=== PATIENT | female | born 1930 | race Caucasian/White ===

== ENCOUNTER 2016-05-20 16:29 | Emergency (ER) | payer OTHER ==
[~2016-05-20] VITALS: Wt 74.6 kg
[~2016-05-20 16:29] MED LIST: APIX5TAB PO; BENA5TAB2 PO; CHOL400T10 PO; DICY10CA60 PO; DIGO125T PO; FEBU40TA PO; FURO20TA3 PO; ISOS20TA19 PO; METO100T13 PO; MTF1000T PO; NIT4 SL; OLOP2.5D BOTH EYES; OMEG1CAP2 PO; OMEP40CA6 PO
[2016-05-20] MEDS ORDERED: ONDANSETRON 4 MG INJ IV STA (23:13)
[2016-05-20] MEDS ORDERED: morphine 2 MG INJ IV STA (23:13)
[2016-05-20] MEDS ORDERED: SOD CHLORIDE 0.9% 500 ML IV STA (23:13)
[2016-05-20 23:49] LABS: URINE BILIRUBIN (Dip) NEGATIVE (NEGATIVE); URINE BLOOD (Dip) NEGATIVE (NEGATIVE); URINE COLOR LT. YELLOW (YELLOW); URINE GLUCOSE (Dip) NEGATIVE (NEGATIVE); URINE KETONES (Dip) NEGATIVE (NEGATIVE); URINE LEUKOCYTE ESTERASE (Dip) NEGATIVE (NEGATIVE); URINE NITRITE (Dip) NEGATIVE (NEGATIVE); URINE UROBILINOGEN (Dip) 0.2 E.U./dL (0.1-1.0)
[2016-05-20 23:49] LABS: BASOPHILS % 0.5 % (0.0-2.0); EOSINOPHILS # 0.2 10^3/ul (0.0-0.5); EOSINOPHILS % 2.5 % (0.0-7.0); HEMOGLOBIN 14.2 g/dl (12.0-16.0); LYMPHOCYTES # 2.6 10^3/ul (0.8-2.9); LYMPHOCYTES % 36.8 % (15.0-51.0); MEAN CORPUSCULAR HEMOGLOBIN 34.1 pg (29.0-33.0); MEAN CORPUSCULAR HGB CONC 33.9 g/dl (32.0-37.0); MEAN CORPUSCULAR VOLUME 100.8 fl (82.0-101.0); MEAN PLATELET VOLUME 9.6 fl (7.4-10.4); MONOCYTE # 0.7 10^3/ul (0.3-0.9); MONOCYTES % 10.3 % (0.0-11.0); NEUTROPHIL # 3.5 10^3/ul (1.6-7.5); NEUTROPHILS % 49.9 % (39.0-77.0); PLATELET COUNT 183 10^3/UL (140-440); RED BLOOD COUNT 4.17 10^6/ul (4.20-5.40); RED CELL DISTRIBUTION WIDTH 15.4 % (11.5-14.5); UNCORRECTED WBC 7.1 10^3/ul (4.8-10.8); WHITE BLOOD COUNT 7.1 10^3/ul (4.8-10.8)
[2016-05-20 23:52] LABS: ADD UMIC NO; URINE TOTAL PROTEIN (Dip) NEGATIVE (NEGATIVE)
[2016-05-20 23:54] LABS: ALBUMIN 4.3 g/dl (3.3-4.9); POTASSIUM 5.4 mmol/L (3.5-5.1)
[2016-05-20 23:56] LABS: BILIRUBIN,INDIRECT 0.2 mg/dl (0-1.1); BILIRUBIN,TOTAL 0.2 mg/dl (0.2-1.3); CREATININE 1.17 mg/dl (0.44-1.00)
[2016-05-20 23:57] LABS: ALBUMIN/GLOBULIN RATIO 1.16; CALCIUM 9.1 mg/dl (8.4-10.2)
[2016-05-20 23:58] LABS: CONDITION 1; LH ANALYZER COMMENTS 1
--- NOTE | 2016-05-21 00:07 | RADRPT ---
PROCEDURE: Portable chest x-ray. CLINICAL INDICATION: Abdominal pain. TECHNIQUE: Portable AP view of the chest. COMPARISON: 01/17/2016. FINDINGS: No pulmonary edema or conolidation is identified. The cardiac silhouette is large. No pleural effu minnie is seen. There is no pneumothorax. There is no pneumoperitoneum. IMPRESSION: 1. No evidence of acute cardiopulmonary disease. 2. Enlarged cardiac silhouette. 3. No pneumoperitoneum. RPTAT: HTAR .Eriberto Weiss MD, MD Date Time Electronically viewed and signed by .Eriberto Weiss MD, on 05/21/2016 00:07 .R/
[2016-05-21 00:09] LABS: TROPONIN-I 0.014 ng/ml (0.00-0.12)
--- NOTE | 2016-05-21 00:42 | RADRPT ---
PROCEDURE: CT Abdomen and Pelvis without contrast. CLINICAL INDICATION: Abdominal pain TECHNIQUE: CT scan of the abdomen and pelvis without contrast was performed on a multidetector hig h-resolution CT scanner. The patient was scanned without intravenous contrast. No oral contrast was administered. Coronal and sagittal reformatted images were obtained from the axial source images. Im ages were reviewed on a high-resolution PACS workstation. The total exam CTDI equals 19.12 mGy and the total exam DLP equals 1094.58 mGy-cm. One or more of the following dose reduction techniques were used: - Automated exposure control. - Adjustment of the mA and/or kV according to patient size. - Use of iterative reconstruction technique. COMPARISON: None. FINDINGS: Lungs: Mild dependent atelectasis is seen in the posterior lower lungs. Linear atelectasis/fibrosis is seen at the lung bases. Coronary artery calcification. Trace pleural effusions. Hypoventilator y/small airways changes again seen at lung bases. Liver: Cirrhosis again seen. Rounded fluid density structures likely cysts are again seen the liver the largest 1.3 cm in the right lobe anterior segment. No imaging follow-up of these is recommended . Gallbladder: Cholecystectomy. Spleen: No abnormality seen. Stomach: The stomach is not distended. Pancreas: Atrophic changes are again seen in the pancreas. Adrenals: No abnormality seen. Kidneys: Bilateral nonspecific perinephric stranding and small amount of right perinephric fluid is again seen. Abdominal aorta: No aneurysm seen. Atherosclerotic calcification is seen. Calcification in proxima l left renal artery. Lymph nodes: No enlarged lymph nodes are seen. Small bowel: No dilated small bowel loops are seen. Colon: Diverticula in sigmoid, transverse and ascending colon. Appendix: There is appearance of an unremarkable appendix. Bladder: No abnormality seen Pelvic organs: Vascular calcifications in the uterus. Ascites: Small amount of ascites increased compared to previous study. Osseous structures: Lumbar spondylosis. Degenerative changes at sacroiliac joints and hips. Small scattered likely bone islands again seen. Calcified likely injection granulomas in the gluteal kj ons again seen. Subcutaneous edema again seen. IMPRESSION: Trace pleural effusions appearing since previous study. Hepatic cirrhosis again seen. Small amount o f ascites increased compared to previous study. Colonic diverticulosis. Atherosclerosis. Small dorina unt of nonspecific right perinephric fluid again seen. Please see above. RPTAT: HJES .Bryson Rangel MD, MD Date Time Electronically viewed and signed by .Bryson Rangel MD, on 05/21/2016 00:42 .S/
[2016-05-21 01:10] VITALS: TEMP 98.2
--- NOTE | 2016-05-21 01:33 | ERD ---
ER Documentation Chief Complaint Date/Time DATE: 05/21/16 TIME: 01:32 Chief Complaint ABDOMINAL PAIN FOR THE PAST 3 DAYS CAUSING SOB. NO COUGH OR CONGESTION HPI This is an 85-year-old female has abdominal pain for the past 3 days. Pain is mild to moderate intensity. Diffusely located in her abdomen. No fevers or chills. No cough. No diarrhea. Normal bowel habits. No other current issues. ROS All systems reviewed and are negative except as per history of present illness. Medications Home Meds Active Scripts Apixaban* (Eliquis*) 5 Mg Tablet, 5 MG PO BID for 30 Days, #60 TAB Prov:ELMIRAGARRETT S. 01/23/16 Nitroglycerin* (Nitrostat*) 0.4 Mg Tab.subl, 1 TAB SL Q5M Y for CHEST PAIN for 30 Days, #15 Prov:ELMIRAGARRETT S. 01/23/16 Isosorbide Dinitrate* (Isosorbide Dinitrate*) 20 Mg Tablet, 20 MG PO TID for 30 Days, #30 TAB 3 Refills Prov:ARIADNAGARRETT S. 01/23/16 Digoxin* (Digitek*) 125 Mcg Tablet, 0.125 MG PO DAILY@13 for 30 Days, #30 TAB 3 Refills Prov:ELMIRAGARRETT S. 01/23/16 Benazepril Hcl* (Benazepril Hcl*) 5 Mg Tablet, 5 MG PO DAILY for 30 Days, #30 TAB 3 Refills Prov:GENEVA KUEEP S. 01/23/16 Reported Medications Olopatadine* (Pataday*) 0.2% - 2.5 Ml Drops, 1 DROP BOTH EYES DAILY, EA 01/17/16 Febuxostat* (Uloric*) 40 Mg Tablet, 40 MG PO DAILY, TAB 01/17/16 Omeprazole* (Omeprazole*) 40 Mg Capsule.dr, 40 MG PO DAILY, #30 CAP 01/17/16 Dicyclomine Hcl* (Bentyl*) 10 Mg Capsule, 10 MG PO TID, CAP 01/17/16 Cholecalciferol* (Vitamin D*) 400 Unit Tablet, 400 UNIT PO DAILY, TAB 10/17/15 Metformin* (Glucophage*) 1,000 Mg Tablet, 1000 MG PO BID, #60 TAB 10/17/15 Metoprolol Succinate* (Toprol XL*) 100 Mg Tab.sr.24h, 100 MG PO DAILY, #30 TAB 10/17/15 [place]-3 Acid Ethyl Esters (Lovaza) 1 Gm Capsule, 1 GM PO DAILY, CAP 10/17/15 Furosemide* (Furosemide*) 20 Mg Tablet, 20 MG PO DAILY, #30 TAB 10/17/15 Allergies Allergies: Coded Allergies: No Known Allergies (Verified Allergy, Unknown, 01/17/16) PMhx/Soc History of Surgery: Yes (cholecystectomy) Anesthesia Reaction: No Hx Neurological Disorder: No Hx Respiratory Disorders: No Hx Cardiac Disorders: Yes (htn, high cholesterol) Hx Psychiatric Problems: No Hx Miscellaneous Medical Probl: Yes (see notes) Hx Alcohol Use: No Hx Substance Use: No Hx Tobacco Use: No Smoking Status: Never smoker Physical Exam Vitals Vital Signs Date Time Temp Pulse Resp B/P Pulse Ox O2 Delivery O2 Flow Rate FiO2 05/21/16 01:10 98.2 95 16 111/83 98 Room Air 05/20/16 23:23 108 16 121/94 98 Nasal Cannula 2.0 05/20/16 17:00 98.8 102 24 112/69 98 Physical Exam Const: [] Head: Atraumatic Eyes: Normal Conjunctiva ENT: Normal External Ears, Nose and Mouth. Neck: Full range of motion..~ No meningismus. Resp: Clear to auscultation bilaterally Cardio: Regular rate and rhythm, no murmurs Abd: Soft, non tender, non distended. Normal bowel sounds Skin: No petechiae or rashes Back: No midline or flank tenderness Ext: No cyanosis, or edema Neur: Awake and alert Psych: Normal Mood and Affect Result Diagram: 05/20/16231405/20/162314 Results 24 hrs Laboratory Tests Test 05/20/16 23:15 05/20/16 23:30 Alanine Aminotransferase (ALT/SGPT) 47IU/L Albumin 4.3g/dl Albumin/Globulin Ratio 1.16 Alkaline Phosphatase 142IU/L Anion Gap 21 Aspartate Amino Transf (AST/SGOT) 72IU/L Basophils # 0.010^3/ul Basophils % 0.5% Blood Morphology Comment Blood Urea Nitrogen 19mg/dl Calcium Level 9.1mg/dl Carbon Dioxide Level 27mmol/L Chloride Level 102mmol/L Creatinine 1.17mg/dl Direct Bilirubin 0.00mg/dl Eosinophils # 0.210^3/ul Eosinophils % 2.5% Globulin 3.70g/dl Glucose Level 87mg/dl Hematocrit 42.0% Hemoglobin 14.2g/dl Indirect Bilirubin 0.2mg/dl Lipase 187U/L Lymphocytes # 2.610^3/ul Lymphocytes % 36.8% Mean Corpuscular Hemoglobin 34.1pg Mean Corpuscular Hemoglobin Concent 33.9g/dl Mean Corpuscular Volume 100.8fl Mean Platelet Volume 9.6fl Monocytes # 0.710^3/ul Monocytes % 10.3% Neutrophils # 3.510^3/ul Neutrophils % 49.9% Nucleated Red Blood Cells # 0.010^3/ul Nucleated Red Blood Cells % 0.0/100WBC Platelet Count 14280^3/UL Potassium Level 5.4mmol/L Red Blood Count 4.1710^6/ul Red Cell Distribution Width 15.4% Sodium Level 145mmol/L Total Bilirubin 0.2mg/dl Total Protein 8.0g/dl Troponin I 0.014ng/ml White Blood Count 7.110^3/ul Urine Bilirubin NEGATIVE Urine Clarity CLEAR Urine Color LT. YELLOW Urine Glucose NEGATIVE% Urine Hemoglobin NEGATIVE Urine Ketones NEGATIVE Urine Leukocyte Esterase NEGATIVE Urine Nitrite NEGATIVE Urine Specific [place] 1.015 Urine Total Protein NEGATIVE Urine Urobilinogen 0.2 E.U./dL Urine pH 6.0 Current Medications Medications (Trade) Dose Ordered Sig/Claudia Route PRN Reason Start Time Stop Time Status Last Admin Dose Admin Sodium Chloride (NS) 500 ml @ 500 mls/hr Q1H STAT IV 05/20/16 23:13 05/21/16 00:12 DC 05/20/16 23:33 Morphine Sulfate (morphine) 2 mg ONCE STAT IV 05/20/16 23:13 05/20/16 23:15 DC 05/20/16 23:34 Ondansetron HCl (Zofran Inj) 4 mg ONCE STAT IV 05/20/16 23:13 05/20/16 23:15 DC 05/20/16 23:34 Procedures/MDM EKG: Rate/Rhythm: Normal Sinus Rhythm QRS, ST, T-waves: No changes consistent w/ acute ischemia Impression: No evidence of ischemia or arrhythmia Chest X-ray 1V Interpreted by me: Soft Tissue: No acute abnormalities Bones: No acute abnormalities Mediastinum/Cardiac Silhouette/Lungs: No acute abnormalities Medical decision makin-year-old female with abdominal pain of nonspecific and uncertain etiology. Workup is negative here in the emergency department. At this point pain is resolved eventually discharged home with close 8 hour follow-up. Discharge home pain meds and Zofran. CT of abdomen pelvis showed no acute intra-abdominal pathology. Pain is likely related to patient's history of cirrhosis as there is mild ascites noted on exam Departure Diagnosis: Primary Impression: Abdominal pain Abdominal location: generalized Qualified Code: R10.84 - Generalized abdominal pain Condition: Stable SAMANTHA VILA May 21, 2016 01:33
[2016-05-21] MEDS ORDERED: TRAM50TA2 PO (01:44)
[2016-05-21 03:10] VITALS: BP 135/83; PULSE 93; RESP 18
== END 2016-05-21 03:10 | disposition home or self-care (01) ==
LOC: E/R 16:29
DX: R10.84 Generalized abdominal pain (principal); I10 Essential (primary) hypertension; E11.9 Type 2 diabetes mellitus without complications; Z79.84 Long term (current) use of oral hypoglycemic drugs; Z79.01 Long term (current) use of anticoagulants
CPT/HCPCS: 36415; 71010; 74176; 80053; 81003; 83690; 84484; 85025; 93005; 96374; 96375; 99285; J2270; J2405; J7040

== ENCOUNTER 2016-06-07 18:46 | Inpatient (IN) | payer OTHER ==
[~2016-06-07] VITALS: Ht 152.4 cm; Wt 81.4 kg
[~2016-06-07 18:46] MED LIST changes: +TRAM50TA2 PO
[2016-06-07] MEDS ORDERED: SOD CHLORIDE 0.9% 1,000 ML IV STA (20:40)
[2016-06-07 20:56] LABS: ADD SCAN DIFF NO
[2016-06-07 20:57] LABS: BASOPHIL # 0.1 10^3/ul (0.0-0.1); BASOPHILS % 1.1 % (0.0-2.0); EOSINOPHILS # 0.1 10^3/ul (0.0-0.5); EOSINOPHILS % 0.8 % (0.0-7.0); HEMATOCRIT 40.6 % (37.0-47.0); HEMOGLOBIN 13.6 g/dl (12.0-16.0); LYMPHOCYTES # 1.7 10^3/ul (0.8-2.9); LYMPHOCYTES % 26.4 % (15.0-51.0); MEAN CORPUSCULAR HEMOGLOBIN 33.4 pg (29.0-33.0); MEAN CORPUSCULAR HGB CONC 33.5 g/dl (32.0-37.0); MEAN CORPUSCULAR VOLUME 99.8 fl (82.0-101.0); MEAN PLATELET VOLUME 11.7 fl (7.4-10.4); MONOCYTE # 0.6 10^3/ul (0.3-0.9); MONOCYTES % 9.1 % (0.0-11.0); NEUTROPHILS % 62.3 % (39.0-77.0); PLATELET COUNT 187 10^3/UL (140-415); RED BLOOD COUNT 4.07 10^6/ul (4.20-5.40); RED CELL DISTRIBUTION WIDTH 14.4 % (11.5-14.5); WHITE BLOOD COUNT 6.4 10^3/ul (4.8-10.8)
[2016-06-07] MEDS ORDERED: DILTIAZEM-D5W 125MG/125ML DRIP 125 ML IV SCH (21:00)
[2016-06-07] MEDS ORDERED: DILTIAZEM 25 MG INJ IV ONE (21:00)
[2016-06-07 21:08] LABS: INR 1.62; PROTIME 19.4 Sec (12.2-14.2); PT RATIO 1.5
[2016-06-07 21:09] LABS: ALBUMIN 4.1 g/dl (3.3-4.9); PARTIAL THROMBOPLASTIN TIME 33.4 Sec (25.0-35.0)
[2016-06-07 21:11] LABS: CREATININE 1.08 mg/dl (0.44-1.00)
[2016-06-07 21:12] LABS: BILIRUBIN,INDIRECT 0.7 mg/dl (0-1.1); BILIRUBIN,TOTAL 0.7 mg/dl (0.2-1.3); CALCIUM 9.2 mg/dl (8.4-10.2); TOTAL PROTEIN 7.3 g/dl (6.1-8.1)
--- NOTE | 2016-06-07 21:12 | RADRPT ---
PROCEDURE: XR Chest. CLINICAL INDICATION: Chest Pain. TECHNIQUE: Single frontal view of the chest was obtained. COMPARISON: 05/20/2016 FINDINGS: The cardiomediastinal silhouette is moderately enlarged. Pulmonary vasculature is prominent and mil dly indistinct. There is atelectatic change in the right upper and lower mid lung. There are small bilateral pleural effusions and bibasilar atelectasis. There is no pneumothorax. There is mild ao rtic calcification. There is absence of the distal right clavicle, likely postoperative. IMPRESSION: 1. Moderate cardiomegaly. Mild pulmonary edema. 2. Small bilateral pleural effusions. Atelectatic changes. 3. Mild aortic calcification. RPTAT: HBST .Ariel Johnson MD, Date Time Electronically viewed and signed by .Ariel Johnson MD, on 06/07/2016 21:12 .T/
[2016-06-07 21:13] LABS: ALBUMIN/GLOBULIN RATIO 1.28; POTASSIUM 5.3 mmol/L (3.5-5.1)
[2016-06-07] MEDS ORDERED: ALLO100T PO (21:22)
[2016-06-07] MEDS ORDERED: ASPI-664 PO (21:23)
[2016-06-07] MEDS ORDERED: TAMS0.4C2 PO (21:23)
[2016-06-07] MEDS ORDERED: IBUP800T25 PO (21:23)
--- NOTE | 2016-06-07 21:23 | ERA ---
ER Documentation Chief Complaint Date/Time DATE: 06/07/16 TIME: 21:21 Chief Complaint abd pain x 3 weeks HPI Patient is an 85-year-old female who reports chest pain off and on for the last 3 weeks. She states the last 3 days her heart rate has been rapid. She says with the palpitations that she is short of breath and feels lightheaded however she has not passed out. She denies any fever, coughing, chest congestion, rhinorrhea, sore throat, otalgia, nausea, or vomiting. She says she had a similar episode 2 years ago for which she was hospitalized in [place] however she cannot tell me what was done for her or what her diagnosis was. She says she does have diabetes and hypertension and she only takes an aspirin for her heart. She says exertion makes her symptoms worse and rest helps a little bit. The remainder of the systems are negative. ROS All systems reviewed and are negative except as per history of present illness. Medications Home Meds Reported Medications Glipizide* (Glipizide*) 5 Mg Tablet, 5 MG PO AC BREAKFAST DINNER, TAB 06/07/16 Folic Acid* (Folic Acid*) 1 Mg Tablet, 1 MG PO DAILY, TAB 06/07/16 Tamsulosin Hcl* (Tamsulosin Hcl*) 0.4 Mg Cap.er.24h, 0.4 MG PO DAILY, CAP 06/07/16 Aspirin* (Aspirin* EC) 81 Mg Tablet.dr, 81 MG PO DAILY, TAB 06/07/16 Ibuprofen* (Ibuprofen*) 800 Mg Tablet, 800 MG PO DAILY Y for PRN, TAB 06/07/16 Allopurinol* (Allopurinol*) 100 Mg Tablet, 100 MG PO DAILY, TAB 06/07/16 Febuxostat* (Uloric*) 40 Mg Tablet, 40 MG PO DAILY, TAB 01/17/16 Omeprazole* (Omeprazole*) 40 Mg Capsule.dr, 40 MG PO DAILY, #30 CAP 01/17/16 Cholecalciferol* (Vitamin D*) 400 Unit Tablet, 400 UNIT PO DAILY, TAB 10/17/15 Metformin* (Glucophage*) 1,000 Mg Tablet, 1000 MG PO BID, #60 TAB 10/17/15 [employer] Acid Ethyl Esters (Lovaza) 1 Gm Capsule, 1 GM PO DAILY, CAP 10/17/15 Furosemide* (Furosemide*) 20 Mg Tablet, 20 MG PO DAILY, #30 TAB 10/17/15 Discontinued Reported Medications Olopatadine* (Pataday*) 0.2% - 2.5 Ml Drops, 1 DROP BOTH EYES DAILY, EA 01/17/16 Dicyclomine Hcl* (Bentyl*) 10 Mg Capsule, 10 MG PO TID, CAP 01/17/16 Metoprolol Succinate* (Toprol XL*) 100 Mg Tab.sr.24h, 100 MG PO DAILY, #30 TAB 10/17/15 Discontinued Scripts Tramadol HCl (Tramadol HCl) 50 Mg Tablet, 50 MG PO Q4 Y for PAIN, #20 TAB Prov:SEBASTIANKENNYSAMANTHA S. 05/21/16 Apixaban* (Eliquis*) 5 Mg Tablet, 5 MG PO BID for 30 Days, #60 TAB Prov:ELMIRAGARRETT S. 01/23/16 Nitroglycerin* (Nitrostat*) 0.4 Mg Tab.subl, 1 TAB SL Q5M Y for CHEST PAIN for 30 Days, #15 Prov:GARRETT KU S. 01/23/16 Isosorbide Dinitrate* (Isosorbide Dinitrate*) 20 Mg Tablet, 20 MG PO TID for 30 Days, #30 TAB 3 Refills Prov:ELMIRAGARRETT S. 01/23/16 Digoxin* (Digitek*) 125 Mcg Tablet, 0.125 MG PO DAILY@13 for 30 Days, #30 TAB 3 Refills Prov:ELMIRAGARRETT S. 01/23/16 Benazepril Hcl* (Benazepril Hcl*) 5 Mg Tablet, 5 MG PO DAILY for 30 Days, #30 TAB 3 Refills Prov:ELMIRAGARRETT S. 01/23/16 Allergies Allergies: Coded Allergies: No Known Allergies (Verified Allergy, Unknown, 06/07/16) PMhx/Soc History of Surgery: Yes (cholecystectomy) Anesthesia Reaction: No Hx Neurological Disorder: No Hx Respiratory Disorders: No Hx Cardiac Disorders: Yes (htn, high cholesterol) Hx Psychiatric Problems: No Hx Miscellaneous Medical Probl: Yes (DM) Hx Alcohol Use: Yes Hx Substance Use: No Hx Tobacco Use: No Smoking Status: Former smoker FmHx Family History: coronary disease, diabetes Physical Exam Vitals Vital Signs Date Time Temp Pulse Resp B/P Pulse Ox O2 Delivery O2 Flow Rate FiO2 06/07/16 20:58 Nasal Cannula 2 06/07/16 19:18 98.6 138 20 132/93 97 Physical Exam Const: [] Well-developed well-nourished female sitting on the bed in obvious discomfort Head: Atraumatic normocephalic Eyes: Normal Conjunctiva ENT: Normal External Ears, Nose and Mouth. Neck: Full range of motion..~ No meningismus. Resp: Clear to auscultation bilaterally Cardio: Tachycardic and irregular Abd: Soft, non tender, non distended. Normal bowel sounds Skin: No petechiae or rashes Back: No midline or flank tenderness Ext: No cyanosis, or edema Neur: Awake and alert oriented 3 with a GCS 15 Psych: Normal Mood and Affect Result Diagram: 06/07/16202206/07/162022 Results 24 hrs Laboratory Tests Test 06/07/16 20:23 Activated Partial Thromboplast Time 33.4Sec Alanine Aminotransferase (ALT/SGPT) 59IU/L Albumin 4.1g/dl Albumin/Globulin Ratio 1.28 Alkaline Phosphatase 139IU/L Anion Gap 22 Aspartate Amino Transf (AST/SGOT) 100IU/L Basophils # 0.110^3/ul Basophils % 1.1% Blood Urea Nitrogen 25mg/dl Calcium Level 9.2mg/dl Carbon Dioxide Level 25mmol/L Chloride Level 97mmol/L Creatinine 1.08mg/dl Direct Bilirubin 0.00mg/dl Eosinophils # 0.110^3/ul Eosinophils % 0.8% Globulin 3.20g/dl Glucose Level 144mg/dl Hematocrit 40.6% Hemoglobin 13.6g/dl INR International Normalized Ratio 1.62 Indirect Bilirubin 0.7mg/dl Lymphocytes # 1.710^3/ul Lymphocytes % 26.4% Mean Corpuscular Hemoglobin 33.4pg Mean Corpuscular Hemoglobin Concent 33.5g/dl Mean Corpuscular Volume 99.8fl Mean Platelet Volume 11.7fl Monocytes # 0.610^3/ul Monocytes % 9.1% Neutrophils # 4.010^3/ul Neutrophils % 62.3% Nucleated Red Blood Cells # 0.010^3/ul Nucleated Red Blood Cells % 0.0/100WBC Platelet Count 21335^3/UL Potassium Level 5.3mmol/L Prothrombin Time 19.4Sec Prothrombin Time Ratio 1.5 Red Blood Count 4.0710^6/ul Red Cell Distribution Width 14.4% Sodium Level 139mmol/L Total Bilirubin 0.7mg/dl Total Protein 7.3g/dl Troponin I 0.025ng/ml White Blood Count 6.410^3/ul Current Medications Medications (Trade) Dose Ordered Sig/Claudia Route PRN Reason Start Time Stop Time Status Last Admin Dose Admin Sodium Chloride 1,000 ml @ 1,000 mls/hr Q1H STAT IV 06/07/16 20:40 06/07/16 21:39 DC 06/07/16 20:52 Diltiazem HCl (Cardizem-D5W 125 Mg/125 ml Drip) 125 ml @ 5 mls/hr TITRATE IV 06/07/16 21:00 06/07/16 21:09 Diltiazem HCl (Cardizem Iv) 20 mg ONCE ONCE IV 06/07/16 21:00 06/07/16 21:01 DC 06/07/16 20:57 Procedures/MDM Differential includes but is not limited to atrial fibrillation with RVR, SVT, cardiac arrhythmia, pulmonary embolus, myocardial ischemia EKG: Rate/Rhythm: Atrial fibrillation with rapid ventricular response of approximately 150 bpm QRS, ST, T-waves: No changes consistent w/ acute ischemia Impression: No evidence of ischemia Chest x-ray shows mild pulmonary edema with no acute cardiopulmonary process noted At this time patient's heart rate is around 100 bpm on the diltiazem drip. She does continue to show variation consistent with atrial fibrillation. I have spoken with Dr. Chao to admit her to the hospital. Critical care time of 40 minutes not to include any procedures. 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
[2016-06-07 21:24] LABS: TROPONIN-I 0.025 ng/ml (0.00-0.12)
[2016-06-07] MEDS ORDERED: FOLI-49 PO (21:24)
[2016-06-07] MEDS ORDERED: GLIP5TAB13 PO (21:24)
[2016-06-07] MEDS ORDERED: ACETAMINOPHEN 325 MG TAB PO PRN (22:30)
[2016-06-07] MEDS ORDERED: ONDANSETRON 4 MG INJ IV PRN (22:30)
[2016-06-08 06:16] LABS: TROPONIN-I 0.02 ng/ml (0.00-0.12)
[2016-06-08 08:56] LABS: CK-MB 1.99 ng/ml (0.0-2.4)
[2016-06-08 08:59] LABS: TROPONIN-I 0.035 ng/ml (0.00-0.12)
[2016-06-08] MEDS ORDERED: IBUPROFEN 800 MG TAB PO PRN (10:00)
[2016-06-08] MEDS ORDERED: ONDANSETRON 4 MG TAB PO PRN (10:00)
--- NOTE | 2016-06-08 10:34 | HP ---
Date/Time of Note Date/Time of Note DATE: 06/08/16 TIME: 09:26 Assessment/Plan VTE Prophylaxis VTE Prophylaxis Intervention: other Lines/Catheters IV Catheter Type (from Nrsg): Peripheral IV Assessment/Plan Assessment/Plan -Atrial fibrillation with rapid ventricular response - CARDIOLOGY CONSULT APPRECIATED- Dr Rico notified - dc cardizem drip- start on Crdizem 60 mg po q6h - continues tele monitoring- HR 92 - Zofran for nause - Tylenol for pain - Abdominal pain - GI consult appreciated- Dr Urias notified. - CT abdomen with oral contrast - us abdomen - Morphine 2 mg iv q3hr prn pain -Type 2 diabetes mellitus - Glycemic control - 1800 jamie ADA, CARDIAC diet- liquid diet -Essential hypertension - stable - Hyperkalemia-monitor labs - Dyslipidemia - sp cholecystectomy - Former smoker PLAN; -Admit to hospital - resume home meds - admssion orders done -protonix for GI prophylaxis - kelly Chao/staff/patient HPI/ROS Admit Date/Time Admit Date/Time Hx of Present Illness abd pain x 3 weeks HPI Patient is an 85-year-old female patient - a former smoker with history of hypertension, high cholesterol, Diabetes, cholecystectomy, and with family H/O coronary disease, diabetes. Patient had c/o chest pain off and on for the last 3 weeks. Per patient, from last 3 days her heart rate has been rapid accompanied with palpitations, short of breath, lightheaded without passing out.She denies any fever, coughing, chest congestion, rhinorrhea, sore throat, otalgia, nausea, or vomiting. She stated she had a similar episode 2 years ago for which she was hospitalized in [place] but she was unable to tell her diagnosis at that time.Per patient she have diabetes and hypertension and she only takes an aspirin for her heart. She says exertion makes her symptoms worse and rest helps a little bit. The remainder of the systems are negative. Patient denied any chest pain, shortness of breath at present. Patient is able to talk in full sentences. She deneis any SOB while eating. Denies any dizziness, headache, nausea/vomitting. Denies any fall/trauma/ recent travel, contact wit sick. Patiet remains on o2 by MT. Patient got admitted under Dr Araujo for possible atrial fibrillation with RVR, SVT, cardiac arrhythmia, pulmonary embolus, myocardial ischemia ROS All systems reviewed and are negative except as per history of present illness. Medications Home Meds Reported Medications Glipizide* (Glipizide*) 5 Mg Tablet, 5 MG PO AC BREAKFAST DINNER, TAB 06/07/16 Folic Acid* (Folic Acid*) 1 Mg Tablet, 1 MG PO DAILY, TAB 06/07/16 Tamsulosin Hcl* (Tamsulosin Hcl*) 0.4 Mg Cap.er.24h, 0.4 MG PO DAILY, CAP 06/07/16 Aspirin* (Aspirin* EC) 81 Mg Tablet.dr, 81 MG PO DAILY, TAB 06/07/16 Ibuprofen* (Ibuprofen*) 800 Mg Tablet, 800 MG PO DAILY Y for PRN, TAB 06/07/16 Allopurinol* (Allopurinol*) 100 Mg Tablet, 100 MG PO DAILY, TAB 06/07/16 Febuxostat* (Uloric*) 40 Mg Tablet, 40 MG PO DAILY, TAB 01/17/16 Omeprazole* (Omeprazole*) 40 Mg Capsule.dr, 40 MG PO DAILY, #30 CAP 01/17/16 Cholecalciferol* (Vitamin D*) 400 Unit Tablet, 400 UNIT PO DAILY, TAB 10/17/15 Metformin* (Glucophage*) 1,000 Mg Tablet, 1000 MG PO BID, #60 TAB 10/17/15 [place]-3 Acid Ethyl Esters (Lovaza) 1 Gm Capsule, 1 GM PO DAILY, CAP 10/17/15 Furosemide* (Furosemide*) 20 Mg Tablet, 20 MG PO DAILY, #30 TAB 10/17/15 Discontinued Reported Medications Olopatadine* (Pataday*) 0.2% - 2.5 Ml Drops, 1 DROP BOTH EYES DAILY, EA 01/17/16 Dicyclomine Hcl* (Bentyl*) 10 Mg Capsule, 10 MG PO TID, CAP 01/17/16 Metoprolol Succinate* (Toprol XL*) 100 Mg Tab.sr.24h, 100 MG PO DAILY, #30 TAB 10/17/15 Discontinued Scripts Tramadol HCl (Tramadol HCl) 50 Mg Tablet, 50 MG PO Q4 Y for PAIN, #20 TAB Prov:SAMANTHA VILA 05/21/16 Apixaban* (Eliquis*) 5 Mg Tablet, 5 MG PO BID for 30 Days, #60 TAB Prov:GARRETT KU S. 01/23/16 Nitroglycerin* (Nitrostat*) 0.4 Mg Tab.subl, 1 TAB SL Q5M Y for CHEST PAIN for 30 Days, #15 Prov:HAYLEE KUP S. 01/23/16 Isosorbide Dinitrate* (Isosorbide Dinitrate*) 20 Mg Tablet, 20 MG PO TID for 30 Days, #30 TAB 3 Refills Prov:GARRETT KU S. 01/23/16 Digoxin* (Digitek*) 125 Mcg Tablet, 0.125 MG PO DAILY@13 for 30 Days, #30 TAB 3 Refills Prov:GARRETT KU S. 01/23/16 Benazepril Hcl* (Benazepril Hcl*) 5 Mg Tablet, 5 MG PO DAILY for 30 Days, #30 TAB 3 Refills Prov:GARRETT KU S. 01/23/16 Allergies Allergies: Coded Allergies: No Known Allergies (Verified Allergy, Unknown, 06/07/16) ROS Constitutional: improved Eyes: no complaints ENT: no complaints Respiratory: no complaints Cardiovascular: other (staes her chest pain has improved. feel better. no chest pain at present.) Gastrointestinal: no complaints Genitourinary: no complaints Musculoskeletal: no complaints Skin: no complaints Neurologic: no complaints Endocrine: no complaints Lymphatic: no complaints Psychological: no complaints PMH/Family/Social Past Medical History PMhx/Soc History of Surgery: Yes (cholecystectomy) Anesthesia Reaction: No Hx Neurological Disorder: No Hx Respiratory Disorders: No Hx Cardiac Disorders: Yes (htn, high cholesterol) Hx Psychiatric Problems: No Hx Miscellaneous Medical Probl: Yes (DM) Hx Alcohol Use: Yes Hx Substance Use: No Hx Tobacco Use: No Smoking Status: Former smoker FmHx Family History: coronary disease, diabetes Past Surgical History Past Surgical Hx: cholecystectomy Social History Alcohol Use: occasionally Smoking Status: Former smoker Drug Use: none Exam/Review of Systems Vital Signs Vitals Vital Signs Date Time Temp Pulse Resp B/P Pulse Ox O2 Delivery O2 Flow Rate FiO2 06/08/16 09:00 92 18 112/75 97 Nasal Cannula 2.0 06/07/16 19:18 98.6 Exam Constitutional: alert, oriented Psych: nl mood/affect, no complaints Head: atraumatic Eyes: EOMI, nl sclera ENMT: nl external ears & nose Neck: non-tender Respiratory: clear to auscultation Cardiovascular: nl pulses, other (AFIB- On cardizem drip-stable now. denies chest pain) Gastrointestinal: non-tender, soft Musculoskeletal: nl extremities to inspection Extremities: edema (mild BLE), normal pulses Neurological: nl mental status, nl speech Skin: nl turgor Lymph: nontender Labs Result Diagram: 06/07/16202206/07/162022 Medications Medications Current Medications Diltiazem HCl (Cardizem-D5W 125 Mg/125 ml Drip) 125 ml @ 5 mls/hr TITRATE IV Last administered on 06/07/16t 21:09; Admin Dose 5 MLS/HR; Start 06/07/16 at 21: 00 Procedures Procedures 1. EKG: Rate/Rhythm: Atrial fibrillation with rapid ventricular response of approximately 150 bpm QRS, ST, T-waves: No changes consistent w/ acute ischemia Impression: No evidence of ischemia 2. Chest x-ray shows mild pulmonary edema with no acute cardiopulmonary process noted MINDY BARNES Jun 08, 2016 09:36
--- NOTE | 2016-06-08 11:10 | RADRPT ---
PROCEDURE: US Abdomen. CLINICAL INDICATION: Abdominal pain. History of cholecystectomy TECHNIQUE: Multiple real-time images were acquired of the patient's abdomen and retroperitoneum ut ilizing a high resolution transducer. COMPARISON: None FINDINGS: Exam is seen limited in technique. The liver demonstrates normal echogenicity and size and no focal lesions are seen. Cirrhotic liver morphology is seen. The liver measures 14.8 cm in size. The gall bladder is not identified. The common bile duct measures 5.4 mm. There is no pericholecystic fluid. No intrahepatic biliary dilatation is seen. The visualized portions of the pancreas are unremarkab le. There is no splenomegaly. The spleen measures 10.5 cm in size. A mild amount of free fluid is identified. A right pleural effusion is seen. The kidneys are normal size, and demonstrate normal echogenicity and morphology. The right kidney m easures 10.2 cm. The left kidney measures 9.8 cm. There is no dilatation of the pelvicaliceal syst ems bilaterally. There are no perinephric fluid collections. There are no areas of increased echog enicity to suggest nephrolithiasis. IMPRESSION: 1. Hepatic cirrhosis. 2. Mild amount of free fluid with a right pleural effusion identified. 3. Gallbladder not visualized consistent with the clinical history of a prior cholecystectomy. RPTAT: HPNM Physician Janel Date Time Electronically viewed and signed by Physician Janel on 06/08/2016 11:10 /
[2016-06-08 11:30] VITALS: Ht 152.4 cm; Wt 81.4 kg
[2016-06-08] MEDS ORDERED: GLUCOSE GEL 15 GRAM TUBE PO PRN ×4 (11:30→12:30)
[2016-06-08] MEDS ORDERED: GLUCAGON 1 MG INJ IM PRN ×2 (11:30→12:30)
[2016-06-08] MEDS ORDERED: GLUCOSE GEL 15 GRAM TUBE BUCCAL PRN ×2 (11:30→12:30)
[2016-06-08] MEDS ORDERED: DEXTROSE 50% 50 ML SYRINGE IV PRN ×4 (11:30→12:30)
[2016-06-08 12:02] VITALS: PULSE 96
[2016-06-08] MEDS: morphine 2 MG INJ IV PRN (12:25)
[2016-06-08] MEDS: INSULIN ASPART [NOVOLOG] 3 ML PEN SC SCH ×3 (13:00→21:00)
--- NOTE | 2016-06-08 13:01 | RADRPT ---
PROCEDURE: CT Abdomen without contrast. CLINICAL INDICATION: Periumbilical Abdominal pain. Hepatic cirrhosis. TECHNIQUE: CT scan of the abdomen without contrast was performed on the [employer] CT scanner. Oral contr ast was not administered. 3-D coronal and sagittal reformatted images were obtained from the axial source images. CT D V O L 654 mgy/cm. CT D V O L 14 mgy. This exam is limited due to lack of IV contrast. Automated exposure control Adjustment of the mA and/or kV according to patient size. Use of iterative reconstruction technique. COMPARISON: Abdominal ultrasound from the same day, May 21, 2016 FINDINGS: There are new, small, bilateral pleural effusions. Mild cardiomegaly appears stable. Cirrhosis of the liver again redemonstrated, and overall unchanged. The spleen is normal in size and homogeneous in density. The stomach is partially collapsed, but is grossly unremarkable. The panc reas as visualized is normal. The gallbladder has been resected. The adrenal glands are symmetric and normal. The kidneys are symmetrically unremarkable as well. N o renal calculus or obstructive uropathy or mass lesion is seen. The aorta is of normal caliber. Aortic vascular calcifications are present. There is no retroperit lucero lymphadenopathy. The maria elena hepatis region is clear. The bowel and mesentery, as visualized, are equally unremarkable. There is stable, minimal abdominal ascites. Anasarca is again noted. There are no findings of free air or perforation. The bowel loops are normal in caliber. There are no findings of large or small bowel obstruction. No acute inflammatory process identified. No bow el wall thickening or acute inflammation. The surrounding osseous structures are remarkable for mild degenerative spondylosis of the spine. N o osteolytic or osteoblastic lesion is detected. IMPRESSION: 1. Small bilateral pleural effusions, mild cardiomegaly, cirrhosis of the liver, status post cholec ystectomy, mild ascites and mild anasarca. Overall, no significant interval change. 2. No mass, lymphadenopathy, or focal acute inflammatory process is identified. RPTAT: EE .Joan Okeefe MD, Date Time Electronically viewed and signed by .oJan Okeefe MD, on 06/08/2016 13:00 .F/
[2016-06-08] MEDS: PANTOPRAZOLE 40 MG INJ IV SCH (14:15)
[2016-06-08] MEDS: APIXABAN 5 MG TABLET PO SCH ×2 (14:16→21:02)
[2016-06-08 14:47] LABS: POTASSIUM 4.4 mmol/L (3.5-5.1)
[2016-06-08 14:49] LABS: CREATININE 0.97 mg/dl (0.44-1.00)
[2016-06-08 15:40] VITALS: BP 113/90; RESP 20
--- NOTE | 2016-06-08 16:03 | CONS ---
DATE OF ADMISSION: 06/07/2016 DATE OF CONSULTATION: 06/08/2016 REFERRING PHYSICIAN: Rocky Chao MD REASON FOR EVALUATION: Atrial fibrillation with rapid ventricular response, shortness of breath. HISTORY OF PRESENT ILLNESS: Ms. Red is an 85-year-old woman with history of atrial fibrillation o n Eliquis, hypertension, history of diabetes, dyslipidemia, history of cataracts, history of prior a dmissions for atrial fibrillation with RVR as well as syncope, who comes to the hospital now for jennifer luation of initial abdominal discomfort. The patient was noted to be in atrial fibrillation with ra pid ventricular response. I have been asked to see the patient in consultation for further re-evalu ation. It appears that the patient was in atrial fibrillation at the rate of 148 when she presented to the hospital. Currently, heart rate is in the 90s. She is still with some degree of fluid over load for which she is being treated. For now, conservative therapy is expected. We will continue t o optimize the patient's fluid status. Will diurese her gently and try to control her rate as much as possible. PAST MEDICAL HISTORY: 1. Hypertension. 2. Dyslipidemia. 3. Prior history of syncope. 4. History of atrial fibrillation with RVR. 5. Diabetes. 6. Hypertension. 7. Dyslipidemia. 8. History of blindness. ALLERGIES: NO KNOWN DRUG ALLERGIES. SOCIAL HISTORY: The patient does not smoke, does not drink, does not use any drugs. FAMILY HISTORY: Negative for sudden cardiac or premature coronary artery disease. MEDICATIONS: 1. ____ 100 mg p.o. once a day. 2. Aspirin 81 mg p.o. once a day. 3. Uloric 40 mg p.o. once a day. 4. Folic acid. 5. Lasix 20 mg p.o. once a day. 6. Fish oil. 7. Docusate. 5. Eliquis 5 mg p.o. b.i.d. 6. Glucose ____ 7. Insulin sliding scale. REVIEW OF SYSTEMS: CONSTITUTIONAL: No fevers, no chills, no shortness of breath, no recent weight changes. HEENT: No changes in vision. CARDIAC: Atrial fibrillation, RVR is better now. RESPIRATORY: Shortness of breath, acute on chronic. GASTROINTESTINAL: Some abdominal discomfort mid-abdominal. GENITOURINARY: No dysuria, hematuria. NEUROLOGIC: No focal neurologic deficits. HEMATOLOGIC: ____ PSYCHIATRIC: No known history of psychiatric illness. PHYSICAL EXAMINATION: VITAL SIGNS: Temperature is 98.7, heart rate is 97, blood pressure is 104/74. GENERAL: She is an obese woman in no acute distress, alert and oriented x3, speaking Gambian, aware of her condition. HEAD: Normocephalic, atraumatic. Eyes anicteric. NECK: Supple. JVD 6-7 cm. There is no lymphadenopathy or thyromegaly. HEART: Irregularly irregular with soft holosystolic murmur mid chest. ____ PMI is nondisplaced. Th ere is no cyanosis. LUNGS: Coarse at bases. ABDOMEN: Distended, bowel sounds present. There is no hepatosplenomegaly. GENITOURINARY: Grossly intact. EXTREMITIES: No cyanosis, trace edema. LABORATORY DATA: White blood cell count is 6.4, hemoglobin 12.6, platelets 187. INR is 1.62, creat inine 0.9. Troponin is negative at 0.02. ASSESSMENT AND PLAN: 1. Atrial fibrillation. Patient has chronic atrial fibrillation, ____. Will continue to optimize her heart rate with p.o. medications. Follow expectantly. 2. ____ patient is on Eliquis. Continue anticoagulation. 4. Chest pain. The patient did not rule in for acute HI. Troponins are negative. 4. Heart failure. The patient has heart failure. Will follow up with a 2D echo, continue gentle d iuresis if tolerated. 5. Acute renal failure. Creatinine is ____0.97. Good urine output now. Continue to follow. 6. Diabetes. Continue diabetic optimization and care. 7. Hypertension. Blood pressure fairly well controlled. Continue medical therapy. I would like to thank Dr. Chao for referring this patient for my evaluation. Dictated By: VAN AZEVEDO MD ML/MAXIME Conf#: [id number] DID#: [id number]
[2016-06-08 16:14] VITALS: PULSE 107
--- NOTE | 2016-06-08 18:04 | RADRPT ---
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 Physician: MINDY BARNES Quality: Technically Difficult Study Procedures: Transthoracic echocardiogram with complete 2D, M-Mode, and doppler examination. Indications: Cardiomyopathy. 2D/M Mode Doppler Measurement Value Normal Ranges Measurement Value Normal Ranges LVIDd 2D 6.1 3.5 - 5.6 cm AV Peak Ayaz 1.1 m/sec LVIDs 2D 5.7 2.1 - 4.1 cm AV Peak PG 4.8 mmHg LVPWd 2D 1.2 0.6 - 1.1 cm AI Peak PG 28.3 mmHg IVSd 2D 0.9 0.6 - 1.1 cm AI Peak Ayaz 2.7 m/sec AoR Diam 2D 2.7 2.0 - 3.7 cm AI PHT 290.8 msec EDV 2D 185.0 cm3 LVOT Peak Ayaz 0.7 m/sec ESV 2D 187.3 cm3 LVOT Peak PG 2.2 mmHg TR Peak Ayaz 2.2 m/sec TR Peak PG 19.0 mmHg Findings Left Ventricle: Left ventricular wall thickness upper limits of normal. Mild enlargement of left ventricle cavity. Severe global left ventricular systolic dysfunction. Ejection fraction is visually estimated at 15 %. Abnormal Diastolic Function. Right Ventricle: Mild enlargement of right ventricle. Mild right ventricular hypokinesis. Left Atrium: There is mild enlargement of left atrium. Right Atrium: There is moderate enlargement of right atrium. Mitral Valve: Mild mitral leaflet calcification. Mild mitral annular calcification. Moderate mitral valve regurgitation. Aortic Valve: Trileaflet aortic valve. Mild aortic valve regurgitation. Tricuspid Valve: Estimated peak PA systolic pressure 30 mmHg. There is mild tricuspid regurgitation. Pulmonic Valve: There is mild pulmonic regurgitation. Pericardium: There is an anterior echo free space consistent with epicardial fat pad. Aorta: Normal aortic root. IVC: Dilated inferior vena cava with poor inspiratory collapse consistent with elevated right atrial pressures. Conclusions 1.Left ventricular wall thickness upper limits of normal. Mild enlargement of left ventricle cavity. Severe global left ventricular systolic dysfunction. Ejection fraction is visually estimated at 15 %. Abnormal Diastolic Function. 2.Mild mitral leaflet calcification. Mild mitral annular calcification. Moderate mitral valve regurgitation. 3.Trileaflet aortic valve. Mild aortic valve regurgitation. 4.Estimated peak PA systolic pressure 30 mmHg. There is mild tricuspid regurgitation. Electronically Signed By: Cordell Rico 08-Jun-2016 18:03:32 -0800 Patient Name: FERNANDEZ AGUILAR Study Date: 08-Jun-2016 [id number]
[2016-06-08] MEDS: DILTIAZEM 60 MG TAB PO SCH (18:31)
[2016-06-08 20:00] VITALS: BP 137/94; RESP 16
[2016-06-08 20:23] VITALS: PULSE 138
[2016-06-08] MEDS: DOCUSATE SODIUM 100 MG CAP PO SCH (21:02)
[2016-06-08] MEDS: METOPROLOL 25 MG TAB PO SCH (21:03)
[2016-06-08 23:06] VITALS: BP 106/80; RESP 17
[2016-06-09] VITALS (14 sets, daily range): BP systolic 93–125; BP diastolic 54–77; PULSE 67–112; RESP 16–21
[2016-06-09] MEDS ORDERED: ONDANSETRON 4 MG INJ IV PRN (02:30)
[2016-06-09] MEDS: DILTIAZEM 60 MG TAB PO SCH ×4 (06:00→18:15)
[2016-06-09] MEDS: PANTOPRAZOLE 40 MG INJ IV SCH (06:54)
[2016-06-09] MEDS: INSULIN ASPART [NOVOLOG] 3 ML PEN SC SCH ×4 (07:55→21:00)
[2016-06-09] MEDS ORDERED: INFLUENZA VIRUS VACCINE 0.5 ML (DISPENSING) IM* ONE (09:00)
[2016-06-09] MEDS ORDERED: FUROSEMIDE 20 MG TAB PO SCH (09:00)
[2016-06-09] MEDS ORDERED: CHOLECALCIFEROL 400 UNITS TAB PO SCH (09:00)
[2016-06-09] MEDS: METOPROLOL 25 MG TAB PO SCH ×2 (09:00→22:16)
[2016-06-09] MEDS: FISH OIL 1,000 MG CAP PO SCH (09:25)
[2016-06-09] MEDS: ASPIRIN (EC) 81 MG TAB PO SCH (09:26)
[2016-06-09] MEDS: DOCUSATE SODIUM 100 MG CAP PO SCH ×2 (09:27→22:15)
[2016-06-09] MEDS: APIXABAN 5 MG TABLET PO SCH ×2 (09:27→22:15)
[2016-06-09] MEDS: ALLOPURINOL 100 MG TAB PO SCH (09:27)
[2016-06-09] MEDS: TAMSULOSIN (SR) 0.4 MG CAP PO SCH (09:27)
[2016-06-09] MEDS: FOLIC ACID 1 MG TAB PO SCH (09:27)
[2016-06-09] MEDS: CHOLECALCIFEROL 400 UNITS TAB PO SCH (09:28)
[2016-06-09] MEDS: FEBUXOSTAT 40 MG TABLET PO SCH (09:28)
[2016-06-09 09:55] LABS: ADD SCAN DIFF NO
[2016-06-09 09:58] LABS: BASOPHILS % 0.6 % (0.0-2.0); EOSINOPHILS % 0.2 % (0.0-7.0); HEMOGLOBIN 12.4 g/dl (12.0-16.0); LYMPHOCYTES # 1.4 10^3/ul (0.8-2.9); LYMPHOCYTES % 21.2 % (15.0-51.0); MEAN CORPUSCULAR HGB CONC 33.5 g/dl (32.0-37.0); MEAN CORPUSCULAR VOLUME 101.4 fl (82.0-101.0); MEAN PLATELET VOLUME 11.7 fl (7.4-10.4); MONOCYTE # 0.5 10^3/ul (0.3-0.9); MONOCYTES % 7.6 % (0.0-11.0); NEUTROPHIL # 4.6 10^3/ul (1.6-7.5); NEUTROPHILS % 69.8 % (39.0-77.0); PLATELET COUNT 200 10^3/UL (140-415); RED BLOOD COUNT 3.65 10^6/ul (4.20-5.40); RED CELL DISTRIBUTION WIDTH 14.6 % (11.5-14.5); WHITE BLOOD COUNT 6.6 10^3/ul (4.8-10.8)
[2016-06-09 10:09] LABS: ALBUMIN 3.7 g/dl (3.3-4.9)
[2016-06-09 10:10] LABS: POTASSIUM 4.9 mmol/L (3.5-5.1)
[2016-06-09 10:12] LABS: ALBUMIN/GLOBULIN RATIO 1.02; BILIRUBIN,INDIRECT 0.8 mg/dl (0-1.1); BILIRUBIN,TOTAL 0.8 mg/dl (0.2-1.3); CREATININE 1.32 mg/dl (0.44-1.00); TOTAL PROTEIN 7.3 g/dl (6.1-8.1)
[2016-06-09 10:13] LABS: CALCIUM 8.6 mg/dl (8.4-10.2); CHOL/HDL RATIO 2.3 RATIO; MAGNESIUM 2.1 mg/dl (1.7-2.5); PHOSPHORUS 4.6 mg/dl (2.5-4.9)
--- NOTE | 2016-06-09 14:53 | CONS ---
Date/Time of Note Date/Time of Note DATE: 06/09/16 TIME: 14:50 Assessment/Plan Assessment/Plan Additional Assessment/Plan 1. Atrial fibrillation - Patient has chronic atrial fibrillation, Rate Controlled. 2. Secondary hypercoagulable sate: patient is on Eliquis. Continue anticoagulation. 4. Chest pain. The patient did not rule in for acute UT. Troponins are negative. 4. Heart failure. The patient has heart failure. Will follow up with a 2D echo, continue gentle diuresis if tolerated. EF low - will discuss ICD. 5. Acute renal failure. Creatinine is normal. Good urine output now. Continue to follow. 6. Diabetes. Continue diabetic optimization and care. 7. Hypertension. Blood pressure fairly well controlled. Continue medical therapy. Consultation Date/Type/Reason Admit Date/Time Jun 07, 2016 at 22:30 Initial Consult Date 24 HR Interval Summary Free Text/Dictation NO acute change - BP stable - rosario rfluid satus - con't rate control for a. fib ROS: No fever, no chills, no nausea, no vomiting, no diarrhea/constipation No recent weight changes No chest pain, no PND, no orthopnea No dizziness, blurred vision No thirst, no heat or cold intolerance Exam/Review of Systems Vital Signs Vitals Vital Signs Date Time Temp Pulse Resp B/P Pulse Ox O2 Delivery O2 Flow Rate FiO2 06/09/16 12:16 100 06/09/16 11:39 97.4 21 125/71 99 06/09/16 09:00 Nasal Cannula 2.0 Intake and Output 06/08/16 06/08/16 06/09/16 15:00 23:00 07:00 Intake Total 300 ml Output Total 20 ml Balance 300 ml -20 ml Exam General: WN/WD/NAD, AOx 2-3 HEENT: Unicetric/atraumatic/EOMI (follow commands) NECK: JVD elevated, no thyromegaly Lymph: no lymphadenopathy HEART: IRregular with no S3, II/ systolic murmur at apex LUNGS: Coarse sounds ABD: soft, NT, ND, +BS : Intact Neuro: non focal SKIN: chronic changes EXT: decreased edema Results Result Diagram: 06/09/16 0940 06/09/16 0940 Results 24 hrs Laboratory Tests Test 06/08/16 17:36 06/08/16 20:59 06/09/16 08:33 06/09/16 09:40 Bedside Glucose 150 151 127 Alanine Aminotransferase (ALT/SGPT) 71 H Albumin 3.7 Albumin/Globulin Ratio 1.02 Alkaline Phosphatase 141 H Anion Gap 19 H Aspartate Amino Transf (AST/SGOT) 121 H Basophils # 0.0 Basophils % 0.6 Blood Urea Nitrogen 28 H Calcium Level 8.6 Carbon Dioxide Level 22 Chloride Level 97 Cholesterol Level 111 Cholesterol/HDL Ratio 2.3 Creatinine 1.32 H Direct Bilirubin 0.00 Eosinophils # 0.0 Eosinophils % 0.2 Globulin 3.60 H Glucose Level 183 HDL Cholesterol 47 Hematocrit 37.0 Hemoglobin 12.4 Hemoglobin A1c 6.0 H Indirect Bilirubin 0.8 LDL Cholesterol, Calculated 48 Lymphocytes # 1.4 Lymphocytes % 21.2 Magnesium Level 2.1 Mean Corpuscular Hemoglobin 34.0 H Mean Corpuscular Hemoglobin Concent 33.5 Mean Corpuscular Volume 101.4 H Mean Platelet Volume 11.7 H Monocytes # 0.5 Monocytes % 7.6 Neutrophils # 4.6 Neutrophils % 69.8 Nucleated Red Blood Cells # 0.0 Nucleated Red Blood Cells % 0.0 Phosphorus Level 4.6 Platelet Count 200 Potassium Level 4.9 Red Blood Count 3.65 L Red Cell Distribution Width 14.6 H Sodium Level 133 L Total Bilirubin 0.8 Total Protein 7.3 Triglycerides Level 78 White Blood Count 6.6 Test 06/09/16 12:07 Bedside Glucose 114 Medications Medications Current Medications Allopurinol (Zyloprim) 100 mg DAILY PO Last administered on 06/09/16 09:27; Admin Dose 100 MG; Start 06/09/16 at 09:00 Aspirin (Halfprin) 81 mg DAILY PO Last administered on 06/09/16 09:26; Admin Dose 81 MG; Start 06/09/16 at 09:00 Febuxostat (Uloric) 40 mg DAILY PO Last administered on 06/09/16 09:28; Admin Dose 40 MG; Start 06/09/16 at 09:00 Folic Acid (Folic Acid) 1 mg DAILY PO Last administered on 06/09/16 09:27; Admin Dose 1 MG; Start 06/09/16 at 09:00 Furosemide (Lasix) 20 mg DAILY PO Last administered on 06/09/16 09:28; Admin Dose 20 MG; Start 06/09/16 at 09:00 Ibuprofen (Motrin) 800 mg DAILY PRN PO PRN; Start 06/08/16 at 10:00 Tamsulosin HCl (Flomax) 0.4 mg DAILY PO Last administered on 06/09/16 09:27; Admin Dose 0.4 MG; Start 06/09/16 at 09:00 Cholecalciferol (Vitamin D) 400 units DAILY PO Last administered on 06/09/16 09:28; Admin Dose 400 UNITS; Start 06/09/16 at 09:00 Fish Oil (Fish Oil) 1,000 mg DAILY PO Last administered on 06/09/16 09:25; Admin Dose 1,000 MG; Start 06/09/16 at 09:00 Acetaminophen (Tylenol Tab) 650 mg Q6H PRN PO PAIN AND OR ELEVATED TEMP; Start 06/08/16 at 10:00 Ondansetron HCl (Zofran Tab) 4 mg Q6 PRN PO NAUSEA AND/OR VOMITING; Start 06/08 at 10:00 Docusate Sodium (Colace) 100 mg BID PO Last administered on 06/09/16 09:27; Admin Dose 100 MG; Start 06/08/16 at 21:00 Apixaban (Eliquis) 5 mg BID PO Last administered on 06/09/16 09:27; Admin Dose 5 MG; Start 06/08/16 at 12:30 Morphine Sulfate (morphine) 2 mg Q3 PRN IV PAIN LEVEL 7-10 Last administered on 06/08/16 12:25; Admin Dose 2 MG; Start 06/08/16 at 11:00 Pantoprazole (Protonix Iv) 40 mg DAILY@06 IV Last administered on 06/09/16 06: 54; Admin Dose 40 MG; Start 06/08/16 at 12:00 Miscellaneous Information 1 ea NOTE XX ; Start 06/08/16 at 11:30 Glucose (Glutose) 15 gm Q15M PRN PO DECREASED GLUCOSE; Start 06/08/16 at 11:30 Glucose (Glutose) 22.5 gm Q15M PRN PO DECREASED GLUCOSE; Start 06/08/16 at 11: 30 Dextrose (D50w Syringe) 25 ml Q15M PRN IV DECREASED GLUCOSE; Start 06/08/16 at 11:30 Dextrose (D50w Syringe) 50 ml Q15M PRN IV DECREASED GLUCOSE; Start 06/08/16 at 11:30 Glucagon (Glucagen) 1 mg Q15M PRN IM DECREASED GLUCOSE; Start 06/08/16 at 11:30 Glucose (Glutose) 15 gm Q15M PRN BUCCAL DECREASED GLUCOSE; Start 06/08/16 at 11 :30 Miscellaneous Information 1 ea NOTE XX ; Start 06/08/16 at 12:30 Glucose (Glutose) 15 gm Q15M PRN PO DECREASED GLUCOSE; Start 06/08/16 at 12:30 Glucose (Glutose) 22.5 gm Q15M PRN PO DECREASED GLUCOSE; Start 06/08/16 at 12: 30 Dextrose (D50w Syringe) 25 ml Q15M PRN IV DECREASED GLUCOSE; Start 06/08/16 at 12:30 Dextrose (D50w Syringe) 50 ml Q15M PRN IV DECREASED GLUCOSE; Start 06/08/16 at 12:30 Glucagon (Glucagen) 1 mg Q15M PRN IM DECREASED GLUCOSE; Start 06/08/16 at 12:30 Glucose (Glutose) 15 gm Q15M PRN BUCCAL DECREASED GLUCOSE; Start 06/08/16 at 12 :30 Diltiazem HCl (Cardizem) 60 mg Q6 PO Last administered on 06/09/16 00:00; Admin Dose 60 MG; Start 06/08/16 at 18:00 Metoprolol Tartrate (Lopressor) 25 mg BID PO Last administered on 06/08/16 21: 03; Admin Dose 25 MG; Start 06/08/16 at 21:00 Ondansetron HCl (Zofran Inj) 4 mg Q6H PRN IV NAUSEA AND/OR VOMITING Last administered on 06/09/16 02:19; Admin Dose 4 MG; Start 06/09/16 at 02:30 VAN AZEVEDO MD Jun 09, 2016 14:53
--- NOTE | 2016-06-09 16:22 | RADRPT ---
PROCEDURE: MRCP. CLINICAL INDICATION: Abdominal pain, evaluate for common duct stone. TECHNIQUE: MRCP was performed. Patient was examined without contrast. 3-D coronal rotating MIP i mages of the biliary tree are available for review. COMPARISON: CT, 06/08/2016 FINDINGS: There are moderate right and mild left pleural effusions. The heart is moderately enlarged, without pericardial effusion. The liver appears cirrhotic. Scattered benign hepatic cysts are noted. No gross evidence of solid hepatic mass is identified. Gallbladder is surgically absent. Common bile duct is prominent, measuring 8 mm in diameter, within normal limits for patient's age. There is no intrahepatic biliary dilatation. No common duct stone, stricture or filling defect is identified. Pancreas, spleen, adrenal glands and kidneys are unremarkable. No obstructive uropathy is identifie d. The stomach is grossly unremarkable. There is mild ascites. No bowel obstruction or evidence of abscess is identified. There is no abdo clover aortic aneurysm. No retroperitoneal or maria elena hepatis lymphadenopathy is identified. The surr ounding osseous structures are remarkable for degenerative spondylosis of the spine. No focal osseo us lesion is identified. IMPRESSION: 1. Gallbladder is surgically absent. 2. There is nonspecific mild prominence of the common bile duct, within normal limits given patient 's age. No intrahepatic biliary dilatation or evidence of choledocholithiasis is seen. 3. The liver appears cirrhotic. Mild ascites is noted. 4. There are moderate right and mild left pleural effusions. 5. Moderate cardiomegaly is noted. RPTAT: HDWR .Louis Boggs MD, Date Time Electronically viewed and signed by .Louis Boggs MD, on 06/09/2016 16:21 .R/
--- NOTE | 2016-06-09 17:29 | PN ---
Date/Time of Note Date/Time of Note DATE: 06/09/16 TIME: 17:21 Assessment/Plan VTE Prophylaxis VTE Prophylaxis Intervention: other Lines/Catheters IV Catheter Type (from Nrsg): Saline Lock Assessment/Plan Assessment/Plan -Atrial fibrillation with rapid ventricular response - per cardiology - Elialfonso - continues tele monitoring - Zofran for nause - Tylenol for pain - Abdominal pain - Per Dr Urias in GI consult - sp MRCP - CT abdomen with oral contrast showed - Small bilateral pleural effusions - us abdomen -Hepatic cirrhosis. Mild amount of free fluid with a right pleural effusion identified. kelly Chao - Morphine 2 mg iv q3hr prn pain -Type 2 diabetes mellitus - Glycemic control - 1800 jamie ADA, CARDIAC diet- liquid diet -Essential hypertension - stable - Dyslipidemia - sp cholecystectomy - Former smoker - EDITH- BUN/Cr today 11/05,32 - ns at 60 cc/hr - monitor labs - if no impartment- will get nephrology consult - Pepcid for GI prophylaxis Further recommendations based on clinical course. Plan of care discussed with Dr. Chao Subjective 24 Hr Interval Summary Eyes: no complaints Respiratory: no complaints Cardiovascular: no complaints Gastrointestinal: no complaints, other (no abdominal pain at present) Genitourinary: no complaints Musculoskeletal: no complaints Skin: no complaints Exam/Review of Systems Vital Signs Vitals Vital Signs Date Time Temp Pulse Resp B/P Pulse Ox O2 Delivery O2 Flow Rate FiO2 06/09/16 16:18 85 06/09/16 15:55 96.7 21 112/77 99 06/09/16 09:00 Nasal Cannula 2.0 Intake and Output 06/08/16 06/08/16 06/09/16 15:00 23:00 07:00 Intake Total 300 ml Output Total 20 ml Balance 300 ml -20 ml Exam Constitutional: alert, oriented, well developed Psych: nl mood/affect Head: atraumatic Eyes: EOMI ENMT: nl external ears & nose Neck: non-tender Respiratory: clear to auscultation Cardiovascular: nl pulses Gastrointestinal: non-tender, soft Skin: nl turgor Lymph: nontender Results Result Diagram: 06/09/16 0940 06/09/16 0940 Results 24 hrs Laboratory Tests Test 06/08/16 17:36 06/08/16 20:59 06/09/16 08:33 06/09/16 09:40 Bedside Glucose 150 151 127 Alanine Aminotransferase (ALT/SGPT) 71 H Albumin 3.7 Albumin/Globulin Ratio 1.02 Alkaline Phosphatase 141 H Anion Gap 19 H Aspartate Amino Transf (AST/SGOT) 121 H Basophils # 0.0 Basophils % 0.6 Blood Urea Nitrogen 28 H Calcium Level 8.6 Carbon Dioxide Level 22 Chloride Level 97 Cholesterol Level 111 Cholesterol/HDL Ratio 2.3 Creatinine 1.32 H Direct Bilirubin 0.00 Eosinophils # 0.0 Eosinophils % 0.2 Globulin 3.60 H Glucose Level 183 HDL Cholesterol 47 Hematocrit 37.0 Hemoglobin 12.4 Hemoglobin A1c 6.0 H Indirect Bilirubin 0.8 LDL Cholesterol, Calculated 48 Lymphocytes # 1.4 Lymphocytes % 21.2 Magnesium Level 2.1 Mean Corpuscular Hemoglobin 34.0 H Mean Corpuscular Hemoglobin Concent 33.5 Mean Corpuscular Volume 101.4 H Mean Platelet Volume 11.7 H Monocytes # 0.5 Monocytes % 7.6 Neutrophils # 4.6 Neutrophils % 69.8 Nucleated Red Blood Cells # 0.0 Nucleated Red Blood Cells % 0.0 Phosphorus Level 4.6 Platelet Count 200 Potassium Level 4.9 Red Blood Count 3.65 L Red Cell Distribution Width 14.6 H Sodium Level 133 L Total Bilirubin 0.8 Total Protein 7.3 Triglycerides Level 78 White Blood Count 6.6 Test 06/09/16 12:07 Bedside Glucose 114 Medications Medications Current Medications Allopurinol (Zyloprim) 100 mg DAILY PO Last administered on 06/09/16 09:27; Admin Dose 100 MG; Start 06/09/16 at 09:00 Aspirin (Halfprin) 81 mg DAILY PO Last administered on 06/09/16 09:26; Admin Dose 81 MG; Start 06/09/16 at 09:00 Febuxostat (Uloric) 40 mg DAILY PO Last administered on 06/09/16 09:28; Admin Dose 40 MG; Start 06/09/16 at 09:00 Folic Acid (Folic Acid) 1 mg DAILY PO Last administered on 06/09/16 09:27; Admin Dose 1 MG; Start 06/09/16 at 09:00 Ibuprofen (Motrin) 800 mg DAILY PRN PO PRN; Start 06/08/16 at 10:00 Tamsulosin HCl (Flomax) 0.4 mg DAILY PO Last administered on 06/09/16 09:27; Admin Dose 0.4 MG; Start 06/09/16 at 09:00 Cholecalciferol (Vitamin D) 400 units DAILY PO Last administered on 06/09/16 09:28; Admin Dose 400 UNITS; Start 06/09/16 at 09:00 Fish Oil (Fish Oil) 1,000 mg DAILY PO Last administered on 06/09/16 09:25; Admin Dose 1,000 MG; Start 06/09/16 at 09:00 Acetaminophen (Tylenol Tab) 650 mg Q6H PRN PO PAIN AND OR ELEVATED TEMP; Start 06/08/16 at 10:00 Ondansetron HCl (Zofran Tab) 4 mg Q6 PRN PO NAUSEA AND/OR VOMITING; Start 06/08 at 10:00 Docusate Sodium (Colace) 100 mg BID PO Last administered on 06/09/16 09:27; Admin Dose 100 MG; Start 06/08/16 at 21:00 Apixaban (Eliquis) 5 mg BID PO Last administered on 06/09/16 09:27; Admin Dose 5 MG; Start 06/08/16 at 12:30 Morphine Sulfate (morphine) 2 mg Q3 PRN IV PAIN LEVEL 7-10 Last administered on 06/08/16 12:25; Admin Dose 2 MG; Start 06/08/16 at 11:00 Pantoprazole (Protonix Iv) 40 mg DAILY@06 IV Last administered on 06/09/16 06: 54; Admin Dose 40 MG; Start 06/08/16 at 12:00 Miscellaneous Information 1 ea NOTE XX ; Start 06/08/16 at 11:30 Glucose (Glutose) 15 gm Q15M PRN PO DECREASED GLUCOSE; Start 06/08/16 at 11:30 Glucose (Glutose) 22.5 gm Q15M PRN PO DECREASED GLUCOSE; Start 06/08/16 at 11: 30 Dextrose (D50w Syringe) 25 ml Q15M PRN IV DECREASED GLUCOSE; Start 06/08/16 at 11:30 Dextrose (D50w Syringe) 50 ml Q15M PRN IV DECREASED GLUCOSE; Start 06/08/16 at 11:30 Glucagon (Glucagen) 1 mg Q15M PRN IM DECREASED GLUCOSE; Start 06/08/16 at 11:30 Glucose (Glutose) 15 gm Q15M PRN BUCCAL DECREASED GLUCOSE; Start 06/08/16 at 11 :30 Miscellaneous Information 1 ea NOTE XX ; Start 06/08/16 at 12:30 Glucose (Glutose) 15 gm Q15M PRN PO DECREASED GLUCOSE; Start 06/08/16 at 12:30 Glucose (Glutose) 22.5 gm Q15M PRN PO DECREASED GLUCOSE; Start 06/08/16 at 12: 30 Dextrose (D50w Syringe) 25 ml Q15M PRN IV DECREASED GLUCOSE; Start 06/08/16 at 12:30 Dextrose (D50w Syringe) 50 ml Q15M PRN IV DECREASED GLUCOSE; Start 06/08/16 at 12:30 Glucagon (Glucagen) 1 mg Q15M PRN IM DECREASED GLUCOSE; Start 06/08/16 at 12:30 Glucose (Glutose) 15 gm Q15M PRN BUCCAL DECREASED GLUCOSE; Start 06/08/16 at 12 :30 Diltiazem HCl (Cardizem) 60 mg Q6 PO Last administered on 06/09/16 15:50; Admin Dose 60 MG; Start 06/08/16 at 18:00 Metoprolol Tartrate (Lopressor) 25 mg BID PO Last administered on 06/08/16 21: 03; Admin Dose 25 MG; Start 06/08/16 at 21:00 Ondansetron HCl (Zofran Inj) 4 mg Q6H PRN IV NAUSEA AND/OR VOMITING Last administered on 06/09/16 02:19; Admin Dose 4 MG; Start 06/09/16 at 02:30 Procedures Procedures PROCEDURE: US Abdomen. CLINICAL INDICATION: Abdominal pain. History of cholecystectomy TECHNIQUE: Multiple real-time images were acquired of the patient's abdomen and retroperitoneum utilizing a high resolution transducer. COMPARISON: None FINDINGS: Exam is seen limited in technique. The liver demonstrates normal echogenicity and size and no focal lesions are seen. Cirrhotic liver morphology is seen. The liver measures 14.8 cm in size. The gallbladder is not identified. The common bile duct measures 5.4 mm. There is no pericholecystic fluid. No intrahepatic biliary dilatation is seen. The visualized portions of the pancreas are unremarkable. There is no splenomegaly. The spleen measures 10.5 cm in size. A mild amount of free fluid is identified. A right pleural effusion is seen. The kidneys are normal size, and demonstrate normal echogenicity and morphology. The right kidney measures 10.2 cm. The left kidney measures 9.8 cm. There is no dilatation of the pelvicaliceal systems bilaterally. There are no perinephric fluid collections. There are no areas of increased echogenicity to suggest nephrolithiasis. IMPRESSION: 1. Hepatic cirrhosis. 2. Mild amount of free fluid with a right pleural effusion identified. 3. Gallbladder not visualized consistent with the clinical history of a prior cholecystectomy. PROCEDURE: CT Abdomen without contrast. CLINICAL INDICATION: Periumbilical Abdominal pain. Hepatic cirrhosis. TECHNIQUE: CT scan of the abdomen without contrast was performed on the [email or web address] CT scanner. Oral contrast was not administered. 3-D coronal and sagittal reformatted images were obtained from the axial source images. CT D V O L 654 mgy/cm. CT D V O L 14 mgy. This exam is limited due to lack of IV contrast. Automated exposure control Adjustment of the mA and/or kV according to patient size. Use of iterative reconstruction technique. COMPARISON: Abdominal ultrasound from the same day, May 21, 2016 FINDINGS: There are new, small, bilateral pleural effusions. Mild cardiomegaly appears stable. Cirrhosis of the liver again redemonstrated, and overall unchanged. The spleen is normal in size and homogeneous in density. The stomach is partially collapsed, but is grossly unremarkable. The pancreas as visualized is normal. The gallbladder has been resected. The adrenal glands are symmetric and normal. The kidneys are symmetrically unremarkable as well. No renal calculus or obstructive uropathy or mass lesion is seen. The aorta is of normal caliber. Aortic vascular calcifications are present. There is no retroperitoneal lymphadenopathy. The maria elena hepatis region is clear. The bowel and mesentery, as visualized, are equally unremarkable. There is stable, minimal abdominal ascites. Anasarca is again noted. There are no findings of free air or perforation. The bowel loops are normal in caliber. There are no findings of large or small bowel obstruction. No acute inflammatory process identified. No bowel wall thickening or acute inflammation. The surrounding osseous structures are remarkable for mild degenerative spondylosis of the spine. No osteolytic or osteoblastic lesion is detected. IMPRESSION: 1. Small bilateral pleural effusions, mild cardiomegaly, cirrhosis of the liver , status post cholecystectomy, mild ascites and mild anasarca. Overall, no significant interval change. 2. No mass, lymphadenopathy, or focal acute inflammatory process is identified. MINDY BARNES Jun 09, 2016 17:29
[2016-06-09] MEDS: FUROSEMIDE 20 MG INJ IV SCH (18:15)
[2016-06-09] MEDS: SOD CHLORIDE 0.9% 1,000 ML IV SCH (18:16)
[2016-06-10] VITALS (12 sets, daily range): BP systolic 101–128; BP diastolic 60–72; PULSE 45–101; RESP 16–19
[2016-06-10] MEDS: PANTOPRAZOLE 40 MG INJ IV SCH (06:03)
[2016-06-10] MEDS: DILTIAZEM 60 MG TAB PO SCH ×4 (06:03→17:16)
[2016-06-10] MEDS: FUROSEMIDE 20 MG INJ IV SCH ×2 (06:04→17:16)
[2016-06-10 06:52] LABS: ADD SCAN DIFF NO
[2016-06-10 07:08] LABS: BASOPHIL # 0.1 10^3/ul (0.0-0.1); BASOPHILS % 1.2 % (0.0-2.0); EOSINOPHILS # 0.1 10^3/ul (0.0-0.5); EOSINOPHILS % 3.3 % (0.0-7.0); HEMATOCRIT 33.5 % (37.0-47.0); HEMOGLOBIN 11.1 g/dl (12.0-16.0); LYMPHOCYTES # 1.4 10^3/ul (0.8-2.9); LYMPHOCYTES % 32.3 % (15.0-51.0); MEAN CORPUSCULAR HEMOGLOBIN 33.3 pg (29.0-33.0); MEAN CORPUSCULAR HGB CONC 33.1 g/dl (32.0-37.0); MEAN CORPUSCULAR VOLUME 100.6 fl (82.0-101.0); MEAN PLATELET VOLUME 11.7 fl (7.4-10.4); MONOCYTE # 0.5 10^3/ul (0.3-0.9); MONOCYTES % 12.2 % (0.0-11.0); NEUTROPHIL # 2.1 10^3/ul (1.6-7.5); NEUTROPHILS % 50.5 % (39.0-77.0); PLATELET COUNT 167 10^3/UL (140-415); RED BLOOD COUNT 3.33 10^6/ul (4.20-5.40); RED CELL DISTRIBUTION WIDTH 14.6 % (11.5-14.5); WHITE BLOOD COUNT 4.2 10^3/ul (4.8-10.8)
[2016-06-10 07:20] LABS: POTASSIUM 4.2 mmol/L (3.5-5.1)
[2016-06-10 07:22] LABS: CREATININE 1.25 mg/dl (0.44-1.00)
[2016-06-10 07:23] LABS: CALCIUM 8.2 mg/dl (8.4-10.2)
[2016-06-10] MEDS: INSULIN ASPART [NOVOLOG] 3 ML PEN SC SCH ×4 (07:55→20:50)
[2016-06-10 08:56] LABS: ALBUMIN 3.3 g/dl (3.3-4.9)
[2016-06-10 08:58] LABS: BILIRUBIN,INDIRECT 0.7 mg/dl (0-1.1); BILIRUBIN,TOTAL 0.7 mg/dl (0.2-1.3); TOTAL PROTEIN 6.2 g/dl (6.1-8.1)
[2016-06-10] MEDS: DOCUSATE SODIUM 100 MG CAP PO SCH ×2 (09:00→20:51)
[2016-06-10] MEDS: ALLOPURINOL 100 MG TAB PO SCH (09:00)
[2016-06-10] MEDS: TAMSULOSIN (SR) 0.4 MG CAP PO SCH (09:00)
[2016-06-10] MEDS: FOLIC ACID 1 MG TAB PO SCH (09:00)
[2016-06-10] MEDS: FISH OIL 1,000 MG CAP PO SCH (09:00)
[2016-06-10] MEDS: METOPROLOL 25 MG TAB PO SCH ×2 (09:00→20:54)
[2016-06-10] MEDS: CHOLECALCIFEROL 400 UNITS TAB PO SCH (09:00)
[2016-06-10] MEDS: ASPIRIN (EC) 81 MG TAB PO SCH (09:00)
[2016-06-10] MEDS: APIXABAN 5 MG TABLET PO SCH ×2 (09:00→20:54)
[2016-06-10] MEDS: FEBUXOSTAT 40 MG TABLET PO SCH (09:00)
--- NOTE | 2016-06-10 09:51 | CONS ---
Date/Time of Note Date/Time of Note DATE: 06/10/16 TIME: 09:49 Assessment/Plan Assessment/Plan Additional Assessment/Plan 1. Atrial fibrillation - Patient has chronic atrial fibrillation, Rate Controlled. No indication for pacer. 2. Secondary hypercoagulable sate: patient is on Eliquis. Continue anticoagulation. 4. Chest pain. The patient did not rule in for acute NH. Troponins are negative.BETTER now. 4. Heart failure. The patient has heart failure. h/o EF 35% buy nuc 2015, no rev dz, EF low now < 25% - will discuss ICD as outpt. 5. Acute renal failure. Creatinine is normal. Good urine output now. Continue to follow. BETTER. 6. Diabetes. Continue diabetic optimization and care. 7. Hypertension. Blood pressure fairly well controlled. Continue medical therapy. Consultation Date/Type/Reason Admit Date/Time Jun 07, 2016 at 22:30 24 HR Interval Summary Free Text/Dictation Better fluid satus - ratet controlled. Con't Med rx for now. Stress test 2015 no rev ischemia. ROS: No fever, no chills, no nausea, no vomiting, no diarrhea/constipation No recent weight changes No chest pain, no PND, no orthopnea No dizziness, blurred vision No thirst, no heat or cold intolerance Exam/Review of Systems Vital Signs Vitals Vital Signs Date Time Temp Pulse Resp B/P Pulse Ox O2 Delivery O2 Flow Rate FiO2 06/10/16 08:09 97.9 76 17 128/68 98 06/09/16 23:58 Nasal Cannula 2.0 Intake and Output 06/09/16 06/09/16 06/10/16 15:00 23:00 07:00 Intake Total 1640 ml 970 ml Balance 1640 ml 970 ml Exam General: WN/WD/NAD, AOx 2-3 HEENT: Unicetric/atraumatic/EOMI (follow commands) NECK: JVD elevated, no thyromegaly Lymph: no lymphadenopathy HEART: IRregular with no S3, II/ systolic murmur at apex LUNGS: Coarse sounds ABD: soft, NT, ND, +BS : Intact Neuro: non focal SKIN: chronic changes EXT: decreased edema Results Result Diagram: 06/10/16 0515 06/10/16 0515 Results 24 hrs Laboratory Tests Test 06/09/16 12:07 06/09/16 18:13 06/09/16 22:14 06/10/16 05:15 Bedside Glucose 114 100 124 Alanine Aminotransferase (ALT/SGPT) 71 H Albumin 3.3 Alkaline Phosphatase 110 Amylase Level 58 Anion Gap 18 H Aspartate Amino Transf (AST/SGOT) 105 H Basophils # 0.1 Basophils % 1.2 Blood Urea Nitrogen 28 H Calcium Level 8.2 L Carbon Dioxide Level 25 Chloride Level 100 Creatinine 1.25 H Direct Bilirubin 0.00 Eosinophils # 0.1 Eosinophils % 3.3 Glucose Level 99 # Hematocrit 33.5 L Hemoglobin 11.1 L Indirect Bilirubin 0.7 Lipase 100 Lymphocytes # 1.4 Lymphocytes % 32.3 Mean Corpuscular Hemoglobin 33.3 H Mean Corpuscular Hemoglobin Concent 33.1 Mean Corpuscular Volume 100.6 Mean Platelet Volume 11.7 H Monocytes # 0.5 Monocytes % 12.2 H Neutrophils # 2.1 Neutrophils % 50.5 Nucleated Red Blood Cells # 0.0 Nucleated Red Blood Cells % 0.0 Platelet Count 167 Potassium Level 4.2 Red Blood Count 3.33 L Red Cell Distribution Width 14.6 H Sodium Level 139 Total Bilirubin 0.7 Total Protein 6.2 # White Blood Count 4.2 #L Test 06/10/16 08:05 Bedside Glucose 98 Medications Medications Current Medications Allopurinol (Zyloprim) 100 mg DAILY PO Last administered on 06/09/16 09:27; Admin Dose 100 MG; Start 06/09/16 at 09:00 Aspirin (Halfprin) 81 mg DAILY PO Last administered on 06/09/16 09:26; Admin Dose 81 MG; Start 06/09/16 at 09:00 Febuxostat (Uloric) 40 mg DAILY PO Last administered on 06/09/16 09:28; Admin Dose 40 MG; Start 06/09/16 at 09:00 Folic Acid (Folic Acid) 1 mg DAILY PO Last administered on 06/09/16 09:27; Admin Dose 1 MG; Start 06/09/16 at 09:00 Ibuprofen (Motrin) 800 mg DAILY PRN PO PRN; Start 06/08/16 at 10:00 Tamsulosin HCl (Flomax) 0.4 mg DAILY PO Last administered on 06/09/16 09:27; Admin Dose 0.4 MG; Start 06/09/16 at 09:00 Cholecalciferol (Vitamin D) 400 units DAILY PO Last administered on 06/09/16 09:28; Admin Dose 400 UNITS; Start 06/09/16 at 09:00 Fish Oil (Fish Oil) 1,000 mg DAILY PO Last administered on 06/09/16 09:25; Admin Dose 1,000 MG; Start 06/09/16 at 09:00 Acetaminophen (Tylenol Tab) 650 mg Q6H PRN PO PAIN AND OR ELEVATED TEMP; Start 06/08/16 at 10:00 Ondansetron HCl (Zofran Tab) 4 mg Q6 PRN PO NAUSEA AND/OR VOMITING; Start 06/08 at 10:00 Docusate Sodium (Colace) 100 mg BID PO Last administered on 06/09/16 22:15; Admin Dose 100 MG; Start 06/08/16 at 21:00 Apixaban (Eliquis) 5 mg BID PO Last administered on 06/09/16 22:15; Admin Dose 5 MG; Start 06/08/16 at 12:30 Morphine Sulfate (morphine) 2 mg Q3 PRN IV PAIN LEVEL 7-10 Last administered on 06/08/16 12:25; Admin Dose 2 MG; Start 06/08/16 at 11:00 Pantoprazole (Protonix Iv) 40 mg DAILY@06 IV Last administered on 06/10/16 06: 03; Admin Dose 40 MG; Start 06/08/16 at 12:00 Miscellaneous Information 1 ea NOTE XX ; Start 06/08/16 at 11:30 Glucose (Glutose) 15 gm Q15M PRN PO DECREASED GLUCOSE; Start 06/08/16 at 11:30 Glucose (Glutose) 22.5 gm Q15M PRN PO DECREASED GLUCOSE; Start 06/08/16 at 11: 30 Dextrose (D50w Syringe) 25 ml Q15M PRN IV DECREASED GLUCOSE; Start 06/08/16 at 11:30 Dextrose (D50w Syringe) 50 ml Q15M PRN IV DECREASED GLUCOSE; Start 06/08/16 at 11:30 Glucagon (Glucagen) 1 mg Q15M PRN IM DECREASED GLUCOSE; Start 06/08/16 at 11:30 Glucose (Glutose) 15 gm Q15M PRN BUCCAL DECREASED GLUCOSE; Start 06/08/16 at 11 :30 Miscellaneous Information 1 ea NOTE XX ; Start 06/08/16 at 12:30 Glucose (Glutose) 15 gm Q15M PRN PO DECREASED GLUCOSE; Start 06/08/16 at 12:30 Glucose (Glutose) 22.5 gm Q15M PRN PO DECREASED GLUCOSE; Start 06/08/16 at 12: 30 Dextrose (D50w Syringe) 25 ml Q15M PRN IV DECREASED GLUCOSE; Start 06/08/16 at 12:30 Dextrose (D50w Syringe) 50 ml Q15M PRN IV DECREASED GLUCOSE; Start 06/08/16 at 12:30 Glucagon (Glucagen) 1 mg Q15M PRN IM DECREASED GLUCOSE; Start 06/08/16 at 12:30 Glucose (Glutose) 15 gm Q15M PRN BUCCAL DECREASED GLUCOSE; Start 06/08/16 at 12 :30 Diltiazem HCl (Cardizem) 60 mg Q6 PO Last administered on 06/10/16 06:03; Admin Dose 60 MG; Start 06/08/16 at 18:00 Metoprolol Tartrate (Lopressor) 25 mg BID PO Last administered on 06/09/16 22: 16; Admin Dose 25 MG; Start 06/08/16 at 21:00 Ondansetron HCl 4 mg 4 mg Q6H PRN IV NAUSEA AND/OR VOMITING Last administered on 06/09/16 02:19; Admin Dose 4 MG; Start 06/09/16 at 02:30 Sodium Chloride (NS) 1,000 ml @ 60 mls/hr [id number] IV Last administered on 06/09 18:16; Admin Dose 60 MLS/HR; Start 06/09/16 at 17:30 VAN AZEVEDO MD Jun 10, 2016 09:51
[2016-06-10] MEDS: SOD CHLORIDE 0.9% 1,000 ML IV SCH (10:47)
--- NOTE | 2016-06-10 12:26 | PQ ---
Date/Time of Note Date/Time of Note DATE: 06/10/16 TIME: 12:22 Physician Query Documentation Clarification Dear , A review of the medical record reflects a documentation of : "The patient has heart failure. h/o EF 35% buy nuc 2016, no rev dz, EF low now " ---progress note Echo - --Left ventricular wall thickness upper limits of normal. Mild enlargement of left ventricle cavity. Severe global left ventricular systolic dysfunction. Ejection fraction is visually estimated at 15 %. Abnormal Diastolic Function. Tx: Lasix 20 mg IV BID Please clarify( if known ) the acuity of CHF. To facilitate accurate and complete coding, please van ( x ) the suspected diagnosis that apply: ( X ) Acute Systolic (Reduced EF) Heart Failure ( ICD10 I50.21 ) ( ) Acute Diastolic (Preserved EF) Heart Failure ( ICD10 I50.31 ) ( )Acute Combined Systolic & Diastolic Heart Failure ( ICD10 I50.41 ) ( ) Chronic Systolic (Reduced EF) Heart Failure ( ICD10 I50.22 ) ( ) Chronic Diastolic (Preserved EF) Heart Failure ( ICD10 I50.32 ) ( ) Chronic Combined Systolic & Diastolic Heart Failure ( ICD10 I50.42 ) ( ) Acute on Chronic Systolic (Reduced EF) Heart Failure ( ICD10 I50.23 ) ( )Acute on Chronic Diastolic (Preserved EF) Heart Failure ( ICD10 I50.33 ) ( ) Acute on Chronic Combined Systolic & Diastolic Heart Failure ( ICD10 I50.43 ) Please provide your response by clicking edit document, making your choice ( x ), click ok/save and finally click sign. You may also document your response on your progress notes. Thank you for your time. Antoine Palacio, RN, BSN, CCS, CCDS [employer] [employer] [phone] ANTOINE PALACIO Jun 10, 2016 12:26 VAN AZEVEDO MD Jun 11, 2016 12:37
[2016-06-10] MEDS ORDERED: PEG/ELECTROLYTES 4L BTL PO ONE (15:00)
[2016-06-10 15:38] LABS: INR 2.34; PROTIME 25.9 Sec (12.2-14.2)
[2016-06-10 15:39] LABS: PARTIAL THROMBOPLASTIN TIME 37.7 Sec (25.0-35.0)
--- NOTE | 2016-06-10 17:54 | PN ---
Date/Time of Note Date/Time of Note DATE: 06/10/16 TIME: 17:46 Assessment/Plan VTE Prophylaxis VTE Prophylaxis Intervention: SCD's Lines/Catheters IV [facility]from [facility]): Saline Lock Assessment/Plan Chief Complaint/Hosp Course Assessment and plan - Atrial fibrillation with rapid ventricular response. Patient is currently in atrial fibrillation at controlled rate. Dr. Rico is following and cardiology consultation. Continue metoprolol and Eliquis. Continue Cardizem. - Abdominal pain. Patient is pending EGD tomorrow. Dr. Urias is following in cart in gastroenterology consultation - Diabetes mellitus type 2. Continue NovoLog per sliding scale. 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 Continue Lasix. -Obesity. - sp cholecystectomy Further recommendations based on clinical course. Plan of care discussed with Dr. Chao. Problems: Subjective 24 Hr Interval Summary Free Text/Dictation Patient scope complains of abdominal pain, was able to tolerate diet well denies any nausea vomiting, patient denies chest pain denies palpitations. Exam/Review of Systems Vital Signs Vitals Vital Signs Date Time Temp Pulse Resp B/P Pulse Ox O2 Delivery O2 Flow Rate FiO2 06/10/16 16:14 71 06/10/16 15:19 98.4 17 120/70 98 06/10/16 09:30 Nasal Cannula 2.0 Intake and Output 06/09/16 06/09/16 06/10/16 15:00 23:00 07:00 Intake Total 1640 ml 970 ml Balance 1640 ml 970 ml Exam Constitutional: alert, obese, oriented, well developed Psych: no complaints Head: atraumatic, normocephalic Eyes: nl conjunctiva ENMT: nl external ears & nose Neck: non-tender, supple Respiratory: clear to auscultation Cardiovascular: other (Atrial fibrillation) Gastrointestinal: other (Epigastric tenderness), soft Genitourinary - Female: nl adnexae Musculoskeletal: nl extremities to inspection Extremities: normal pulses Neurological: PHYSICAL SECURITY SPECIALIST II-XII intact Results Result Diagram: 06/10/1615 06/10/16 0515 Results 24 hrs Laboratory Tests Test 06/09/16 18:13 06/09/16 22:14 06/10/16 05:15 06/10/16 08:05 Bedside Glucose 100 124 98 Alanine Aminotransferase (ALT/SGPT) 71 H Albumin 3.3 Alkaline Phosphatase 110 Amylase Level 58 Anion Gap 18 H Aspartate Amino Transf (AST/SGOT) 105 H Basophils # 0.1 Basophils % 1.2 Blood Urea Nitrogen 28 H Calcium Level 8.2 L Carbon Dioxide Level 25 Chloride Level 100 Creatinine 1.25 H Direct Bilirubin 0.00 Eosinophils # 0.1 Eosinophils % 3.3 Glucose Level 99 # Hematocrit 33.5 L Hemoglobin 11.1 L Indirect Bilirubin 0.7 Lipase 100 Lymphocytes # 1.4 Lymphocytes % 32.3 Mean Corpuscular Hemoglobin 33.3 H Mean Corpuscular Hemoglobin Concent 33.1 Mean Corpuscular Volume 100.6 Mean Platelet Volume 11.7 H Monocytes # 0.5 Monocytes % 12.2 H Neutrophils # 2.1 Neutrophils % 50.5 Nucleated Red Blood Cells # 0.0 Nucleated Red Blood Cells % 0.0 Platelet Count 167 Potassium Level 4.2 Red Blood Count 3.33 L Red Cell Distribution Width 14.6 H Sodium Level 139 Total Bilirubin 0.7 Total Protein 6.2 # White Blood Count 4.2 #L Test 06/10/16 12:42 06/10/16 15:10 06/10/16 17:14 Bedside Glucose 121 124 Activated Partial Thromboplast Time 37.7 H INR International Normalized Ratio 2.34 Prothrombin Time 25.9 #H Prothrombin Time Ratio 2.0 Medications Medications Current Medications Allopurinol (Zyloprim) 100 mg DAILY PO Last administered on 06/09/16 09:27; Admin Dose 100 MG; Start 06/09/16 at 09:00 Aspirin (Halfprin) 81 mg DAILY PO Last administered on 06/09/16 09:26; Admin Dose 81 MG; Start 06/09/16 at 09:00 Febuxostat (Uloric) 40 mg DAILY PO Last administered on 06/09/16 09:28; Admin Dose 40 MG; Start 06/09/16 at 09:00 Folic Acid (Folic Acid) 1 mg DAILY PO Last administered on 06/09/16 09:27; Admin Dose 1 MG; Start 06/09/16 at 09:00 Ibuprofen (Motrin) 800 mg DAILY PRN PO PRN; Start 06/08/16 at 10:00 Tamsulosin HCl (Flomax) 0.4 mg DAILY PO Last administered on 06/09/16 09:27; Admin Dose 0.4 MG; Start 06/09/16 at 09:00 Cholecalciferol (Vitamin D) 400 units DAILY PO Last administered on 06/09/16 09:28; Admin Dose 400 UNITS; Start 06/09/16 at 09:00 Fish Oil (Fish Oil) 1,000 mg DAILY PO Last administered on 06/09/16 09:25; Admin Dose 1,000 MG; Start 06/09/16 at 09:00 Acetaminophen (Tylenol Tab) 650 mg Q6H PRN PO PAIN AND OR ELEVATED TEMP; Start 06/08/16 at 10:00 Ondansetron HCl (Zofran Tab) 4 mg Q6 PRN PO NAUSEA AND/OR VOMITING; Start 06/08 at 10:00 Docusate Sodium (Colace) 100 mg BID PO Last administered on 06/09/16 22:15; Admin Dose 100 MG; Start 06/08/16 at 21:00 Apixaban (Eliquis) 5 mg BID PO Last administered on 06/09/16 22:15; Admin Dose 5 MG; Start 06/08/16 at 12:30 Morphine Sulfate (morphine) 2 mg Q3 PRN IV PAIN LEVEL 7-10 Last administered on 06/08/16 12:25; Admin Dose 2 MG; Start 06/08/16 at 11:00 Pantoprazole (Protonix Iv) 40 mg DAILY@06 IV Last administered on 06/10/16 06: 03; Admin Dose 40 MG; Start 06/08/16 at 12:00 Miscellaneous Information 1 ea NOTE XX ; Start 06/08/16 at 11:30 Glucose (Glutose) 15 gm Q15M PRN PO DECREASED GLUCOSE; Start 06/08/16 at 11:30 Glucose (Glutose) 22.5 gm Q15M PRN PO DECREASED GLUCOSE; Start 06/08/16 at 11: 30 Dextrose (D50w Syringe) 25 ml Q15M PRN IV DECREASED GLUCOSE; Start 06/08/16 at 11:30 Dextrose (D50w Syringe) 50 ml Q15M PRN IV DECREASED GLUCOSE; Start 06/08/16 at 11:30 Glucagon (Glucagen) 1 mg Q15M PRN IM DECREASED GLUCOSE; Start 06/08/16 at 11:30 Glucose (Glutose) 15 gm Q15M PRN BUCCAL DECREASED GLUCOSE; Start 06/08/16 at 11 :30 Miscellaneous Information 1 ea NOTE XX ; Start 06/08/16 at 12:30 Glucose (Glutose) 15 gm Q15M PRN PO DECREASED GLUCOSE; Start 06/08/16 at 12:30 Glucose (Glutose) 22.5 gm Q15M PRN PO DECREASED GLUCOSE; Start 06/08/16 at 12: 30 Dextrose (D50w Syringe) 25 ml Q15M PRN IV DECREASED GLUCOSE; Start 06/08/16 at 12:30 Dextrose (D50w Syringe) 50 ml Q15M PRN IV DECREASED GLUCOSE; Start 06/08/16 at 12:30 Glucagon (Glucagen) 1 mg Q15M PRN IM DECREASED GLUCOSE; Start 06/08/16 at 12:30 Glucose (Glutose) 15 gm Q15M PRN BUCCAL DECREASED GLUCOSE; Start 06/08/16 at 12 :30 Diltiazem HCl (Cardizem) 60 mg Q6 PO Last administered on 06/10/16 17:16; Admin Dose 60 MG; Start 06/08/16 at 18:00 Metoprolol Tartrate (Lopressor) 25 mg BID PO Last administered on 06/09/16 22: 16; Admin Dose 25 MG; Start 06/08/16 at 21:00 Ondansetron HCl 4 mg 4 mg Q6H PRN IV NAUSEA AND/OR VOMITING Last administered on 06/09/16 02:19; Admin Dose 4 MG; Start 06/09/16 at 02:30 Sodium Chloride (NS) 1,000 ml @ 60 mls/hr [id number] IV Last administered on 06/10 10:47; Admin Dose 60 MLS/HR; Start 06/09/16 at 17:30 RISHI LINDSAY Jun 10, 2016 17:54
--- NOTE | 2016-06-10 18:10 | PN ---
Date/Time of Note Date/Time of Note DATE: 06/10/16 TIME: 18:06 Assessment/Plan VTE Prophylaxis VTE Prophylaxis Intervention: SCD's Lines/Catheters IV Catheter Type (from Nrsg): Saline Lock ([facility] pmd) Assessment/Plan Chief Complaint/Hosp Course a]r/o pud plan egd Problems: Subjective 24 Hr Interval Summary Free Text/Dictation persistant abd pain no emesis or gi bleeding Exam/Review of Systems Vital Signs Vitals Vital Signs Date Time Temp Pulse Resp B/P Pulse Ox O2 Delivery O2 Flow Rate FiO2 06/10/16 16:14 71 06/10/16 15:19 98.4 17 120/70 98 06/10/16 09:30 Nasal Cannula 2.0 Intake and Output 06/09/16 06/09/16 06/10/16 15:00 23:00 07:00 Intake Total 1640 ml 970 ml Balance 1640 ml 970 ml Exam o/e pt not in distress abd neg mrcp no cbd stones no evid vfor acute cholecystityis a] r/o pud plan egd Results Result Diagram: 06/10/16 0515 06/10/16 0515 Results 24 hrs Laboratory Tests Test 06/09/16 18:13 06/09/16 22:14 06/10/16 05:15 06/10/16 08:05 Bedside Glucose 100 124 98 Alanine Aminotransferase (ALT/SGPT) 71 H Albumin 3.3 Alkaline Phosphatase 110 Amylase Level 58 Anion Gap 18 H Aspartate Amino Transf (AST/SGOT) 105 H Basophils # 0.1 Basophils % 1.2 Blood Urea Nitrogen 28 H Calcium Level 8.2 L Carbon Dioxide Level 25 Chloride Level 100 Creatinine 1.25 H Direct Bilirubin 0.00 Eosinophils # 0.1 Eosinophils % 3.3 Glucose Level 99 # Hematocrit 33.5 L Hemoglobin 11.1 L Indirect Bilirubin 0.7 Lipase 100 Lymphocytes # 1.4 Lymphocytes % 32.3 Mean Corpuscular Hemoglobin 33.3 H Mean Corpuscular Hemoglobin Concent 33.1 Mean Corpuscular Volume 100.6 Mean Platelet Volume 11.7 H Monocytes # 0.5 Monocytes % 12.2 H Neutrophils # 2.1 Neutrophils % 50.5 Nucleated Red Blood Cells # 0.0 Nucleated Red Blood Cells % 0.0 Platelet Count 167 Potassium Level 4.2 Red Blood Count 3.33 L Red Cell Distribution Width 14.6 H Sodium Level 139 Total Bilirubin 0.7 Total Protein 6.2 # White Blood Count 4.2 #L Test 06/10/16 12:42 06/10/16 15:10 06/10/16 17:14 Bedside Glucose 121 124 Activated Partial Thromboplast Time 37.7 H INR International Normalized Ratio 2.34 Prothrombin Time 25.9 #H Prothrombin Time Ratio 2.0 Medications Medications Current Medications Allopurinol (Zyloprim) 100 mg DAILY PO Last administered on 06/09/16 09:27; Admin Dose 100 MG; Start 06/09/16 at 09:00 Aspirin (Halfprin) 81 mg DAILY PO Last administered on 06/09/16 09:26; Admin Dose 81 MG; Start 06/09/16 at 09:00 Febuxostat (Uloric) 40 mg DAILY PO Last administered on 06/09/16 09:28; Admin Dose 40 MG; Start 06/09/16 at 09:00 Folic Acid (Folic Acid) 1 mg DAILY PO Last administered on 06/09/16 09:27; Admin Dose 1 MG; Start 06/09/16 at 09:00 Ibuprofen (Motrin) 800 mg DAILY PRN PO PRN; Start 06/08/16 at 10:00 Tamsulosin HCl (Flomax) 0.4 mg DAILY PO Last administered on 06/09/16 09:27; Admin Dose 0.4 MG; Start 06/09/16 at 09:00 Cholecalciferol (Vitamin D) 400 units DAILY PO Last administered on 06/09/16 09:28; Admin Dose 400 UNITS; Start 06/09/16 at 09:00 Fish Oil (Fish Oil) 1,000 mg DAILY PO Last administered on 06/09/16 09:25; Admin Dose 1,000 MG; Start 06/09/16 at 09:00 Acetaminophen (Tylenol Tab) 650 mg Q6H PRN PO PAIN AND OR ELEVATED TEMP; Start 06/08/16 at 10:00 Ondansetron HCl (Zofran Tab) 4 mg Q6 PRN PO NAUSEA AND/OR VOMITING; Start 06/08 at 10:00 Docusate Sodium (Colace) 100 mg BID PO Last administered on 06/09/16 22:15; Admin Dose 100 MG; Start 06/08/16 at 21:00 Apixaban (Eliquis) 5 mg BID PO Last administered on 06/09/16 22:15; Admin Dose 5 MG; Start 06/08/16 at 12:30 Morphine Sulfate (morphine) 2 mg Q3 PRN IV PAIN LEVEL 7-10 Last administered on 06/08/16 12:25; Admin Dose 2 MG; Start 06/08/16 at 11:00 Pantoprazole (Protonix Iv) 40 mg DAILY@06 IV Last administered on 06/10/16 06: 03; Admin Dose 40 MG; Start 06/08/16 at 12:00 Miscellaneous Information 1 ea NOTE XX ; Start 06/08/16 at 11:30 Glucose (Glutose) 15 gm Q15M PRN PO DECREASED GLUCOSE; Start 06/08/16 at 11:30 Glucose (Glutose) 22.5 gm Q15M PRN PO DECREASED GLUCOSE; Start 06/08/16 at 11: 30 Dextrose (D50w Syringe) 25 ml Q15M PRN IV DECREASED GLUCOSE; Start 06/08/16 at 11:30 Dextrose (D50w Syringe) 50 ml Q15M PRN IV DECREASED GLUCOSE; Start 06/08/16 at 11:30 Glucagon (Glucagen) 1 mg Q15M PRN IM DECREASED GLUCOSE; Start 06/08/16 at 11:30 Glucose (Glutose) 15 gm Q15M PRN BUCCAL DECREASED GLUCOSE; Start 06/08/16 at 11 :30 Miscellaneous Information 1 ea NOTE XX ; Start 06/08/16 at 12:30 Glucose (Glutose) 15 gm Q15M PRN PO DECREASED GLUCOSE; Start 06/08/16 at 12:30 Glucose (Glutose) 22.5 gm Q15M PRN PO DECREASED GLUCOSE; Start 06/08/16 at 12: 30 Dextrose (D50w Syringe) 25 ml Q15M PRN IV DECREASED GLUCOSE; Start 06/08/16 at 12:30 Dextrose (D50w Syringe) 50 ml Q15M PRN IV DECREASED GLUCOSE; Start 06/08/16 at 12:30 Glucagon (Glucagen) 1 mg Q15M PRN IM DECREASED GLUCOSE; Start 06/08/16 at 12:30 Glucose (Glutose) 15 gm Q15M PRN BUCCAL DECREASED GLUCOSE; Start 06/08/16 at 12 :30 Diltiazem HCl (Cardizem) 60 mg Q6 PO Last administered on 06/10/16 17:16; Admin Dose 60 MG; Start 06/08/16 at 18:00 Metoprolol Tartrate (Lopressor) 25 mg BID PO Last administered on 06/09/16 22: 16; Admin Dose 25 MG; Start 06/08/16 at 21:00 Ondansetron HCl 4 mg 4 mg Q6H PRN IV NAUSEA AND/OR VOMITING Last administered on 06/09/16 02:19; Admin Dose 4 MG; Start 06/09/16 at 02:30 Sodium Chloride (NS) 1,000 ml @ 60 mls/hr [id number] IV Last administered on 06/10 10:47; Admin Dose 60 MLS/HR; Start 06/09/16 at 17:30 MERA AMARO MD Jun 10, 2016 18:10
--- NOTE | 2016-06-10 18:57 | CONS ---
DATE OF ADMISSION: 06/07/2016 DATE OF CONSULTATION: 06/10/2016 TYPE OF CONSULTATION: Nephrology. REASON FOR CONSULTATION: Acute kidney injury. Creatinine bumped up from a normal creatinine to higher. REFERRING PHYSICIAN: Dr. Rocky Chao. HISTORY OF PRESENT ILLNESS: This is an 85-year-old female who has a past medical history of atrial fibrillation, hypertension, history of diabetes mellitus, hyperlipidemia, hypertension, history of chronic kidney disease, possibly secondary to diabetic nephropathy and cardiorenal syndrome. She presented with atrial fibrillation with rapid ventricular rate. The patient also had hypercoagulable state for which she has been on Eliquis. She was noted to have a normal creatinine on admission. Her creatinine bumped up to 1.35 and the patient's urine output dropped down significantly so renal has been consulted for that. REVIEW OF SYSTEMS: As per HPI. PAST MEDICAL HISTORY: Notable for hypertension, hyperlipidemia, history of congestive heart failure with ejection fraction less than 25%, history of diabetes mellitus, hypertension and hyperlipidemia. PAST SURGICAL HISTORY: Cholecystectomy and tubal ligation. SOCIAL HISTORY: Every day smoker, 2-3 cigarettes per day. She quit smoking approximately 1 year ago. No alcohol or recreational drug use. Occasionally uses alcohol, but she quit approximately a year before, nor recreational drug use. PHYSICAL EXAMINATION: VITAL SIGNS: Temperature 97.9, heart rate 64, respirations 17, blood pressure 120/70, saturation 98% on room air. GENERAL: Awake, alert, in no distress. HEENT: Normal. Oropharynx clear. NECK: Supple, no JVD, no lymphadenopathy. LUNGS: Clear to auscultation. No crackles, no wheezes. HEART: S1, S2, with regular rhythm, no murmur. ABDOMEN: Soft, nontender, nondistended. Bowel sounds are present. EXTREMITIES: No clubbing, cyanosis, or edema. NEUROLOGICAL: Nonfocal, intact. PSYCHIATRIC: Appropriate affect and mood. LABORATORY DATA/DIAGNOSTIC IMAGING: Sodium 133, potassium 4.9, chloride 97, bicarbonate 22, BUN 28, creatinine 1.32, glucose 183. LFTs are slightly elevated. WBC 4.3, hemoglobin 11.1, platelet count is 167. PT 25.9, PTT 37, INR 2.3. IMPRESSION: This is an 85-year-old who has been admitted for atrial fibrillation with rapid ventricular rate. She also had acute congestive heart failure exacerbation with ejection fraction less than 25%. Patient gets diuresed and the creatinine bumped up to 1.35. Renal has been consulted for: 1. Acute kidney injury, likely secondary to cardiorenal syndrome. The patient is on Lasix 20 mg IV b.i.d. for diuresis. 2. Acute congestive heart failure exacerbation, acute on chronic, systolic. 3. Atrial fibrillation with rapid ventricular rate. 4. Hypertension. 5. Hyperlipidemia. 6. Diabetes mellitus. 7. Possible chronic kidney disease secondary to diabetic nephropathy. PLAN: 1. Thank you, Dr. Chao, for this consultation. I will order the patient's urine studies including a urine sodium, urine protein, urine creatinine, urine eosinophils. 2. Renal ultrasound will be ordered to assess the kidney size and to rule out any hydronephrosis. The patient had abdominal ultrasound done which shows kidneys are normal in size, normal echogenicity. The right kidney is 10.2 cm, left is 9.8 cm. No need for any repeat renal ultrasound. 3. Continue the Lasix 20 mg IV b.i.d. for diuresis. The patient is also getting NS at 50 to 60 mL per hour. Will reevaluate her in the morning if she wants to continue the IV fluids or not. She is currently seen on the telemetry floor. She will be followed up the receptionist telephone operator along with the primary care service. Total time spent on this patient's evaluation, making our assessment and plan, updating the patient and family members and communicating with the nursing staff took more than 90 minutes. Dictated By: CIELO FONG MD, KP/MAXIME Conf#: [id number] DID#: [id number] TIM
[2016-06-11] VITALS (20 sets, daily range): BP systolic 110–150; BP diastolic 54–79; PULSE 54–90; RESP 14–24
[2016-06-11] MEDS: DILTIAZEM 60 MG TAB PO SCH ×4 (00:06→18:00)
[2016-06-11] MEDS: SOD CHLORIDE 0.9% 1,000 ML IV SCH ×2 (02:50→04:54)
[2016-06-11] MEDS: FUROSEMIDE 20 MG INJ IV SCH ×2 (05:47→18:00)
[2016-06-11] MEDS: PANTOPRAZOLE 40 MG INJ IV SCH (05:47)
[2016-06-11 06:21] LABS: ADD SCAN DIFF NO
[2016-06-11 06:28] LABS: BASOPHIL # 0.1 10^3/ul (0.0-0.1); BASOPHILS % 1.2 % (0.0-2.0); EOSINOPHILS # 0.1 10^3/ul (0.0-0.5); HEMATOCRIT 35.2 % (37.0-47.0); HEMOGLOBIN 11.7 g/dl (12.0-16.0); LYMPHOCYTES # 1.2 10^3/ul (0.8-2.9); LYMPHOCYTES % 23.1 % (15.0-51.0); MEAN CORPUSCULAR HEMOGLOBIN 33.5 pg (29.0-33.0); MEAN CORPUSCULAR HGB CONC 33.2 g/dl (32.0-37.0); MEAN CORPUSCULAR VOLUME 100.9 fl (82.0-101.0); MEAN PLATELET VOLUME 11.1 fl (7.4-10.4); MONOCYTE # 0.6 10^3/ul (0.3-0.9); MONOCYTES % 12.2 % (0.0-11.0); NEUTROPHIL # 3.1 10^3/ul (1.6-7.5); NEUTROPHILS % 61.3 % (39.0-77.0); PLATELET COUNT 194 10^3/UL (140-415); RED BLOOD COUNT 3.49 10^6/ul (4.20-5.40); RED CELL DISTRIBUTION WIDTH 14.5 % (11.5-14.5)
[2016-06-11 07:05] LABS: POTASSIUM 3.7 mmol/L (3.5-5.1); URIC ACID 5.8 mg/dl (3.1-7.9)
[2016-06-11 07:08] LABS: CALCIUM 7.4 mg/dl (8.4-10.2)
[2016-06-11] MEDS: INSULIN ASPART [NOVOLOG] 3 ML PEN SC SCH ×4 (07:55→20:49)
--- NOTE | 2016-06-11 08:49 | CONS ---
Date/Time of Note Date/Time of Note DATE: 06/11/16 TIME: 08:47 Assessment/Plan Assessment/Plan Additional Assessment/Plan 1. Acute kidney injury, likely secondary to cardiorenal syndrome. The patient is on Lasix 20 mg IV b.i.d. for diuresis. 2. Acute congestive heart failure exacerbation, acute on chronic, systolic. 3. Atrial fibrillation with rapid ventricular rate. 4. Hypertension. 5. Hyperlipidemia. 6. Diabetes mellitus. 7. Possible chronic kidney disease secondary to diabetic nephropathy. PLAN: renal Us reviewed, Cr improved to normal D/c IVF will follow up Consultation Date/Type/Reason Admit Date/Time Jun 07, 2016 at 22:30 Initial Consult Date May Type of Consultation: NEPHROLOGY Reason for Consultation Acute kidney injury Referring Provider: MARTÍN WALDROP MD 24 HR Interval Summary Free Text/Dictation Creatinine improving, good urine output Exam/Review of Systems Vital Signs Vitals Vital Signs Date Time Temp Pulse Resp B/P Pulse Ox O2 Delivery O2 Flow Rate FiO2 06/11/16 08:12 76 06/11/16 07:40 97.8 18 128/70 99 06/10/16 23:00 Nasal Cannula 2.0 Intake and Output 06/10/16 06/10/16 06/11/16 15:00 23:00 07:00 Intake Total 750 ml 4250 ml Balance 750 ml 4250 ml Exam GENERAL: Awake, alert, in no distress. HEENT: Normal. Oropharynx clear. NECK: Supple, no JVD, no lymphadenopathy. LUNGS: Clear to auscultation. No crackles, no wheezes. HEART: S1, S2, with regular rhythm, no murmur. ABDOMEN: Soft, nontender, nondistended. Bowel sounds are present. EXTREMITIES: No clubbing, cyanosis, or edema. NEUROLOGICAL: Nonfocal, intact. PSYCHIATRIC: Appropriate affect and mood. Results Result Diagram: 06/11/16 0535 06/11/16 0535 Results 24 hrs Laboratory Tests Test 06/10/16 12:42 06/10/16 15:10 06/10/16 17:14 06/11/16 05:35 Bedside Glucose 121 124 Activated Partial Thromboplast Time 37.7 H INR International Normalized Ratio 2.34 Prothrombin Time 25.9 #H Prothrombin Time Ratio 2.0 Anion Gap 19 H Basophils # 0.1 Basophils % 1.2 Blood Urea Nitrogen 24 H Calcium Level 7.4 L Carbon Dioxide Level 24 Chloride Level 103 Creatine Kinase 71 Creatinine 1.00 Eosinophils # 0.1 Eosinophils % 2.0 Glucose Level 94 Hematocrit 35.2 L Hemoglobin 11.7 L Lymphocytes # 1.2 Lymphocytes % 23.1 Mean Corpuscular Hemoglobin 33.5 H Mean Corpuscular Hemoglobin Concent 33.2 Mean Corpuscular Volume 100.9 Mean Platelet Volume 11.1 H Monocytes # 0.6 Monocytes % 12.2 H Neutrophils # 3.1 Neutrophils % 61.3 Nucleated Red Blood Cells # 0.0 Nucleated Red Blood Cells % 0.0 Platelet Count 194 Potassium Level 3.7 Red Blood Count 3.49 L Red Cell Distribution Width 14.5 Sodium Level 142 Uric Acid 5.8 White Blood Count 5.0 Test 06/11/16 07:52 Bedside Glucose 100 Medications Medications Current Medications Allopurinol (Zyloprim) 100 mg DAILY PO Last administered on 06/09/16 09:27; Admin Dose 100 MG; Start 06/09/16 at 09:00 Aspirin (Halfprin) 81 mg DAILY PO Last administered on 06/09/16 09:26; Admin Dose 81 MG; Start 06/09/16 at 09:00 Febuxostat (Uloric) 40 mg DAILY PO Last administered on 06/09/16 09:28; Admin Dose 40 MG; Start 06/09/16 at 09:00 Folic Acid (Folic Acid) 1 mg DAILY PO Last administered on 06/09/16 09:27; Admin Dose 1 MG; Start 06/09/16 at 09:00 Ibuprofen (Motrin) 800 mg DAILY PRN PO PRN; Start 06/08/16 at 10:00 Tamsulosin HCl (Flomax) 0.4 mg DAILY PO Last administered on 06/09/16 09:27; Admin Dose 0.4 MG; Start 06/09/16 at 09:00 Cholecalciferol (Vitamin D) 400 units DAILY PO Last administered on 06/09/16 09:28; Admin Dose 400 UNITS; Start 06/09/16 at 09:00 Fish Oil (Fish Oil) 1,000 mg DAILY PO Last administered on 06/09/16 09:25; Admin Dose 1,000 MG; Start 06/09/16 at 09:00 Acetaminophen (Tylenol Tab) 650 mg Q6H PRN PO PAIN AND OR ELEVATED TEMP; Start 06/08/16 at 10:00 Ondansetron HCl (Zofran Tab) 4 mg Q6 PRN PO NAUSEA AND/OR VOMITING; Start 06/08 at 10:00 Docusate Sodium (Colace) 100 mg BID PO Last administered on 06/10/16 20:51; Admin Dose 100 MG; Start 06/08/16 at 21:00 Apixaban (Eliquis) 5 mg BID PO Last administered on 06/10/16 20:54; Admin Dose 5 MG; Start 06/08/16 at 12:30 Morphine Sulfate (morphine) 2 mg Q3 PRN IV PAIN LEVEL 7-10 Last administered on 06/08/16 12:25; Admin Dose 2 MG; Start 06/08/16 at 11:00 Pantoprazole (Protonix Iv) 40 mg DAILY@06 IV Last administered on 06/10/16 06: 03; Admin Dose 40 MG; Start 06/08/16 at 12:00 Miscellaneous Information 1 ea NOTE XX ; Start 06/08/16 at 11:30 Glucose (Glutose) 15 gm Q15M PRN PO DECREASED GLUCOSE; Start 06/08/16 at 11:30 Glucose (Glutose) 22.5 gm Q15M PRN PO DECREASED GLUCOSE; Start 06/08/16 at 11: 30 Dextrose (D50w Syringe) 25 ml Q15M PRN IV DECREASED GLUCOSE; Start 06/08/16 at 11:30 Dextrose (D50w Syringe) 50 ml Q15M PRN IV DECREASED GLUCOSE; Start 06/08/16 at 11:30 Glucagon (Glucagen) 1 mg Q15M PRN IM DECREASED GLUCOSE; Start 06/08/16 at 11:30 Glucose (Glutose) 15 gm Q15M PRN BUCCAL DECREASED GLUCOSE; Start 06/08/16 at 11 :30 Miscellaneous Information 1 ea NOTE XX ; Start 06/08/16 at 12:30 Glucose (Glutose) 15 gm Q15M PRN PO DECREASED GLUCOSE; Start 06/08/16 at 12:30 Glucose (Glutose) 22.5 gm Q15M PRN PO DECREASED GLUCOSE; Start 06/08/16 at 12: 30 Dextrose (D50w Syringe) 25 ml Q15M PRN IV DECREASED GLUCOSE; Start 06/08/16 at 12:30 Dextrose (D50w Syringe) 50 ml Q15M PRN IV DECREASED GLUCOSE; Start 06/08/16 at 12:30 Glucagon (Glucagen) 1 mg Q15M PRN IM DECREASED GLUCOSE; Start 06/08/16 at 12:30 Glucose (Glutose) 15 gm Q15M PRN BUCCAL DECREASED GLUCOSE; Start 06/08/16 at 12 :30 Diltiazem HCl (Cardizem) 60 mg Q6 PO Last administered on 06/11/16 00:06; Admin Dose 60 MG; Start 06/08/16 at 18:00 Metoprolol Tartrate (Lopressor) 25 mg BID PO Last administered on 06/10/16 20: 54; Admin Dose 25 MG; Start 06/08/16 at 21:00 Ondansetron HCl 4 mg 4 mg Q6H PRN IV NAUSEA AND/OR VOMITING Last administered on 06/09/16 02:19; Admin Dose 4 MG; Start 06/09/16 at 02:30 Sodium Chloride (NS) 1,000 ml @ 60 mls/hr [id number] IV Last administered on 06/11 04:54; Admin Dose 60 MLS/HR; Start 06/09/16 at 17:30 CIELO FONG MD Jun 11, 2016 08:49
[2016-06-11] MEDS: DEXTROSE 5%-0.45% NACL 1,000 ML IV SCH (09:41)
[2016-06-11] MEDS: ASPIRIN (EC) 81 MG TAB PO SCH (10:11)
[2016-06-11] MEDS: APIXABAN 5 MG TABLET PO SCH ×2 (10:11→20:50)
[2016-06-11] MEDS: TAMSULOSIN (SR) 0.4 MG CAP PO SCH (10:11)
[2016-06-11] MEDS: DOCUSATE SODIUM 100 MG CAP PO SCH ×2 (10:11→20:50)
[2016-06-11] MEDS: FOLIC ACID 1 MG TAB PO SCH (10:11)
[2016-06-11] MEDS: FISH OIL 1,000 MG CAP PO SCH (10:11)
[2016-06-11] MEDS: FEBUXOSTAT 40 MG TABLET PO SCH (10:12)
[2016-06-11] MEDS: ALLOPURINOL 100 MG TAB PO SCH (10:12)
[2016-06-11] MEDS: CHOLECALCIFEROL 400 UNITS TAB PO SCH (10:12)
[2016-06-11] MEDS: METOPROLOL 25 MG TAB PO SCH ×2 (10:13→20:51)
--- NOTE | 2016-06-11 14:46 | CONS ---
Date/Time of Note Date/Time of Note DATE: 06/11/16 TIME: 14:44 Assessment/Plan Assessment/Plan Additional Assessment/Plan 1. Atrial fibrillation - Patient has chronic atrial fibrillation, Rate Controlled. No indication for pacer. RATE CONTROLLED. 2. Secondary hypercoagulable sate: patient is on Eliquis. Continue anticoagulation. 4. Chest pain. The patient did not rule in for acute IN. Troponins are negative.BETTER now. 4. Heart failure. The patient has heart failure. h/o EF 35% buy nuc 2016, no rev dz, EF low now < 25% - will discuss ICD as outpt. 5. Acute renal failure. Creatinine is normal. Good urine output now. Continue to follow. BETTER. 6. Diabetes. Continue diabetic optimization and care. Con't to keep euglycemic. 7. Hypertension. Blood pressure fairly well controlled. Continue medical therapy. Consultation Date/Type/Reason Admit Date/Time Jun 07, 2016 at 22:30 Type of Consultation: NEPHROLOGY Referring Provider: MARTÍN WALDROP MD 24 HR Interval Summary Free Text/Dictation NO acute change - BP better - good fluid status, con't Med rx. ROS: No fever, no chills, no nausea, no vomiting, no diarrhea/constipation No recent weight changes No chest pain, no PND, no orthopnea No dizziness, blurred vision No thirst, no heat or cold intolerance Exam/Review of Systems Vital Signs Vitals Vital Signs Date Time Temp Pulse Resp B/P Pulse Ox O2 Delivery O2 Flow Rate FiO2 06/11/16 12:00 76 06/11/16 11:01 98.8 17 140/69 100 06/11/16 10:45 Nasal Cannula 2.0 Intake and Output 06/10/16 06/10/16 06/11/16 15:00 23:00 07:00 Intake Total 750 ml 4250 ml Balance 750 ml 4250 ml Exam General: WN/WD/NAD, AOx 2-3 HEENT: Unicetric/atraumatic/EOMI (follow commands) NECK: JVD elevated 8 cm , no thyromegaly Lymph: no lymphadenopathy HEART: IRregular with no S3, II/ systolic murmur at apex LUNGS: Coarse sounds ABD: soft, NT, ND, +BS : Intact Neuro: non focal SKIN: chronic changes EXT: trace edema Results Result Diagram: 06/11/16 0535 06/11/16 0535 Results 24 hrs Laboratory Tests Test 06/10/16 15:10 06/10/16 17:14 06/11/16 05:35 06/11/16 07:52 Activated Partial Thromboplast Time 37.7 H INR International Normalized Ratio 2.34 Prothrombin Time 25.9 #H Prothrombin Time Ratio 2.0 Bedside Glucose 124 100 Anion Gap 19 H Basophils # 0.1 Basophils % 1.2 Blood Urea Nitrogen 24 H Calcium Level 7.4 L Carbon Dioxide Level 24 Chloride Level 103 Creatine Kinase 71 Creatinine 1.00 Eosinophils # 0.1 Eosinophils % 2.0 Glucose Level 94 Hematocrit 35.2 L Hemoglobin 11.7 L Lymphocytes # 1.2 Lymphocytes % 23.1 Mean Corpuscular Hemoglobin 33.5 H Mean Corpuscular Hemoglobin Concent 33.2 Mean Corpuscular Volume 100.9 Mean Platelet Volume 11.1 H Monocytes # 0.6 Monocytes % 12.2 H Neutrophils # 3.1 Neutrophils % 61.3 Nucleated Red Blood Cells # 0.0 Nucleated Red Blood Cells % 0.0 Platelet Count 194 Potassium Level 3.7 Red Blood Count 3.49 L Red Cell Distribution Width 14.5 Sodium Level 142 Uric Acid 5.8 White Blood Count 5.0 Test 06/11/16 11:51 Bedside Glucose 100 Medications Medications Current Medications Allopurinol (Zyloprim) 100 mg DAILY PO Last administered on 06/09/16 09:27; Admin Dose 100 MG; Start 06/09/16 at 09:00 Aspirin (Halfprin) 81 mg DAILY PO Last administered on 06/09/16 09:26; Admin Dose 81 MG; Start 06/09/16 at 09:00 Febuxostat (Uloric) 40 mg DAILY PO Last administered on 06/09/16 09:28; Admin Dose 40 MG; Start 06/09/16 at 09:00 Folic Acid (Folic Acid) 1 mg DAILY PO Last administered on 06/09/16 09:27; Admin Dose 1 MG; Start 06/09/16 at 09:00 Ibuprofen (Motrin) 800 mg DAILY PRN PO PRN; Start 06/08/16 at 10:00 Tamsulosin HCl (Flomax) 0.4 mg DAILY PO Last administered on 06/09/16 09:27; Admin Dose 0.4 MG; Start 06/09/16 at 09:00 Cholecalciferol (Vitamin D) 400 units DAILY PO Last administered on 06/09/16 09:28; Admin Dose 400 UNITS; Start 06/09/16 at 09:00 Fish Oil (Fish Oil) 1,000 mg DAILY PO Last administered on 06/09/16 09:25; Admin Dose 1,000 MG; Start 06/09/16 at 09:00 Acetaminophen (Tylenol Tab) 650 mg Q6H PRN PO PAIN AND OR ELEVATED TEMP; Start 06/08/16 at 10:00 Ondansetron HCl (Zofran Tab) 4 mg Q6 PRN PO NAUSEA AND/OR VOMITING; Start 06/08 at 10:00 Docusate Sodium (Colace) 100 mg BID PO Last administered on 06/10/16 20:51; Admin Dose 100 MG; Start 06/08/16 at 21:00 Apixaban (Eliquis) 5 mg BID PO Last administered on 06/10/16 20:54; Admin Dose 5 MG; Start 06/08/16 at 12:30 Morphine Sulfate (morphine) 2 mg Q3 PRN IV PAIN LEVEL 7-10 Last administered on 06/08/16 12:25; Admin Dose 2 MG; Start 06/08/16 at 11:00 Pantoprazole (Protonix Iv) 40 mg DAILY@06 IV Last administered on 06/10/16 06: 03; Admin Dose 40 MG; Start 06/08/16 at 12:00 Miscellaneous Information 1 ea NOTE XX ; Start 06/08/16 at 11:30 Glucose (Glutose) 15 gm Q15M PRN PO DECREASED GLUCOSE; Start 06/08/16 at 11:30 Glucose (Glutose) 22.5 gm Q15M PRN PO DECREASED GLUCOSE; Start 06/08/16 at 11: 30 Dextrose (D50w Syringe) 25 ml Q15M PRN IV DECREASED GLUCOSE; Start 06/08/16 at 11:30 Dextrose (D50w Syringe) 50 ml Q15M PRN IV DECREASED GLUCOSE; Start 06/08/16 at 11:30 Glucagon (Glucagen) 1 mg Q15M PRN IM DECREASED GLUCOSE; Start 06/08/16 at 11:30 Glucose (Glutose) 15 gm Q15M PRN BUCCAL DECREASED GLUCOSE; Start 06/08/16 at 11 :30 Miscellaneous Information 1 ea NOTE XX ; Start 06/08/16 at 12:30 Glucose (Glutose) 15 gm Q15M PRN PO DECREASED GLUCOSE; Start 06/08/16 at 12:30 Glucose (Glutose) 22.5 gm Q15M PRN PO DECREASED GLUCOSE; Start 06/08/16 at 12: 30 Dextrose (D50w Syringe) 25 ml Q15M PRN IV DECREASED GLUCOSE; Start 06/08/16 at 12:30 Dextrose (D50w Syringe) 50 ml Q15M PRN IV DECREASED GLUCOSE; Start 06/08/16 at 12:30 Glucagon (Glucagen) 1 mg Q15M PRN IM DECREASED GLUCOSE; Start 06/08/16 at 12:30 Glucose (Glutose) 15 gm Q15M PRN BUCCAL DECREASED GLUCOSE; Start 06/08/16 at 12 :30 Diltiazem HCl (Cardizem) 60 mg Q6 PO Last administered on 06/11/16 12:16; Admin Dose 60 MG; Start 06/08/16 at 18:00 Metoprolol Tartrate (Lopressor) 25 mg BID PO Last administered on 06/10/16 20: 54; Admin Dose 25 MG; Start 06/08/16 at 21:00 Ondansetron HCl 4 mg 4 mg Q6H PRN IV NAUSEA AND/OR VOMITING Last administered on 06/09/16 02:19; Admin Dose 4 MG; Start 06/09/16 at 02:30 Dextrose/Sodium Chloride (D5-1/2ns) 1,000 ml @ 30 mls/hr Q24H IV Last administered on 06/11/16 09:41; Admin Dose 30 MLS/HR; Start 06/11/16 at 09:30 VAN AZEVEDO MD Jun 11, 2016 14:46
[2016-06-11 15:56] LABS: PROTEIN URINE < 5.0 mg/dl (0.0-9.9); PROTEIN/CREAT RATIO 0.16 RATIO
--- NOTE | 2016-06-11 16:33 | PN ---
Date/Time of Note Date/Time of Note DATE: 06/11/16 TIME: 16:32 Assessment/Plan VTE Prophylaxis VTE Prophylaxis Intervention: SCD's Lines/Catheters IV Catheter Type (from Nrs): Peripheral IV Assessment/Plan Chief Complaint/Hosp Course Assessment and plan - Atrial fibrillation with rapid ventricular response. Patient is currently in atrial fibrillation at controlled rate. Dr. Rico is following and cardiology consultation. Continue metoprolol and Eliquis. Continue Cardizem. - Abdominal pain. Patient is pending EGD tomorrow. Dr. Urias is following in cart in gastroenterology consultation - Diabetes mellitus type 2. Continue NovoLog per sliding scale. 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 Continue Lasix. - Obesity. Weight loss advised. - sp cholecystectomy Further recommendations based on clinical course. Plan of care discussed with Dr. Chao. Problems: Exam/Review of Systems Vital Signs Vitals Vital Signs Date Time Temp Pulse Resp B/P Pulse Ox O2 Delivery O2 Flow Rate FiO2 06/11/16 16:05 66 06/11/16 15:05 97.4 17 150/64 100 06/11/16 10:45 Nasal Cannula 2.0 Intake and Output 06/10/16 06/10/16 06/11/16 15:00 23:00 07:00 Intake Total 750 ml 4250 ml Balance 750 ml 4250 ml Exam Constitutional: alert, obese, oriented, well developed Psych: no complaints Head: atraumatic, normocephalic Eyes: nl conjunctiva ENMT: nl external ears & nose Neck: non-tender, supple Respiratory: clear to auscultation Cardiovascular: other (Atrial fibrillation) Gastrointestinal: other (Epigastric tenderness), soft Genitourinary - Female: nl adnexae Musculoskeletal: nl extremities to inspection Extremities: normal pulses Neurological: SHUTTLER II-XII intact Results Result Diagram: 06/11/16 0535 06/11/16 0535 Results 24 hrs Laboratory Tests Test 06/10/16 17:14 06/11/16 05:35 06/11/16 07:52 06/11/16 11:51 Bedside Glucose 124 100 100 Anion Gap 19 H Basophils # 0.1 Basophils % 1.2 Blood Urea Nitrogen 24 H Calcium Level 7.4 L Carbon Dioxide Level 24 Chloride Level 103 Creatine Kinase 71 Creatinine 1.00 Eosinophils # 0.1 Eosinophils % 2.0 Glucose Level 94 Hematocrit 35.2 L Hemoglobin 11.7 L Lymphocytes # 1.2 Lymphocytes % 23.1 Mean Corpuscular Hemoglobin 33.5 H Mean Corpuscular Hemoglobin Concent 33.2 Mean Corpuscular Volume 100.9 Mean Platelet Volume 11.1 H Monocytes # 0.6 Monocytes % 12.2 H Neutrophils # 3.1 Neutrophils % 61.3 Nucleated Red Blood Cells # 0.0 Nucleated Red Blood Cells % 0.0 Platelet Count 194 Potassium Level 3.7 Red Blood Count 3.49 L Red Cell Distribution Width 14.5 Sodium Level 142 Uric Acid 5.8 White Blood Count 5.0 Test 06/11/16 14:30 06/11/16 16:15 Urine Protein/Creatinine Ratio 0.16 Urine Random Creatinine 29.77 Urine Random Sodium 100 H Urine Total Protein < 5.0 Bedside Glucose 91 Medications Medications Current Medications Allopurinol (Zyloprim) 100 mg DAILY PO Last administered on 06/09/16 09:27; Admin Dose 100 MG; Start 06/09/16 at 09:00 Aspirin (Halfprin) 81 mg DAILY PO Last administered on 06/09/16 09:26; Admin Dose 81 MG; Start 06/09/16 at 09:00 Febuxostat (Uloric) 40 mg DAILY PO Last administered on 06/09/16 09:28; Admin Dose 40 MG; Start 06/09/16 at 09:00 Folic Acid (Folic Acid) 1 mg DAILY PO Last administered on 06/09/16 09:27; Admin Dose 1 MG; Start 06/09/16 at 09:00 Ibuprofen (Motrin) 800 mg DAILY PRN PO PRN; Start 06/08/16 at 10:00 Tamsulosin HCl (Flomax) 0.4 mg DAILY PO Last administered on 06/09/16 09:27; Admin Dose 0.4 MG; Start 06/09/16 at 09:00 Cholecalciferol (Vitamin D) 400 units DAILY PO Last administered on 06/09/16 09:28; Admin Dose 400 UNITS; Start 06/09/16 at 09:00 Fish Oil (Fish Oil) 1,000 mg DAILY PO Last administered on 06/09/16 09:25; Admin Dose 1,000 MG; Start 06/09/16 at 09:00 Acetaminophen (Tylenol Tab) 650 mg Q6H PRN PO PAIN AND OR ELEVATED TEMP; Start 06/08/16 at 10:00 Ondansetron HCl (Zofran Tab) 4 mg Q6 PRN PO NAUSEA AND/OR VOMITING; Start 06/08 at 10:00 Docusate Sodium (Colace) 100 mg BID PO Last administered on 06/10/16 20:51; Admin Dose 100 MG; Start 06/08/16 at 21:00 Apixaban (Eliquis) 5 mg BID PO Last administered on 06/10/16 20:54; Admin Dose 5 MG; Start 06/08/16 at 12:30 Morphine Sulfate (morphine) 2 mg Q3 PRN IV PAIN LEVEL 7-10 Last administered on 06/08/16 12:25; Admin Dose 2 MG; Start 06/08/16 at 11:00 Pantoprazole (Protonix Iv) 40 mg DAILY@06 IV Last administered on 06/10/16 06: 03; Admin Dose 40 MG; Start 06/08/16 at 12:00 Miscellaneous Information 1 ea NOTE XX ; Start 06/08/16 at 11:30 Glucose (Glutose) 15 gm Q15M PRN PO DECREASED GLUCOSE; Start 06/08/16 at 11:30 Glucose (Glutose) 22.5 gm Q15M PRN PO DECREASED GLUCOSE; Start 06/08/16 at 11: 30 Dextrose (D50w Syringe) 25 ml Q15M PRN IV DECREASED GLUCOSE; Start 06/08/16 at 11:30 Dextrose (D50w Syringe) 50 ml Q15M PRN IV DECREASED GLUCOSE; Start 06/08/16 at 11:30 Glucagon (Glucagen) 1 mg Q15M PRN IM DECREASED GLUCOSE; Start 06/08/16 at 11:30 Glucose (Glutose) 15 gm Q15M PRN BUCCAL DECREASED GLUCOSE; Start 06/08/16 at 11 :30 Miscellaneous Information 1 ea NOTE XX ; Start 06/08/16 at 12:30 Glucose (Glutose) 15 gm Q15M PRN PO DECREASED GLUCOSE; Start 06/08/16 at 12:30 Glucose (Glutose) 22.5 gm Q15M PRN PO DECREASED GLUCOSE; Start 06/08/16 at 12: 30 Dextrose (D50w Syringe) 25 ml Q15M PRN IV DECREASED GLUCOSE; Start 06/08/16 at 12:30 Dextrose (D50w Syringe) 50 ml Q15M PRN IV DECREASED GLUCOSE; Start 06/08/16 at 12:30 Glucagon (Glucagen) 1 mg Q15M PRN IM DECREASED GLUCOSE; Start 06/08/16 at 12:30 Glucose (Glutose) 15 gm Q15M PRN BUCCAL DECREASED GLUCOSE; Start 06/08/16 at 12 :30 Diltiazem HCl (Cardizem) 60 mg Q6 PO Last administered on 06/11/16 12:16; Admin Dose 60 MG; Start 06/08/16 at 18:00 Metoprolol Tartrate (Lopressor) 25 mg BID PO Last administered on 06/10/16 20: 54; Admin Dose 25 MG; Start 06/08/16 at 21:00 Ondansetron HCl 4 mg 4 mg Q6H PRN IV NAUSEA AND/OR VOMITING Last administered on 06/09/16 02:19; Admin Dose 4 MG; Start 06/09/16 at 02:30 Dextrose/Sodium Chloride (D5-1/2ns) 1,000 ml @ 30 mls/hr Q24H IV Last administered on 06/11/16 09:41; Admin Dose 30 MLS/HR; Start 06/11/16 at 09:30 RISHI LINDSAY Jun 11, 2016 16:33
[2016-06-11] MEDS ORDERED: PROPOFOL 20 ML ONE (17:15)
[2016-06-11] MEDS ORDERED: ONDANSETRON 4 MG INJ IV PRN (18:00)
[2016-06-11] MEDS ORDERED: FENTAnyl 50 MCG/ML VIAL IV PRN (18:00)
[2016-06-11] MEDS ORDERED: MIDAZOLAM 1 MG/ML 2 ML INJ IV PRN (18:00)
[2016-06-11] MEDS ORDERED: METOCLOPRAMIDE 10 MG INJ IV PRN (18:00)
[2016-06-11] MEDS ORDERED: MEPERIDINE 25 MG INJ IV PRN (18:00)
[2016-06-11] MEDS ORDERED: DIPHENHYDRAMINE 50 MG INJ IV PRN (18:00)
--- NOTE | 2016-06-11 22:20 | GILP ---
DATE OF PROCEDURE: PROCEDURE: Esophagogastroduodenoscopy. PREOPERATIVE DIAGNOSIS: Patient presenting with history of persistent abdominal pain. The MRCP neg ative. CAT scan of the abdomen negative for any other pathology. at this time performed to r fazale out peptic ulcer disease, gastritis. POSTOPERATIVE DIAGNOSES: Erosive gastritis of the antrum, fundal gastritis of minimal to moderate d egree, esophagus and duodenum appeared normal. DESCRIPTION OF PROCEDURE: After the informed written consent was obtained, the patient was asked to lie on the left lateral side. Intravenous anesthesia was given by anesthesiologist, Dr. Chinchilla. When the patient became somnolent, the Olympus video upper endoscope was introduced into the oropharynx, then into the esophagus. Esophagus showed normal mucosal pattern with no esophagitis. Scope at th is time was advanced into the stomach. Stomach showed evidence of several areas of erosions in the antrum. Mid body and fundus of the stomach showed evidence of edema and several areas of erythema. Duodenum appeared normal. Endoscope at this time was withdrawn and biopsy was not done because the INR is high and the procedure was terminated. PLAN: Recommend proton pump inhibitor therapy to be continued. Dictated By: MERA MASON/NTS Conf#: [id number] DID#: [id number] CC: MARTÍN WALDROP MD;*EndCC*
[2016-06-12] VITALS (13 sets, daily range): BP systolic 99–127; BP diastolic 60–78; PULSE 69–90; RESP 16–20
[2016-06-12] MEDS: DILTIAZEM 60 MG TAB PO SCH ×4 (00:45→17:55)
[2016-06-12 06:09] LABS: ADD SCAN DIFF NO
[2016-06-12 06:12] LABS: BASOPHILS % 0.8 % (0.0-2.0); EOSINOPHILS # 0.1 10^3/ul (0.0-0.5); EOSINOPHILS % 1.8 % (0.0-7.0); HEMATOCRIT 33.6 % (37.0-47.0); HEMOGLOBIN 11.2 g/dl (12.0-16.0); LYMPHOCYTES % 19.7 % (15.0-51.0); MEAN CORPUSCULAR HEMOGLOBIN 33.2 pg (29.0-33.0); MEAN CORPUSCULAR HGB CONC 33.3 g/dl (32.0-37.0); MEAN CORPUSCULAR VOLUME 99.7 fl (82.0-101.0); MEAN PLATELET VOLUME 10.7 fl (7.4-10.4); MONOCYTE # 0.5 10^3/ul (0.3-0.9); MONOCYTES % 10.3 % (0.0-11.0); NEUTROPHIL # 3.4 10^3/ul (1.6-7.5); PLATELET COUNT 183 10^3/UL (140-415); RED BLOOD COUNT 3.37 10^6/ul (4.20-5.40); RED CELL DISTRIBUTION WIDTH 14.6 % (11.5-14.5)
[2016-06-12] MEDS: PANTOPRAZOLE 40 MG INJ IV SCH (06:16)
[2016-06-12] MEDS: FUROSEMIDE 20 MG INJ IV SCH ×2 (06:16→17:55)
[2016-06-12 06:27] LABS: INR 2.07; PROTIME 23.5 Sec (12.2-14.2); PT RATIO 1.8
[2016-06-12 06:28] LABS: PARTIAL THROMBOPLASTIN TIME 35.4 Sec (25.0-35.0)
[2016-06-12 06:45] LABS: POTASSIUM 3.3 mmol/L (3.5-5.1)
[2016-06-12 06:48] LABS: CALCIUM 8.2 mg/dl (8.4-10.2); CREATININE 0.71 mg/dl (0.44-1.00)
[2016-06-12] MEDS: INSULIN ASPART [NOVOLOG] 3 ML PEN SC SCH ×4 (07:55→21:00)
[2016-06-12] MEDS: METOPROLOL 25 MG TAB PO SCH ×2 (08:23→21:00)
[2016-06-12] MEDS: FISH OIL 1,000 MG CAP PO SCH (08:23)
[2016-06-12] MEDS: APIXABAN 5 MG TABLET PO SCH ×2 (08:23→21:01)
[2016-06-12] MEDS: DOCUSATE SODIUM 100 MG CAP PO SCH ×2 (08:23→21:02)
[2016-06-12] MEDS: ALLOPURINOL 100 MG TAB PO SCH (08:23)
[2016-06-12] MEDS: TAMSULOSIN (SR) 0.4 MG CAP PO SCH (08:23)
[2016-06-12] MEDS: ASPIRIN (EC) 81 MG TAB PO SCH (08:23)
[2016-06-12] MEDS: CHOLECALCIFEROL 400 UNITS TAB PO SCH (08:23)
[2016-06-12] MEDS: FOLIC ACID 1 MG TAB PO SCH (08:23)
[2016-06-12] MEDS: DEXTROSE 5%-0.45% NACL 1,000 ML IV SCH (09:30)
[2016-06-12] MEDS: FEBUXOSTAT 40 MG TABLET PO SCH (09:48)
--- NOTE | 2016-06-12 10:23 | CONS ---
Date/Time of Note Date/Time of Note DATE: 06/12/16 TIME: 10:21 Assessment/Plan Assessment/Plan Additional Assessment/Plan 1. Acute kidney injury, likely secondary to cardiorenal syndrome. The patient is on Lasix 20 mg IV b.i.d. for diuresis. 2. Acute congestive heart failure exacerbation, acute on chronic, systolic. 3. Atrial fibrillation with rapid ventricular rate. 4. Hypertension. 5. Hyperlipidemia. 6. Diabetes mellitus. 7. Possible chronic kidney disease secondary to diabetic nephropathy. PLAN: renal Us reviewed, Cr improved to normal S/p EGD done, came from PACU on full liquids, IVF D5 12NS at 30 cc/hr will follow up Consultation Date/Type/Reason Admit Date/Time Jun 07, 2016 at 22:30 Initial Consult Date May Type of Consultation: NEPHROLOGY Reason for Consultation acute kidney injury, hyperkalemia Referring Provider: MARTÍN WALDROP MD Exam/Review of Systems Vital Signs Vitals Vital Signs Date Time Temp Pulse Resp B/P Pulse Ox O2 Delivery O2 Flow Rate FiO2 06/12/16 09:56 Nasal Cannula 2.0 06/12/16 08:00 72 06/12/16 06:52 98.1 18 118/63 99 Intake and Output 06/11/16 06/11/16 06/12/16 15:00 23:00 07:00 Intake Total 150 ml 210 ml 400 ml Balance 150 ml 210 ml 400 ml Exam no acute distress NECK: Supple, no JVD, no lymphadenopathy. LUNGS: Clear to auscultation. No crackles, no wheezes. HEART: S1, S2, with regular rhythm, no murmur. ABDOMEN: Soft, nontender, nondistended. Bowel sounds are present. EXTREMITIES: No clubbing, cyanosis, or edema. Results Result Diagram: 06/12/16 0535 06/12/16 0535 Results 24 hrs Laboratory Tests Test 06/11/16 11:51 06/11/16 14:30 06/11/16 16:15 06/11/16 18:13 Bedside Glucose 100 91 90 Urine Eosinophils % 0.0 Urine Protein/Creatinine Ratio 0.16 Urine Random Creatinine 29.77 Urine Random Sodium 100 H Urine Total Protein < 5.0 Test 06/11/16 20:48 06/12/16 05:35 06/12/16 07:29 Bedside Glucose 157 93 Activated Partial Thromboplast Time 35.4 H Anion Gap 15 Basophils # 0.0 Basophils % 0.8 Blood Urea Nitrogen 15 # Calcium Level 8.2 L Carbon Dioxide Level 28 Chloride Level 104 Creatinine 0.71 Eosinophils # 0.1 Eosinophils % 1.8 Glucose Level 107 Hematocrit 33.6 L Hemoglobin 11.2 L INR International Normalized Ratio 2.07 Lymphocytes # 1.0 Lymphocytes % 19.7 Mean Corpuscular Hemoglobin 33.2 H Mean Corpuscular Hemoglobin Concent 33.3 Mean Corpuscular Volume 99.7 Mean Platelet Volume 10.7 H Monocytes # 0.5 Monocytes % 10.3 Neutrophils # 3.4 Neutrophils % 67.0 Nucleated Red Blood Cells # 0.0 Nucleated Red Blood Cells % 0.0 Platelet Count 183 Potassium Level 3.3 L Prothrombin Time 23.5 H Prothrombin Time Ratio 1.8 Red Blood Count 3.37 L Red Cell Distribution Width 14.6 H Sodium Level 144 White Blood Count 5.0 Medications Medications Current Medications Allopurinol (Zyloprim) 100 mg DAILY PO Last administered on 06/12/16 08:23; Admin Dose 100 MG; Start 06/09/16 at 09:00 Aspirin (Halfprin) 81 mg DAILY PO Last administered on 06/12/16 08:23; Admin Dose 81 MG; Start 06/09/16 at 09:00 Febuxostat (Uloric) 40 mg DAILY PO Last administered on 06/12/16 09:48; Admin Dose 40 MG; Start 06/09/16 at 09:00 Folic Acid (Folic Acid) 1 mg DAILY PO Last administered on 06/12/16 08:23; Admin Dose 1 MG; Start 06/09/16 at 09:00 Ibuprofen (Motrin) 800 mg DAILY PRN PO PRN; Start 06/08/16 at 10:00 Tamsulosin HCl (Flomax) 0.4 mg DAILY PO Last administered on 06/12/16 08:23; Admin Dose 0.4 MG; Start 06/09/16 at 09:00 Cholecalciferol (Vitamin D) 400 units DAILY PO Last administered on 06/12/16 08 :23; Admin Dose 400 UNITS; Start 06/09/16 at 09:00 Fish Oil (Fish Oil) 1,000 mg DAILY PO Last administered on 06/12/16 08:23; Admin Dose 1,000 MG; Start 06/09/16 at 09:00 Acetaminophen (Tylenol Tab) 650 mg Q6H PRN PO PAIN AND OR ELEVATED TEMP; Start 06/08/16 at 10:00 Ondansetron HCl (Zofran Tab) 4 mg Q6 PRN PO NAUSEA AND/OR VOMITING; Start 06/08 at 10:00 Docusate Sodium (Colace) 100 mg BID PO Last administered on 06/12/16 08:23; Admin Dose 100 MG; Start 06/08/16 at 21:00 Apixaban (Eliquis) 5 mg BID PO Last administered on 06/12/16 08:23; Admin Dose 5 MG; Start 06/08/16 at 12:30 Morphine Sulfate (morphine) 2 mg Q3 PRN IV PAIN LEVEL 7-10 Last administered on 06/08/16 12:25; Admin Dose 2 MG; Start 06/08/16 at 11:00 Pantoprazole (Protonix Iv) 40 mg DAILY@06 IV Last administered on 06/12/16 06: 16; Admin Dose 40 MG; Start 06/08/16 at 12:00 Miscellaneous Information 1 ea NOTE XX ; Start 06/08/16 at 11:30 Glucose (Glutose) 15 gm Q15M PRN PO DECREASED GLUCOSE; Start 06/08/16 at 11:30 Glucose (Glutose) 22.5 gm Q15M PRN PO DECREASED GLUCOSE; Start 06/08/16 at 11: 30 Dextrose (D50w Syringe) 25 ml Q15M PRN IV DECREASED GLUCOSE; Start 06/08/16 at 11:30 Dextrose (D50w Syringe) 50 ml Q15M PRN IV DECREASED GLUCOSE; Start 06/08/16 at 11:30 Glucagon (Glucagen) 1 mg Q15M PRN IM DECREASED GLUCOSE; Start 06/08/16 at 11:30 Glucose (Glutose) 15 gm Q15M PRN BUCCAL DECREASED GLUCOSE; Start 06/08/16 at 11 :30 Miscellaneous Information 1 ea NOTE XX ; Start 06/08/16 at 12:30 Glucose (Glutose) 15 gm Q15M PRN PO DECREASED GLUCOSE; Start 06/08/16 at 12:30 Glucose (Glutose) 22.5 gm Q15M PRN PO DECREASED GLUCOSE; Start 06/08/16 at 12: 30 Dextrose (D50w Syringe) 25 ml Q15M PRN IV DECREASED GLUCOSE; Start 06/08/16 at 12:30 Dextrose (D50w Syringe) 50 ml Q15M PRN IV DECREASED GLUCOSE; Start 06/08/16 at 12:30 Glucagon (Glucagen) 1 mg Q15M PRN IM DECREASED GLUCOSE; Start 06/08/16 at 12:30 Glucose (Glutose) 15 gm Q15M PRN BUCCAL DECREASED GLUCOSE; Start 06/08/16 at 12 :30 Diltiazem HCl (Cardizem) 60 mg Q6 PO Last administered on 06/12/16 06:16; Admin Dose 60 MG; Start 06/08/16 at 18:00 Metoprolol Tartrate (Lopressor) 25 mg BID PO Last administered on 06/12/16 08: 23; Admin Dose 25 MG; Start 06/08/16 at 21:00 Ondansetron HCl 4 mg 4 mg Q6H PRN IV NAUSEA AND/OR VOMITING Last administered on 06/09/16 02:19; Admin Dose 4 MG; Start 06/09/16 at 02:30 Dextrose/Sodium Chloride 1,000 ml @ 30 mls/hr Q24H IV Last administered on 09:41; Admin Dose 30 MLS/HR; Start 06/11/16 at 09:30 Potassium Chloride/Sodium Chloride (KCl/NS) 110 ml @ 55 mls/hr ONCE IVPB Last administered on 06/12/16 09:49; Admin Dose 55 MLS/HR; Start 06/12/16 at 10:30; Stop 06/12/16 at 12:29 CIELO FONG MD Jun 12, 2016 10:23
[2016-06-12] MEDS ORDERED: POTASSIUM CHLORIDE 20 MEQ in SOD CHLORIDE 0.9% 100 ML IVPB SCH (10:30)
--- NOTE | 2016-06-12 15:13 | CONS ---
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 -Hold asa Problems: Consultation Date/Type/Reason Admit Date/Time Jun 07, 2016 at 22:30 Initial Consult Date 06/08/16 Type of Consultation: Cardiology Reason for Consultation AF Referring Provider: MARTÍN WALDROP MD Exam/Review of Systems Vital Signs Vitals Vital Signs Date Time Temp Pulse Resp B/P Pulse Ox O2 Delivery O2 Flow Rate FiO2 06/12/16 12:01 69 06/12/16 11:05 98.8 18 103/60 98 06/12/16 09:56 Nasal Cannula 2.0 Intake and Output 06/11/16 06/11/16 06/12/16 15:00 23:00 07:00 Intake Total 150 ml 210 ml 400 ml Balance 150 ml 210 ml 400 ml Exam Review of Systems: CONSTITUTIONAL: No fevers, chills. PULMONARY: No sob CARDIOVASCULAR: No chest pain/palpitations GASTROINTESTINAL: No nausea/vomiting. GENITOURINARY: No hematuria/dysuria. MUSCULOSKELETAL: No myagias/arthalgias. PSYCHIATRIC: The patient denies depression. NEUROLOGIC: No weakness Constitutional: alert Head: normocephalic ENMT: mucosa pink and moist Neck: jvd (9 cm water), supple Respiratory: diminished breath sounds (at bases/B) Cardiovascular: irregular rhythm Gastrointestinal: non-tender, soft Musculoskeletal: muscle tone (normal) Extremities: edema (none) Neurological: other (No focal deficits) Results Result Diagram: 06/12/16 0535 06/12/16 0535 Results 24 hrs Laboratory Tests Test 06/11/16 16:15 06/11/16 18:13 06/11/16 20:48 06/12/16 05:35 Bedside Glucose 91 90 157 Activated Partial Thromboplast Time 35.4 H Anion Gap 15 Basophils # 0.0 Basophils % 0.8 Blood Urea Nitrogen 15 # Calcium Level 8.2 L Carbon Dioxide Level 28 Chloride Level 104 Creatinine 0.71 Eosinophils # 0.1 Eosinophils % 1.8 Glucose Level 107 Hematocrit 33.6 L Hemoglobin 11.2 L INR International Normalized Ratio 2.07 Lymphocytes # 1.0 Lymphocytes % 19.7 Mean Corpuscular Hemoglobin 33.2 H Mean Corpuscular Hemoglobin Concent 33.3 Mean Corpuscular Volume 99.7 Mean Platelet Volume 10.7 H Monocytes # 0.5 Monocytes % 10.3 Neutrophils # 3.4 Neutrophils % 67.0 Nucleated Red Blood Cells # 0.0 Nucleated Red Blood Cells % 0.0 Platelet Count 183 Potassium Level 3.3 L Prothrombin Time 23.5 H Prothrombin Time Ratio 1.8 Red Blood Count 3.37 L Red Cell Distribution Width 14.6 H Sodium Level 144 White Blood Count 5.0 Test 06/12/16 07:29 06/12/16 11:26 Bedside Glucose 93 178 Medications Medications Current Medications Allopurinol (Zyloprim) 100 mg DAILY PO Last administered on 06/12/16 08:23; Admin Dose 100 MG; Start 06/09/16 at 09:00 Aspirin (Halfprin) 81 mg DAILY PO Last administered on 06/12/16 08:23; Admin Dose 81 MG; Start 06/09/16 at 09:00 Febuxostat (Uloric) 40 mg DAILY PO Last administered on 06/12/16 09:48; Admin Dose 40 MG; Start 06/09/16 at 09:00 Folic Acid (Folic Acid) 1 mg DAILY PO Last administered on 06/12/16 08:23; Admin Dose 1 MG; Start 06/09/16 at 09:00 Ibuprofen (Motrin) 800 mg DAILY PRN PO PRN Last administered on 06/12/16 10:27 ; Admin Dose 800 MG; Start 06/08/16 at 10:00 Tamsulosin HCl (Flomax) 0.4 mg DAILY PO Last administered on 06/12/16 08:23; Admin Dose 0.4 MG; Start 06/09/16 at 09:00 Cholecalciferol (Vitamin D) 400 units DAILY PO Last administered on 06/12/16 08 :23; Admin Dose 400 UNITS; Start 06/09/16 at 09:00 Fish Oil (Fish Oil) 1,000 mg DAILY PO Last administered on 06/12/16 08:23; Admin Dose 1,000 MG; Start 06/09/16 at 09:00 Acetaminophen (Tylenol Tab) 650 mg Q6H PRN PO PAIN AND OR ELEVATED TEMP; Start 06/08/16 at 10:00 Ondansetron HCl (Zofran Tab) 4 mg Q6 PRN PO NAUSEA AND/OR VOMITING; Start 06/08 at 10:00 Docusate Sodium (Colace) 100 mg BID PO Last administered on 06/12/16 08:23; Admin Dose 100 MG; Start 06/08/16 at 21:00 Apixaban (Eliquis) 5 mg BID PO Last administered on 06/12/16 08:23; Admin Dose 5 MG; Start 06/08/16 at 12:30 Morphine Sulfate (morphine) 2 mg Q3 PRN IV PAIN LEVEL 7-10 Last administered on 06/08/16 12:25; Admin Dose 2 MG; Start 06/08/16 at 11:00 Pantoprazole (Protonix Iv) 40 mg DAILY@06 IV Last administered on 06/12/16 06: 16; Admin Dose 40 MG; Start 06/08/16 at 12:00 Miscellaneous Information 1 ea NOTE XX ; Start 06/08/16 at 11:30 Glucose (Glutose) 15 gm Q15M PRN PO DECREASED GLUCOSE; Start 06/08/16 at 11:30 Glucose (Glutose) 22.5 gm Q15M PRN PO DECREASED GLUCOSE; Start 06/08/16 at 11: 30 Dextrose (D50w Syringe) 25 ml Q15M PRN IV DECREASED GLUCOSE; Start 06/08/16 at 11:30 Dextrose (D50w Syringe) 50 ml Q15M PRN IV DECREASED GLUCOSE; Start 06/08/16 at 11:30 Glucagon (Glucagen) 1 mg Q15M PRN IM DECREASED GLUCOSE; Start 06/08/16 at 11:30 Glucose (Glutose) 15 gm Q15M PRN BUCCAL DECREASED GLUCOSE; Start 06/08/16 at 11 :30 Miscellaneous Information 1 ea NOTE XX ; Start 06/08/16 at 12:30 Glucose (Glutose) 15 gm Q15M PRN PO DECREASED GLUCOSE; Start 06/08/16 at 12:30 Glucose (Glutose) 22.5 gm Q15M PRN PO DECREASED GLUCOSE; Start 06/08/16 at 12: 30 Dextrose (D50w Syringe) 25 ml Q15M PRN IV DECREASED GLUCOSE; Start 06/08/16 at 12:30 Dextrose (D50w Syringe) 50 ml Q15M PRN IV DECREASED GLUCOSE; Start 06/08/16 at 12:30 Glucagon (Glucagen) 1 mg Q15M PRN IM DECREASED GLUCOSE; Start 06/08/16 at 12:30 Glucose (Glutose) 15 gm Q15M PRN BUCCAL DECREASED GLUCOSE; Start 06/08/16 at 12 :30 Diltiazem HCl (Cardizem) 60 mg Q6 PO Last administered on 06/12/16 11:27; Admin Dose 60 MG; Start 06/08/16 at 18:00 Metoprolol Tartrate (Lopressor) 25 mg BID PO Last administered on 06/12/16 08: 23; Admin Dose 25 MG; Start 06/08/16 at 21:00 Ondansetron HCl 4 mg 4 mg Q6H PRN IV NAUSEA AND/OR VOMITING Last administered on 06/09/16 02:19; Admin Dose 4 MG; Start 06/09/16 at 02:30 Dextrose/Sodium Chloride (D5-1/2ns) 1,000 ml @ 30 mls/hr Q24H IV Last administered on 06/11/16 09:41; Admin Dose 30 MLS/HR; Start 06/11/16 at 09:30 ORQUIDEA GUILLAUME Jun 12, 2016 15:13
--- NOTE | 2016-06-12 17:47 | PN ---
Date/Time of Note Date/Time of Note DATE: 06/12/16 TIME: 17:44 Assessment/Plan VTE Prophylaxis VTE Prophylaxis Intervention: SCD's Lines/Catheters [facility]ter Type (from [facility]): Peripheral IV Urinary Cath still in place: No Assessment/Plan Chief Complaint/Hosp Course Assessment and plan - Atrial fibrillation with rapid ventricular response. Patient is currently in atrial fibrillation at controlled rate. Dr. Rico is following and cardiology consultation. Continue metoprolol and Eliquis. Continue Cardizem. - Erosive gastritis per EGD. Continue Protonix. Dr. Urias is following in cart in gastroenterology consultation - Diabetes mellitus type 2. Continue NovoLog per sliding scale. 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 Continue Lasix. - Obesity. Weight loss advised. - sp cholecystectomy Further recommendations based on clinical course. Plan of care discussed with Dr. Chao. Problems: Exam/Review of Systems Vital Signs Vitals Vital Signs Date Time Temp Pulse Resp B/P Pulse Ox O2 Delivery O2 Flow Rate FiO2 06/12/16 16:34 69 06/12/16 15:22 97.7 18 99/78 95 06/12/16 09:56 Nasal Cannula 2.0 Intake and Output 06/11/16 06/11/16 06/12/16 15:00 23:00 07:00 Intake Total 150 ml 210 ml 400 ml Balance 150 ml 210 ml 400 ml Exam Constitutional: alert, obese, oriented, well developed Psych: no complaints Head: atraumatic, normocephalic Eyes: nl conjunctiva ENMT: nl external ears & nose Neck: non-tender, supple Respiratory: clear to auscultation Cardiovascular: other (Atrial fibrillation) Gastrointestinal: other (Epigastric tenderness), soft Genitourinary - Female: nl adnexae Musculoskeletal: nl extremities to inspection Extremities: normal pulses Neurological: CELLAR HAND II-XII intact Results Result Diagram: 06/12/16 0535 06/12/16 0535 Results 24 hrs Laboratory Tests Test 06/11/16 18:13 06/11/16 20:48 06/12/16 05:35 06/12/16 07:29 Bedside Glucose 90 157 93 Activated Partial Thromboplast Time 35.4 H Anion Gap 15 Basophils # 0.0 Basophils % 0.8 Blood Urea Nitrogen 15 # Calcium Level 8.2 L Carbon Dioxide Level 28 Chloride Level 104 Creatinine 0.71 Eosinophils # 0.1 Eosinophils % 1.8 Glucose Level 107 Hematocrit 33.6 L Hemoglobin 11.2 L INR International Normalized Ratio 2.07 Lymphocytes # 1.0 Lymphocytes % 19.7 Mean Corpuscular Hemoglobin 33.2 H Mean Corpuscular Hemoglobin Concent 33.3 Mean Corpuscular Volume 99.7 Mean Platelet Volume 10.7 H Monocytes # 0.5 Monocytes % 10.3 Neutrophils # 3.4 Neutrophils % 67.0 Nucleated Red Blood Cells # 0.0 Nucleated Red Blood Cells % 0.0 Platelet Count 183 Potassium Level 3.3 L Prothrombin Time 23.5 H Prothrombin Time Ratio 1.8 Red Blood Count 3.37 L Red Cell Distribution Width 14.6 H Sodium Level 144 White Blood Count 5.0 Test 06/12/16 11:26 Bedside Glucose 178 Medications Medications Current Medications Allopurinol (Zyloprim) 100 mg DAILY PO Last administered on 06/12/16 08:23; Admin Dose 100 MG; Start 06/09/16 at 09:00 Aspirin (Halfprin) 81 mg DAILY PO Last administered on 06/12/16 08:23; Admin Dose 81 MG; Start 06/09/16 at 09:00; Status Future Hold Febuxostat (Uloric) 40 mg DAILY PO Last administered on 06/12/16 09:48; Admin Dose 40 MG; Start 06/09/16 at 09:00 Folic Acid (Folic Acid) 1 mg DAILY PO Last administered on 06/12/16 08:23; Admin Dose 1 MG; Start 06/09/16 at 09:00 Ibuprofen (Motrin) 800 mg DAILY PRN PO PRN Last administered on 06/12/16 10:27 ; Admin Dose 800 MG; Start 06/08/16 at 10:00 Tamsulosin HCl (Flomax) 0.4 mg DAILY PO Last administered on 06/12/16 08:23; Admin Dose 0.4 MG; Start 06/09/16 at 09:00 Cholecalciferol (Vitamin D) 400 units DAILY PO Last administered on 06/12/16 08 :23; Admin Dose 400 UNITS; Start 06/09/16 at 09:00 Fish Oil (Fish Oil) 1,000 mg DAILY PO Last administered on 06/12/16 08:23; Admin Dose 1,000 MG; Start 06/09/16 at 09:00 Acetaminophen (Tylenol Tab) 650 mg Q6H PRN PO PAIN AND OR ELEVATED TEMP; Start 06/08/16 at 10:00 Ondansetron HCl (Zofran Tab) 4 mg Q6 PRN PO NAUSEA AND/OR VOMITING; Start 06/08 at 10:00 Docusate Sodium (Colace) 100 mg BID PO Last administered on 06/12/16 08:23; Admin Dose 100 MG; Start 06/08/16 at 21:00 Apixaban (Eliquis) 5 mg BID PO Last administered on 06/12/16 08:23; Admin Dose 5 MG; Start 06/08/16 at 12:30 Morphine Sulfate (morphine) 2 mg Q3 PRN IV PAIN LEVEL 7-10 Last administered on 06/08/16 12:25; Admin Dose 2 MG; Start 06/08/16 at 11:00 Pantoprazole (Protonix Iv) 40 mg DAILY@06 IV Last administered on 06/12/16 06: 16; Admin Dose 40 MG; Start 06/08/16 at 12:00 Miscellaneous Information 1 ea NOTE XX ; Start 06/08/16 at 11:30 Glucose (Glutose) 15 gm Q15M PRN PO DECREASED GLUCOSE; Start 06/08/16 at 11:30 Glucose (Glutose) 22.5 gm Q15M PRN PO DECREASED GLUCOSE; Start 06/08/16 at 11: 30 Dextrose (D50w Syringe) 25 ml Q15M PRN IV DECREASED GLUCOSE; Start 06/08/16 at 11:30 Dextrose (D50w Syringe) 50 ml Q15M PRN IV DECREASED GLUCOSE; Start 06/08/16 at 11:30 Glucagon (Glucagen) 1 mg Q15M PRN IM DECREASED GLUCOSE; Start 06/08/16 at 11:30 Glucose (Glutose) 15 gm Q15M PRN BUCCAL DECREASED GLUCOSE; Start 06/08/16 at 11 :30 Miscellaneous Information 1 ea NOTE XX ; Start 06/08/16 at 12:30 Glucose (Glutose) 15 gm Q15M PRN PO DECREASED GLUCOSE; Start 06/08/16 at 12:30 Glucose (Glutose) 22.5 gm Q15M PRN PO DECREASED GLUCOSE; Start 06/08/16 at 12: 30 Dextrose (D50w Syringe) 25 ml Q15M PRN IV DECREASED GLUCOSE; Start 06/08/16 at 12:30 Dextrose (D50w Syringe) 50 ml Q15M PRN IV DECREASED GLUCOSE; Start 06/08/16 at 12:30 Glucagon (Glucagen) 1 mg Q15M PRN IM DECREASED GLUCOSE; Start 06/08/16 at 12:30 Glucose (Glutose) 15 gm Q15M PRN BUCCAL DECREASED GLUCOSE; Start 06/08/16 at 12 :30 Diltiazem HCl (Cardizem) 60 mg Q6 PO Last administered on 06/12/16 11:27; Admin Dose 60 MG; Start 06/08/16 at 18:00 Metoprolol Tartrate (Lopressor) 25 mg BID PO Last administered on 06/12/16 08: 23; Admin Dose 25 MG; Start 06/08/16 at 21:00 Ondansetron HCl 4 mg 4 mg Q6H PRN IV NAUSEA AND/OR VOMITING Last administered on 06/09/16 02:19; Admin Dose 4 MG; Start 06/09/16 at 02:30 Dextrose/Sodium Chloride (D5-1/2ns) 1,000 ml @ 30 mls/hr Q24H IV Last administered on 06/11/16 09:41; Admin Dose 30 MLS/HR; Start 06/11/16 at 09:30 RISHI LINDSAY Jun 12, 2016 17:47
[2016-06-12] MEDS ORDERED: D5W-0.45 NACL + KCL 20 MEQ 1,000 ML IV SCH (19:00)
--- NOTE | 2016-06-12 19:10 | CONS ---
DATE OF ADMISSION: 06/07/2016 DATE OF CONSULTATION: CHIEF COMPLAINT: At this time, she has no significant abdominal pain. She has improved a great lyndon l from the abdominal pain standpoint. PHYSICAL EXAMINATION: The patient is a 55-year-old female, alert. At this time, she is ab le to eat well without any abdominal pain. CLINICAL IMPRESSION: She has gastritis with erosive gastritis. Helicobacter pylori was done and th e results are pending. PLAN: At this time, continue proton pump inhibitor therapy. Dictated By: MERA AMARO MD NC/NTS Conf#: [id number] DID#: [id number] CC: MERA AMARO MD; MARTÍN WALDROP MD;*[facility]*
[2016-06-13] VITALS (12 sets, daily range): BP systolic 113–140; BP diastolic 63–86; PULSE 72–89; RESP 16–20
[2016-06-13] MEDS: DILTIAZEM 60 MG TAB PO SCH ×4 (00:58→17:05)
[2016-06-13] MEDS: FUROSEMIDE 20 MG INJ IV SCH ×2 (06:28→17:05)
[2016-06-13] MEDS: PANTOPRAZOLE 40 MG INJ IV SCH (06:28)
[2016-06-13 07:07] LABS: POTASSIUM 4.1 mmol/L (3.5-5.1)
[2016-06-13 07:10] LABS: CREATININE 0.92 mg/dl (0.44-1.00)
[2016-06-13 07:11] LABS: CALCIUM 8.1 mg/dl (8.4-10.2)
[2016-06-13] MEDS: INSULIN ASPART [NOVOLOG] 3 ML PEN SC SCH ×4 (07:55→21:00)
[2016-06-13] MEDS: CHOLECALCIFEROL 400 UNITS TAB PO SCH (08:29)
[2016-06-13] MEDS: METOPROLOL 25 MG TAB PO SCH ×2 (08:29→22:06)
[2016-06-13] MEDS: DOCUSATE SODIUM 100 MG CAP PO SCH ×2 (08:29→21:00)
[2016-06-13] MEDS: FEBUXOSTAT 40 MG TABLET PO SCH (08:29)
[2016-06-13] MEDS: TAMSULOSIN (SR) 0.4 MG CAP PO SCH (08:29)
[2016-06-13] MEDS: APIXABAN 5 MG TABLET PO SCH ×2 (08:29→22:06)
[2016-06-13] MEDS: ALLOPURINOL 100 MG TAB PO SCH (08:29)
[2016-06-13] MEDS: FISH OIL 1,000 MG CAP PO SCH (08:29)
[2016-06-13] MEDS: FOLIC ACID 1 MG TAB PO SCH (08:30)
--- NOTE | 2016-06-13 08:38 | CONS ---
Date/Time of Note Date/Time of Note DATE: 06/13/16 TIME: 08:35 Assessment/Plan Assessment/Plan Additional Assessment/Plan 1. Acute kidney injury, likely secondary to cardiorenal syndrome. The patient is on Lasix 20 mg IV b.i.d. for diuresis. 2. Acute congestive heart failure exacerbation, acute on chronic, systolic. 3. Atrial fibrillation with rapid ventricular rate. 4. Hypertension. 5. Hyperlipidemia. 6. Diabetes mellitus. 7. Possible chronic kidney disease secondary to diabetic nephropathy. PLAN: renal Us reviewed, Cr improved to normal s/p EGD which showed gastritis with erosive gastritis. Helicobacter pylori was done and the results are pending on regula diet, d/c IV fluids will follow up Consultation Date/Type/Reason Admit Date/Time Jun 07, 2016 at 22:30 Initial Consult Date May Type of Consultation: NEPHROLOGY Reason for Consultation Acute kidney injury, hyperkalemia Referring Provider: MARTÍN WALDROP MD 24 HR Interval Summary Free Text/Dictation no acute events overnight, K stable, Afebrile, BP stable, s/p EGD which showed gastritis with erosive gastritis. Helicobacter pylori was done and the results are pending. Exam/Review of Systems Vital Signs Vitals Vital Signs Date Time Temp Pulse Resp B/P Pulse Ox O2 Delivery O2 Flow Rate FiO2 06/13/16 08:23 75 06/13/16 07:11 97.8 20 119/81 98 06/12/16 19:43 Nasal Cannula 2.0 Intake and Output 06/12/16 06/12/16 06/13/16 15:00 23:00 07:00 Intake Total 720 ml 520 ml Balance 720 ml 520 ml Exam no acute distress NECK: Supple, no JVD, no lymphadenopathy. LUNGS: Clear to auscultation. No crackles, no wheezes. HEART: S1, S2, with regular rhythm, no murmur. ABDOMEN: Soft, nontender, nondistended. Bowel sounds are present. EXTREMITIES: No clubbing, cyanosis, or edema. Results Result Diagram: 06/12/16 0535 06/13/16 0545 Results 24 hrs Laboratory Tests Test 06/12/16 11:26 06/12/16 17:53 06/12/16 21:03 06/13/16 05:45 Bedside Glucose 178 96 103 Anion Gap 19 H Blood Urea Nitrogen 17 Calcium Level 8.1 L Carbon Dioxide Level 29 Chloride Level 99 Creatinine 0.92 Glucose Level 115 Potassium Level 4.1 Sodium Level 143 Test 06/13/16 07:26 Bedside Glucose 120 Medications Medications Current Medications Allopurinol (Zyloprim) 100 mg DAILY PO Last administered on 06/13/16 08:29; Admin Dose 100 MG; Start 06/09/16 at 09:00 Aspirin (Halfprin) 81 mg DAILY PO Last administered on 06/12/16 08:23; Admin Dose 81 MG; Start 06/09/16 at 09:00; Status Future Hold Febuxostat (Uloric) 40 mg DAILY PO Last administered on 06/13/16 08:29; Admin Dose 40 MG; Start 06/09/16 at 09:00 Folic Acid (Folic Acid) 1 mg DAILY PO Last administered on 06/13/16 08:30; Admin Dose 1 MG; Start 06/09/16 at 09:00 Ibuprofen (Motrin) 800 mg DAILY PRN PO PRN Last administered on 06/12/16 10:27 ; Admin Dose 800 MG; Start 06/08/16 at 10:00 Tamsulosin HCl (Flomax) 0.4 mg DAILY PO Last administered on 06/13/16 08:29; Admin Dose 0.4 MG; Start 06/09/16 at 09:00 Cholecalciferol (Vitamin D) 400 units DAILY PO Last administered on 06/13/16 08 :29; Admin Dose 400 UNITS; Start 06/09/16 at 09:00 Fish Oil (Fish Oil) 1,000 mg DAILY PO Last administered on 06/13/16 08:29; Admin Dose 1,000 MG; Start 06/09/16 at 09:00 Acetaminophen (Tylenol Tab) 650 mg Q6H PRN PO PAIN AND OR ELEVATED TEMP; Start 06/08/16 at 10:00 Ondansetron HCl (Zofran Tab) 4 mg Q6 PRN PO NAUSEA AND/OR VOMITING; Start 06/08 at 10:00 Docusate Sodium (Colace) 100 mg BID PO Last administered on 06/13/16 08:29; Admin Dose 100 MG; Start 06/08/16 at 21:00 Apixaban (Eliquis) 5 mg BID PO Last administered on 06/13/16 08:29; Admin Dose 5 MG; Start 06/08/16 at 12:30 Morphine Sulfate (morphine) 2 mg Q3 PRN IV PAIN LEVEL 7-10 Last administered on 06/08/16 12:25; Admin Dose 2 MG; Start 06/08/16 at 11:00 Pantoprazole (Protonix Iv) 40 mg DAILY@06 IV Last administered on 06/13/16 06: 28; Admin Dose 40 MG; Start 06/08/16 at 12:00 Miscellaneous Information 1 ea NOTE XX ; Start 06/08/16 at 11:30 Glucose (Glutose) 15 gm Q15M PRN PO DECREASED GLUCOSE; Start 06/08/16 at 11:30 Glucose (Glutose) 22.5 gm Q15M PRN PO DECREASED GLUCOSE; Start 06/08/16 at 11: 30 Dextrose (D50w Syringe) 25 ml Q15M PRN IV DECREASED GLUCOSE; Start 06/08/16 at 11:30 Dextrose (D50w Syringe) 50 ml Q15M PRN IV DECREASED GLUCOSE; Start 06/08/16 at 11:30 Glucagon (Glucagen) 1 mg Q15M PRN IM DECREASED GLUCOSE; Start 06/08/16 at 11:30 Glucose (Glutose) 15 gm Q15M PRN BUCCAL DECREASED GLUCOSE; Start 06/08/16 at 11 :30 Miscellaneous Information 1 ea NOTE XX ; Start 06/08/16 at 12:30 Glucose (Glutose) 15 gm Q15M PRN PO DECREASED GLUCOSE; Start 06/08/16 at 12:30 Glucose (Glutose) 22.5 gm Q15M PRN PO DECREASED GLUCOSE; Start 06/08/16 at 12: 30 Dextrose (D50w Syringe) 25 ml Q15M PRN IV DECREASED GLUCOSE; Start 06/08/16 at 12:30 Dextrose (D50w Syringe) 50 ml Q15M PRN IV DECREASED GLUCOSE; Start 06/08/16 at 12:30 Glucagon (Glucagen) 1 mg Q15M PRN IM DECREASED GLUCOSE; Start 06/08/16 at 12:30 Glucose (Glutose) 15 gm Q15M PRN BUCCAL DECREASED GLUCOSE; Start 06/08/16 at 12 :30 Diltiazem HCl (Cardizem) 60 mg Q6 PO Last administered on 06/13/16 06:28; Admin Dose 60 MG; Start 06/08/16 at 18:00 Metoprolol Tartrate (Lopressor) 25 mg BID PO Last administered on 06/13/16 08: 29; Admin Dose 25 MG; Start 06/08/16 at 21:00 Ondansetron HCl 4 mg 4 mg Q6H PRN IV NAUSEA AND/OR VOMITING Last administered on 06/09/16 02:19; Admin Dose 4 MG; Start 06/09/16 at 02:30 Potassium Chloride/Dextrose/ Sod Cl (D5-1/2ns + KCl 20 Meq) 1,000 ml @ 30 mls/ hr Q24H IV Last administered on 06/12/16 21:00; Admin Dose 30 MLS/HR; Start 06/12/16 at 19:00 CIELO FONG MD Jun 13, 2016 08:37
--- NOTE | 2016-06-13 15:36 | PN ---
Date/Time of Note Date/Time of Note DATE: 06/13/16 TIME: 15:36 Assessment/Plan VTE Prophylaxis VTE Prophylaxis Intervention: other Lines/Catheters IV [facility]ter Type (from [facility] Peripheral IV Urinary Cath still in place: No Assessment/Plan Assessment/Plan - Atrial fibrillation with rapid ventricular response. Patient is currently in atrial fibrillation at controlled rate. - per Dr. Rico in cardiology consultation. Continue metoprolol and Eliquis. Continue Cardizem. - Erosive gastritis per EGD. Continue Protonix. - per Dr. Urias in gastroenterology consultation - Diabetes mellitus type 2. Continue NovoLog per sliding scale. 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 Continue Lasix. - Obesity. Weight loss advised. - sp cholecystectomy Further recommendations based on clinical course. Plan of care discussed with Dr. Chao. Subjective 24 Hr Interval Summary Constitutional: improved Eyes: no complaints ENT: no complaints Respiratory: no complaints Cardiovascular: no complaints Gastrointestinal: pain Exam/Review of Systems Vital Signs Vitals Vital Signs Date Time Temp Pulse Resp B/P Pulse Ox O2 Delivery O2 Flow Rate FiO2 06/13/16 15:23 97.3 75 20 130/86 97 06/12/16 19:43 Nasal Cannula 2.0 Intake and Output 06/12/16 06/12/16 06/13/16 15:00 23:00 07:00 Intake Total 720 ml 520 ml Balance 720 ml 520 ml Exam Constitutional: alert, oriented Head: atraumatic Eyes: EOMI ENMT: nl external ears & nose Neck: non-tender Respiratory: clear to auscultation Cardiovascular: nl pulses, other Gastrointestinal: non-tender, soft Results Result Diagram: 06/12/16 0535 06/13/16 0545 Results 24 hrs Laboratory Tests Test 06/12/16 17:53 06/12/16 21:03 06/13/16 05:45 06/13/16 07:26 Bedside Glucose 96 103 120 Anion Gap 19 H Blood Urea Nitrogen 17 Calcium Level 8.1 L Carbon Dioxide Level 29 Chloride Level 99 Creatinine 0.92 Glucose Level 115 Potassium Level 4.1 Sodium Level 143 Test 06/13/16 11:50 Bedside Glucose 136 Medications Medications Current Medications Allopurinol (Zyloprim) 100 mg DAILY PO Last administered on 06/13/16t 08:29; Admin Dose 100 MG; Start 06/09/16 at 09:00 Aspirin (Halfprin) 81 mg DAILY PO Last administered on 06/12/16 08:23; Admin Dose 81 MG; Start 06/09/16 at 09:00; Status Future Hold Febuxostat (Uloric) 40 mg DAILY PO Last administered on 06/13/16 08:29; Admin Dose 40 MG; Start 06/09/16 at 09:00 Folic Acid (Folic Acid) 1 mg DAILY PO Last administered on 06/13/16 08:30; Admin Dose 1 MG; Start 06/09/16 at 09:00 Ibuprofen (Motrin) 800 mg DAILY PRN PO PRN Last administered on 06/12/16 10:27 ; Admin Dose 800 MG; Start 06/08/16 at 10:00 Tamsulosin HCl (Flomax) 0.4 mg DAILY PO Last administered on 06/13/16 08:29; Admin Dose 0.4 MG; Start 06/09/16 at 09:00 Cholecalciferol (Vitamin D) 400 units DAILY PO Last administered on 06/13/16 08 :29; Admin Dose 400 UNITS; Start 06/09/16 at 09:00 Fish Oil (Fish Oil) 1,000 mg DAILY PO Last administered on 06/13/16 08:29; Admin Dose 1,000 MG; Start 06/09/16 at 09:00 Acetaminophen (Tylenol Tab) 650 mg Q6H PRN PO PAIN AND OR ELEVATED TEMP; Start 06/08/16 at 10:00 Ondansetron HCl (Zofran Tab) 4 mg Q6 PRN PO NAUSEA AND/OR VOMITING; Start 06/08 at 10:00 Docusate Sodium (Colace) 100 mg BID PO Last administered on 06/13/16 08:29; Admin Dose 100 MG; Start 06/08/16 at 21:00 Apixaban (Eliquis) 5 mg BID PO Last administered on 06/13/16 08:29; Admin Dose 5 MG; Start 06/08/16 at 12:30 Morphine Sulfate (morphine) 2 mg Q3 PRN IV PAIN LEVEL 7-10 Last administered on 06/08/16 12:25; Admin Dose 2 MG; Start 06/08/16 at 11:00 Pantoprazole (Protonix Iv) 40 mg DAILY@06 IV Last administered on 06/13/16 06: 28; Admin Dose 40 MG; Start 06/08/16 at 12:00 Miscellaneous Information 1 ea NOTE XX ; Start 06/08/16 at 11:30 Glucose (Glutose) 15 gm Q15M PRN PO DECREASED GLUCOSE; Start 06/08/16 at 11:30 Glucose (Glutose) 22.5 gm Q15M PRN PO DECREASED GLUCOSE; Start 06/08/16 at 11: 30 Dextrose (D50w Syringe) 25 ml Q15M PRN IV DECREASED GLUCOSE; Start 06/08/16 at 11:30 Dextrose (D50w Syringe) 50 ml Q15M PRN IV DECREASED GLUCOSE; Start 06/08/16 at 11:30 Glucagon (Glucagen) 1 mg Q15M PRN IM DECREASED GLUCOSE; Start 06/08/16 at 11:30 Glucose (Glutose) 15 gm Q15M PRN BUCCAL DECREASED GLUCOSE; Start 06/08/16 at 11 :30 Miscellaneous Information 1 ea NOTE XX ; Start 06/08/16 at 12:30 Glucose (Glutose) 15 gm Q15M PRN PO DECREASED GLUCOSE; Start 06/08/16 at 12:30 Glucose (Glutose) 22.5 gm Q15M PRN PO DECREASED GLUCOSE; Start 06/08/16 at 12: 30 Dextrose (D50w Syringe) 25 ml Q15M PRN IV DECREASED GLUCOSE; Start 06/08/16 at 12:30 Dextrose (D50w Syringe) 50 ml Q15M PRN IV DECREASED GLUCOSE; Start 06/08/16 at 12:30 Glucagon (Glucagen) 1 mg Q15M PRN IM DECREASED GLUCOSE; Start 06/08/16 at 12:30 Glucose (Glutose) 15 gm Q15M PRN BUCCAL DECREASED GLUCOSE; Start 06/08/16 at 12 :30 Diltiazem HCl (Cardizem) 60 mg Q6 PO Last administered on 06/13/16 12:13; Admin Dose 60 MG; Start 06/08/16 at 18:00 Metoprolol Tartrate (Lopressor) 25 mg BID PO Last administered on 06/13/16 08: 29; Admin Dose 25 MG; Start 06/08/16 at 21:00 Ondansetron HCl (Zofran Inj) 4 mg Q6H PRN IV NAUSEA AND/OR VOMITING Last administered on 2/26/17at 02:19; Admin Dose 4 MG; Start 06/09/16 at 02:30 MINDY BARNES Jun 13, 2016 15:36
--- NOTE | 2016-06-13 16:05 | PN ---
Date/Time of Note Date/Time of Note DATE: 06/13/16 TIME: 16:03 Assessment/Plan VTE Prophylaxis VTE Prophylaxis Intervention: other (per pmd) Lines/Catheters IV Catheter Type (from Nrsg): Peripheral IV Urinary Cath still in place: No Assessment/Plan Chief Complaint/Hosp Course a]r/o pud plan egd Problems: Assessment/Plan a] abd pain r/o pancreatitis plan ct abd labs Subjective 24 Hr Interval Summary Free Text/Dictation poor historian c/o abd pain non sp has abn lfts Exam/Review of Systems Vital Signs Vitals Vital Signs Date Time Temp Pulse Resp B/P Pulse Ox O2 Delivery O2 Flow Rate FiO2 06/13/16 15:23 97.3 75 20 130/86 97 06/12/16 19:43 Nasal Cannula 2.0 Intake and Output 06/12/16 06/12/16 06/13/16 15:00 23:00 07:00 Intake Total 720 ml 520 ml Balance 720 ml 520 ml Results Result Diagram: 06/12/16 0535 06/13/16 0545 Results 24 hrs Laboratory Tests Test 06/12/16 17:53 06/12/16 21:03 06/13/16 05:45 06/13/16 07:26 Bedside Glucose 96 103 120 Anion Gap 19 H Blood Urea Nitrogen 17 Calcium Level 8.1 L Carbon Dioxide Level 29 Chloride Level 99 Creatinine 0.92 Glucose Level 115 Potassium Level 4.1 Sodium Level 143 Test 06/13/16 11:50 Bedside Glucose 136 Medications Medications Current Medications Allopurinol (Zyloprim) 100 mg DAILY PO Last administered on 06/13/16 08:29; Admin Dose 100 MG; Start 06/09/16 at 09:00 Aspirin (Halfprin) 81 mg DAILY PO Last administered on 06/12/16 08:23; Admin Dose 81 MG; Start 06/09/16 at 09:00; Status Future Hold Febuxostat (Uloric) 40 mg DAILY PO Last administered on 06/13/16 08:29; Admin Dose 40 MG; Start 06/09/16 at 09:00 Folic Acid (Folic Acid) 1 mg DAILY PO Last administered on 06/13/16 08:30; Admin Dose 1 MG; Start 06/09/16 at 09:00 Ibuprofen (Motrin) 800 mg DAILY PRN PO PRN Last administered on 06/12/16 10:27 ; Admin Dose 800 MG; Start 06/08/16 at 10:00 Tamsulosin HCl (Flomax) 0.4 mg DAILY PO Last administered on 06/13/16 08:29; Admin Dose 0.4 MG; Start 06/09/16 at 09:00 Cholecalciferol (Vitamin D) 400 units DAILY PO Last administered on 06/13/16 08 :29; Admin Dose 400 UNITS; Start 06/09/16 at 09:00 Fish Oil (Fish Oil) 1,000 mg DAILY PO Last administered on 06/13/16 08:29; Admin Dose 1,000 MG; Start 06/09/16 at 09:00 Acetaminophen (Tylenol Tab) 650 mg Q6H PRN PO PAIN AND OR ELEVATED TEMP; Start 06/08/16 at 10:00 Ondansetron HCl (Zofran Tab) 4 mg Q6 PRN PO NAUSEA AND/OR VOMITING; Start 06/08 at 10:00 Docusate Sodium (Colace) 100 mg BID PO Last administered on 06/13/16 08:29; Admin Dose 100 MG; Start 06/08/16 at 21:00 Apixaban (Eliquis) 5 mg BID PO Last administered on 06/13/16 08:29; Admin Dose 5 MG; Start 06/08/16 at 12:30 Morphine Sulfate (morphine) 2 mg Q3 PRN IV PAIN LEVEL 7-10 Last administered on 06/08/16 12:25; Admin Dose 2 MG; Start 06/08/16 at 11:00 Pantoprazole (Protonix Iv) 40 mg DAILY@06 IV Last administered on 06/13/16 06: 28; Admin Dose 40 MG; Start 06/08/16 at 12:00 Miscellaneous Information 1 ea NOTE XX ; Start 06/08/16 at 11:30 Glucose (Glutose) 15 gm Q15M PRN PO DECREASED GLUCOSE; Start 06/08/16 at 11:30 Glucose (Glutose) 22.5 gm Q15M PRN PO DECREASED GLUCOSE; Start 06/08/16 at 11: 30 Dextrose (D50w Syringe) 25 ml Q15M PRN IV DECREASED GLUCOSE; Start 06/08/16 at 11:30 Dextrose (D50w Syringe) 50 ml Q15M PRN IV DECREASED GLUCOSE; Start 06/08/16 at 11:30 Glucagon (Glucagen) 1 mg Q15M PRN IM DECREASED GLUCOSE; Start 06/08/16 at 11:30 Glucose (Glutose) 15 gm Q15M PRN BUCCAL DECREASED GLUCOSE; Start 06/08/16 at 11 :30 Miscellaneous Information 1 ea NOTE XX ; Start 06/08/16 at 12:30 Glucose (Glutose) 15 gm Q15M PRN PO DECREASED GLUCOSE; Start 06/08/16 at 12:30 Glucose (Glutose) 22.5 gm Q15M PRN PO DECREASED GLUCOSE; Start 06/08/16 at 12: 30 Dextrose (D50w Syringe) 25 ml Q15M PRN IV DECREASED GLUCOSE; Start 06/08/16 at 12:30 Dextrose (D50w Syringe) 50 ml Q15M PRN IV DECREASED GLUCOSE; Start 06/08/16 at 12:30 Glucagon (Glucagen) 1 mg Q15M PRN IM DECREASED GLUCOSE; Start 06/08/16 at 12:30 Glucose (Glutose) 15 gm Q15M PRN BUCCAL DECREASED GLUCOSE; Start 06/08/16 at 12 :30 Diltiazem HCl (Cardizem) 60 mg Q6 PO Last administered on 06/13/16 12:13; Admin Dose 60 MG; Start 06/08/16 at 18:00 Metoprolol Tartrate (Lopressor) 25 mg BID PO Last administered on 06/13/16 08: 29; Admin Dose 25 MG; Start 06/08/16 at 21:00 Ondansetron HCl (Zofran Inj) 4 mg Q6H PRN IV NAUSEA AND/OR VOMITING Last administered on 06/09/16 02:19; Admin Dose 4 MG; Start 06/09/16 at 02:30 MERA AMARO MD Jun 13, 2016 16:05
[2016-06-13 17:11] LABS: ALBUMIN 3.4 g/dl (3.3-4.9)
[2016-06-13 17:12] LABS: POTASSIUM 4.5 mmol/L (3.5-5.1)
[2016-06-13 17:14] LABS: ALBUMIN/GLOBULIN RATIO 1.03; BILIRUBIN,INDIRECT 0.2 mg/dl (0-1.1); BILIRUBIN,TOTAL 0.2 mg/dl (0.2-1.3); CREATININE 0.9 mg/dl (0.44-1.00); TOTAL PROTEIN 6.7 g/dl (6.1-8.1)
[2016-06-13 17:15] LABS: CALCIUM 8.4 mg/dl (8.4-10.2)
--- NOTE | 2016-06-13 20:06 | CONS ---
Date/Time of Note Date/Time of Note DATE: 06/13/16 TIME: 20:01 Assessment/Plan Assessment/Plan Chief Complaint/Hosp Course IMp: 1.AF-rate controlled on eliquis 2.Cardiomyopathy-EF 15% by echo this admit 3.CHF-systolic acute on chronic 4.abd pain/gastritis by EGD 5.REnal failure-improved 6.HTN 7.HL 8.DM Recc -Tele -Continue BB/Dilt -Continue lasix diuresis and follow volume status closely -start low dose ACEI afterload reduction and follow automatic buffing wheel former closely -Continue apixaban Problems: Consultation Date/Type/Reason Admit Date/Time Jun 07, 2016 at 22:30 Initial Consult Date 06/08/16 Type of Consultation: Cardiology Reason for Consultation CHF/cardiomyopathy Referring Provider: MARTÍN WALDROP MD Exam/Review of Systems Vital Signs Vitals Vital Signs Date Time Temp Pulse Resp B/P Pulse Ox O2 Delivery O2 Flow Rate FiO2 06/13/16 19:27 97.3 86 20 140/79 98 06/12/16 19:43 Nasal Cannula 2.0 Intake and Output 06/12/16 06/12/16 06/13/16 15:00 23:00 07:00 Intake Total 720 ml 520 ml Balance 720 ml 520 ml Exam Review of Systems: CONSTITUTIONAL: No fevers, chills. PULMONARY: ongoing sob CARDIOVASCULAR: No chest pain/palpitations GASTROINTESTINAL: No nausea/vomiting. GENITOURINARY: No hematuria/dysuria. MUSCULOSKELETAL: No myagias/arthalgias. PSYCHIATRIC: The patient denies depression. NEUROLOGIC: No weakness Constitutional: alert, oriented Psych: no complaints Head: normocephalic ENMT: mucosa pink and moist Neck: jvd (9 cm water), supple Respiratory: diminished breath sounds (at bases/B) Cardiovascular: regular rate and rhythm Gastrointestinal: non-tender, soft Musculoskeletal: muscle tone (normal) Extremities: edema (bilateral) Neurological: other (No focal deficits) Results Result Diagram: 06/12/16 0535 06/13/16 1643 Results 24 hrs Laboratory Tests Test 06/12/16 21:03 06/13/16 05:45 06/13/16 07:26 06/13/16 11:50 Bedside Glucose 103 120 136 Anion Gap 19 H Blood Urea Nitrogen 17 Calcium Level 8.1 L Carbon Dioxide Level 29 Chloride Level 99 Creatinine 0.92 Glucose Level 115 Potassium Level 4.1 Sodium Level 143 Test 06/13/16 16:26 06/13/16 16:43 Bedside Glucose 132 Alanine Aminotransferase (ALT/SGPT) 47 Albumin 3.4 Albumin/Globulin Ratio 1.03 Alkaline Phosphatase 99 Amylase Level 90 Anion Gap 18 H Aspartate Amino Transf (AST/SGOT) 50 H Blood Urea Nitrogen 18 Calcium Level 8.4 Carbon Dioxide Level 31 Chloride Level 99 Creatinine 0.90 Direct Bilirubin 0.00 Globulin 3.30 H Glucose Level 126 Indirect Bilirubin 0.2 Lipase 268 Potassium Level 4.5 Sodium Level 143 Total Bilirubin 0.2 Total Protein 6.7 Medications Medications Current Medications Allopurinol (Zyloprim) 100 mg DAILY PO Last administered on 06/13/16 08:29; Admin Dose 100 MG; Start 06/09/16 at 09:00 Aspirin (Halfprin) 81 mg DAILY PO Last administered on 06/12/16 08:23; Admin Dose 81 MG; Start 06/09/16 at 09:00; Status Future Hold Febuxostat (Uloric) 40 mg DAILY PO Last administered on 06/13/16 08:29; Admin Dose 40 MG; Start 06/09/16 at 09:00 Folic Acid (Folic Acid) 1 mg DAILY PO Last administered on 06/13/16 08:30; Admin Dose 1 MG; Start 06/09/16 at 09:00 Ibuprofen (Motrin) 800 mg DAILY PRN PO PRN Last administered on 06/12/16 10:27 ; Admin Dose 800 MG; Start 06/08/16 at 10:00 Tamsulosin HCl (Flomax) 0.4 mg DAILY PO Last administered on 06/13/16 08:29; Admin Dose 0.4 MG; Start 06/09/16 at 09:00 Cholecalciferol (Vitamin D) 400 units DAILY PO Last administered on 06/13/16 08 :29; Admin Dose 400 UNITS; Start 06/09/16 at 09:00 Fish Oil (Fish Oil) 1,000 mg DAILY PO Last administered on 06/13/16 08:29; Admin Dose 1,000 MG; Start 06/09/16 at 09:00 Acetaminophen (Tylenol Tab) 650 mg Q6H PRN PO PAIN AND OR ELEVATED TEMP; Start 06/08/16 at 10:00 Ondansetron HCl (Zofran Tab) 4 mg Q6 PRN PO NAUSEA AND/OR VOMITING; Start 06/08 at 10:00 Docusate Sodium (Colace) 100 mg BID PO Last administered on 06/13/16 08:29; Admin Dose 100 MG; Start 06/08/16 at 21:00 Apixaban (Eliquis) 5 mg BID PO Last administered on 06/13/16 08:29; Admin Dose 5 MG; Start 06/08/16 at 12:30 Morphine Sulfate (morphine) 2 mg Q3 PRN IV PAIN LEVEL 7-10 Last administered on 06/08/16 12:25; Admin Dose 2 MG; Start 06/08/16 at 11:00 Pantoprazole (Protonix Iv) 40 mg DAILY@06 IV Last administered on 06/13/16 06: 28; Admin Dose 40 MG; Start 06/08/16 at 12:00 Miscellaneous Information 1 ea NOTE XX ; Start 06/08/16 at 11:30 Glucose (Glutose) 15 gm Q15M PRN PO DECREASED GLUCOSE; Start 06/08/16 at 11:30 Glucose (Glutose) 22.5 gm Q15M PRN PO DECREASED GLUCOSE; Start 06/08/16 at 11: 30 Dextrose (D50w Syringe) 25 ml Q15M PRN IV DECREASED GLUCOSE; Start 06/08/16 at 11:30 Dextrose (D50w Syringe) 50 ml Q15M PRN IV DECREASED GLUCOSE; Start 06/08/16 at 11:30 Glucagon (Glucagen) 1 mg Q15M PRN IM DECREASED GLUCOSE; Start 06/08/16 at 11:30 Glucose (Glutose) 15 gm Q15M PRN BUCCAL DECREASED GLUCOSE; Start 06/08/16 at 11 :30 Miscellaneous Information 1 ea NOTE XX ; Start 06/08/16 at 12:30 Glucose (Glutose) 15 gm Q15M PRN PO DECREASED GLUCOSE; Start 06/08/16 at 12:30 Glucose (Glutose) 22.5 gm Q15M PRN PO DECREASED GLUCOSE; Start 06/08/16 at 12: 30 Dextrose (D50w Syringe) 25 ml Q15M PRN IV DECREASED GLUCOSE; Start 06/08/16 at 12:30 Dextrose (D50w Syringe) 50 ml Q15M PRN IV DECREASED GLUCOSE; Start 06/08/16 at 12:30 Glucagon (Glucagen) 1 mg Q15M PRN IM DECREASED GLUCOSE; Start 06/08/16 at 12:30 Glucose (Glutose) 15 gm Q15M PRN BUCCAL DECREASED GLUCOSE; Start 06/08/16 at 12 :30 Diltiazem HCl (Cardizem) 60 mg Q6 PO Last administered on 06/13/16 17:05; Admin Dose 60 MG; Start 06/08/16 at 18:00 Metoprolol Tartrate (Lopressor) 25 mg BID PO Last administered on 06/13/16 08: 29; Admin Dose 25 MG; Start 06/08/16 at 21:00 Ondansetron HCl (Zofran Inj) 4 mg Q6H PRN IV NAUSEA AND/OR VOMITING Last administered on 06/09/16 02:19; Admin Dose 4 MG; Start 06/09/16 at 02:30 ORQUIDEA GUILLAUME 2, 2017 20:06
[2016-06-14] VITALS (13 sets, daily range): BP systolic 104–130; BP diastolic 62–73; PULSE 65–82; RESP 16–20
[2016-06-14] MEDS: DILTIAZEM 60 MG TAB PO SCH ×4 (01:41→17:16)
[2016-06-14] MEDS: PANTOPRAZOLE 40 MG INJ IV SCH (06:09)
[2016-06-14] MEDS: FUROSEMIDE 20 MG INJ IV SCH ×2 (06:10→17:16)
[2016-06-14] MEDS: INSULIN ASPART [NOVOLOG] 3 ML PEN SC SCH ×4 (07:55→20:36)
[2016-06-14] MEDS: APIXABAN 5 MG TABLET PO SCH ×2 (09:18→20:28)
[2016-06-14] MEDS: FEBUXOSTAT 40 MG TABLET PO SCH (09:18)
[2016-06-14] MEDS: CHOLECALCIFEROL 400 UNITS TAB PO SCH (09:18)
[2016-06-14] MEDS: ALLOPURINOL 100 MG TAB PO SCH (09:18)
[2016-06-14] MEDS: DOCUSATE SODIUM 100 MG CAP PO SCH ×2 (09:18→20:27)
[2016-06-14] MEDS: FOLIC ACID 1 MG TAB PO SCH (09:18)
[2016-06-14] MEDS: TAMSULOSIN (SR) 0.4 MG CAP PO SCH (09:18)
[2016-06-14] MEDS: FISH OIL 1,000 MG CAP PO SCH (09:18)
[2016-06-14] MEDS: METOPROLOL 25 MG TAB PO SCH ×2 (09:19→20:28)
--- NOTE | 2016-06-14 11:51 | PN ---
Date/Time of Note Date/Time of Note DATE: 06/14/16 TIME: 11:49 Assessment/Plan VTE Prophylaxis VTE Prophylaxis Intervention: other (per pmd) Lines/Catheters IV Catheter Type (from Nrsg): Saline Lock Urinary Cath still in place: No Assessment/Plan Chief Complaint/Hosp Course a]r/o pud plan egd Problems: Assessment/Plan stable cont present rx Subjective 24 Hr Interval Summary Free Text/Dictation less abd pain no emesis Exam/Review of Systems Vital Signs Vitals Vital Signs Date Time Temp Pulse Resp B/P Pulse Ox O2 Delivery O2 Flow Rate FiO2 06/14/16 11:13 98.1 92 20 128/69 99 06/14/16 07:30 Nasal Cannula 2.0 Intake and Output 06/13/16 06/13/16 06/14/16 15:00 23:00 07:00 Intake Total 800 ml 250 ml Balance 800 ml 250 ml Exam alert not in distress abd soft lfts much improved amylase Results Result Diagram: 06/12/16 0535 06/13/16 1643 Results 24 hrs Laboratory Tests Test 06/13/16 11:50 06/13/16 16:26 06/13/16 16:43 06/13/16 22:03 Bedside Glucose 136 132 122 Alanine Aminotransferase (ALT/SGPT) 47 Albumin 3.4 Albumin/Globulin Ratio 1.03 Alkaline Phosphatase 99 Amylase Level 90 Anion Gap 18 H Aspartate Amino Transf (AST/SGOT) 50 H Blood Urea Nitrogen 18 Calcium Level 8.4 Carbon Dioxide Level 31 Chloride Level 99 Creatinine 0.90 Direct Bilirubin 0.00 Globulin 3.30 H Glucose Level 126 Indirect Bilirubin 0.2 Lipase 268 Potassium Level 4.5 Sodium Level 143 Total Bilirubin 0.2 Total Protein 6.7 Test 06/14/16 08:04 Bedside Glucose 115 Medications Medications Current Medications Allopurinol (Zyloprim) 100 mg DAILY PO Last administered on 06/14/16 09:18; Admin Dose 100 MG; Start 06/09/16 at 09:00 Aspirin (Halfprin) 81 mg DAILY PO Last administered on 06/12/16 08:23; Admin Dose 81 MG; Start 06/09/16 at 09:00; Status Future Hold Febuxostat (Uloric) 40 mg DAILY PO Last administered on 06/14/16 09:18; Admin Dose 40 MG; Start 06/09/16 at 09:00 Folic Acid (Folic Acid) 1 mg DAILY PO Last administered on 06/14/16 09:18; Admin Dose 1 MG; Start 06/09/16 at 09:00 Ibuprofen (Motrin) 800 mg DAILY PRN PO PRN Last administered on 06/12/16 10:27 ; Admin Dose 800 MG; Start 06/08/16 at 10:00 Tamsulosin HCl (Flomax) 0.4 mg DAILY PO Last administered on 06/14/16 09:18; Admin Dose 0.4 MG; Start 06/09/16 at 09:00 Cholecalciferol (Vitamin D) 400 units DAILY PO Last administered on 06/14/16 09 :18; Admin Dose 400 UNITS; Start 06/09/16 at 09:00 Fish Oil (Fish Oil) 1,000 mg DAILY PO Last administered on 06/14/16 09:18; Admin Dose 1,000 MG; Start 06/09/16 at 09:00 Acetaminophen (Tylenol Tab) 650 mg Q6H PRN PO PAIN AND OR ELEVATED TEMP; Start 06/08/16 at 10:00 Ondansetron HCl (Zofran Tab) 4 mg Q6 PRN PO NAUSEA AND/OR VOMITING; Start 06/08 at 10:00 Docusate Sodium (Colace) 100 mg BID PO Last administered on 06/14/16 09:18; Admin Dose 100 MG; Start 06/08/16 at 21:00 Apixaban (Eliquis) 5 mg BID PO Last administered on 06/14/16 09:18; Admin Dose 5 MG; Start 06/08/16 at 12:30 Morphine Sulfate (morphine) 2 mg Q3 PRN IV PAIN LEVEL 7-10 Last administered on 06/08/16 12:25; Admin Dose 2 MG; Start 06/08/16 at 11:00 Pantoprazole (Protonix Iv) 40 mg DAILY@06 IV Last administered on 06/14/16 06: 09; Admin Dose 40 MG; Start 06/08/16 at 12:00 Miscellaneous Information 1 ea NOTE XX ; Start 06/08/16 at 11:30 Glucose (Glutose) 15 gm Q15M PRN PO DECREASED GLUCOSE; Start 06/08/16 at 11:30 Glucose (Glutose) 22.5 gm Q15M PRN PO DECREASED GLUCOSE; Start 06/08/16 at 11: 30 Dextrose (D50w Syringe) 25 ml Q15M PRN IV DECREASED GLUCOSE; Start 06/08/16 at 11:30 Dextrose (D50w Syringe) 50 ml Q15M PRN IV DECREASED GLUCOSE; Start 06/08/16 at 11:30 Glucagon (Glucagen) 1 mg Q15M PRN IM DECREASED GLUCOSE; Start 06/08/16 at 11:30 Glucose (Glutose) 15 gm Q15M PRN BUCCAL DECREASED GLUCOSE; Start 06/08/16 at 11 :30 Miscellaneous Information 1 ea NOTE XX ; Start 06/08/16 at 12:30 Glucose (Glutose) 15 gm Q15M PRN PO DECREASED GLUCOSE; Start 06/08/16 at 12:30 Glucose (Glutose) 22.5 gm Q15M PRN PO DECREASED GLUCOSE; Start 06/08/16 at 12: 30 Dextrose (D50w Syringe) 25 ml Q15M PRN IV DECREASED GLUCOSE; Start 06/08/16 at 12:30 Dextrose (D50w Syringe) 50 ml Q15M PRN IV DECREASED GLUCOSE; Start 06/08/16 at 12:30 Glucagon (Glucagen) 1 mg Q15M PRN IM DECREASED GLUCOSE; Start 06/08/16 at 12:30 Glucose (Glutose) 15 gm Q15M PRN BUCCAL DECREASED GLUCOSE; Start 06/08/16 at 12 :30 Diltiazem HCl (Cardizem) 60 mg Q6 PO Last administered on 06/14/16 06:10; Admin Dose 60 MG; Start 06/08/16 at 18:00 Metoprolol Tartrate (Lopressor) 25 mg BID PO Last administered on 06/14/16 09: 19; Admin Dose 25 MG; Start 06/08/16 at 21:00 Ondansetron HCl (Zofran Inj) 4 mg Q6H PRN IV NAUSEA AND/OR VOMITING Last administered on 06/09/16 02:19; Admin Dose 4 MG; Start 06/09/16 at 02:30 MERA AMARO MD Jun 14, 2016 11:51
--- NOTE | 2016-06-14 15:46 | CONS ---
Date/Time of Note Date/Time of Note DATE: 06/14/16 TIME: 15:45 Assessment/Plan Assessment/Plan Additional Assessment/Plan 1. Acute kidney injury, likely secondary to cardiorenal syndrome. The patient is on Lasix 20 mg IV b.i.d. for diuresis. 2. Acute congestive heart failure exacerbation, acute on chronic, systolic. 3. Atrial fibrillation with rapid ventricular rate. 4. Hypertension. 5. Hyperlipidemia. 6. Diabetes mellitus. 7. Possible chronic kidney disease secondary to diabetic nephropathy. PLAN: renal Us reviewed, Cr improved to normal s/p EGD which showed gastritis with erosive gastritis. Helicobacter pylori was done and the results are pending on regular diet, d/c IV fluids will follow up Consultation Date/Type/Reason Admit Date/Time Jun 07, 2016 at 22:30 Initial Consult Date May Type of Consultation: NEPHROLOGY Reason for Consultation Acute Kidney injury, atrial fibrillation with RVR Referring Provider: MARTÍN WALDROP MD 24 HR Interval Summary Free Text/Dictation renal function stable today,afebrile, c/o leg cramps Exam/Review of Systems Vital Signs Vitals Vital Signs Date Time Temp Pulse Resp B/P Pulse Ox O2 Delivery O2 Flow Rate FiO2 06/14/16 12:02 80 06/14/16 11:13 98.1 20 128/69 99 06/14/16 07:30 Nasal Cannula 2.0 Intake and Output 06/13/16 06/13/16 06/14/16 15:00 23:00 07:00 Intake Total 800 ml 250 ml Balance 800 ml 250 ml Exam no acute distress NECK: Supple, no JVD, no lymphadenopathy. LUNGS: Clear to auscultation. No crackles, no wheezes. HEART: S1, S2, with regular rhythm, no murmur. ABDOMEN: Soft, nontender, nondistended. Bowel sounds are present. EXTREMITIES: No clubbing, cyanosis, or edema. Results Result Diagram: 06/12/16 0535 06/13/16 1643 Results 24 hrs Laboratory Tests Test 06/13/16 16:26 06/13/16 16:43 06/13/16 22:03 06/14/16 08:04 Bedside Glucose 132 122 115 Alanine Aminotransferase (ALT/SGPT) 47 Albumin 3.4 Albumin/Globulin Ratio 1.03 Alkaline Phosphatase 99 Amylase Level 90 Anion Gap 18 H Aspartate Amino Transf (AST/SGOT) 50 H Blood Urea Nitrogen 18 Calcium Level 8.4 Carbon Dioxide Level 31 Chloride Level 99 Creatinine 0.90 Direct Bilirubin 0.00 Globulin 3.30 H Glucose Level 126 Indirect Bilirubin 0.2 Lipase 268 Potassium Level 4.5 Sodium Level 143 Total Bilirubin 0.2 Total Protein 6.7 Test 06/14/16 12:21 Bedside Glucose 122 Medications Medications Current Medications Allopurinol (Zyloprim) 100 mg DAILY PO Last administered on 06/14/16 09:18; Admin Dose 100 MG; Start 06/09/16 at 09:00 Aspirin (Halfprin) 81 mg DAILY PO Last administered on 06/12/16 08:23; Admin Dose 81 MG; Start 06/09/16 at 09:00; Status Future Hold Febuxostat (Uloric) 40 mg DAILY PO Last administered on 06/14/16 09:18; Admin Dose 40 MG; Start 06/09/16 at 09:00 Folic Acid (Folic Acid) 1 mg DAILY PO Last administered on 06/14/16 09:18; Admin Dose 1 MG; Start 06/09/16 at 09:00 Ibuprofen (Motrin) 800 mg DAILY PRN PO PRN Last administered on 06/12/16 10:27 ; Admin Dose 800 MG; Start 06/08/16 at 10:00 Tamsulosin HCl (Flomax) 0.4 mg DAILY PO Last administered on 06/14/16 09:18; Admin Dose 0.4 MG; Start 06/09/16 at 09:00 Cholecalciferol (Vitamin D) 400 units DAILY PO Last administered on 06/14/16 09 :18; Admin Dose 400 UNITS; Start 06/09/16 at 09:00 Fish Oil (Fish Oil) 1,000 mg DAILY PO Last administered on 06/14/16 09:18; Admin Dose 1,000 MG; Start 06/09/16 at 09:00 Acetaminophen (Tylenol Tab) 650 mg Q6H PRN PO PAIN AND OR ELEVATED TEMP; Start 06/08/16 at 10:00 Ondansetron HCl (Zofran Tab) 4 mg Q6 PRN PO NAUSEA AND/OR VOMITING; Start 06/08 at 10:00 Docusate Sodium (Colace) 100 mg BID PO Last administered on 06/14/16 09:18; Admin Dose 100 MG; Start 06/08/16 at 21:00 Apixaban (Eliquis) 5 mg BID PO Last administered on 06/14/16 09:18; Admin Dose 5 MG; Start 06/08/16 at 12:30 Morphine Sulfate (morphine) 2 mg Q3 PRN IV PAIN LEVEL 7-10 Last administered on 06/08/16 12:25; Admin Dose 2 MG; Start 06/08/16 at 11:00 Pantoprazole (Protonix Iv) 40 mg DAILY@06 IV Last administered on 06/14/16 06: 09; Admin Dose 40 MG; Start 06/08/16 at 12:00 Miscellaneous Information 1 ea NOTE XX ; Start 06/08/16 at 11:30 Glucose (Glutose) 15 gm Q15M PRN PO DECREASED GLUCOSE; Start 06/08/16 at 11:30 Glucose (Glutose) 22.5 gm Q15M PRN PO DECREASED GLUCOSE; Start 06/08/16 at 11: 30 Dextrose (D50w Syringe) 25 ml Q15M PRN IV DECREASED GLUCOSE; Start 06/08/16 at 11:30 Dextrose (D50w Syringe) 50 ml Q15M PRN IV DECREASED GLUCOSE; Start 06/08/16 at 11:30 Glucagon (Glucagen) 1 mg Q15M PRN IM DECREASED GLUCOSE; Start 06/08/16 at 11:30 Glucose (Glutose) 15 gm Q15M PRN BUCCAL DECREASED GLUCOSE; Start 06/08/16 at 11 :30 Miscellaneous Information 1 ea NOTE XX ; Start 06/08/16 at 12:30 Glucose (Glutose) 15 gm Q15M PRN PO DECREASED GLUCOSE; Start 06/08/16 at 12:30 Glucose (Glutose) 22.5 gm Q15M PRN PO DECREASED GLUCOSE; Start 06/08/16 at 12: 30 Dextrose (D50w Syringe) 25 ml Q15M PRN IV DECREASED GLUCOSE; Start 06/08/16 at 12:30 Dextrose (D50w Syringe) 50 ml Q15M PRN IV DECREASED GLUCOSE; Start 06/08/16 at 12:30 Glucagon (Glucagen) 1 mg Q15M PRN IM DECREASED GLUCOSE; Start 06/08/16 at 12:30 Glucose (Glutose) 15 gm Q15M PRN BUCCAL DECREASED GLUCOSE; Start 06/08/16 at 12 :30 Diltiazem HCl (Cardizem) 60 mg Q6 PO Last administered on 06/14/16 12:24; Admin Dose 60 MG; Start 06/08/16 at 18:00 Metoprolol Tartrate (Lopressor) 25 mg BID PO Last administered on 06/14/16 09: 19; Admin Dose 25 MG; Start 06/08/16 at 21:00 Ondansetron HCl (Zofran Inj) 4 mg Q6H PRN IV NAUSEA AND/OR VOMITING Last administered on 06/09/16 02:19; Admin Dose 4 MG; Start 06/09/16 at 02:30 CIELO FONG MD Jun 14, 2016 15:46
--- NOTE | 2016-06-14 15:52 | CONS ---
Date/Time of Note Date/Time of Note DATE: 06/14/16 TIME: 15:49 Assessment/Plan Assessment/Plan Chief Complaint/Hosp Course IMp: 1.AF-rate controlled on eliquis 2.Cardiomyopathy-EF 15% by echo this admit 3.CHF-systolic acute on chronic 4.abd pain/gastritis by EGD 5.REnal failure-improved 6.HTN 7.HL 8.DM Recc -Tele -Continue BB/Dilt -Continue lasix diuresis and follow volume status closely -start low dose ACEI afterload reduction and follow beef killer closely -Continue apixaban Problems: Consultation Date/Type/Reason Admit Date/Time Jun 07, 2016 at 22:30 Initial Consult Date 06/08/16 Type of Consultation: Cardiology Reason for Consultation CHF Referring Provider: MARTÍN WALDROP MD Exam/Review of Systems Vital Signs Vitals Vital Signs Date Time Temp Pulse Resp B/P Pulse Ox O2 Delivery O2 Flow Rate FiO2 06/14/16 12:02 80 06/14/16 11:13 98.1 20 128/69 99 06/14/16 07:30 Nasal Cannula 2.0 Intake and Output 06/13/16 06/13/16 06/14/16 15:00 23:00 07:00 Intake Total 800 ml 250 ml Balance 800 ml 250 ml Exam Review of Systems: CONSTITUTIONAL: No fevers, chills. PULMONARY: mild sob CARDIOVASCULAR: No chest pain/palpitations GASTROINTESTINAL: No nausea/vomiting. GENITOURINARY: No hematuria/dysuria. MUSCULOSKELETAL: No myagias/arthalgias. PSYCHIATRIC: The patient denies depression. NEUROLOGIC: No weakness Constitutional: alert Psych: no complaints Head: normocephalic ENMT: mucosa pink and moist Neck: jvd (9 cm water), supple Respiratory: diminished breath sounds (at bases/B) Cardiovascular: regular rate and rhythm Gastrointestinal: non-tender, soft Musculoskeletal: muscle tone (normal) Extremities: edema (none) Neurological: other (No focal deficits) Results Result Diagram: 06/12/16 0535 06/13/16 1643 Results 24 hrs Laboratory Tests Test 06/13/16 16:26 06/13/16 16:43 06/13/16 22:03 06/14/16 08:04 Bedside Glucose 132 122 115 Alanine Aminotransferase (ALT/SGPT) 47 Albumin 3.4 Albumin/Globulin Ratio 1.03 Alkaline Phosphatase 99 Amylase Level 90 Anion Gap 18 H Aspartate Amino Transf (AST/SGOT) 50 H Blood Urea Nitrogen 18 Calcium Level 8.4 Carbon Dioxide Level 31 Chloride Level 99 Creatinine 0.90 Direct Bilirubin 0.00 Globulin 3.30 H Glucose Level 126 Indirect Bilirubin 0.2 Lipase 268 Potassium Level 4.5 Sodium Level 143 Total Bilirubin 0.2 Total Protein 6.7 Test 06/14/16 12:21 Bedside Glucose 122 Medications Medications Current Medications Allopurinol (Zyloprim) 100 mg DAILY PO Last administered on 06/14/16 09:18; Admin Dose 100 MG; Start 06/09/16 at 09:00 Aspirin (Halfprin) 81 mg DAILY PO Last administered on 06/12/16 08:23; Admin Dose 81 MG; Start 06/09/16 at 09:00; Status Future Hold Febuxostat (Uloric) 40 mg DAILY PO Last administered on 06/14/16 09:18; Admin Dose 40 MG; Start 06/09/16 at 09:00 Folic Acid (Folic Acid) 1 mg DAILY PO Last administered on 06/14/16 09:18; Admin Dose 1 MG; Start 06/09/16 at 09:00 Ibuprofen (Motrin) 800 mg DAILY PRN PO PRN Last administered on 06/12/16 10:27 ; Admin Dose 800 MG; Start 06/08/16 at 10:00 Tamsulosin HCl (Flomax) 0.4 mg DAILY PO Last administered on 06/14/16 09:18; Admin Dose 0.4 MG; Start 06/09/16 at 09:00 Cholecalciferol (Vitamin D) 400 units DAILY PO Last administered on 06/14/16 09 :18; Admin Dose 400 UNITS; Start 06/09/16 at 09:00 Fish Oil (Fish Oil) 1,000 mg DAILY PO Last administered on 06/14/16 09:18; Admin Dose 1,000 MG; Start 06/09/16 at 09:00 Acetaminophen (Tylenol Tab) 650 mg Q6H PRN PO PAIN AND OR ELEVATED TEMP; Start 06/08/16 at 10:00 Ondansetron HCl (Zofran Tab) 4 mg Q6 PRN PO NAUSEA AND/OR VOMITING; Start 06/08 at 10:00 Docusate Sodium (Colace) 100 mg BID PO Last administered on 06/14/16 09:18; Admin Dose 100 MG; Start 06/08/16 at 21:00 Apixaban (Eliquis) 5 mg BID PO Last administered on 06/14/16 09:18; Admin Dose 5 MG; Start 06/08/16 at 12:30 Morphine Sulfate (morphine) 2 mg Q3 PRN IV PAIN LEVEL 7-10 Last administered on 06/08/16 12:25; Admin Dose 2 MG; Start 06/08/16 at 11:00 Pantoprazole (Protonix Iv) 40 mg DAILY@06 IV Last administered on 06/14/16 06: 09; Admin Dose 40 MG; Start 06/08/16 at 12:00 Miscellaneous Information 1 ea NOTE XX ; Start 06/08/16 at 11:30 Glucose (Glutose) 15 gm Q15M PRN PO DECREASED GLUCOSE; Start 06/08/16 at 11:30 Glucose (Glutose) 22.5 gm Q15M PRN PO DECREASED GLUCOSE; Start 06/08/16 at 11: 30 Dextrose (D50w Syringe) 25 ml Q15M PRN IV DECREASED GLUCOSE; Start 06/08/16 at 11:30 Dextrose (D50w Syringe) 50 ml Q15M PRN IV DECREASED GLUCOSE; Start 06/08/16 at 11:30 Glucagon (Glucagen) 1 mg Q15M PRN IM DECREASED GLUCOSE; Start 06/08/16 at 11:30 Glucose (Glutose) 15 gm Q15M PRN BUCCAL DECREASED GLUCOSE; Start 06/08/16 at 11 :30 Miscellaneous Information 1 ea NOTE XX ; Start 06/08/16 at 12:30 Glucose (Glutose) 15 gm Q15M PRN PO DECREASED GLUCOSE; Start 06/08/16 at 12:30 Glucose (Glutose) 22.5 gm Q15M PRN PO DECREASED GLUCOSE; Start 06/08/16 at 12: 30 Dextrose (D50w Syringe) 25 ml Q15M PRN IV DECREASED GLUCOSE; Start 06/08/16 at 12:30 Dextrose (D50w Syringe) 50 ml Q15M PRN IV DECREASED GLUCOSE; Start 06/08/16 at 12:30 Glucagon (Glucagen) 1 mg Q15M PRN IM DECREASED GLUCOSE; Start 06/08/16 at 12:30 Glucose (Glutose) 15 gm Q15M PRN BUCCAL DECREASED GLUCOSE; Start 06/08/16 at 12 :30 Diltiazem HCl (Cardizem) 60 mg Q6 PO Last administered on 06/14/16 12:24; Admin Dose 60 MG; Start 06/08/16 at 18:00 Metoprolol Tartrate (Lopressor) 25 mg BID PO Last administered on 06/14/16 09: 19; Admin Dose 25 MG; Start 06/08/16 at 21:00 Ondansetron HCl (Zofran Inj) 4 mg Q6H PRN IV NAUSEA AND/OR VOMITING Last administered on 06/09/16 02:19; Admin Dose 4 MG; Start 06/09/16 at 02:30 ORQUIDEA GUILLAUME Jun 14, 2016 15:52
--- NOTE | 2016-06-14 15:57 | PN ---
Date/Time of Note Date/Time of Note DATE: 06/14/16 TIME: 15:56 Assessment/Plan VTE Prophylaxis VTE Prophylaxis Intervention: SCD's Lines/Catheters [facility] Urinary Cath still in place: No Assessment/Plan Chief Complaint/Hosp Course Assessment and plan - Atrial fibrillation with rapid ventricular response. Patient is currently in atrial fibrillation at controlled rate. Dr. Rico is following and cardiology consultation. Continue metoprolol and Eliquis. Continue Cardizem. - Erosive gastritis per EGD. Continue Protonix. Dr. Urias is following in cart in gastroenterology consultation - Diabetes mellitus type 2. Continue NovoLog per sliding scale. 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 Continue IV Lasix. - Obesity. Weight loss advised. - sp cholecystectomy Further recommendations based on clinical course. Plan of care discussed with Dr. Chao. Problems: Subjective 24 Hr Interval Summary Free Text/Dictation Patient tolerates current diet well, complains of shortness of breath on exertion, continue IV Lasix and telemetry monitoring. Exam/Review of Systems Vital Signs Vitals Vital Signs Date Time Temp Pulse Resp B/P Pulse Ox O2 Delivery O2 Flow Rate FiO2 06/14/16 15:49 98.1 75 18 120/63 96 06/14/16 07:30 Nasal Cannula 2.0 Intake and Output 06/13/16 06/13/16 06/14/16 15:00 23:00 07:00 Intake Total 800 ml 250 ml Balance 800 ml 250 ml Exam Constitutional: alert, obese, oriented, well developed Psych: no complaints Head: atraumatic, normocephalic Eyes: nl conjunctiva ENMT: nl external ears & nose Neck: non-tender, supple Respiratory: clear to auscultation Cardiovascular: other (Atrial fibrillation) Gastrointestinal: other (Epigastric tenderness), soft Genitourinary - Female: nl adnexae Musculoskeletal: nl extremities to inspection Extremities: normal pulses Neurological: CMM INSPECTOR II-XII intact Results Result Diagram: 06/12/16 0535 06/13/16 1643 Results 24 hrs Laboratory Tests Test 06/13/16 16:26 06/13/16 16:43 06/13/16 22:03 06/14/16 08:04 Bedside Glucose 132 122 115 Alanine Aminotransferase (ALT/SGPT) 47 Albumin 3.4 Albumin/Globulin Ratio 1.03 Alkaline Phosphatase 99 Amylase Level 90 Anion Gap 18 H Aspartate Amino Transf (AST/SGOT) 50 H Blood Urea Nitrogen 18 Calcium Level 8.4 Carbon Dioxide Level 31 Chloride Level 99 Creatinine 0.90 Direct Bilirubin 0.00 Globulin 3.30 H Glucose Level 126 Indirect Bilirubin 0.2 Lipase 268 Potassium Level 4.5 Sodium Level 143 Total Bilirubin 0.2 Total Protein 6.7 Test 06/14/16 12:21 Bedside Glucose 122 Medications Medications Current Medications Allopurinol (Zyloprim) 100 mg DAILY PO Last administered on 06/14/16 09:18; Admin Dose 100 MG; Start 06/09/16 at 09:00 Aspirin (Halfprin) 81 mg DAILY PO Last administered on 06/12/16 08:23; Admin Dose 81 MG; Start 06/09/16 at 09:00; Status Future Hold Febuxostat (Uloric) 40 mg DAILY PO Last administered on 06/14/16 09:18; Admin Dose 40 MG; Start 06/09/16 at 09:00 Folic Acid (Folic Acid) 1 mg DAILY PO Last administered on 06/14/16 09:18; Admin Dose 1 MG; Start 06/09/16 at 09:00 Ibuprofen (Motrin) 800 mg DAILY PRN PO PRN Last administered on 06/12/16 10:27 ; Admin Dose 800 MG; Start 06/08/16 at 10:00 Tamsulosin HCl (Flomax) 0.4 mg DAILY PO Last administered on 06/14/16 09:18; Admin Dose 0.4 MG; Start 06/09/16 at 09:00 Cholecalciferol (Vitamin D) 400 units DAILY PO Last administered on 06/14/16 09 :18; Admin Dose 400 UNITS; Start 06/09/16 at 09:00 Fish Oil (Fish Oil) 1,000 mg DAILY PO Last administered on 06/14/16 09:18; Admin Dose 1,000 MG; Start 06/09/16 at 09:00 Acetaminophen (Tylenol Tab) 650 mg Q6H PRN PO PAIN AND OR ELEVATED TEMP; Start 06/08/16 at 10:00 Ondansetron HCl (Zofran Tab) 4 mg Q6 PRN PO NAUSEA AND/OR VOMITING; Start 06/08 at 10:00 Docusate Sodium (Colace) 100 mg BID PO Last administered on 06/14/16 09:18; Admin Dose 100 MG; Start 06/08/16 at 21:00 Apixaban (Eliquis) 5 mg BID PO Last administered on 06/14/16 09:18; Admin Dose 5 MG; Start 06/08/16 at 12:30 Morphine Sulfate (morphine) 2 mg Q3 PRN IV PAIN LEVEL 7-10 Last administered on 06/08/16 12:25; Admin Dose 2 MG; Start 06/08/16 at 11:00 Pantoprazole (Protonix Iv) 40 mg DAILY@06 IV Last administered on 06/14/16 06: 09; Admin Dose 40 MG; Start 06/08/16 at 12:00 Miscellaneous Information 1 ea NOTE XX ; Start 06/08/16 at 11:30 Glucose (Glutose) 15 gm Q15M PRN PO DECREASED GLUCOSE; Start 06/08/16 at 11:30 Glucose (Glutose) 22.5 gm Q15M PRN PO DECREASED GLUCOSE; Start 06/08/16 at 11: 30 Dextrose (D50w Syringe) 25 ml Q15M PRN IV DECREASED GLUCOSE; Start 06/08/16 at 11:30 Dextrose (D50w Syringe) 50 ml Q15M PRN IV DECREASED GLUCOSE; Start 06/08/16 at 11:30 Glucagon (Glucagen) 1 mg Q15M PRN IM DECREASED GLUCOSE; Start 06/08/16 at 11:30 Glucose (Glutose) 15 gm Q15M PRN BUCCAL DECREASED GLUCOSE; Start 06/08/16 at 11 :30 Miscellaneous Information 1 ea NOTE XX ; Start 06/08/16 at 12:30 Glucose (Glutose) 15 gm Q15M PRN PO DECREASED GLUCOSE; Start 06/08/16 at 12:30 Glucose (Glutose) 22.5 gm Q15M PRN PO DECREASED GLUCOSE; Start 06/08/16 at 12: 30 Dextrose (D50w Syringe) 25 ml Q15M PRN IV DECREASED GLUCOSE; Start 06/08/16 at 12:30 Dextrose (D50w Syringe) 50 ml Q15M PRN IV DECREASED GLUCOSE; Start 06/08/16 at 12:30 Glucagon (Glucagen) 1 mg Q15M PRN IM DECREASED GLUCOSE; Start 06/08/16 at 12:30 Glucose (Glutose) 15 gm Q15M PRN BUCCAL DECREASED GLUCOSE; Start 06/08/16 at 12 :30 Diltiazem HCl (Cardizem) 60 mg Q6 PO Last administered on 06/14/16 12:24; Admin Dose 60 MG; Start 06/08/16 at 18:00 Metoprolol Tartrate (Lopressor) 25 mg BID PO Last administered on 06/14/16 09: 19; Admin Dose 25 MG; Start 06/08/16 at 21:00 Ondansetron HCl (Zofran Inj) 4 mg Q6H PRN IV NAUSEA AND/OR VOMITING Last administered on 06/09/16 02:19; Admin Dose 4 MG; Start 06/09/16 at 02:30 Lisinopril (Zestril) 5 mg DAILY PO ; Start 06/15/16 at 09:00; Status RISHI PEPE Jun 14, 2016 15:57
[2016-06-15] VITALS (16 sets, daily range): BP systolic 120–209; BP diastolic 56–118; PULSE 56–195; RESP 18–24
[2016-06-15] MEDS: DILTIAZEM 60 MG TAB PO SCH ×4 (00:53→17:38)
[2016-06-15] MEDS: PANTOPRAZOLE 40 MG INJ IV SCH (05:53)
[2016-06-15] MEDS: FUROSEMIDE 20 MG INJ IV SCH ×2 (05:53→17:38)
[2016-06-15 06:09] LABS: ADD SCAN DIFF NO
[2016-06-15 06:24] LABS: EOSINOPHILS # 0.1 10^3/ul (0.0-0.5); EOSINOPHILS % 3.3 % (0.0-7.0); HEMATOCRIT 32.5 % (37.0-47.0); LYMPHOCYTES # 1.3 10^3/ul (0.8-2.9); LYMPHOCYTES % 31.7 % (15.0-51.0); MEAN CORPUSCULAR HEMOGLOBIN 33.6 pg (29.0-33.0); MEAN CORPUSCULAR HGB CONC 33.8 g/dl (32.0-37.0); MEAN CORPUSCULAR VOLUME 99.4 fl (82.0-101.0); MEAN PLATELET VOLUME 10.7 fl (7.4-10.4); MONOCYTE # 0.4 10^3/ul (0.3-0.9); MONOCYTES % 8.8 % (0.0-11.0); NEUTROPHIL # 2.2 10^3/ul (1.6-7.5); NEUTROPHILS % 54.7 % (39.0-77.0); PLATELET COUNT 165 10^3/UL (140-415); RED BLOOD COUNT 3.27 10^6/ul (4.20-5.40); RED CELL DISTRIBUTION WIDTH 14.1 % (11.5-14.5)
[2016-06-15 06:36] LABS: POTASSIUM 3.3 mmol/L (3.5-5.1)
[2016-06-15 06:39] LABS: CREATININE 0.74 mg/dl (0.44-1.00)
[2016-06-15] MEDS: INSULIN ASPART [NOVOLOG] 3 ML PEN SC SCH ×4 (07:55→21:00)
[2016-06-15] MEDS: FEBUXOSTAT 40 MG TABLET PO SCH (08:46)
[2016-06-15] MEDS: DOCUSATE SODIUM 100 MG CAP PO SCH ×2 (08:46→20:23)
[2016-06-15] MEDS: APIXABAN 5 MG TABLET PO SCH ×2 (08:46→20:23)
[2016-06-15] MEDS: CHOLECALCIFEROL 400 UNITS TAB PO SCH (08:46)
[2016-06-15] MEDS: FOLIC ACID 1 MG TAB PO SCH (08:46)
[2016-06-15] MEDS: TAMSULOSIN (SR) 0.4 MG CAP PO SCH (08:47)
[2016-06-15] MEDS: ALLOPURINOL 100 MG TAB PO SCH (08:47)
[2016-06-15] MEDS: METOPROLOL 25 MG TAB PO SCH ×2 (08:47→20:29)
[2016-06-15] MEDS: FISH OIL 1,000 MG CAP PO SCH (08:47)
[2016-06-15] MEDS: LISINOPRIL 5 MG TAB PO SCH (08:48)
--- NOTE | 2016-06-15 10:34 | PN ---
Date/Time of Note Date/Time of Note DATE: 06/15/16 TIME: 10:34 Assessment/Plan VTE Prophylaxis VTE Prophylaxis Intervention: other Lines/Catheters [facility] Urinary Cath still in place: No Assessment/Plan Chief Complaint/Hosp Course Atrial fibrillation with rapid ventricular response. Patient is currently in atrial fibrillation at controlled rate. Dr. Rico is following and cardiology consultation. Continue metoprolol and Eliquis. Continue Cardizem. - Erosive gastritis per EGD. Continue Protonix. Dr. Urias is following in cart in gastroenterology consultation - Diabetes mellitus type 2. Continue NovoLog per sliding scale. 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 Continue IV Lasix. Problems: Subjective 24 Hr Interval Summary Free Text/Dictation Patient has no complaints Exam/Review of Systems Vital Signs Vitals Vital Signs Date Time Temp Pulse Resp B/P Pulse Ox O2 Delivery O2 Flow Rate FiO2 06/15/16 08:00 83 06/15/16 07:30 Nasal Cannula 2.0 06/15/16 07:28 98.1 18 125/62 100 Intake and Output 06/14/16 06/14/16 06/15/16 15:00 23:00 07:00 Intake Total 1200 ml Output Total 1600 ml Balance -400 ml Exam Constitutional: well developed Head: atraumatic, normocephalic Neck: supple Respiratory: clear to auscultation Cardiovascular: regular rate and rhythm Gastrointestinal: non-tender, soft Results Result Diagram: 06/15/16 0520 06/15/16 0520 Results 24 hrs Laboratory Tests Test 06/14/16 12:21 06/14/16 17:11 06/14/16 20:06 06/15/16 05:20 Bedside Glucose 122 83 181 Anion Gap 11 # Basophils # 0.0 Basophils % 1.0 Blood Urea Nitrogen 17 Calcium Level 8.0 L Carbon Dioxide Level 33 H Chloride Level 101 Creatinine 0.74 Eosinophils # 0.1 Eosinophils % 3.3 Glucose Level 92 Hematocrit 32.5 L Hemoglobin 11.0 L Lymphocytes # 1.3 Lymphocytes % 31.7 Mean Corpuscular Hemoglobin 33.6 H Mean Corpuscular Hemoglobin Concent 33.8 Mean Corpuscular Volume 99.4 Mean Platelet Volume 10.7 H Monocytes # 0.4 Monocytes % 8.8 Neutrophils # 2.2 Neutrophils % 54.7 Nucleated Red Blood Cells # 0.0 Nucleated Red Blood Cells % 0.0 Platelet Count 165 Potassium Level 3.3 L Red Blood Count 3.27 L Red Cell Distribution Width 14.1 Sodium Level 142 White Blood Count 4.0 L Test 06/15/16 07:41 Bedside Glucose 103 Medications Medications Current Medications Allopurinol (Zyloprim) 100 mg DAILY PO Last administered on 06/15/16 08:47; Admin Dose 100 MG; Start 06/09/16 at 09:00 Aspirin (Halfprin) 81 mg DAILY PO Last administered on 06/12/16 08:23; Admin Dose 81 MG; Start 06/09/16 at 09:00; Status Future Hold Febuxostat (Uloric) 40 mg DAILY PO Last administered on 06/15/16 08:46; Admin Dose 40 MG; Start 06/09/16 at 09:00 Folic Acid (Folic Acid) 1 mg DAILY PO Last administered on 06/15/16 08:46; Admin Dose 1 MG; Start 06/09/16 at 09:00 Ibuprofen (Motrin) 800 mg DAILY PRN PO PRN Last administered on 06/12/16 10:27 ; Admin Dose 800 MG; Start 06/08/16 at 10:00 Tamsulosin HCl (Flomax) 0.4 mg DAILY PO Last administered on 06/15/16 08:47; Admin Dose 0.4 MG; Start 06/09/16 at 09:00 Cholecalciferol (Vitamin D) 400 units DAILY PO Last administered on 06/15/16 08 :46; Admin Dose 400 UNITS; Start 06/09/16 at 09:00 Fish Oil (Fish Oil) 1,000 mg DAILY PO Last administered on 06/15/16 08:47; Admin Dose 1,000 MG; Start 06/09/16 at 09:00 Acetaminophen (Tylenol Tab) 650 mg Q6H PRN PO PAIN AND OR ELEVATED TEMP; Start 06/08/16 at 10:00 Ondansetron HCl (Zofran Tab) 4 mg Q6 PRN PO NAUSEA AND/OR VOMITING; Start 06/08 at 10:00 Docusate Sodium (Colace) 100 mg BID PO Last administered on 06/15/16 08:46; Admin Dose 100 MG; Start 06/08/16 at 21:00 Apixaban (Eliquis) 5 mg BID PO Last administered on 06/15/16 08:46; Admin Dose 5 MG; Start 06/08/16 at 12:30 Morphine Sulfate (morphine) 2 mg Q3 PRN IV PAIN LEVEL 7-10 Last administered on 06/08/16 12:25; Admin Dose 2 MG; Start 06/08/16 at 11:00 Pantoprazole (Protonix Iv) 40 mg DAILY@06 IV Last administered on 06/15/16 05: 53; Admin Dose 40 MG; Start 06/08/16 at 12:00 Miscellaneous Information 1 ea NOTE XX ; Start 06/08/16 at 11:30 Glucose (Glutose) 15 gm Q15M PRN PO DECREASED GLUCOSE; Start 06/08/16 at 11:30 Glucose (Glutose) 22.5 gm Q15M PRN PO DECREASED GLUCOSE; Start 06/08/16 at 11: 30 Dextrose (D50w Syringe) 25 ml Q15M PRN IV DECREASED GLUCOSE; Start 06/08/16 at 11:30 Dextrose (D50w Syringe) 50 ml Q15M PRN IV DECREASED GLUCOSE; Start 06/08/16 at 11:30 Glucagon (Glucagen) 1 mg Q15M PRN IM DECREASED GLUCOSE; Start 06/08/16 at 11:30 Glucose (Glutose) 15 gm Q15M PRN BUCCAL DECREASED GLUCOSE; Start 06/08/16 at 11 :30 Miscellaneous Information 1 ea NOTE XX ; Start 06/08/16 at 12:30 Glucose (Glutose) 15 gm Q15M PRN PO DECREASED GLUCOSE; Start 06/08/16 at 12:30 Glucose (Glutose) 22.5 gm Q15M PRN PO DECREASED GLUCOSE; Start 06/08/16 at 12: 30 Dextrose (D50w Syringe) 25 ml Q15M PRN IV DECREASED GLUCOSE; Start 06/08/16 at 12:30 Dextrose (D50w Syringe) 50 ml Q15M PRN IV DECREASED GLUCOSE; Start 06/08/16 at 12:30 Glucagon (Glucagen) 1 mg Q15M PRN IM DECREASED GLUCOSE; Start 06/08/16 at 12:30 Glucose (Glutose) 15 gm Q15M PRN BUCCAL DECREASED GLUCOSE; Start 06/08/16 at 12 :30 Diltiazem HCl (Cardizem) 60 mg Q6 PO Last administered on 06/15/16 05:54; Admin Dose 60 MG; Start 06/08/16 at 18:00 Metoprolol Tartrate (Lopressor) 25 mg BID PO Last administered on 06/15/16 08: 47; Admin Dose 25 MG; Start 06/08/16 at 21:00 Ondansetron HCl (Zofran Inj) 4 mg Q6H PRN IV NAUSEA AND/OR VOMITING Last administered on 06/09/16 02:19; Admin Dose 4 MG; Start 06/09/16 at 02:30 Lisinopril (Zestril) 5 mg DAILY PO Last administered on 06/15/16 08:48; Admin Dose 5 MG; Start 06/15/16 at 09:00 YARITZA PALMER Jun 15, 2016 10:34
--- NOTE | 2016-06-15 12:28 | CONS ---
Date/Time of Note Date/Time of Note DATE: 06/15/16 TIME: 12:26 Assessment/Plan Assessment/Plan Additional Assessment/Plan 1. Acute kidney injury, likely secondary to cardiorenal syndrome. The patient is on Lasix 20 mg IV b.i.d. for diuresis. 2. Acute congestive heart failure exacerbation, acute on chronic, systolic. 3. Atrial fibrillation with rapid ventricular rate. 4. Hypertension. 5. Hyperlipidemia. 6. Diabetes mellitus. 7. Possible chronic kidney disease secondary to diabetic nephropathy. PLAN: renal Us reviewed, Cr improved to normal s/p EGD which showed gastritis with erosive gastritis. Helicobacter pylori was done and the results are pending BMP ordered for AM labs will follow up Consultation Date/Type/Reason Admit Date/Time Jun 07, 2016 at 22:30 Initial Consult Date May Type of Consultation: NEPHROLOGY Reason for Consultation Acute Kidney injury, atrial fibrillation with RVR Referring Provider: MARTÍN WALDROP MD 24 HR Interval Summary Free Text/Dictation no acute events, Rate controlled renal function stable yesterday, no labs today to review Exam/Review of Systems Vital Signs Vitals Vital Signs Date Time Temp Pulse Resp B/P Pulse Ox O2 Delivery O2 Flow Rate FiO2 06/15/16 12:04 67 06/15/16 11:25 98.1 20 120/58 96 06/15/16 07:30 Nasal Cannula 2.0 Intake and Output 06/14/16 06/14/16 06/15/16 15:00 23:00 07:00 Intake Total 1200 ml Output Total 1600 ml Balance -400 ml Exam no acute distress NECK: Supple, no JVD, no lymphadenopathy. LUNGS: Clear to auscultation. No crackles, no wheezes. HEART: S1, S2, with regular rhythm, no murmur. ABDOMEN: Soft, nontender, nondistended. Bowel sounds are present. EXTREMITIES: No clubbing, cyanosis, or edema Results Result Diagram: 06/15/16 0520 06/15/16 0520 Results 24 hrs Laboratory Tests Test 06/14/16 17:11 06/14/16 20:06 06/15/16 05:20 06/15/16 07:41 Bedside Glucose 83 181 103 Anion Gap 11 # Basophils # 0.0 Basophils % 1.0 Blood Urea Nitrogen 17 Calcium Level 8.0 L Carbon Dioxide Level 33 H Chloride Level 101 Creatinine 0.74 Eosinophils # 0.1 Eosinophils % 3.3 Glucose Level 92 Hematocrit 32.5 L Hemoglobin 11.0 L Lymphocytes # 1.3 Lymphocytes % 31.7 Mean Corpuscular Hemoglobin 33.6 H Mean Corpuscular Hemoglobin Concent 33.8 Mean Corpuscular Volume 99.4 Mean Platelet Volume 10.7 H Monocytes # 0.4 Monocytes % 8.8 Neutrophils # 2.2 Neutrophils % 54.7 Nucleated Red Blood Cells # 0.0 Nucleated Red Blood Cells % 0.0 Platelet Count 165 Potassium Level 3.3 L Red Blood Count 3.27 L Red Cell Distribution Width 14.1 Sodium Level 142 White Blood Count 4.0 L Test 06/15/16 12:02 06/15/16 12:04 Bedside Glucose 202 195 Medications Medications Current Medications Allopurinol (Zyloprim) 100 mg DAILY PO Last administered on 06/15/16 08:47; Admin Dose 100 MG; Start 06/09/16 at 09:00 Aspirin (Halfprin) 81 mg DAILY PO Last administered on 06/12/16 08:23; Admin Dose 81 MG; Start 06/09/16 at 09:00; Status Future Hold Febuxostat (Uloric) 40 mg DAILY PO Last administered on 06/15/16 08:46; Admin Dose 40 MG; Start 06/09/16 at 09:00 Folic Acid (Folic Acid) 1 mg DAILY PO Last administered on 06/15/16 08:46; Admin Dose 1 MG; Start 06/09/16 at 09:00 Ibuprofen (Motrin) 800 mg DAILY PRN PO PRN Last administered on 06/12/16 10:27 ; Admin Dose 800 MG; Start 06/08/16 at 10:00 Tamsulosin HCl (Flomax) 0.4 mg DAILY PO Last administered on 06/15/16 08:47; Admin Dose 0.4 MG; Start 06/09/16 at 09:00 Cholecalciferol (Vitamin D) 400 units DAILY PO Last administered on 06/15/16 08 :46; Admin Dose 400 UNITS; Start 06/09/16 at 09:00 Fish Oil (Fish Oil) 1,000 mg DAILY PO Last administered on 06/15/16 08:47; Admin Dose 1,000 MG; Start 06/09/16 at 09:00 Acetaminophen (Tylenol Tab) 650 mg Q6H PRN PO PAIN AND OR ELEVATED TEMP; Start 06/08/16 at 10:00 Ondansetron HCl (Zofran Tab) 4 mg Q6 PRN PO NAUSEA AND/OR VOMITING; Start 06/08 at 10:00 Docusate Sodium (Colace) 100 mg BID PO Last administered on 06/15/16 08:46; Admin Dose 100 MG; Start 06/08/16 at 21:00 Apixaban (Eliquis) 5 mg BID PO Last administered on 06/15/16 08:46; Admin Dose 5 MG; Start 06/08/16 at 12:30 Morphine Sulfate (morphine) 2 mg Q3 PRN IV PAIN LEVEL 7-10 Last administered on 06/08/16 12:25; Admin Dose 2 MG; Start 06/08/16 at 11:00 Pantoprazole (Protonix Iv) 40 mg DAILY@06 IV Last administered on 06/15/16 05: 53; Admin Dose 40 MG; Start 06/08/16 at 12:00 Miscellaneous Information 1 ea NOTE XX ; Start 06/08/16 at 11:30 Glucose (Glutose) 15 gm Q15M PRN PO DECREASED GLUCOSE; Start 06/08/16 at 11:30 Glucose (Glutose) 22.5 gm Q15M PRN PO DECREASED GLUCOSE; Start 06/08/16 at 11: 30 Dextrose (D50w Syringe) 25 ml Q15M PRN IV DECREASED GLUCOSE; Start 06/08/16 at 11:30 Dextrose (D50w Syringe) 50 ml Q15M PRN IV DECREASED GLUCOSE; Start 06/08/16 at 11:30 Glucagon (Glucagen) 1 mg Q15M PRN IM DECREASED GLUCOSE; Start 06/08/16 at 11:30 Glucose (Glutose) 15 gm Q15M PRN BUCCAL DECREASED GLUCOSE; Start 06/08/16 at 11 :30 Miscellaneous Information 1 ea NOTE XX ; Start 06/08/16 at 12:30 Glucose (Glutose) 15 gm Q15M PRN PO DECREASED GLUCOSE; Start 06/08/16 at 12:30 Glucose (Glutose) 22.5 gm Q15M PRN PO DECREASED GLUCOSE; Start 06/08/16 at 12: 30 Dextrose (D50w Syringe) 25 ml Q15M PRN IV DECREASED GLUCOSE; Start 06/08/16 at 12:30 Dextrose (D50w Syringe) 50 ml Q15M PRN IV DECREASED GLUCOSE; Start 06/08/16 at 12:30 Glucagon (Glucagen) 1 mg Q15M PRN IM DECREASED GLUCOSE; Start 06/08/16 at 12:30 Glucose (Glutose) 15 gm Q15M PRN BUCCAL DECREASED GLUCOSE; Start 06/08/16 at 12 :30 Diltiazem HCl (Cardizem) 60 mg Q6 PO Last administered on 06/15/16 12:11; Admin Dose 60 MG; Start 06/08/16 at 18:00 Metoprolol Tartrate (Lopressor) 25 mg BID PO Last administered on 06/15/16 08: 47; Admin Dose 25 MG; Start 06/08/16 at 21:00 Ondansetron HCl (Zofran Inj) 4 mg Q6H PRN IV NAUSEA AND/OR VOMITING Last administered on 06/09/16 02:19; Admin Dose 4 MG; Start 06/09/16 at 02:30 Lisinopril (Zestril) 5 mg DAILY PO Last administered on 06/15/16 08:48; Admin Dose 5 MG; Start 06/15/16 at 09:00 CIELO FONG MD Jun 15, 2016 12:28
--- NOTE | 2016-06-15 15:54 | CONS ---
Date/Time of Note Date/Time of Note DATE: 06/15/16 TIME: 15:50 Assessment/Plan Assessment/Plan Additional Assessment/Plan 1.Atrial fibrillation rate controlled 2.Severe Cardiomyopathy-EF 15% 3.CHF-systolic acute on chronic 4.Gastritis 5.Renal failure 6.HTN 7.DM Atrial fibrillation rate controlled Heart failure Clinically Compensated Continue Metoprolol and diltiazem Continue Eliquis Continue Lisinopril Continue Insulin Consultation Date/Type/Reason Admit Date/Time Jun 07, 2016 at 22:30 Constitutional: improved Eyes: no complaints ENT: no complaints Respiratory: no complaints Cardiovascular: no complaints Gastrointestinal: pain Genitourinary: no complaints Musculoskeletal: no complaints Skin: no complaints Neurologic: no complaints Lymphatic: no complaints Psychological: no complaints Past Surgical History Past Surgical Hx: cholecystectomy Social History Alcohol Use: occasionally Smoking Status: Former smoker Drug Use: none Exam/Review of Systems Vital Signs Vitals Vital Signs Date Time Temp Pulse Resp B/P Pulse Ox O2 Delivery O2 Flow Rate FiO2 06/15/16 15:27 98.1 80 18 127/58 94 06/15/16 07:30 Nasal Cannula 2.0 Intake and Output 06/14/16 06/14/16 06/15/16 15:00 23:00 07:00 Intake Total 1200 ml Output Total 1600 ml Balance -400 ml Exam Constitutional: alert, oriented Head: atraumatic, normocephalic Neck: non-tender, supple Respiratory: clear to auscultation Cardiovascular: irregular rhythm Gastrointestinal: nl liver, spleen, non-tender, soft Extremities: normal pulses Results Result Diagram: 06/15/16 0520 06/15/16 0520 Results 24 hrs Laboratory Tests Test 06/14/16 17:11 06/14/16 20:06 06/15/16 05:20 06/15/16 07:41 Bedside Glucose 83 181 103 Anion Gap 11 # Basophils # 0.0 Basophils % 1.0 Blood Urea Nitrogen 17 Calcium Level 8.0 L Carbon Dioxide Level 33 H Chloride Level 101 Creatinine 0.74 Eosinophils # 0.1 Eosinophils % 3.3 Glucose Level 92 Hematocrit 32.5 L Hemoglobin 11.0 L Lymphocytes # 1.3 Lymphocytes % 31.7 Mean Corpuscular Hemoglobin 33.6 H Mean Corpuscular Hemoglobin Concent 33.8 Mean Corpuscular Volume 99.4 Mean Platelet Volume 10.7 H Monocytes # 0.4 Monocytes % 8.8 Neutrophils # 2.2 Neutrophils % 54.7 Nucleated Red Blood Cells # 0.0 Nucleated Red Blood Cells % 0.0 Platelet Count 165 Potassium Level 3.3 L Red Blood Count 3.27 L Red Cell Distribution Width 14.1 Sodium Level 142 White Blood Count 4.0 L Test 06/15/16 12:02 06/15/16 12:04 Bedside Glucose 202 195 Medications Medications Current Medications Allopurinol (Zyloprim) 100 mg DAILY PO Last administered on 06/15/16 08:47; Admin Dose 100 MG; Start 06/09/16 at 09:00 Aspirin (Halfprin) 81 mg DAILY PO Last administered on 06/12/16 08:23; Admin Dose 81 MG; Start 06/09/16 at 09:00; Status Future Hold Febuxostat (Uloric) 40 mg DAILY PO Last administered on 06/15/16 08:46; Admin Dose 40 MG; Start 06/09/16 at 09:00 Folic Acid (Folic Acid) 1 mg DAILY PO Last administered on 06/15/16 08:46; Admin Dose 1 MG; Start 06/09/16 at 09:00 Ibuprofen (Motrin) 800 mg DAILY PRN PO PRN Last administered on 06/12/16 10:27 ; Admin Dose 800 MG; Start 06/08/16 at 10:00 Tamsulosin HCl (Flomax) 0.4 mg DAILY PO Last administered on 06/15/16 08:47; Admin Dose 0.4 MG; Start 06/09/16 at 09:00 Cholecalciferol (Vitamin D) 400 units DAILY PO Last administered on 06/15/16 08 :46; Admin Dose 400 UNITS; Start 06/09/16 at 09:00 Fish Oil (Fish Oil) 1,000 mg DAILY PO Last administered on 06/15/16 08:47; Admin Dose 1,000 MG; Start 06/09/16 at 09:00 Acetaminophen (Tylenol Tab) 650 mg Q6H PRN PO PAIN AND OR ELEVATED TEMP; Start 06/08/16 at 10:00 Ondansetron HCl (Zofran Tab) 4 mg Q6 PRN PO NAUSEA AND/OR VOMITING; Start 06/08 at 10:00 Docusate Sodium (Colace) 100 mg BID PO Last administered on 06/15/16 08:46; Admin Dose 100 MG; Start 06/08/16 at 21:00 Apixaban (Eliquis) 5 mg BID PO Last administered on 06/15/16 08:46; Admin Dose 5 MG; Start 06/08/16 at 12:30 Morphine Sulfate (morphine) 2 mg Q3 PRN IV PAIN LEVEL 7-10 Last administered on 06/08/16 12:25; Admin Dose 2 MG; Start 06/08/16 at 11:00 Miscellaneous Information 1 ea NOTE XX ; Start 06/08/16 at 11:30 Glucose (Glutose) 15 gm Q15M PRN PO DECREASED GLUCOSE; Start 06/08/16 at 11:30 Glucose (Glutose) 22.5 gm Q15M PRN PO DECREASED GLUCOSE; Start 06/08/16 at 11: 30 Dextrose (D50w Syringe) 25 ml Q15M PRN IV DECREASED GLUCOSE; Start 06/08/16 at 11:30 Dextrose (D50w Syringe) 50 ml Q15M PRN IV DECREASED GLUCOSE; Start 06/08/16 at 11:30 Glucagon (Glucagen) 1 mg Q15M PRN IM DECREASED GLUCOSE; Start 06/08/16 at 11:30 Glucose (Glutose) 15 gm Q15M PRN BUCCAL DECREASED GLUCOSE; Start 06/08/16 at 11 :30 Diltiazem HCl (Cardizem) 60 mg Q6 PO Last administered on 06/15/16 12:11; Admin Dose 60 MG; Start 06/08/16 at 18:00 Metoprolol Tartrate (Lopressor) 25 mg BID PO Last administered on 06/15/16 08: 47; Admin Dose 25 MG; Start 06/08/16 at 21:00 Ondansetron HCl (Zofran Inj) 4 mg Q6H PRN IV NAUSEA AND/OR VOMITING Last administered on 06/09/16 02:19; Admin Dose 4 MG; Start 06/09/16 at 02:30 Lisinopril (Zestril) 5 mg DAILY PO Last administered on 06/15/16 08:48; Admin Dose 5 MG; Start 06/15/16 at 09:00 Pantoprazole (Protonix Tab) 40 mg DAILY@06 PO ; Start 06/16/16 at 06:00 KIMO RAMOS M.D. 4, 2017 15:54
[2016-06-15] MEDS ORDERED: hydrALAzine 20 MG INJ ONE (19:41)
[2016-06-15] MEDS: hydrALAzine 20 MG INJ IV PRN (19:45)
[2016-06-15] MEDS: morphine 2 MG INJ IV PRN (20:33)
[2016-06-15] MEDS ORDERED: ONDANSETRON 4 MG INJ IV PRN (21:30)
[2016-06-15] MEDS ORDERED: DILTIAZEM-D5W 125MG/125ML DRIP 125 ML IV SCH (21:30)
[2016-06-16] VITALS (17 sets, daily range): BP systolic 82–195; BP diastolic 52–96; PULSE 73–126; RESP 18–22
[2016-06-16] MEDS: ACETAMINOPHEN 325 MG TAB PO PRN ×3 (00:13→19:09)
[2016-06-16] MEDS: DILTIAZEM 60 MG TAB PO SCH ×5 (00:13→17:27)
[2016-06-16] MEDS: LEVALBUTEROL (NEB) 0.63 MG/3 ML AMP HHN SCH ×6 (01:00→20:39)
[2016-06-16] MEDS ORDERED: LEVALBUTEROL (NEB) 0.63 MG/3 ML AMP HHN PRN (01:00)
[2016-06-16] MEDS: PANTOPRAZOLE (EC) 40 MG TAB PO SCH (06:04)
[2016-06-16] MEDS: FUROSEMIDE 20 MG INJ IV SCH ×2 (06:04→17:26)
[2016-06-16 07:14] LABS: CALCIUM 8.2 mg/dl (8.4-10.2); CREATININE 0.81 mg/dl (0.44-1.00)
[2016-06-16] MEDS: INSULIN ASPART [NOVOLOG] 3 ML PEN SC SCH ×4 (07:53→20:32)
[2016-06-16] MEDS: FEBUXOSTAT 40 MG TABLET PO SCH (07:53)
[2016-06-16] MEDS: FOLIC ACID 1 MG TAB PO SCH (07:54)
[2016-06-16] MEDS: LISINOPRIL 5 MG TAB PO SCH (07:54)
[2016-06-16] MEDS: CHOLECALCIFEROL 400 UNITS TAB PO SCH (07:54)
[2016-06-16] MEDS: TAMSULOSIN (SR) 0.4 MG CAP PO SCH (07:54)
[2016-06-16] MEDS: APIXABAN 5 MG TABLET PO SCH ×2 (07:54→20:34)
[2016-06-16] MEDS: FISH OIL 1,000 MG CAP PO SCH (07:54)
[2016-06-16] MEDS: ALLOPURINOL 100 MG TAB PO SCH (07:54)
[2016-06-16] MEDS: DOCUSATE SODIUM 100 MG CAP PO SCH ×2 (07:54→20:34)
[2016-06-16] MEDS: METOPROLOL 25 MG TAB PO SCH ×2 (07:55→20:34)
--- NOTE | 2016-06-16 11:45 | CONS ---
Date/Time of Note Date/Time of Note DATE: 06/16/16 TIME: 11:42 Assessment/Plan Assessment/Plan Additional Assessment/Plan 1. Acute kidney injury, likely secondary to cardiorenal syndrome. The patient is on Lasix 20 mg IV b.i.d. for diuresis. 2. Acute congestive heart failure exacerbation, acute on chronic, systolic. 3. Atrial fibrillation with rapid ventricular rate. 4. Hypertension. 5. Hyperlipidemia. 6. Diabetes mellitus. 7. Possible chronic kidney disease secondary to diabetic nephropathy. PLAN: renal Us reviewed, Cr improved to normal KCl 20mEQ IV x 1 then KCL 10mEQ BID PO s/p EGD which showed gastritis with erosive gastritis. Helicobacter pylori was done and the results are pending will follow up Consultation Date/Type/Reason Admit Date/Time Jun 07, 2016 at 22:30 Initial Consult Date May Type of Consultation: NEPHROLOGY Reason for Consultation acute Kidney Injury Referring Provider: MARTÍN WALDROP MD 24 HR Interval Summary Free Text/Dictation K low, No acute events, Cr stable Exam/Review of Systems Vital Signs Vitals Vital Signs Date Time Temp Pulse Resp B/P Pulse Ox O2 Delivery O2 Flow Rate FiO2 06/16/16 11:34 98.1 93 18 82/52 99 06/16/16 09:10 Nasal Cannula 4.0 Intake and Output 06/15/16 06/15/16 06/16/16 15:00 23:00 07:00 Intake Total 1200 ml 145 ml Output Total 1800 ml 1200 ml Balance -600 ml -1055 ml Exam no acute distress NECK: Supple, no JVD, no lymphadenopathy. LUNGS: Clear to auscultation. No crackles, no wheezes. HEART: S1, S2, with regular rhythm, no murmur. ABDOMEN: Soft, nontender, nondistended. Bowel sounds are present. EXTREMITIES: No clubbing, cyanosis, or edema Results Result Diagram: 06/15/16 0520 06/16/16 0520 Results 24 hrs Laboratory Tests Test 06/15/16 12:02 06/15/16 12:04 06/15/16 17:34 06/15/16 20:26 Bedside Glucose 202 195 119 152 Test 06/16/16 05:20 06/16/16 07:53 Anion Gap 14 Blood Urea Nitrogen 21 H Calcium Level 8.2 L Carbon Dioxide Level 33 H Chloride Level 98 Creatinine 0.81 Glucose Level 134 # Potassium Level 3.0 L Sodium Level 142 Bedside Glucose 124 Medications Medications Current Medications Allopurinol (Zyloprim) 100 mg DAILY PO Last administered on 06/16/16 07:54; Admin Dose 100 MG; Start 06/09/16 at 09:00 Aspirin (Halfprin) 81 mg DAILY PO Last administered on 06/12/16 08:23; Admin Dose 81 MG; Start 06/09/16 at 09:00; Status Future Hold Febuxostat (Uloric) 40 mg DAILY PO Last administered on 06/16/16 07:53; Admin Dose 40 MG; Start 06/09/16 at 09:00 Folic Acid (Folic Acid) 1 mg DAILY PO Last administered on 06/16/16 07:54; Admin Dose 1 MG; Start 06/09/16 at 09:00 Ibuprofen (Motrin) 800 mg DAILY PRN PO PRN Last administered on 06/12/16 10:27 ; Admin Dose 800 MG; Start 06/08/16 at 10:00 Tamsulosin HCl (Flomax) 0.4 mg DAILY PO Last administered on 06/16/16 07:54; Admin Dose 0.4 MG; Start 06/09/16 at 09:00 Cholecalciferol (Vitamin D) 400 units DAILY PO Last administered on 06/16/16 07 :54; Admin Dose 400 UNITS; Start 06/09/16 at 09:00 Fish Oil (Fish Oil) 1,000 mg DAILY PO Last administered on 06/16/16 07:54; Admin Dose 1,000 MG; Start 06/09/16 at 09:00 Acetaminophen (Tylenol Tab) 650 mg Q6H PRN PO PAIN AND OR ELEVATED TEMP Last administered on 06/16/16 07:54; Admin Dose 650 MG; Start 06/08/16 at 10:00 Ondansetron HCl (Zofran Tab) 4 mg Q6 PRN PO NAUSEA AND/OR VOMITING Last administered on 06/16/16 07:54; Admin Dose 4 MG; Start 06/08/16 at 10:00 Docusate Sodium (Colace) 100 mg BID PO Last administered on 06/16/16 07:54; Admin Dose 100 MG; Start 06/08/16 at 21:00 Apixaban (Eliquis) 5 mg BID PO Last administered on 06/16/16 07:54; Admin Dose 5 MG; Start 06/08/16 at 12:30 Morphine Sulfate (morphine) 2 mg Q3 PRN IV PAIN LEVEL 7-10 Last administered on 06/15/16 20:33; Admin Dose 2 MG; Start 06/08/16 at 11:00 Miscellaneous Information 1 ea NOTE XX ; Start 06/08/16 at 11:30 Glucose (Glutose) 15 gm Q15M PRN PO DECREASED GLUCOSE; Start 06/08/16 at 11:30 Glucose (Glutose) 22.5 gm Q15M PRN PO DECREASED GLUCOSE; Start 06/08/16 at 11: 30 Dextrose (D50w Syringe) 25 ml Q15M PRN IV DECREASED GLUCOSE; Start 06/08/16 at 11:30 Dextrose (D50w Syringe) 50 ml Q15M PRN IV DECREASED GLUCOSE; Start 06/08/16 at 11:30 Glucagon (Glucagen) 1 mg Q15M PRN IM DECREASED GLUCOSE; Start 06/08/16 at 11:30 Glucose (Glutose) 15 gm Q15M PRN BUCCAL DECREASED GLUCOSE; Start 06/08/16 at 11 :30 Diltiazem HCl (Cardizem) 60 mg Q6 PO Last administered on 06/16/16 06:05; Admin Dose 60 MG; Start 06/08/16 at 18:00 Metoprolol Tartrate (Lopressor) 25 mg BID PO Last administered on 06/16/16 07: 55; Admin Dose 25 MG; Start 06/08/16 at 21:00 Ondansetron HCl (Zofran Inj) 4 mg Q6H PRN IV NAUSEA AND/OR VOMITING Last administered on 06/09/16 02:19; Admin Dose 4 MG; Start 06/09/16 at 02:30 Lisinopril (Zestril) 5 mg DAILY PO Last administered on 06/16/16 07:54; Admin Dose 5 MG; Start 06/15/16 at 09:00 Pantoprazole (Protonix Tab) 40 mg DAILY@06 PO Last administered on 06/16/16 06: 04; Admin Dose 40 MG; Start 06/16/16 at 06:00 Hydralazine HCl 20 mg 20 mg Q6H PRN IV ELEVATED BLOOD PRESSURE>180 Last administered on 06/15/16 19:45; Admin Dose 20 MG; Start 06/15/16 at 20:00 Diltiazem HCl (Cardizem-D5W 125 Mg/125 ml Drip) 125 ml @ 0 mls/hr Q0M IV Last administered on 06/15/16 23:05; Admin Dose 5 MLS/HR; Start 06/15/16 at 21:30 Ondansetron HCl (Zofran Inj) 4 mg Q4H PRN IV NAUSEA AND/OR VOMITING; Start 06/15 at 21:30 CIELO FONG MD Jun 16, 2016 11:45
--- NOTE | 2016-06-16 12:00 | PN ---
Date/Time of Note Date/Time of Note DATE: 06/16/16 TIME: 11:59 Assessment/Plan VTE Prophylaxis VTE Prophylaxis Intervention: other Lines/Catheters [facility] Urinary Cath still in place: No Assessment/Plan Chief Complaint/Hosp Course Atrial fibrillation with rapid ventricular response. Patient is currently in atrial fibrillation at controlled rate. Dr. Rico is following and cardiology consultation. Continue metoprolol and Eliquis. Continue Cardizem. - Erosive gastritis per EGD. Continue Protonix. Dr. Urisa is following in cart in gastroenterology consultation - Diabetes mellitus type 2. Continue NovoLog per sliding scale. 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 Continue IV Lasix. Problems: Subjective 24 Hr Interval Summary Free Text/Dictation Patient has no complaints Exam/Review of Systems Vital Signs Vitals Vital Signs Date Time Temp Pulse Resp B/P Pulse Ox O2 Delivery O2 Flow Rate FiO2 06/16/16 11:34 98.1 93 18 82/52 99 06/16/16 09:10 Nasal Cannula 4.0 Intake and Output 06/15/16 06/15/16 06/16/16 15:00 23:00 07:00 Intake Total 1200 ml 145 ml Output Total 1800 ml 1200 ml Balance -600 ml -1055 ml Exam Constitutional: well developed Head: atraumatic, normocephalic Neck: supple Respiratory: clear to auscultation Cardiovascular: regular rate and rhythm Gastrointestinal: non-tender, soft Results Result Diagram: 06/15/16 0520 06/16/16 0520 Results 24 hrs Laboratory Tests Test 06/15/16 12:02 06/15/16 12:04 06/15/16 17:34 06/15/16 20:26 Bedside Glucose 202 195 119 152 Test 06/16/16 05:20 06/16/16 07:53 06/16/16 11:39 Anion Gap 14 Blood Urea Nitrogen 21 H Calcium Level 8.2 L Carbon Dioxide Level 33 H Chloride Level 98 Creatinine 0.81 Glucose Level 134 # Potassium Level 3.0 L Sodium Level 142 Bedside Glucose 124 156 Medications Medications Current Medications Allopurinol (Zyloprim) 100 mg DAILY PO Last administered on 06/16/16t 07:54; Admin Dose 100 MG; Start 06/09/16 at 09:00 Aspirin (Halfprin) 81 mg DAILY PO Last administered on 06/12/16 08:23; Admin Dose 81 MG; Start 06/09/16 at 09:00; Status Future Hold Febuxostat (Uloric) 40 mg DAILY PO Last administered on 06/16/16 07:53; Admin Dose 40 MG; Start 06/09/16 at 09:00 Folic Acid (Folic Acid) 1 mg DAILY PO Last administered on 06/16/16 07:54; Admin Dose 1 MG; Start 06/09/16 at 09:00 Ibuprofen (Motrin) 800 mg DAILY PRN PO PRN Last administered on 06/12/16 10:27 ; Admin Dose 800 MG; Start 06/08/16 at 10:00 Tamsulosin HCl (Flomax) 0.4 mg DAILY PO Last administered on 06/16/16 07:54; Admin Dose 0.4 MG; Start 06/09/16 at 09:00 Cholecalciferol (Vitamin D) 400 units DAILY PO Last administered on 06/16/16 07 :54; Admin Dose 400 UNITS; Start 06/09/16 at 09:00 Fish Oil (Fish Oil) 1,000 mg DAILY PO Last administered on 06/16/16 07:54; Admin Dose 1,000 MG; Start 06/09/16 at 09:00 Acetaminophen (Tylenol Tab) 650 mg Q6H PRN PO PAIN AND OR ELEVATED TEMP Last administered on 06/16/16 07:54; Admin Dose 650 MG; Start 06/08/16 at 10:00 Ondansetron HCl (Zofran Tab) 4 mg Q6 PRN PO NAUSEA AND/OR VOMITING Last administered on 06/16/16 07:54; Admin Dose 4 MG; Start 06/08/16 at 10:00 Docusate Sodium (Colace) 100 mg BID PO Last administered on 06/16/16 07:54; Admin Dose 100 MG; Start 06/08/16 at 21:00 Apixaban (Eliquis) 5 mg BID PO Last administered on 06/16/16 07:54; Admin Dose 5 MG; Start 06/08/16 at 12:30 Morphine Sulfate (morphine) 2 mg Q3 PRN IV PAIN LEVEL 7-10 Last administered on 06/15/16 20:33; Admin Dose 2 MG; Start 06/08/16 at 11:00 Miscellaneous Information 1 ea NOTE XX ; Start 06/08/16 at 11:30 Glucose (Glutose) 15 gm Q15M PRN PO DECREASED GLUCOSE; Start 06/08/16 at 11:30 Glucose (Glutose) 22.5 gm Q15M PRN PO DECREASED GLUCOSE; Start 06/08/16 at 11: 30 Dextrose (D50w Syringe) 25 ml Q15M PRN IV DECREASED GLUCOSE; Start 06/08/16 at 11:30 Dextrose (D50w Syringe) 50 ml Q15M PRN IV DECREASED GLUCOSE; Start 06/08/16 at 11:30 Glucagon (Glucagen) 1 mg Q15M PRN IM DECREASED GLUCOSE; Start 06/08/16 at 11:30 Glucose (Glutose) 15 gm Q15M PRN BUCCAL DECREASED GLUCOSE; Start 06/08/16 at 11 :30 Diltiazem HCl (Cardizem) 60 mg Q6 PO Last administered on 06/16/16 06:05; Admin Dose 60 MG; Start 06/08/16 at 18:00 Metoprolol Tartrate (Lopressor) 25 mg BID PO Last administered on 06/16/16 07: 55; Admin Dose 25 MG; Start 06/08/16 at 21:00 Ondansetron HCl (Zofran Inj) 4 mg Q6H PRN IV NAUSEA AND/OR VOMITING Last administered on 06/09/16 02:19; Admin Dose 4 MG; Start 06/09/16 at 02:30 Lisinopril (Zestril) 5 mg DAILY PO Last administered on 06/16/16 07:54; Admin Dose 5 MG; Start 06/15/16 at 09:00 Pantoprazole (Protonix Tab) 40 mg DAILY@06 PO Last administered on 06/16/16 06: 04; Admin Dose 40 MG; Start 06/16/16 at 06:00 Hydralazine HCl 20 mg 20 mg Q6H PRN IV ELEVATED BLOOD PRESSURE>180 Last administered on 06/15/16 19:45; Admin Dose 20 MG; Start 06/15/16 at 20:00 Diltiazem HCl (Cardizem-D5W 125 Mg/125 ml Drip) 125 ml @ 0 mls/hr Q0M IV Last administered on 06/15/16 23:05; Admin Dose 5 MLS/HR; Start 06/15/16 at 21:30 Ondansetron HCl 4 mg 4 mg Q4H PRN IV NAUSEA AND/OR VOMITING; Start 06/15/16 at 21:30 Potassium Chloride/Sodium Chloride (KCl/NS) 110 ml @ 55 mls/hr ONCE ONCE IVPB ; Start 06/16/16 at 13:00; Stop 06/16/16 at 14:59 Potassium Chloride (Klor-Con 10) 10 meq BID PO ; Start 06/16/16 at 21:00 YARITZA PALMER Jun 16, 2016 12:00
[2016-06-16] MEDS ORDERED: POTASSIUM CHLORIDE 20 MEQ in SOD CHLORIDE 0.9% 100 ML IVPB ONE (13:00)
--- NOTE | 2016-06-16 14:59 | CONS ---
Date/Time of Note Date/Time of Note DATE: 06/16/16 TIME: 14:57 Assessment/Plan Assessment/Plan Additional Assessment/Plan 1.Atrial fibrillation rate controlled 2.Severe Cardiomyopathy-EF 15% 3.CHF-systolic acute on chronic 4.Gastritis 5.Renal failure 6.HTN 7.DM Atrial fibrillation rate controlled Heart failure Clinically Compensated Continue Lasix Avoid Volume Overload and restrict fluids 1500 cc/ 24 hours Continue Metoprolol and diltiazem Continue Eliquis Continue Lisinopril Continue Insulin Consultation Date/Type/Reason Admit Date/Time Jun 07, 2016 at 22:30 Initial Consult Date Type of Consultation: NEPHROLOGY Referring Provider: MARTÍN WALDROP MD Exam/Review of Systems Vital Signs Vitals Vital Signs Date Time Temp Pulse Resp B/P Pulse Ox O2 Delivery O2 Flow Rate FiO2 06/16/16 13:25 96 2.0 06/16/16 13:23 70 18 Nasal Cannula 06/16/16 11:57 98.6 94/53 Intake and Output 06/15/16 06/15/16 06/16/16 15:00 23:00 07:00 Intake Total 1200 ml 145 ml Output Total 1800 ml 1200 ml Balance -600 ml -1055 ml Exam Constitutional: alert, oriented Head: atraumatic, normocephalic Neck: non-tender, supple Respiratory: clear to auscultation Cardiovascular: irregular rhythm Gastrointestinal: nl liver, spleen, non-tender, soft Extremities: normal pulses Results Result Diagram: 06/15/16 0520 06/16/16 0520 Results 24 hrs Laboratory Tests Test 06/15/16 17:34 06/15/16 20:26 06/16/16 05:20 06/16/16 07:53 Bedside Glucose 119 152 124 Anion Gap 14 Blood Urea Nitrogen 21 H Calcium Level 8.2 L Carbon Dioxide Level 33 H Chloride Level 98 Creatinine 0.81 Glucose Level 134 # Potassium Level 3.0 L Sodium Level 142 Test 06/16/16 11:39 Bedside Glucose 156 Medications Medications Current Medications Allopurinol (Zyloprim) 100 mg DAILY PO Last administered on 06/16/16 07:54; Admin Dose 100 MG; Start 06/09/16 at 09:00 Aspirin (Halfprin) 81 mg DAILY PO Last administered on 06/12/16 08:23; Admin Dose 81 MG; Start 06/09/16 at 09:00; Status Future Hold Febuxostat (Uloric) 40 mg DAILY PO Last administered on 06/16/16 07:53; Admin Dose 40 MG; Start 06/09/16 at 09:00 Folic Acid (Folic Acid) 1 mg DAILY PO Last administered on 06/16/16 07:54; Admin Dose 1 MG; Start 06/09/16 at 09:00 Ibuprofen (Motrin) 800 mg DAILY PRN PO PRN Last administered on 06/12/16 10:27 ; Admin Dose 800 MG; Start 06/08/16 at 10:00 Tamsulosin HCl (Flomax) 0.4 mg DAILY PO Last administered on 06/16/16 07:54; Admin Dose 0.4 MG; Start 06/09/16 at 09:00 Cholecalciferol (Vitamin D) 400 units DAILY PO Last administered on 06/16/16 07 :54; Admin Dose 400 UNITS; Start 06/09/16 at 09:00 Fish Oil (Fish Oil) 1,000 mg DAILY PO Last administered on 06/16/16 07:54; Admin Dose 1,000 MG; Start 06/09/16 at 09:00 Acetaminophen (Tylenol Tab) 650 mg Q6H PRN PO PAIN AND OR ELEVATED TEMP Last administered on 06/16/16 07:54; Admin Dose 650 MG; Start 06/08/16 at 10:00 Ondansetron HCl (Zofran Tab) 4 mg Q6 PRN PO NAUSEA AND/OR VOMITING Last administered on 06/16/16 07:54; Admin Dose 4 MG; Start 06/08/16 at 10:00 Docusate Sodium (Colace) 100 mg BID PO Last administered on 06/16/16 07:54; Admin Dose 100 MG; Start 06/08/16 at 21:00 Apixaban (Eliquis) 5 mg BID PO Last administered on 06/16/16 07:54; Admin Dose 5 MG; Start 06/08/16 at 12:30 Morphine Sulfate (morphine) 2 mg Q3 PRN IV PAIN LEVEL 7-10 Last administered on 06/15/16 20:33; Admin Dose 2 MG; Start 06/08/16 at 11:00 Miscellaneous Information 1 ea NOTE XX ; Start 06/08/16 at 11:30 Glucose (Glutose) 15 gm Q15M PRN PO DECREASED GLUCOSE; Start 06/08/16 at 11:30 Glucose (Glutose) 22.5 gm Q15M PRN PO DECREASED GLUCOSE; Start 06/08/16 at 11: 30 Dextrose (D50w Syringe) 25 ml Q15M PRN IV DECREASED GLUCOSE; Start 06/08/16 at 11:30 Dextrose (D50w Syringe) 50 ml Q15M PRN IV DECREASED GLUCOSE; Start 06/08/16 at 11:30 Glucagon (Glucagen) 1 mg Q15M PRN IM DECREASED GLUCOSE; Start 06/08/16 at 11:30 Glucose (Glutose) 15 gm Q15M PRN BUCCAL DECREASED GLUCOSE; Start 06/08/16 at 11 :30 Diltiazem HCl (Cardizem) 60 mg Q6 PO Last administered on 06/16/16 06:05; Admin Dose 60 MG; Start 06/08/16 at 18:00 Metoprolol Tartrate (Lopressor) 25 mg BID PO Last administered on 06/16/16 07: 55; Admin Dose 25 MG; Start 06/08/16 at 21:00 Ondansetron HCl (Zofran Inj) 4 mg Q6H PRN IV NAUSEA AND/OR VOMITING Last administered on 06/09/16 02:19; Admin Dose 4 MG; Start 06/09/16 at 02:30 Lisinopril (Zestril) 5 mg DAILY PO Last administered on 06/16/16 07:54; Admin Dose 5 MG; Start 06/15/16 at 09:00 Pantoprazole (Protonix Tab) 40 mg DAILY@06 PO Last administered on 06/16/16 06: 04; Admin Dose 40 MG; Start 06/16/16 at 06:00 Hydralazine HCl 20 mg 20 mg Q6H PRN IV ELEVATED BLOOD PRESSURE>180 Last administered on 06/15/16 19:45; Admin Dose 20 MG; Start 06/15/16 at 20:00 Diltiazem HCl (Cardizem-D5W 125 Mg/125 ml Drip) 125 ml @ 0 mls/hr Q0M IV Last administered on 06/15/16 23:05; Admin Dose 5 MLS/HR; Start 06/15/16 at 21:30 Ondansetron HCl 4 mg 4 mg Q4H PRN IV NAUSEA AND/OR VOMITING; Start 06/15/16 at 21:30 Potassium Chloride/Sodium Chloride (KCl/NS) 110 ml @ 55 mls/hr ONCE ONCE IVPB ; Start 06/16/16 at 13:00; Stop 06/16/16 at 14:59 Potassium Chloride (Klor-Con 10) 10 meq BID PO ; Start 06/16/16 at 21:00 KIMO RAMOS M.D. Jun 16, 2016 14:59
[2016-06-16] MEDS: hydrALAzine 20 MG INJ IV PRN (18:28)
[2016-06-16] MEDS: POTASSIUM CHLORIDE (SR) 10 MEQ TAB PO SCH (20:34)
[2016-06-17] VITALS (13 sets, daily range): BP systolic 91–123; BP diastolic 55–65; PULSE 69–120; RESP 16–22
[2016-06-17] MEDS: LEVALBUTEROL (NEB) 0.63 MG/3 ML AMP HHN SCH ×6 (01:38→21:40)
[2016-06-17] MEDS: FUROSEMIDE 20 MG INJ IV SCH ×2 (06:01→17:58)
[2016-06-17] MEDS: PANTOPRAZOLE (EC) 40 MG TAB PO SCH (06:02)
[2016-06-17] MEDS: DILTIAZEM 60 MG TAB PO SCH ×4 (06:02→17:59)
[2016-06-17 06:41] LABS: ADD SCAN DIFF NO
[2016-06-17 06:46] LABS: BASOPHIL # 0.1 10^3/ul (0.0-0.1); BASOPHILS % 0.6 % (0.0-2.0); EOSINOPHILS # 0.1 10^3/ul (0.0-0.5); EOSINOPHILS % 0.6 % (0.0-7.0); HEMATOCRIT 34.8 % (37.0-47.0); HEMOGLOBIN 11.4 g/dl (12.0-16.0); LYMPHOCYTES # 1.3 10^3/ul (0.8-2.9); LYMPHOCYTES % 17.1 % (15.0-51.0); MEAN CORPUSCULAR HEMOGLOBIN 32.9 pg (29.0-33.0); MEAN CORPUSCULAR HGB CONC 32.8 g/dl (32.0-37.0); MEAN CORPUSCULAR VOLUME 100.6 fl (82.0-101.0); MEAN PLATELET VOLUME 11.4 fl (7.4-10.4); MONOCYTE # 0.6 10^3/ul (0.3-0.9); MONOCYTES % 8.2 % (0.0-11.0); NEUTROPHIL # 5.7 10^3/ul (1.6-7.5); NEUTROPHILS % 73.1 % (39.0-77.0); PLATELET COUNT 139 10^3/UL (140-415); RED BLOOD COUNT 3.46 10^6/ul (4.20-5.40); RED CELL DISTRIBUTION WIDTH 14.6 % (11.5-14.5); WHITE BLOOD COUNT 7.8 10^3/ul (4.8-10.8)
[2016-06-17 06:59] LABS: INR 2.14; PROTIME 24.1 Sec (12.2-14.2); PT RATIO 1.9
[2016-06-17 07:00] LABS: PARTIAL THROMBOPLASTIN TIME 41.4 Sec (25.0-35.0)
[2016-06-17 07:47] LABS: CALCIUM 8.2 mg/dl (8.4-10.2); CREATININE 0.86 mg/dl (0.44-1.00)
[2016-06-17] MEDS: INSULIN ASPART [NOVOLOG] 3 ML PEN SC SCH ×4 (07:55→21:00)
[2016-06-17] MEDS: FOLIC ACID 1 MG TAB PO SCH (08:25)
[2016-06-17] MEDS: FEBUXOSTAT 40 MG TABLET PO SCH (08:25)
[2016-06-17] MEDS: FISH OIL 1,000 MG CAP PO SCH (08:25)
[2016-06-17] MEDS: ACETAMINOPHEN 325 MG TAB PO PRN (08:26)
[2016-06-17] MEDS: APIXABAN 5 MG TABLET PO SCH ×2 (08:26→23:31)
[2016-06-17] MEDS: TAMSULOSIN (SR) 0.4 MG CAP PO SCH (08:26)
[2016-06-17] MEDS: POTASSIUM CHLORIDE (SR) 10 MEQ TAB PO SCH ×2 (08:26→23:31)
[2016-06-17] MEDS: CHOLECALCIFEROL 400 UNITS TAB PO SCH (08:26)
[2016-06-17] MEDS: ALLOPURINOL 100 MG TAB PO SCH (08:26)
[2016-06-17] MEDS: DOCUSATE SODIUM 100 MG CAP PO SCH ×2 (08:26→23:30)
[2016-06-17] MEDS: METOPROLOL 25 MG TAB PO SCH (08:27)
[2016-06-17] MEDS: LISINOPRIL 5 MG TAB PO SCH (08:27)
--- NOTE | 2016-06-17 11:17 | CONS ---
Date/Time of Note Date/Time of Note DATE: 06/17/16 TIME: 11:13 Assessment/Plan Assessment/Plan Additional Assessment/Plan 1. Acute kidney injury, likely secondary to cardiorenal syndrome. The patient is on Lasix 20 mg IV b.i.d. for diuresis. 2. Acute congestive heart failure exacerbation, acute on chronic, systolic. 3. Atrial fibrillation with rapid ventricular rate. 4. Hypertension. 5. Hyperlipidemia. 6. Diabetes mellitus. 7. Possible chronic kidney disease secondary to diabetic nephropathy. PLAN: renal Us reviewed, Cr improved to normal electrolytes stable, increase lisinopril to 10mg po daily, increase MTP to 50 mg PO BID s/p EGD which showed gastritis with erosive gastritis. Helicobacter pylori was done and the results are pending will follow up Consultation Date/Type/Reason Admit Date/Time Jun 07, 2016 at 22:30 Initial Consult Date May Type of Consultation: NEPHROLOGY Referring Provider: MARTÍN WALDROP MD 24 HR Interval Summary Free Text/Dictation no acute events, sitting in chair, BP stable Exam/Review of Systems Vital Signs Vitals Vital Signs Date Time Temp Pulse Resp B/P Pulse Ox O2 Delivery O2 Flow Rate FiO2 06/17/16 09:07 96 2.0 06/17/16 09:04 95 18 Nasal Cannula 06/17/16 07:23 98.5 106/57 06/16/16 20:39 28 Intake and Output 06/16/16 06/16/16 06/17/16 15:00 23:00 07:00 Intake Total 850 ml 100 ml Output Total 900 ml 600 ml Balance -50 ml -500 ml Exam no acute distress NECK: Supple, no JVD, no lymphadenopathy. LUNGS: Clear to auscultation. No crackles, no wheezes. HEART: S1, S2, with regular rhythm, no murmur. ABDOMEN: Soft, nontender, nondistended. Bowel sounds are present. EXTREMITIES: No clubbing, cyanosis, or edema Results Result Diagram: 06/17/16 0555 06/17/16 0555 Results 24 hrs Laboratory Tests Test 06/16/16 11:39 06/16/16 17:24 06/16/16 20:31 06/17/16 05:55 Bedside Glucose 156 109 150 Activated Partial Thromboplast Time 41.4 H Anion Gap 13 Basophils # 0.1 Basophils % 0.6 Blood Urea Nitrogen 21 H Calcium Level 8.2 L Carbon Dioxide Level 36 H Chloride Level 97 Creatinine 0.86 Eosinophils # 0.1 Eosinophils % 0.6 Glucose Level 98 Hematocrit 34.8 L Hemoglobin 11.4 L INR International Normalized Ratio 2.14 Lymphocytes # 1.3 Lymphocytes % 17.1 Magnesium Level 1.5 L Mean Corpuscular Hemoglobin 32.9 Mean Corpuscular Hemoglobin Concent 32.8 Mean Corpuscular Volume 100.6 Mean Platelet Volume 11.4 H Monocytes # 0.6 Monocytes % 8.2 Neutrophils # 5.7 Neutrophils % 73.1 Nucleated Red Blood Cells # 0.0 Nucleated Red Blood Cells % 0.0 Platelet Count 139 L Potassium Level 4.0 Prothrombin Time 24.1 H Prothrombin Time Ratio 1.9 Red Blood Count 3.46 L Red Cell Distribution Width 14.6 H Sodium Level 142 White Blood Count 7.8 # Test 06/17/16 08:22 Bedside Glucose 102 Medications Medications Current Medications Allopurinol (Zyloprim) 100 mg DAILY PO Last administered on 06/17/16 08:26; Admin Dose 100 MG; Start 06/09/16 at 09:00 Aspirin (Halfprin) 81 mg DAILY PO Last administered on 06/12/16 08:23; Admin Dose 81 MG; Start 06/09/16 at 09:00; Status Future Hold Febuxostat (Uloric) 40 mg DAILY PO Last administered on 06/17/16 08:25; Admin Dose 40 MG; Start 06/09/16 at 09:00 Folic Acid (Folic Acid) 1 mg DAILY PO Last administered on 06/17/16 08:25; Admin Dose 1 MG; Start 06/09/16 at 09:00 Ibuprofen (Motrin) 800 mg DAILY PRN PO PRN Last administered on 06/12/16 10:27 ; Admin Dose 800 MG; Start 06/08/16 at 10:00 Tamsulosin HCl (Flomax) 0.4 mg DAILY PO Last administered on 06/17/16 08:26; Admin Dose 0.4 MG; Start 06/09/16 at 09:00 Cholecalciferol (Vitamin D) 400 units DAILY PO Last administered on 06/17/16 08 :26; Admin Dose 400 UNITS; Start 06/09/16 at 09:00 Fish Oil (Fish Oil) 1,000 mg DAILY PO Last administered on 06/17/16 08:25; Admin Dose 1,000 MG; Start 06/09/16 at 09:00 Acetaminophen (Tylenol Tab) 650 mg Q6H PRN PO PAIN AND OR ELEVATED TEMP Last administered on 06/17/16 08:26; Admin Dose 650 MG; Start 06/08/16 at 10:00 Ondansetron HCl (Zofran Tab) 4 mg Q6 PRN PO NAUSEA AND/OR VOMITING Last administered on 06/16/16 07:54; Admin Dose 4 MG; Start 06/08/16 at 10:00 Docusate Sodium (Colace) 100 mg BID PO Last administered on 06/17/16 08:26; Admin Dose 100 MG; Start 06/08/16 at 21:00 Apixaban (Eliquis) 5 mg BID PO Last administered on 06/17/16 08:26; Admin Dose 5 MG; Start 06/08/16 at 12:30 Morphine Sulfate (morphine) 2 mg Q3 PRN IV PAIN LEVEL 7-10 Last administered on 06/15/16 20:33; Admin Dose 2 MG; Start 06/08/16 at 11:00 Miscellaneous Information 1 ea NOTE XX ; Start 06/08/16 at 11:30 Glucose (Glutose) 15 gm Q15M PRN PO DECREASED GLUCOSE; Start 06/08/16 at 11:30 Glucose (Glutose) 22.5 gm Q15M PRN PO DECREASED GLUCOSE; Start 06/08/16 at 11: 30 Dextrose (D50w Syringe) 25 ml Q15M PRN IV DECREASED GLUCOSE; Start 06/08/16 at 11:30 Dextrose (D50w Syringe) 50 ml Q15M PRN IV DECREASED GLUCOSE; Start 06/08/16 at 11:30 Glucagon (Glucagen) 1 mg Q15M PRN IM DECREASED GLUCOSE; Start 06/08/16 at 11:30 Glucose (Glutose) 15 gm Q15M PRN BUCCAL DECREASED GLUCOSE; Start 06/08/16 at 11 :30 Diltiazem HCl (Cardizem) 60 mg Q6 PO Last administered on 06/17/16 06:02; Admin Dose 60 MG; Start 06/08/16 at 18:00 Metoprolol Tartrate (Lopressor) 25 mg BID PO Last administered on 06/17/16 08: 27; Admin Dose 25 MG; Start 06/08/16 at 21:00 Ondansetron HCl (Zofran Inj) 4 mg Q6H PRN IV NAUSEA AND/OR VOMITING Last administered on 06/09/16 02:19; Admin Dose 4 MG; Start 06/09/16 at 02:30 Lisinopril (Zestril) 5 mg DAILY PO Last administered on 06/17/16 08:27; Admin Dose 5 MG; Start 06/15/16 at 09:00 Pantoprazole (Protonix Tab) 40 mg DAILY@06 PO Last administered on 06/17/16 06: 02; Admin Dose 40 MG; Start 06/16/16 at 06:00 Hydralazine HCl 20 mg 20 mg Q6H PRN IV ELEVATED BLOOD PRESSURE>180 Last administered on 06/16/16 18:28; Admin Dose 20 MG; Start 06/15/16 at 20:00 Diltiazem HCl (Cardizem-D5W 125 Mg/125 ml Drip) 125 ml @ 0 mls/hr Q0M IV Last administered on 06/15/16 23:05; Admin Dose 5 MLS/HR; Start 06/15/16 at 21:30 Ondansetron HCl (Zofran Inj) 4 mg Q4H PRN IV NAUSEA AND/OR VOMITING; Start 06/15 at 21:30 Potassium Chloride (Klor-Con 10) 10 meq BID PO Last administered on 06/17/16 08 :26; Admin Dose 10 MEQ; Start 06/16/16 at 21:00 CIELO FONG MD Jun 17, 2016 11:17
[2016-06-17] MEDS ORDERED: LISINOPRIL 5 MG TAB PO ONE (11:30)
[2016-06-17] MEDS ORDERED: METOPROLOL 25 MG TAB PO ONE (11:30)
--- NOTE | 2016-06-17 14:00 | CONS ---
Date/Time of Note Date/Time of Note DATE: 06/17/16 TIME: 13:58 Assessment/Plan Assessment/Plan Chief Complaint/Hosp Course IMp: 1.AF-Currently well rate controlled on eliquis 2.Cardiomyopathy-EF 15% by echo this admit 3.CHF-systolic acute on chronic 4.abd pain/gastritis by EGD 5.REnal failure-improved 6.HTN 7.HL 8.DM Recc -Tele -Continue BB/Dilt at current doses -Continue lasix diuresis and follow volume status closely -Continue ACEI afterload reduction and follow paper cleaner closely -Continue apixaban Problems: Consultation Date/Type/Reason Admit Date/Time Jun 07, 2016 at 22:30 Initial Consult Date 06/08/16 Type of Consultation: Cardiology Reason for Consultation Cardiomyopathy/AF Referring Provider: MARTÍN WALDROP MD Exam/Review of Systems Vital Signs Vitals Vital Signs Date Time Temp Pulse Resp B/P Pulse Ox O2 Delivery O2 Flow Rate FiO2 06/17/16 13:49 98 2.0 06/17/16 13:48 79 24 Nasal Cannula 06/17/16 11:13 98.2 101/56 06/16/16 20:39 28 Intake and Output 06/16/16 06/16/16 06/17/16 15:00 23:00 07:00 Intake Total 850 ml 100 ml Output Total 900 ml 600 ml Balance -50 ml -500 ml Exam Review of Systems: CONSTITUTIONAL: No fevers, chills. PULMONARY: No sob CARDIOVASCULAR: No chest pain/palpitations GASTROINTESTINAL: No nausea/vomiting. GENITOURINARY: No hematuria/dysuria. MUSCULOSKELETAL: No myagias/arthalgias. PSYCHIATRIC: The patient denies depression. NEUROLOGIC: No weakness Constitutional: alert Psych: no complaints Head: normocephalic ENMT: mucosa pink and moist Neck: jvd (9 -10 cm water), supple Respiratory: diminished breath sounds Cardiovascular: regular rate and rhythm Gastrointestinal: non-tender, soft Musculoskeletal: muscle tone (normal) Extremities: edema (none) Neurological: other (No focal deficits) Results Result Diagram: 06/17/16 0555 06/17/16 0555 Results 24 hrs Laboratory Tests Test 06/16/16 17:24 06/16/16 20:31 06/17/16 05:55 06/17/16 08:22 Bedside Glucose 109 150 102 Activated Partial Thromboplast Time 41.4 H Anion Gap 13 Basophils # 0.1 Basophils % 0.6 Blood Urea Nitrogen 21 H Calcium Level 8.2 L Carbon Dioxide Level 36 H Chloride Level 97 Creatinine 0.86 Eosinophils # 0.1 Eosinophils % 0.6 Glucose Level 98 Hematocrit 34.8 L Hemoglobin 11.4 L INR International Normalized Ratio 2.14 Lymphocytes # 1.3 Lymphocytes % 17.1 Magnesium Level 1.5 L Mean Corpuscular Hemoglobin 32.9 Mean Corpuscular Hemoglobin Concent 32.8 Mean Corpuscular Volume 100.6 Mean Platelet Volume 11.4 H Monocytes # 0.6 Monocytes % 8.2 Neutrophils # 5.7 Neutrophils % 73.1 Nucleated Red Blood Cells # 0.0 Nucleated Red Blood Cells % 0.0 Platelet Count 139 L Potassium Level 4.0 Prothrombin Time 24.1 H Prothrombin Time Ratio 1.9 Red Blood Count 3.46 L Red Cell Distribution Width 14.6 H Sodium Level 142 White Blood Count 7.8 # Test 06/17/16 11:44 Bedside Glucose 206 Medications Medications Current Medications Allopurinol (Zyloprim) 100 mg DAILY PO Last administered on 06/17/16 08:26; Admin Dose 100 MG; Start 06/09/16 at 09:00 Aspirin (Halfprin) 81 mg DAILY PO Last administered on 06/12/16 08:23; Admin Dose 81 MG; Start 06/09/16 at 09:00; Status Future Hold Febuxostat (Uloric) 40 mg DAILY PO Last administered on 06/17/16 08:25; Admin Dose 40 MG; Start 06/09/16 at 09:00 Folic Acid (Folic Acid) 1 mg DAILY PO Last administered on 06/17/16 08:25; Admin Dose 1 MG; Start 06/09/16 at 09:00 Ibuprofen (Motrin) 800 mg DAILY PRN PO PRN Last administered on 06/12/16 10:27 ; Admin Dose 800 MG; Start 06/08/16 at 10:00 Tamsulosin HCl (Flomax) 0.4 mg DAILY PO Last administered on 06/17/16 08:26; Admin Dose 0.4 MG; Start 06/09/16 at 09:00 Cholecalciferol (Vitamin D) 400 units DAILY PO Last administered on 06/17/16 08 :26; Admin Dose 400 UNITS; Start 06/09/16 at 09:00 Fish Oil (Fish Oil) 1,000 mg DAILY PO Last administered on 06/17/16 08:25; Admin Dose 1,000 MG; Start 06/09/16 at 09:00 Acetaminophen (Tylenol Tab) 650 mg Q6H PRN PO PAIN AND OR ELEVATED TEMP Last administered on 06/17/16 08:26; Admin Dose 650 MG; Start 06/08/16 at 10:00 Ondansetron HCl (Zofran Tab) 4 mg Q6 PRN PO NAUSEA AND/OR VOMITING Last administered on 06/16/16 07:54; Admin Dose 4 MG; Start 06/08/16 at 10:00 Docusate Sodium (Colace) 100 mg BID PO Last administered on 06/17/16 08:26; Admin Dose 100 MG; Start 06/08/16 at 21:00 Apixaban (Eliquis) 5 mg BID PO Last administered on 06/17/16 08:26; Admin Dose 5 MG; Start 06/08/16 at 12:30 Morphine Sulfate (morphine) 2 mg Q3 PRN IV PAIN LEVEL 7-10 Last administered on 06/15/16 20:33; Admin Dose 2 MG; Start 06/08/16 at 11:00 Miscellaneous Information 1 ea NOTE XX ; Start 06/08/16 at 11:30 Glucose (Glutose) 15 gm Q15M PRN PO DECREASED GLUCOSE; Start 06/08/16 at 11:30 Glucose (Glutose) 22.5 gm Q15M PRN PO DECREASED GLUCOSE; Start 06/08/16 at 11: 30 Dextrose (D50w Syringe) 25 ml Q15M PRN IV DECREASED GLUCOSE; Start 06/08/16 at 11:30 Dextrose (D50w Syringe) 50 ml Q15M PRN IV DECREASED GLUCOSE; Start 06/08/16 at 11:30 Glucagon (Glucagen) 1 mg Q15M PRN IM DECREASED GLUCOSE; Start 06/08/16 at 11:30 Glucose (Glutose) 15 gm Q15M PRN BUCCAL DECREASED GLUCOSE; Start 06/08/16 at 11 :30 Diltiazem HCl (Cardizem) 60 mg Q6 PO Last administered on 06/17/16 11:47; Admin Dose 60 MG; Start 06/08/16 at 18:00 Ondansetron HCl (Zofran Inj) 4 mg Q6H PRN IV NAUSEA AND/OR VOMITING Last administered on 06/09/16 02:19; Admin Dose 4 MG; Start 06/09/16 at 02:30 Pantoprazole (Protonix Tab) 40 mg DAILY@06 PO Last administered on 06/17/16 06: 02; Admin Dose 40 MG; Start 06/16/16 at 06:00 Hydralazine HCl 20 mg 20 mg Q6H PRN IV ELEVATED BLOOD PRESSURE>180 Last administered on 06/16/16 18:28; Admin Dose 20 MG; Start 06/15/16 at 20:00 Diltiazem HCl (Cardizem-D5W 125 Mg/125 ml Drip) 125 ml @ 0 mls/hr Q0M IV Last administered on 06/15/16 23:05; Admin Dose 5 MLS/HR; Start 06/15/16 at 21:30 Ondansetron HCl (Zofran Inj) 4 mg Q4H PRN IV NAUSEA AND/OR VOMITING; Start 06/15 at 21:30 Potassium Chloride (Klor-Con 10) 10 meq BID PO Last administered on 06/17/16 08 :26; Admin Dose 10 MEQ; Start 06/16/16 at 21:00 Lisinopril (Zestril) 10 mg DAILY PO ; Start 06/18/16 at 09:00 Metoprolol Tartrate (Lopressor) 50 mg BID PO ; Start 06/17/16 at 21:00 ORQUIDEA GUILLAUME Jun 17, 2016 14:00
--- NOTE | 2016-06-17 18:19 | PN ---
Date/Time of Note Date/Time of Note DATE: 06/17/16 TIME: 18:18 Assessment/Plan VTE Prophylaxis VTE Prophylaxis Intervention: SCD's Lines/Catheters IV [facility]from [facility] Urinary Cath still in place: No Assessment/Plan Chief Complaint/Hosp Course Assessment and plan - Atrial fibrillation with rapid ventricular response. Patient is currently in atrial fibrillation at controlled rate. Dr. Rico is following and cardiology consultation. Continue metoprolol and Eliquis. Continue Cardizem. - Erosive gastritis per EGD. Continue Protonix. Dr. Urias is following in cart in gastroenterology consultation - Diabetes mellitus type 2. Continue NovoLog per sliding scale. 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 Continue IV Lasix. - Obesity. Weight loss advised. - sp cholecystectomy Further recommendations based on clinical course. Plan of care discussed with Dr. Chao. Problems: Subjective 24 Hr Interval Summary Free Text/Dictation Patient was periods of elevated blood pressure to 190, and tachycardia, continue to monitor on telemetry. Exam/Review of Systems Vital Signs Vitals Vital Signs Date Time Temp Pulse Resp B/P Pulse Ox O2 Delivery O2 Flow Rate FiO2 06/17/16 18:02 98.6 80 20 123/65 100 Nasal Cannula 2.0 06/16/16 20:39 28 Intake and Output 06/16/16 06/16/16 06/17/16 15:00 23:00 07:00 Intake Total 850 ml 100 ml Output Total 900 ml 600 ml Balance -50 ml -500 ml Exam Constitutional: alert, obese, oriented, well developed Psych: no complaints Head: atraumatic, normocephalic Eyes: nl conjunctiva ENMT: nl external ears & nose Neck: non-tender, supple Respiratory: clear to auscultation Cardiovascular: other (Atrial fibrillation) Gastrointestinal: other (Epigastric tenderness), soft Genitourinary - Female: nl adnexae Musculoskeletal: nl extremities to inspection Extremities: normal pulses Neurological: [employer] II-XII intact Results Result Diagram: 06/17/16 0555 06/17/16 0555 Results 24 hrs Laboratory Tests Test 06/16/16 20:31 06/17/16 05:55 06/17/16 08:22 06/17/16 11:44 Bedside Glucose 150 102 206 Activated Partial Thromboplast Time 41.4 H Anion Gap 13 Basophils # 0.1 Basophils % 0.6 Blood Urea Nitrogen 21 H Calcium Level 8.2 L Carbon Dioxide Level 36 H Chloride Level 97 Creatinine 0.86 Eosinophils # 0.1 Eosinophils % 0.6 Glucose Level 98 Hematocrit 34.8 L Hemoglobin 11.4 L INR International Normalized Ratio 2.14 Lymphocytes # 1.3 Lymphocytes % 17.1 Magnesium Level 1.5 L Mean Corpuscular Hemoglobin 32.9 Mean Corpuscular Hemoglobin Concent 32.8 Mean Corpuscular Volume 100.6 Mean Platelet Volume 11.4 H Monocytes # 0.6 Monocytes % 8.2 Neutrophils # 5.7 Neutrophils % 73.1 Nucleated Red Blood Cells # 0.0 Nucleated Red Blood Cells % 0.0 Platelet Count 139 L Potassium Level 4.0 Prothrombin Time 24.1 H Prothrombin Time Ratio 1.9 Red Blood Count 3.46 L Red Cell Distribution Width 14.6 H Sodium Level 142 White Blood Count 7.8 # Test 06/17/16 18:01 Bedside Glucose 98 Medications Medications Current Medications Allopurinol (Zyloprim) 100 mg DAILY PO Last administered on 06/17/16 08:26; Admin Dose 100 MG; Start 06/09/16 at 09:00 Aspirin (Halfprin) 81 mg DAILY PO Last administered on 06/12/16 08:23; Admin Dose 81 MG; Start 06/09/16 at 09:00; Status Future Hold Febuxostat (Uloric) 40 mg DAILY PO Last administered on 06/17/16 08:25; Admin Dose 40 MG; Start 06/09/16 at 09:00 Folic Acid (Folic Acid) 1 mg DAILY PO Last administered on 06/17/16 08:25; Admin Dose 1 MG; Start 06/09/16 at 09:00 Ibuprofen (Motrin) 800 mg DAILY PRN PO PRN Last administered on 06/12/16 10:27 ; Admin Dose 800 MG; Start 06/08/16 at 10:00 Tamsulosin HCl (Flomax) 0.4 mg DAILY PO Last administered on 06/17/16 08:26; Admin Dose 0.4 MG; Start 06/09/16 at 09:00 Cholecalciferol (Vitamin D) 400 units DAILY PO Last administered on 06/17/16 08 :26; Admin Dose 400 UNITS; Start 06/09/16 at 09:00 Fish Oil (Fish Oil) 1,000 mg DAILY PO Last administered on 06/17/16 08:25; Admin Dose 1,000 MG; Start 06/09/16 at 09:00 Acetaminophen (Tylenol Tab) 650 mg Q6H PRN PO PAIN AND OR ELEVATED TEMP Last administered on 06/17/16 08:26; Admin Dose 650 MG; Start 06/08/16 at 10:00 Ondansetron HCl (Zofran Tab) 4 mg Q6 PRN PO NAUSEA AND/OR VOMITING Last administered on 06/16/16 07:54; Admin Dose 4 MG; Start 06/08/16 at 10:00 Docusate Sodium (Colace) 100 mg BID PO Last administered on 06/17/16 08:26; Admin Dose 100 MG; Start 06/08/16 at 21:00 Apixaban (Eliquis) 5 mg BID PO Last administered on 06/17/16 08:26; Admin Dose 5 MG; Start 06/08/16 at 12:30 Morphine Sulfate (morphine) 2 mg Q3 PRN IV PAIN LEVEL 7-10 Last administered on 06/15/16 20:33; Admin Dose 2 MG; Start 06/08/16 at 11:00 Miscellaneous Information 1 ea NOTE XX ; Start 06/08/16 at 11:30 Glucose (Glutose) 15 gm Q15M PRN PO DECREASED GLUCOSE; Start 06/08/16 at 11:30 Glucose (Glutose) 22.5 gm Q15M PRN PO DECREASED GLUCOSE; Start 06/08/16 at 11: 30 Dextrose (D50w Syringe) 25 ml Q15M PRN IV DECREASED GLUCOSE; Start 06/08/16 at 11:30 Dextrose (D50w Syringe) 50 ml Q15M PRN IV DECREASED GLUCOSE; Start 06/08/16 at 11:30 Glucagon (Glucagen) 1 mg Q15M PRN IM DECREASED GLUCOSE; Start 06/08/16 at 11:30 Glucose (Glutose) 15 gm Q15M PRN BUCCAL DECREASED GLUCOSE; Start 06/08/16 at 11 :30 Diltiazem HCl (Cardizem) 60 mg Q6 PO Last administered on 06/17/16 17:59; Admin Dose 60 MG; Start 06/08/16 at 18:00 Ondansetron HCl (Zofran Inj) 4 mg Q6H PRN IV NAUSEA AND/OR VOMITING Last administered on 06/09/16 02:19; Admin Dose 4 MG; Start 06/09/16 at 02:30 Pantoprazole (Protonix Tab) 40 mg DAILY@06 PO Last administered on 06/17/16 06: 02; Admin Dose 40 MG; Start 06/16/16 at 06:00 Hydralazine HCl 20 mg 20 mg Q6H PRN IV ELEVATED BLOOD PRESSURE>180 Last administered on 06/16/16 18:28; Admin Dose 20 MG; Start 06/15/16 at 20:00 Diltiazem HCl (Cardizem-D5W 125 Mg/125 ml Drip) 125 ml @ 0 mls/hr Q0M IV Last administered on 06/15/16 23:05; Admin Dose 5 MLS/HR; Start 06/15/16 at 21:30 Ondansetron HCl (Zofran Inj) 4 mg Q4H PRN IV NAUSEA AND/OR VOMITING; Start 06/15 at 21:30 Potassium Chloride (Klor-Con 10) 10 meq BID PO Last administered on 06/17/16 08 :26; Admin Dose 10 MEQ; Start 06/16/16 at 21:00 Lisinopril (Zestril) 10 mg DAILY PO ; Start 06/18/16 at 09:00 Metoprolol Tartrate (Lopressor) 50 mg BID PO ; Start 06/17/16 at 21:00 RISHI LINDSAY Jun 17, 2016 18:19
[2016-06-17] MEDS: METOPROLOL 50 MG TAB PO SCH (23:31)
[2016-06-18] VITALS (12 sets, daily range): BP systolic 96–128; BP diastolic 55–82; PULSE 69–95; RESP 15–18
[2016-06-18] MEDS: morphine 2 MG INJ IV PRN (01:24)
[2016-06-18] MEDS: LEVALBUTEROL (NEB) 0.63 MG/3 ML AMP HHN SCH ×6 (01:29→21:15)
[2016-06-18] MEDS: DILTIAZEM 60 MG TAB PO SCH ×4 (03:31→22:00)
[2016-06-18] MEDS: FUROSEMIDE 20 MG INJ IV SCH ×2 (06:45→17:50)
[2016-06-18] MEDS: PANTOPRAZOLE (EC) 40 MG TAB PO SCH (06:45)
[2016-06-18] MEDS: INSULIN ASPART [NOVOLOG] 3 ML PEN SC SCH ×4 (07:55→20:36)
[2016-06-18] MEDS: APIXABAN 5 MG TABLET PO SCH ×2 (08:38→20:31)
[2016-06-18] MEDS: CHOLECALCIFEROL 400 UNITS TAB PO SCH (08:38)
[2016-06-18] MEDS: TAMSULOSIN (SR) 0.4 MG CAP PO SCH (08:38)
[2016-06-18] MEDS: FISH OIL 1,000 MG CAP PO SCH (08:38)
[2016-06-18] MEDS: DOCUSATE SODIUM 100 MG CAP PO SCH ×2 (08:38→20:31)
[2016-06-18] MEDS: FOLIC ACID 1 MG TAB PO SCH (08:38)
[2016-06-18] MEDS: FEBUXOSTAT 40 MG TABLET PO SCH (08:39)
[2016-06-18] MEDS: POTASSIUM CHLORIDE (SR) 10 MEQ TAB PO SCH ×2 (08:39→20:31)
[2016-06-18] MEDS: ALLOPURINOL 100 MG TAB PO SCH (08:39)
[2016-06-18] MEDS: LISINOPRIL 10 MG TAB PO SCH (08:41)
[2016-06-18] MEDS: METOPROLOL 50 MG TAB PO SCH (08:43)
--- NOTE | 2016-06-18 11:06 | CONS ---
Date/Time of Note Date/Time of Note DATE: 06/18/16 TIME: 11:05 Assessment/Plan Assessment/Plan Additional Assessment/Plan 1. Acute kidney injury, likely secondary to cardiorenal syndrome. The patient is on Lasix 20 mg IV b.i.d. for diuresis. 2. Acute congestive heart failure exacerbation, acute on chronic, systolic. 3. Atrial fibrillation with rapid ventricular rate. 4. Hypertension. 5. Hyperlipidemia. 6. Diabetes mellitus. 7. Possible chronic kidney disease secondary to diabetic nephropathy. PLAN: renal Us reviewed, Cr improved to normal electrolytes stable, increase lisinopril to 10mg po daily, increase MTP to 50 mg PO BID s/p EGD which showed gastritis with erosive gastritis. Helicobacter pylori was done and the results are pending will follow up Consultation Date/Type/Reason Admit Date/Time Jun 07, 2016 at 22:30 Initial Consult Date May Type of Consultation: NEPHROLOGY Referring Provider: MARTÍN WALDROP MD 24 HR Interval Summary Free Text/Dictation no acute events, BP stable Exam/Review of Systems Vital Signs Vitals Vital Signs Date Time Temp Pulse Resp B/P Pulse Ox O2 Delivery O2 Flow Rate FiO2 06/18/16 08:57 79 18 98 Nasal Cannula 2.0 06/18/16 07:03 98.2 118/61 06/16/16 20:39 28 Intake and Output 06/17/16 06/17/16 06/18/16 15:00 23:00 07:00 Intake Total 840 ml 250 ml Output Total 700 ml Balance 840 ml -450 ml Exam no acute distress NECK: Supple, no JVD, no lymphadenopathy. LUNGS: Clear to auscultation. No crackles, no wheezes. HEART: S1, S2, with regular rhythm, no murmur. ABDOMEN: Soft, nontender, nondistended. Bowel sounds are present. EXTREMITIES: No clubbing, cyanosis, or edema Results Result Diagram: 06/17/16 0555 06/17/16 0555 Results 24 hrs Laboratory Tests Test 06/17/16 11:44 06/17/16 18:01 06/17/16 23:28 06/18/16 02:16 Bedside Glucose 206 98 135 104 Test 06/18/16 08:32 Bedside Glucose 140 Medications Medications Current Medications Allopurinol (Zyloprim) 100 mg DAILY PO Last administered on 06/18/16 08:39; Admin Dose 100 MG; Start 06/09/16 at 09:00 Aspirin (Halfprin) 81 mg DAILY PO Last administered on 06/12/16 08:23; Admin Dose 81 MG; Start 06/09/16 at 09:00; Status Future Hold Febuxostat (Uloric) 40 mg DAILY PO Last administered on 06/18/16 08:39; Admin Dose 40 MG; Start 06/09/16 at 09:00 Folic Acid (Folic Acid) 1 mg DAILY PO Last administered on 06/18/16 08:38; Admin Dose 1 MG; Start 06/09/16 at 09:00 Ibuprofen (Motrin) 800 mg DAILY PRN PO PRN Last administered on 06/12/16 10:27 ; Admin Dose 800 MG; Start 06/08/16 at 10:00 Tamsulosin HCl (Flomax) 0.4 mg DAILY PO Last administered on 06/18/16 08:38; Admin Dose 0.4 MG; Start 06/09/16 at 09:00 Cholecalciferol (Vitamin D) 400 units DAILY PO Last administered on 06/18/16 08 :38; Admin Dose 400 UNITS; Start 06/09/16 at 09:00 Fish Oil (Fish Oil) 1,000 mg DAILY PO Last administered on 06/18/16 08:38; Admin Dose 1,000 MG; Start 06/09/16 at 09:00 Acetaminophen (Tylenol Tab) 650 mg Q6H PRN PO PAIN AND OR ELEVATED TEMP Last administered on 06/17/16 08:26; Admin Dose 650 MG; Start 06/08/16 at 10:00 Ondansetron HCl (Zofran Tab) 4 mg Q6 PRN PO NAUSEA AND/OR VOMITING Last administered on 06/16/16 07:54; Admin Dose 4 MG; Start 06/08/16 at 10:00 Docusate Sodium (Colace) 100 mg BID PO Last administered on 06/18/16 08:38; Admin Dose 100 MG; Start 06/08/16 at 21:00 Apixaban (Eliquis) 5 mg BID PO Last administered on 06/18/16 08:38; Admin Dose 5 MG; Start 06/08/16 at 12:30 Morphine Sulfate (morphine) 2 mg Q3 PRN IV PAIN LEVEL 7-10 Last administered on 06/18/16 01:24; Admin Dose 2 MG; Start 06/08/16 at 11:00 Miscellaneous Information 1 ea NOTE XX ; Start 06/08/16 at 11:30 Glucose (Glutose) 15 gm Q15M PRN PO DECREASED GLUCOSE; Start 06/08/16 at 11:30 Glucose (Glutose) 22.5 gm Q15M PRN PO DECREASED GLUCOSE; Start 06/08/16 at 11: 30 Dextrose (D50w Syringe) 25 ml Q15M PRN IV DECREASED GLUCOSE; Start 06/08/16 at 11:30 Dextrose (D50w Syringe) 50 ml Q15M PRN IV DECREASED GLUCOSE; Start 06/08/16 at 11:30 Glucagon (Glucagen) 1 mg Q15M PRN IM DECREASED GLUCOSE; Start 06/08/16 at 11:30 Glucose (Glutose) 15 gm Q15M PRN BUCCAL DECREASED GLUCOSE; Start 06/08/16 at 11 :30 Diltiazem HCl (Cardizem) 60 mg Q6 PO Last administered on 06/18/16 06:46; Admin Dose 60 MG; Start 06/08/16 at 18:00 Ondansetron HCl (Zofran Inj) 4 mg Q6H PRN IV NAUSEA AND/OR VOMITING Last administered on 06/09/16 02:19; Admin Dose 4 MG; Start 06/09/16 at 02:30 Pantoprazole (Protonix Tab) 40 mg DAILY@06 PO Last administered on 06/18/16 06: 45; Admin Dose 40 MG; Start 06/16/16 at 06:00 Hydralazine HCl 20 mg 20 mg Q6H PRN IV ELEVATED BLOOD PRESSURE>180 Last administered on 06/16/16 18:28; Admin Dose 20 MG; Start 06/15/16 at 20:00 Diltiazem HCl (Cardizem-D5W 125 Mg/125 ml Drip) 125 ml @ 0 mls/hr Q0M IV Last administered on 06/15/16 23:05; Admin Dose 5 MLS/HR; Start 06/15/16 at 21:30 Ondansetron HCl (Zofran Inj) 4 mg Q4H PRN IV NAUSEA AND/OR VOMITING; Start 06/15 at 21:30 Potassium Chloride (Klor-Con 10) 10 meq BID PO Last administered on 06/18/16 08 :39; Admin Dose 10 MEQ; Start 06/16/16 at 21:00 Lisinopril (Zestril) 10 mg DAILY PO ; Start 06/18/16 at 09:00 Metoprolol Tartrate (Lopressor) 50 mg BID PO Last administered on 06/17/16 23: 31; Admin Dose 50 MG; Start 06/17/16 at 21:00 CIELO FONG MD Jun 18, 2016 11:06
--- NOTE | 2016-06-18 15:58 | PN ---
Date/Time of Note Date/Time of Note DATE: 06/18/16 TIME: 15:56 Assessment/Plan VTE Prophylaxis VTE Prophylaxis Intervention: SCD's Lines/Catheters IV [facility]ter [facility]from [facility] Urinary Cath still in place: No Assessment/Plan Chief Complaint/Hosp Course Assessment and plan - Atrial fibrillation with rapid ventricular response. Patient is currently in atrial fibrillation at controlled rate. is following and cardiology consultation. Continue metoprolol and Eliquis. Continue Cardizem. - Erosive gastritis per EGD. Continue Protonix. Dr. Urias is following in cart in gastroenterology consultation - Diabetes mellitus type 2. Continue NovoLog per sliding scale. 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 Continue IV Lasix. - Obesity. Weight loss advised. - S/p cholecystectomy Further recommendations based on clinical course. Plan of care discussed with Dr. Chao. Problems: Subjective 24 Hr Interval Summary Free Text/Dictation Patient's complains of shortness of breath on exertion, comfortable at rest, denies any chest pain denies fever. Exam/Review of Systems Vital Signs Vitals Vital Signs Date Time Temp Pulse Resp B/P Pulse Ox O2 Delivery O2 Flow Rate FiO2 06/18/16 15:15 98.2 61 18 98/55 95 06/18/16 13:00 Nasal Cannula 1.0 06/16/16 20:39 28 Intake and Output 06/17/16 06/17/16 06/18/16 15:00 23:00 07:00 Intake Total 840 ml 250 ml Output Total 700 ml Balance 840 ml -450 ml Exam Constitutional: alert, obese, oriented, well developed Psych: no complaints Head: atraumatic, normocephalic Eyes: nl conjunctiva ENMT: nl external ears & nose Neck: non-tender, supple Respiratory: clear to auscultation Cardiovascular: other (Atrial fibrillation) Gastrointestinal: other (Epigastric tenderness), soft Genitourinary - Female: nl adnexae Musculoskeletal: nl extremities to inspection Extremities: normal pulses Neurological: 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 OPERATOR II-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 intact Results Result Diagram: 06/17/16 0555 06/17/16 0555 Results 24 hrs Laboratory Tests Test 06/17/16 18:01 06/17/16 23:28 06/18/16 02:16 06/18/16 08:32 Bedside Glucose 98 135 104 140 Test 06/18/16 12:07 Bedside Glucose 169 Medications Medications Current Medications Allopurinol (Zyloprim) 100 mg DAILY PO Last administered on 06/18/16 08:39; Admin Dose 100 MG; Start 06/09/16 at 09:00 Aspirin (Halfprin) 81 mg DAILY PO Last administered on 06/12/16 08:23; Admin Dose 81 MG; Start 06/09/16 at 09:00; Status Future Hold Febuxostat (Uloric) 40 mg DAILY PO Last administered on 06/18/16 08:39; Admin Dose 40 MG; Start 06/09/16 at 09:00 Folic Acid (Folic Acid) 1 mg DAILY PO Last administered on 06/18/16 08:38; Admin Dose 1 MG; Start 06/09/16 at 09:00 Ibuprofen (Motrin) 800 mg DAILY PRN PO PRN Last administered on 06/12/16 10:27 ; Admin Dose 800 MG; Start 06/08/16 at 10:00 Tamsulosin HCl (Flomax) 0.4 mg DAILY PO Last administered on 06/18/16 08:38; Admin Dose 0.4 MG; Start 06/09/16 at 09:00 Cholecalciferol (Vitamin D) 400 units DAILY PO Last administered on 06/18/16 08 :38; Admin Dose 400 UNITS; Start 06/09/16 at 09:00 Fish Oil (Fish Oil) 1,000 mg DAILY PO Last administered on 06/18/16 08:38; Admin Dose 1,000 MG; Start 06/09/16 at 09:00 Acetaminophen (Tylenol Tab) 650 mg Q6H PRN PO PAIN AND OR ELEVATED TEMP Last administered on 06/17/16 08:26; Admin Dose 650 MG; Start 06/08/16 at 10:00 Ondansetron HCl (Zofran Tab) 4 mg Q6 PRN PO NAUSEA AND/OR VOMITING Last administered on 06/16/16 07:54; Admin Dose 4 MG; Start 06/08/16 at 10:00 Docusate Sodium (Colace) 100 mg BID PO Last administered on 06/18/16 08:38; Admin Dose 100 MG; Start 06/08/16 at 21:00 Apixaban (Eliquis) 5 mg BID PO Last administered on 06/18/16 08:38; Admin Dose 5 MG; Start 06/08/16 at 12:30 Morphine Sulfate (morphine) 2 mg Q3 PRN IV PAIN LEVEL 7-10 Last administered on 06/18/16 01:24; Admin Dose 2 MG; Start 06/08/16 at 11:00 Miscellaneous Information 1 ea NOTE XX ; Start 06/08/16 at 11:30 Glucose (Glutose) 15 gm Q15M PRN PO DECREASED GLUCOSE; Start 06/08/16 at 11:30 Glucose (Glutose) 22.5 gm Q15M PRN PO DECREASED GLUCOSE; Start 06/08/16 at 11: 30 Dextrose (D50w Syringe) 25 ml Q15M PRN IV DECREASED GLUCOSE; Start 06/08/16 at 11:30 Dextrose (D50w Syringe) 50 ml Q15M PRN IV DECREASED GLUCOSE; Start 06/08/16 at 11:30 Glucagon (Glucagen) 1 mg Q15M PRN IM DECREASED GLUCOSE; Start 06/08/16 at 11:30 Glucose (Glutose) 15 gm Q15M PRN BUCCAL DECREASED GLUCOSE; Start 06/08/16 at 11 :30 Diltiazem HCl (Cardizem) 60 mg Q6 PO Last administered on 06/18/16 12:06; Admin Dose 60 MG; Start 06/08/16 at 18:00 Ondansetron HCl (Zofran Inj) 4 mg Q6H PRN IV NAUSEA AND/OR VOMITING Last administered on 06/09/16 02:19; Admin Dose 4 MG; Start 06/09/16 at 02:30 Pantoprazole (Protonix Tab) 40 mg DAILY@06 PO Last administered on 06/18/16 06: 45; Admin Dose 40 MG; Start 06/16/16 at 06:00 Hydralazine HCl 20 mg 20 mg Q6H PRN IV ELEVATED BLOOD PRESSURE>180 Last administered on 06/16/16 18:28; Admin Dose 20 MG; Start 06/15/16 at 20:00 Diltiazem HCl (Cardizem-D5W 125 Mg/125 ml Drip) 125 ml @ 0 mls/hr Q0M IV Last administered on 06/15/16 23:05; Admin Dose 5 MLS/HR; Start 3/4/17 at 21:30 Ondansetron HCl (Zofran Inj) 4 mg Q4H PRN IV NAUSEA AND/OR VOMITING; Start 06/15 at 21:30 Potassium Chloride (Klor-Con 10) 10 meq BID PO Last administered on 06/18/16 08 :39; Admin Dose 10 MEQ; Start 06/16/16 at 21:00 Lisinopril (Zestril) 10 mg DAILY PO ; Start 06/18/16 at 09:00 Metoprolol Tartrate (Lopressor) 50 mg BID PO Last administered on 06/17/16 23: 31; Admin Dose 50 MG; Start 06/17/16 at 21:00 RISHI LINDSAY Jun 18, 2016 15:58
--- NOTE | 2016-06-18 16:43 | CONS ---
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 closely -Continue apixaban Problems: Consultation Date/Type/Reason Admit Date/Time Jun 07, 2016 at 22:30 Initial Consult Date 06/08/16 Type of Consultation: Cardiology Reason for Consultation AF Referring Provider: MARTÍN WALDROP MD Exam/Review of Systems Vital Signs Vitals Vital Signs Date Time Temp Pulse Resp B/P Pulse Ox O2 Delivery O2 Flow Rate FiO2 06/18/16 16:34 60 18 97 21 06/18/16 15:15 98.2 98/55 06/18/16 13:00 Nasal Cannula 1.0 Intake and Output 06/17/16 06/17/16 06/18/16 15:00 23:00 07:00 Intake Total 840 ml 250 ml Output Total 700 ml Balance 840 ml -450 ml Exam Review of Systems: CONSTITUTIONAL: No fevers, chills. PULMONARY: No sob CARDIOVASCULAR: No chest pain/palpitations GASTROINTESTINAL: No nausea/vomiting. GENITOURINARY: No hematuria/dysuria. MUSCULOSKELETAL: No myagias/arthalgias. PSYCHIATRIC: The patient denies depression. NEUROLOGIC: No weakness Constitutional: other (sleeping, arousable) Psych: no complaints Head: normocephalic ENMT: mucosa pink and moist Neck: jvd, supple Respiratory: diminished breath sounds (at bases/B) Cardiovascular: irregular rhythm Gastrointestinal: non-tender, soft Musculoskeletal: muscle tone (normal) Extremities: edema (trace/B) Neurological: other (No focal deficits) Results Result Diagram: 06/17/16 0555 06/17/16 0555 Results 24 hrs Laboratory Tests Test 06/17/16 18:01 06/17/16 23:28 06/18/16 02:16 06/18/16 08:32 Bedside Glucose 98 135 104 140 Test 06/18/16 12:07 Bedside Glucose 169 Medications Medications Current Medications Allopurinol (Zyloprim) 100 mg DAILY PO Last administered on 06/18/16 08:39; Admin Dose 100 MG; Start 06/09/16 at 09:00 Aspirin (Halfprin) 81 mg DAILY PO Last administered on 06/12/16 08:23; Admin Dose 81 MG; Start 06/09/16 at 09:00; Status Future Hold Febuxostat (Uloric) 40 mg DAILY PO Last administered on 06/18/16 08:39; Admin Dose 40 MG; Start 06/09/16 at 09:00 Folic Acid (Folic Acid) 1 mg DAILY PO Last administered on 06/18/16 08:38; Admin Dose 1 MG; Start 06/09/16 at 09:00 Ibuprofen (Motrin) 800 mg DAILY PRN PO PRN Last administered on 06/12/16 10:27 ; Admin Dose 800 MG; Start 06/08/16 at 10:00 Tamsulosin HCl (Flomax) 0.4 mg DAILY PO Last administered on 06/18/16 08:38; Admin Dose 0.4 MG; Start 06/09/16 at 09:00 Cholecalciferol (Vitamin D) 400 units DAILY PO Last administered on 06/18/16 08 :38; Admin Dose 400 UNITS; Start 06/09/16 at 09:00 Fish Oil (Fish Oil) 1,000 mg DAILY PO Last administered on 06/18/16 08:38; Admin Dose 1,000 MG; Start 06/09/16 at 09:00 Acetaminophen (Tylenol Tab) 650 mg Q6H PRN PO PAIN AND OR ELEVATED TEMP Last administered on 06/17/16 08:26; Admin Dose 650 MG; Start 06/08/16 at 10:00 Ondansetron HCl (Zofran Tab) 4 mg Q6 PRN PO NAUSEA AND/OR VOMITING Last administered on 06/16/16 07:54; Admin Dose 4 MG; Start 06/08/16 at 10:00 Docusate Sodium (Colace) 100 mg BID PO Last administered on 06/18/16 08:38; Admin Dose 100 MG; Start 06/08/16 at 21:00 Apixaban (Eliquis) 5 mg BID PO Last administered on 06/18/16 08:38; Admin Dose 5 MG; Start 06/08/16 at 12:30 Morphine Sulfate (morphine) 2 mg Q3 PRN IV PAIN LEVEL 7-10 Last administered on 06/18/16 01:24; Admin Dose 2 MG; Start 06/08/16 at 11:00 Miscellaneous Information 1 ea NOTE XX ; Start 06/08/16 at 11:30 Glucose (Glutose) 15 gm Q15M PRN PO DECREASED GLUCOSE; Start 06/08/16 at 11:30 Glucose (Glutose) 22.5 gm Q15M PRN PO DECREASED GLUCOSE; Start 06/08/16 at 11: 30 Dextrose (D50w Syringe) 25 ml Q15M PRN IV DECREASED GLUCOSE; Start 06/08/16 at 11:30 Dextrose (D50w Syringe) 50 ml Q15M PRN IV DECREASED GLUCOSE; Start 06/08/16 at 11:30 Glucagon (Glucagen) 1 mg Q15M PRN IM DECREASED GLUCOSE; Start 06/08/16 at 11:30 Glucose (Glutose) 15 gm Q15M PRN BUCCAL DECREASED GLUCOSE; Start 06/08/16 at 11 :30 Diltiazem HCl (Cardizem) 60 mg Q6 PO Last administered on 06/18/16 12:06; Admin Dose 60 MG; Start 06/08/16 at 18:00 Ondansetron HCl (Zofran Inj) 4 mg Q6H PRN IV NAUSEA AND/OR VOMITING Last administered on 06/09/16 02:19; Admin Dose 4 MG; Start 06/09/16 at 02:30 Pantoprazole (Protonix Tab) 40 mg DAILY@06 PO Last administered on 06/18/16 06: 45; Admin Dose 40 MG; Start 06/16/16 at 06:00 Hydralazine HCl 20 mg 20 mg Q6H PRN IV ELEVATED BLOOD PRESSURE>180 Last administered on 06/16/16 18:28; Admin Dose 20 MG; Start 06/15/16 at 20:00 Diltiazem HCl (Cardizem-D5W 125 Mg/125 ml Drip) 125 ml @ 0 mls/hr Q0M IV Last administered on 06/15/16 23:05; Admin Dose 5 MLS/HR; Start 06/15/16 at 21:30 Ondansetron HCl (Zofran Inj) 4 mg Q4H PRN IV NAUSEA AND/OR VOMITING; Start 06/15 at 21:30 Potassium Chloride (Klor-Con 10) 10 meq BID PO Last administered on 06/18/16 08 :39; Admin Dose 10 MEQ; Start 06/16/16 at 21:00 Lisinopril (Zestril) 10 mg DAILY PO ; Start 06/18/16 at 09:00 Metoprolol Tartrate (Lopressor) 50 mg BID PO Last administered on 06/17/16 23: 31; Admin Dose 50 MG; Start 06/17/16 at 21:00 ORQUIDEA GUILLAUME Jun 18, 2016 16:43
[2016-06-18] MEDS: METOPROLOL 25 MG TAB PO SCH (20:33)
[2016-06-19] VITALS (13 sets, daily range): BP systolic 107–133; BP diastolic 61–77; PULSE 79–113; RESP 16–18
[2016-06-19] MEDS: LEVALBUTEROL (NEB) 0.63 MG/3 ML AMP HHN SCH ×6 (00:31→21:36)
--- NOTE | 2016-06-19 01:07 | RADRPT ---
PROCEDURE: XR Chest. CLINICAL INDICATION: Congestive heart failure. TECHNIQUE: Single frontal view of the chest was obtained COMPARISON: 06/07/2016. FINDINGS: Cardiomegaly. Atherosclerotic calcifications in the thoracic aorta. Mild bibasilar atelectasis king connie airspace disease with small pleural effusion. There is improved lung inflation over interval. There is no pneumothorax. IMPRESSION: Mild failure with small bilateral pleural effusions. RPTAT: [facility] Physician Sosa Date Time Electronically viewed and signed by Eufemia Riggs Physician on 06/19/2016 01:07 RS/
[2016-06-19] MEDS: PANTOPRAZOLE (EC) 40 MG TAB PO SCH (05:46)
[2016-06-19] MEDS: DILTIAZEM 60 MG TAB PO SCH ×3 (05:47→21:31)
[2016-06-19] MEDS: FUROSEMIDE 20 MG INJ IV SCH (05:47)
[2016-06-19 07:24] LABS: ADD SCAN DIFF NO
[2016-06-19 07:38] LABS: POTASSIUM 4.1 mmol/L (3.5-5.1)
[2016-06-19 07:41] LABS: CREATININE 0.73 mg/dl (0.44-1.00)
[2016-06-19 07:42] LABS: CALCIUM 8.6 mg/dl (8.4-10.2)
[2016-06-19 07:55] LABS: BASOPHIL # 0.1 10^3/ul (0.0-0.1); BASOPHILS % 1.2 % (0.0-2.0); EOSINOPHILS # 0.2 10^3/ul (0.0-0.5); EOSINOPHILS % 2.9 % (0.0-7.0); HEMATOCRIT 37.1 % (37.0-47.0); HEMOGLOBIN 12.4 g/dl (12.0-16.0); LYMPHOCYTES # 1.8 10^3/ul (0.8-2.9); LYMPHOCYTES % 34.8 % (15.0-51.0); MEAN CORPUSCULAR HEMOGLOBIN 33.2 pg (29.0-33.0); MEAN CORPUSCULAR HGB CONC 33.4 g/dl (32.0-37.0); MEAN CORPUSCULAR VOLUME 99.5 fl (82.0-101.0); MEAN PLATELET VOLUME 11.5 fl (7.4-10.4); MONOCYTE # 0.6 10^3/ul (0.3-0.9); MONOCYTES % 12.1 % (0.0-11.0); NEUTROPHIL # 2.5 10^3/ul (1.6-7.5); NEUTROPHILS % 48.6 % (39.0-77.0); PLATELET COUNT 157 10^3/UL (140-415); RED BLOOD COUNT 3.73 10^6/ul (4.20-5.40); RED CELL DISTRIBUTION WIDTH 14.1 % (11.5-14.5); WHITE BLOOD COUNT 5.1 10^3/ul (4.8-10.8)
[2016-06-19] MEDS: INSULIN ASPART [NOVOLOG] 3 ML PEN SC SCH ×4 (07:55→20:25)
[2016-06-19] MEDS: LISINOPRIL 10 MG TAB PO SCH (08:15)
[2016-06-19] MEDS: ALLOPURINOL 100 MG TAB PO SCH (08:15)
[2016-06-19] MEDS: DOCUSATE SODIUM 100 MG CAP PO SCH ×2 (08:16→20:21)
[2016-06-19] MEDS: FOLIC ACID 1 MG TAB PO SCH (08:16)
[2016-06-19] MEDS: TAMSULOSIN (SR) 0.4 MG CAP PO SCH (08:16)
[2016-06-19] MEDS: APIXABAN 5 MG TABLET PO SCH ×2 (08:16→20:21)
[2016-06-19] MEDS: FISH OIL 1,000 MG CAP PO SCH (08:16)
[2016-06-19] MEDS: METOPROLOL 25 MG TAB PO SCH ×2 (08:16→20:22)
[2016-06-19] MEDS: CHOLECALCIFEROL 400 UNITS TAB PO SCH (08:16)
[2016-06-19] MEDS: POTASSIUM CHLORIDE (SR) 10 MEQ TAB PO SCH ×2 (08:17→20:21)
[2016-06-19] MEDS: FEBUXOSTAT 40 MG TABLET PO SCH (08:17)
--- NOTE | 2016-06-19 10:00 | CONS ---
Date/Time of Note Date/Time of Note DATE: 06/19/16 TIME: 09:58 Assessment/Plan Assessment/Plan Additional Assessment/Plan 1. Acute kidney injury, likely secondary to cardiorenal syndrome. The patient is on Lasix 20 mg IV b.i.d. for diuresis. 2. Acute congestive heart failure exacerbation, acute on chronic, systolic. 3. Atrial fibrillation with rapid ventricular rate. 4. Hypertension. 5. Hyperlipidemia. 6. Diabetes mellitus. 7. Possible chronic kidney disease secondary to diabetic nephropathy. PLAN: renal Us reviewed, Cr improved to normal, na 145 on cardizem for rate control on lisinopril and MTP For HTN s/p EGD which showed gastritis with erosive gastritis. Helicobacter pylori was done and the results are pending will follow up Consultation Date/Type/Reason Admit Date/Time Jun 07, 2016 at 22:30 Initial Consult Date May Type of Consultation: NEPHROLOGY Reason for Consultation acute kidney Injury, Hyperkalemia Referring Provider: MARTÍN WALDROP MD 24 HR Interval Summary Free Text/Dictation Na 145, Cr normal, HR still in 105-110 Exam/Review of Systems Vital Signs Vitals Vital Signs Date Time Temp Pulse Resp B/P Pulse Ox O2 Delivery O2 Flow Rate FiO2 06/19/16 09:43 84 20 92 21 06/19/16 08:01 97.5 113/71 06/18/16 22:11 Nasal Cannula 3.0 Intake and Output 06/18/16 06/18/16 06/19/16 15:00 23:00 07:00 Intake Total 740 ml 400 ml Output Total 600 ml 700 ml Balance 140 ml -300 ml Exam no acute distress NECK: Supple, no JVD, no lymphadenopathy. LUNGS: Clear to auscultation. No crackles, no wheezes. HEART: S1, S2, with regular rhythm, no murmur. ABDOMEN: Soft, nontender, nondistended. Bowel sounds are present. EXTREMITIES: No clubbing, cyanosis, or edema Results Result Diagram: 06/19/16 0640 06/19/16 0645 Results 24 hrs Laboratory Tests Test 06/18/16 12:07 06/18/16 17:44 06/18/16 20:09 06/19/16 06:40 Bedside Glucose 169 152 189 Basophils # 0.1 Basophils % 1.2 Eosinophils # 0.2 Eosinophils % 2.9 Hematocrit 37.1 Hemoglobin 12.4 Lymphocytes # 1.8 Lymphocytes % 34.8 Mean Corpuscular Hemoglobin 33.2 H Mean Corpuscular Hemoglobin Concent 33.4 Mean Corpuscular Volume 99.5 Mean Platelet Volume 11.5 H Monocytes # 0.6 Monocytes % 12.1 H Neutrophils # 2.5 Neutrophils % 48.6 Nucleated Red Blood Cells # 0.0 Nucleated Red Blood Cells % 0.0 Platelet Count 157 Red Blood Count 3.73 L Red Cell Distribution Width 14.1 White Blood Count 5.1 # Test 06/19/16 06:45 06/19/16 08:24 Anion Gap 15 Blood Urea Nitrogen 12 Calcium Level 8.6 Carbon Dioxide Level 37 H Chloride Level 97 Creatinine 0.73 Glucose Level 103 Potassium Level 4.1 Sodium Level 145 H Bedside Glucose 115 Medications Medications Current Medications Allopurinol (Zyloprim) 100 mg DAILY PO Last administered on 06/19/16 08:15; Admin Dose 100 MG; Start 06/09/16 at 09:00 Aspirin (Halfprin) 81 mg DAILY PO Last administered on 06/12/16 08:23; Admin Dose 81 MG; Start 06/09/16 at 09:00; Status Future Hold Febuxostat (Uloric) 40 mg DAILY PO Last administered on 06/19/16 08:17; Admin Dose 40 MG; Start 06/09/16 at 09:00 Folic Acid (Folic Acid) 1 mg DAILY PO Last administered on 06/19/16 08:16; Admin Dose 1 MG; Start 06/09/16 at 09:00 Ibuprofen (Motrin) 800 mg DAILY PRN PO PRN Last administered on 06/12/16 10:27 ; Admin Dose 800 MG; Start 06/08/16 at 10:00 Tamsulosin HCl (Flomax) 0.4 mg DAILY PO Last administered on 06/19/16 08:16; Admin Dose 0.4 MG; Start 06/09/16 at 09:00 Cholecalciferol (Vitamin D) 400 units DAILY PO Last administered on 06/19/16 08 :16; Admin Dose 400 UNITS; Start 06/09/16 at 09:00 Fish Oil (Fish Oil) 1,000 mg DAILY PO Last administered on 06/19/16 08:16; Admin Dose 1,000 MG; Start 06/09/16 at 09:00 Acetaminophen (Tylenol Tab) 650 mg Q6H PRN PO PAIN AND OR ELEVATED TEMP Last administered on 06/17/16 08:26; Admin Dose 650 MG; Start 06/08/16 at 10:00 Ondansetron HCl (Zofran Tab) 4 mg Q6 PRN PO NAUSEA AND/OR VOMITING Last administered on 06/16/16 07:54; Admin Dose 4 MG; Start 06/08/16 at 10:00 Docusate Sodium (Colace) 100 mg BID PO Last administered on 06/19/16 08:16; Admin Dose 100 MG; Start 06/08/16 at 21:00 Apixaban (Eliquis) 5 mg BID PO Last administered on 06/19/16 08:16; Admin Dose 5 MG; Start 06/08/16 at 12:30 Morphine Sulfate (morphine) 2 mg Q3 PRN IV PAIN LEVEL 7-10 Last administered on 06/18/16 01:24; Admin Dose 2 MG; Start 06/08/16 at 11:00 Miscellaneous Information 1 ea NOTE XX ; Start 06/08/16 at 11:30 Glucose (Glutose) 15 gm Q15M PRN PO DECREASED GLUCOSE; Start 06/08/16 at 11:30 Glucose (Glutose) 22.5 gm Q15M PRN PO DECREASED GLUCOSE; Start 06/08/16 at 11: 30 Dextrose (D50w Syringe) 25 ml Q15M PRN IV DECREASED GLUCOSE; Start 06/08/16 at 11:30 Dextrose (D50w Syringe) 50 ml Q15M PRN IV DECREASED GLUCOSE; Start 06/08/16 at 11:30 Glucagon (Glucagen) 1 mg Q15M PRN IM DECREASED GLUCOSE; Start 06/08/16 at 11:30 Glucose (Glutose) 15 gm Q15M PRN BUCCAL DECREASED GLUCOSE; Start 06/08/16 at 11 :30 Ondansetron HCl (Zofran Inj) 4 mg Q6H PRN IV NAUSEA AND/OR VOMITING Last administered on 06/09/16 02:19; Admin Dose 4 MG; Start 06/09/16 at 02:30 Pantoprazole (Protonix Tab) 40 mg DAILY@06 PO Last administered on 06/19/16 05: 46; Admin Dose 40 MG; Start 06/16/16 at 06:00 Hydralazine HCl 20 mg 20 mg Q6H PRN IV ELEVATED BLOOD PRESSURE>180 Last administered on 06/16/16 18:28; Admin Dose 20 MG; Start 06/15/16 at 20:00 Diltiazem HCl (Cardizem-D5W 125 Mg/125 ml Drip) 125 ml @ 0 mls/hr Q0M IV Last administered on 06/15/16 23:05; Admin Dose 5 MLS/HR; Start 06/15/16 at 21:30 Ondansetron HCl (Zofran Inj) 4 mg Q4H PRN IV NAUSEA AND/OR VOMITING; Start 06/15 at 21:30 Potassium Chloride (Klor-Con 10) 10 meq BID PO Last administered on 06/19/16 08 :17; Admin Dose 10 MEQ; Start 06/16/16 at 21:00 Lisinopril (Zestril) 10 mg DAILY PO Last administered on 06/19/16 08:15; Admin Dose 10 MG; Start 06/18/16 at 09:00 Diltiazem HCl (Cardizem) 60 mg Q8 PO Last administered on 06/19/16 05:47; Admin Dose 60 MG; Start 06/18/16 at 22:00 Metoprolol Tartrate (Lopressor) 25 mg BID PO Last administered on 06/19/16 08: 16; Admin Dose 25 MG; Start 06/18/16 at 21:00 CIELO FONG MD Jun 19, 2016 10:00
--- NOTE | 2016-06-19 12:40 | CONS ---
Date/Time of Note Date/Time of Note DATE: 06/19/16 TIME: 12:36 Assessment/Plan Assessment/Plan Chief Complaint/Hosp Course IMp: 1.AF-Currently reasonable rate control on eliquis 2.Cardiomyopathy-EF 15% by echo this admit 3.CHF-systolic acute on chronic 4.abd pain/gastritis by EGD 5.REnal failure-improved 6.Hotn today 7.HL 8.DM Recc -Tele -Continue BB/Dilt and follow HR/BP closely -Continue lasix diuresis and follow volume status closely and creatnine -Continue ACEI afterload reduction and follow screw machine setter closely -Continue apixaban -AM lexiscan Problems: Consultation Date/Type/Reason Admit Date/Time Jun 07, 2016 at 22:30 Initial Consult Date 06/08/16 Type of Consultation: Cardiology Reason for Consultation CHF Referring Provider: MARTÍN WALDROP MD Exam/Review of Systems Vital Signs Vitals Vital Signs Date Time Temp Pulse Resp B/P Pulse Ox O2 Delivery O2 Flow Rate FiO2 06/19/16 12:04 79 06/19/16 11:12 98.4 17 107/63 95 06/19/16 09:43 21 06/18/16 22:11 Nasal Cannula 3.0 Intake and Output 06/18/16 06/18/16 06/19/16 15:00 23:00 07:00 Intake Total 740 ml 400 ml Output Total 600 ml 700 ml Balance 140 ml -300 ml Exam Review of Systems: CONSTITUTIONAL: No fevers, chills. PULMONARY: mild sob CARDIOVASCULAR: No chest pain/palpitations GASTROINTESTINAL: No nausea/vomiting. GENITOURINARY: No hematuria/dysuria. MUSCULOSKELETAL: No myagias/arthalgias. PSYCHIATRIC: The patient denies depression. NEUROLOGIC: No weakness Constitutional: alert Psych: no complaints Head: normocephalic ENMT: mucosa pink and moist Neck: jvd (9 cm water), supple Respiratory: diminished breath sounds Cardiovascular: irregular rhythm Gastrointestinal: non-tender, soft Musculoskeletal: muscle tone (normal) Extremities: edema (trace/B) Neurological: other (No focal deficits) Results Result Diagram: 06/19/16 0640 06/19/16 0645 Results 24 hrs Laboratory Tests Test 06/18/16 17:44 06/18/16 20:09 06/19/16 06:40 06/19/16 06:45 Bedside Glucose 152 189 Basophils # 0.1 Basophils % 1.2 Eosinophils # 0.2 Eosinophils % 2.9 Hematocrit 37.1 Hemoglobin 12.4 Lymphocytes # 1.8 Lymphocytes % 34.8 Mean Corpuscular Hemoglobin 33.2 H Mean Corpuscular Hemoglobin Concent 33.4 Mean Corpuscular Volume 99.5 Mean Platelet Volume 11.5 H Monocytes # 0.6 Monocytes % 12.1 H Neutrophils # 2.5 Neutrophils % 48.6 Nucleated Red Blood Cells # 0.0 Nucleated Red Blood Cells % 0.0 Platelet Count 157 Red Blood Count 3.73 L Red Cell Distribution Width 14.1 White Blood Count 5.1 # Anion Gap 15 Blood Urea Nitrogen 12 Calcium Level 8.6 Carbon Dioxide Level 37 H Chloride Level 97 Creatinine 0.73 Glucose Level 103 Potassium Level 4.1 Sodium Level 145 H Test 06/19/16 08:24 06/19/16 12:32 Bedside Glucose 115 143 Medications Medications Current Medications Allopurinol (Zyloprim) 100 mg DAILY PO Last administered on 06/19/16 08:15; Admin Dose 100 MG; Start 06/09/16 at 09:00 Aspirin (Halfprin) 81 mg DAILY PO Last administered on 06/12/16 08:23; Admin Dose 81 MG; Start 06/09/16 at 09:00; Status Future Hold Febuxostat (Uloric) 40 mg DAILY PO Last administered on 06/19/16 08:17; Admin Dose 40 MG; Start 06/09/16 at 09:00 Folic Acid (Folic Acid) 1 mg DAILY PO Last administered on 06/19/16 08:16; Admin Dose 1 MG; Start 06/09/16 at 09:00 Ibuprofen (Motrin) 800 mg DAILY PRN PO PRN Last administered on 06/12/16 10:27 ; Admin Dose 800 MG; Start 06/08/16 at 10:00 Tamsulosin HCl (Flomax) 0.4 mg DAILY PO Last administered on 06/19/16 08:16; Admin Dose 0.4 MG; Start 06/09/16 at 09:00 Cholecalciferol (Vitamin D) 400 units DAILY PO Last administered on 06/19/16 08 :16; Admin Dose 400 UNITS; Start 06/09/16 at 09:00 Fish Oil (Fish Oil) 1,000 mg DAILY PO Last administered on 06/19/16 08:16; Admin Dose 1,000 MG; Start 06/09/16 at 09:00 Acetaminophen (Tylenol Tab) 650 mg Q6H PRN PO PAIN AND OR ELEVATED TEMP Last administered on 06/17/16 08:26; Admin Dose 650 MG; Start 06/08/16 at 10:00 Ondansetron HCl (Zofran Tab) 4 mg Q6 PRN PO NAUSEA AND/OR VOMITING Last administered on 06/16/16 07:54; Admin Dose 4 MG; Start 06/08/16 at 10:00 Docusate Sodium (Colace) 100 mg BID PO Last administered on 06/19/16 08:16; Admin Dose 100 MG; Start 06/08/16 at 21:00 Apixaban (Eliquis) 5 mg BID PO Last administered on 06/19/16 08:16; Admin Dose 5 MG; Start 06/08/16 at 12:30 Morphine Sulfate (morphine) 2 mg Q3 PRN IV PAIN LEVEL 7-10 Last administered on 06/18/16 01:24; Admin Dose 2 MG; Start 06/08/16 at 11:00 Miscellaneous Information 1 ea NOTE XX ; Start 06/08/16 at 11:30 Glucose (Glutose) 15 gm Q15M PRN PO DECREASED GLUCOSE; Start 06/08/16 at 11:30 Glucose (Glutose) 22.5 gm Q15M PRN PO DECREASED GLUCOSE; Start 06/08/16 at 11: 30 Dextrose (D50w Syringe) 25 ml Q15M PRN IV DECREASED GLUCOSE; Start 06/08/16 at 11:30 Dextrose (D50w Syringe) 50 ml Q15M PRN IV DECREASED GLUCOSE; Start 06/08/16 at 11:30 Glucagon (Glucagen) 1 mg Q15M PRN IM DECREASED GLUCOSE; Start 06/08/16 at 11:30 Glucose (Glutose) 15 gm Q15M PRN BUCCAL DECREASED GLUCOSE; Start 06/08/16 at 11 :30 Ondansetron HCl (Zofran Inj) 4 mg Q6H PRN IV NAUSEA AND/OR VOMITING Last administered on 06/09/16 02:19; Admin Dose 4 MG; Start 06/09/16 at 02:30 Pantoprazole (Protonix Tab) 40 mg DAILY@06 PO Last administered on 06/19/16 05: 46; Admin Dose 40 MG; Start 06/16/16 at 06:00 Hydralazine HCl 20 mg 20 mg Q6H PRN IV ELEVATED BLOOD PRESSURE>180 Last administered on 06/16/16 18:28; Admin Dose 20 MG; Start 06/15/16 at 20:00 Diltiazem HCl (Cardizem-D5W 125 Mg/125 ml Drip) 125 ml @ 0 mls/hr Q0M IV Last administered on 06/15/16 23:05; Admin Dose 5 MLS/HR; Start 06/15/16 at 21:30 Ondansetron HCl (Zofran Inj) 4 mg Q4H PRN IV NAUSEA AND/OR VOMITING; Start 06/15 at 21:30 Potassium Chloride (Klor-Con 10) 10 meq BID PO Last administered on 06/19/16 08 :17; Admin Dose 10 MEQ; Start 06/16/16 at 21:00 Lisinopril (Zestril) 10 mg DAILY PO Last administered on 06/19/16 08:15; Admin Dose 10 MG; Start 06/18/16 at 09:00 Diltiazem HCl (Cardizem) 60 mg Q8 PO Last administered on 06/19/16 05:47; Admin Dose 60 MG; Start 06/18/16 at 22:00 Metoprolol Tartrate (Lopressor) 25 mg BID PO Last administered on 06/19/16 08: 16; Admin Dose 25 MG; Start 06/18/16 at 21:00 ORQUIDAE GUILLAUME Jun 19, 2016 12:40
--- NOTE | 2016-06-19 18:32 | PN ---
Date/Time of Note Date/Time of Note DATE: 06/19/16 TIME: 18:30 Assessment/Plan VTE Prophylaxis VTE Prophylaxis Intervention: SCD's Lines/Catheters [facility] Type [facility] Saline Lock Urinary Cath still in place: No Assessment/Plan Chief Complaint/Hosp Course Assessment and plan - Atrial fibrillation with rapid ventricular response. Patient is currently in atrial fibrillation at controlled rate. is following and cardiology consultation. Continue metoprolol and Eliquis. Continue Cardizem. - Erosive gastritis per EGD. Continue Protonix. Dr. Urias is following in cart in gastroenterology consultation - Diabetes mellitus type 2. Continue NovoLog per sliding scale. 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 Continue IV Lasix. - Obesity. Weight loss advised. - S/p cholecystectomy Further recommendations based on clinical course. Plan of care discussed with Dr. Chao. Problems: Subjective 24 Hr Interval Summary Free Text/Dictation Patient's complains of occasional shortness of breath on exertion, denies any chest pain at rest denies any shortness of breath at rest. Exam/Review of Systems Vital Signs Vitals Vital Signs Date Time Temp Pulse Resp B/P Pulse Ox O2 Delivery O2 Flow Rate FiO2 06/19/16 16:40 113 06/19/16 16:19 16 97 21 06/19/16 15:45 98.0 121/66 06/18/16 22:11 Nasal Cannula 3.0 Intake and Output 06/18/16 06/18/16 06/19/16 15:00 23:00 07:00 Intake Total 740 ml 400 ml Output Total 600 ml 700 ml Balance 140 ml -300 ml Exam Constitutional: alert, obese, oriented, well developed Psych: no complaints Head: atraumatic, normocephalic Eyes: nl conjunctiva ENMT: nl external ears & nose Neck: non-tender, supple Respiratory: clear to auscultation Cardiovascular: other (Atrial fibrillation) Gastrointestinal: other (Epigastric tenderness), soft Genitourinary - Female: nl adnexae Musculoskeletal: nl extremities to inspection Extremities: normal pulses Neurological: UNDERWEAR TRIMMER II-XII intact Results Result Diagram: 06/19/16 0640 06/19/16 0645 Results 24 hrs Laboratory Tests Test 06/18/16 20:09 06/19/16 06:40 06/19/16 06:45 06/19/16 08:24 Bedside Glucose 189 115 Basophils # 0.1 Basophils % 1.2 Eosinophils # 0.2 Eosinophils % 2.9 Hematocrit 37.1 Hemoglobin 12.4 Lymphocytes # 1.8 Lymphocytes % 34.8 Mean Corpuscular Hemoglobin 33.2 H Mean Corpuscular Hemoglobin Concent 33.4 Mean Corpuscular Volume 99.5 Mean Platelet Volume 11.5 H Monocytes # 0.6 Monocytes % 12.1 H Neutrophils # 2.5 Neutrophils % 48.6 Nucleated Red Blood Cells # 0.0 Nucleated Red Blood Cells % 0.0 Platelet Count 157 Red Blood Count 3.73 L Red Cell Distribution Width 14.1 White Blood Count 5.1 # Anion Gap 15 Blood Urea Nitrogen 12 Calcium Level 8.6 Carbon Dioxide Level 37 H Chloride Level 97 Creatinine 0.73 Glucose Level 103 Potassium Level 4.1 Sodium Level 145 H Test 06/19/16 12:32 06/19/16 17:51 Bedside Glucose 143 116 Medications Medications Current Medications Allopurinol (Zyloprim) 100 mg DAILY PO Last administered on 06/19/16 08:15; Admin Dose 100 MG; Start 06/09/16 at 09:00 Aspirin (Halfprin) 81 mg DAILY PO Last administered on 06/12/16 08:23; Admin Dose 81 MG; Start 06/09/16 at 09:00; Status Future Hold Febuxostat (Uloric) 40 mg DAILY PO Last administered on 06/19/16 08:17; Admin Dose 40 MG; Start 06/09/16 at 09:00 Folic Acid (Folic Acid) 1 mg DAILY PO Last administered on 06/19/16 08:16; Admin Dose 1 MG; Start 06/09/16 at 09:00 Ibuprofen (Motrin) 800 mg DAILY PRN PO PRN Last administered on 06/12/16 10:27 ; Admin Dose 800 MG; Start 06/08/16 at 10:00 Tamsulosin HCl (Flomax) 0.4 mg DAILY PO Last administered on 06/19/16 08:16; Admin Dose 0.4 MG; Start 06/09/16 at 09:00 Cholecalciferol (Vitamin D) 400 units DAILY PO Last administered on 06/19/16 08 :16; Admin Dose 400 UNITS; Start 06/09/16 at 09:00 Fish Oil (Fish Oil) 1,000 mg DAILY PO Last administered on 06/19/16 08:16; Admin Dose 1,000 MG; Start 06/09/16 at 09:00 Acetaminophen (Tylenol Tab) 650 mg Q6H PRN PO PAIN AND OR ELEVATED TEMP Last administered on 06/17/16 08:26; Admin Dose 650 MG; Start 06/08/16 at 10:00 Ondansetron HCl (Zofran Tab) 4 mg Q6 PRN PO NAUSEA AND/OR VOMITING Last administered on 06/16/16 07:54; Admin Dose 4 MG; Start 06/08/16 at 10:00 Docusate Sodium (Colace) 100 mg BID PO Last administered on 06/19/16 08:16; Admin Dose 100 MG; Start 06/08/16 at 21:00 Apixaban (Eliquis) 5 mg BID PO Last administered on 06/19/16 08:16; Admin Dose 5 MG; Start 06/08/16 at 12:30 Morphine Sulfate (morphine) 2 mg Q3 PRN IV PAIN LEVEL 7-10 Last administered on 06/18/16 01:24; Admin Dose 2 MG; Start 06/08/16 at 11:00 Miscellaneous Information 1 ea NOTE XX ; Start 06/08/16 at 11:30 Glucose (Glutose) 15 gm Q15M PRN PO DECREASED GLUCOSE; Start 06/08/16 at 11:30 Glucose (Glutose) 22.5 gm Q15M PRN PO DECREASED GLUCOSE; Start 06/08/16 at 11: 30 Dextrose (D50w Syringe) 25 ml Q15M PRN IV DECREASED GLUCOSE; Start 06/08/16 at 11:30 Dextrose (D50w Syringe) 50 ml Q15M PRN IV DECREASED GLUCOSE; Start 06/08/16 at 11:30 Glucagon (Glucagen) 1 mg Q15M PRN IM DECREASED GLUCOSE; Start 06/08/16 at 11:30 Glucose (Glutose) 15 gm Q15M PRN BUCCAL DECREASED GLUCOSE; Start 06/08/16 at 11 :30 Ondansetron HCl (Zofran Inj) 4 mg Q6H PRN IV NAUSEA AND/OR VOMITING Last administered on 06/09/16 02:19; Admin Dose 4 MG; Start 06/09/16 at 02:30 Pantoprazole (Protonix Tab) 40 mg DAILY@06 PO Last administered on 06/19/16 05: 46; Admin Dose 40 MG; Start 06/16/16 at 06:00 Hydralazine HCl 20 mg 20 mg Q6H PRN IV ELEVATED BLOOD PRESSURE>180 Last administered on 06/16/16 18:28; Admin Dose 20 MG; Start 06/15/16 at 20:00 Diltiazem HCl (Cardizem-D5W 125 Mg/125 ml Drip) 125 ml @ 0 mls/hr Q0M IV Last administered on 06/15/16 23:05; Admin Dose 5 MLS/HR; Start 06/15/16 at 21:30 Ondansetron HCl (Zofran Inj) 4 mg Q4H PRN IV NAUSEA AND/OR VOMITING; Start 06/15 at 21:30 Potassium Chloride (Klor-Con 10) 10 meq BID PO Last administered on 06/19/16 08 :17; Admin Dose 10 MEQ; Start 06/16/16 at 21:00 Lisinopril (Zestril) 10 mg DAILY PO Last administered on 06/19/16 08:15; Admin Dose 10 MG; Start 06/18/16 at 09:00 Diltiazem HCl (Cardizem) 60 mg Q8 PO Last administered on 06/19/16 14:27; Admin Dose 60 MG; Start 06/18/16 at 22:00 Metoprolol Tartrate (Lopressor) 25 mg BID PO Last administered on 06/19/16 08: 16; Admin Dose 25 MG; Start 06/18/16 at 21:00 RISHI LINDSAY Jun 19, 2016 18:32
[2016-06-19] MEDS: FUROSEMIDE 40 MG INJ IV SCH (18:44)
[2016-06-20] VITALS (11 sets, daily range): BP systolic 114–124; BP diastolic 58–80; PULSE 74–96; RESP 16–18
[2016-06-20] MEDS: LEVALBUTEROL (NEB) 0.63 MG/3 ML AMP HHN SCH ×6 (01:00→21:24)
[2016-06-20] MEDS: FUROSEMIDE 40 MG INJ IV SCH ×2 (05:23→18:13)
[2016-06-20] MEDS: DILTIAZEM 60 MG TAB PO SCH ×3 (05:23→22:00)
[2016-06-20] MEDS: PANTOPRAZOLE (EC) 40 MG TAB PO SCH (05:23)
[2016-06-20 06:09] LABS: ADD SCAN DIFF NO
[2016-06-20 06:20] LABS: BASOPHILS % 0.9 % (0.0-2.0); EOSINOPHILS # 0.1 10^3/ul (0.0-0.5); EOSINOPHILS % 2.6 % (0.0-7.0); HEMOGLOBIN 11.5 g/dl (12.0-16.0); LYMPHOCYTES # 1.8 10^3/ul (0.8-2.9); LYMPHOCYTES % 41.4 % (15.0-51.0); MEAN CORPUSCULAR HEMOGLOBIN 32.4 pg (29.0-33.0); MEAN CORPUSCULAR HGB CONC 32.9 g/dl (32.0-37.0); MEAN CORPUSCULAR VOLUME 98.6 fl (82.0-101.0); MEAN PLATELET VOLUME 11.1 fl (7.4-10.4); MONOCYTE # 0.5 10^3/ul (0.3-0.9); MONOCYTES % 12.6 % (0.0-11.0); NEUTROPHIL # 1.8 10^3/ul (1.6-7.5); NEUTROPHILS % 42.3 % (39.0-77.0); PLATELET COUNT 136 10^3/UL (140-415); RED BLOOD COUNT 3.55 10^6/ul (4.20-5.40); RED CELL DISTRIBUTION WIDTH 13.9 % (11.5-14.5); WHITE BLOOD COUNT 4.3 10^3/ul (4.8-10.8)
[2016-06-20 06:53] LABS: POTASSIUM 4.3 mmol/L (3.5-5.1)
[2016-06-20 06:56] LABS: CALCIUM 8.8 mg/dl (8.4-10.2); CREATININE 0.79 mg/dl (0.44-1.00)
[2016-06-20] MEDS: INSULIN ASPART [NOVOLOG] 3 ML PEN SC SCH ×4 (07:43→20:31)
[2016-06-20] MEDS: DOCUSATE SODIUM 100 MG CAP PO SCH ×2 (08:59→20:24)
[2016-06-20] MEDS: CHOLECALCIFEROL 400 UNITS TAB PO SCH (09:00)
[2016-06-20] MEDS: APIXABAN 5 MG TABLET PO SCH ×2 (09:00→20:23)
[2016-06-20] MEDS: FISH OIL 1,000 MG CAP PO SCH (09:00)
[2016-06-20] MEDS: TAMSULOSIN (SR) 0.4 MG CAP PO SCH (09:00)
[2016-06-20] MEDS: FOLIC ACID 1 MG TAB PO SCH (09:01)
[2016-06-20] MEDS: POTASSIUM CHLORIDE (SR) 10 MEQ TAB PO SCH ×2 (09:01→20:23)
[2016-06-20] MEDS: ALLOPURINOL 100 MG TAB PO SCH (09:01)
[2016-06-20] MEDS: METOPROLOL 25 MG TAB PO SCH ×2 (09:01→20:23)
[2016-06-20] MEDS: FEBUXOSTAT 40 MG TABLET PO SCH (09:01)
[2016-06-20] MEDS: LISINOPRIL 10 MG TAB PO SCH (09:01)
--- NOTE | 2016-06-20 13:24 | CONS ---
Date/Time of Note Date/Time of Note DATE: 06/20/16 TIME: 13:21 Assessment/Plan Assessment/Plan Chief Complaint/Hosp Course IMp: 1.AF-Currently reasonable rate control on eliquis 2.Cardiomyopathy-EF 15% by echo this admit. Negative lexiscan 02/27 no ischemia 3.CHF-systolic acute on chronic 4.abd pain/gastritis by EGD 5.REnal failure-improved 6.Hotn today 7.HL 8.DM Recc -Tele -Continue BB/Dilt and follow HR/BP closely -Continue lasix diuresis and follow volume status closely and creatnine -Continue ACEI afterload reduction and follow raw shellfish preparer closely -Continue apixaban Problems: Consultation Date/Type/Reason Admit Date/Time Jun 07, 2016 at 22:30 Initial Consult Date 06/08/16 Type of Consultation: Cardiology Reason for Consultation AF/CHF Referring Provider: MARTÍN WALDROP MD Exam/Review of Systems Vital Signs Vitals Vital Signs Date Time Temp Pulse Resp B/P Pulse Ox O2 Delivery O2 Flow Rate FiO2 06/20/16 12:00 80 06/20/16 11:20 98.2 18 122/76 94 06/20/16 09:41 21 06/19/16 21:55 Nasal Cannula 2.0 Intake and Output 06/19/16 06/19/16 06/20/16 15:00 23:00 07:00 Intake Total 850 ml 500 ml Output Total 600 ml Balance 850 ml -100 ml Exam Review of Systems: CONSTITUTIONAL: No fevers, chills. PULMONARY: mild sob CARDIOVASCULAR: No chest pain/palpitations GASTROINTESTINAL: No nausea/vomiting. GENITOURINARY: No hematuria/dysuria. MUSCULOSKELETAL: No myagias/arthalgias. PSYCHIATRIC: The patient denies depression. NEUROLOGIC: No weakness Constitutional: alert Psych: no complaints Head: normocephalic ENMT: mucosa pink and moist Neck: jvd (9 cm water), supple Respiratory: diminished breath sounds (at bases/B) Cardiovascular: irregular rhythm Gastrointestinal: non-tender, soft Musculoskeletal: muscle tone (normal) Extremities: edema (trace/B) Neurological: other (NO focal deficits) Results Result Diagram: 06/20/16 0555 06/20/16 0555 Results 24 hrs Laboratory Tests Test 06/19/16 17:51 06/19/16 20:11 06/20/16 05:55 06/20/16 07:41 Bedside Glucose 116 194 111 Anion Gap 14 Basophils # 0.0 Basophils % 0.9 Blood Urea Nitrogen 13 Calcium Level 8.8 Carbon Dioxide Level 36 H Chloride Level 99 Creatinine 0.79 Eosinophils # 0.1 Eosinophils % 2.6 Glucose Level 107 Hematocrit 35.0 L Hemoglobin 11.5 L Lymphocytes # 1.8 Lymphocytes % 41.4 Mean Corpuscular Hemoglobin 32.4 Mean Corpuscular Hemoglobin Concent 32.9 Mean Corpuscular Volume 98.6 Mean Platelet Volume 11.1 H Monocytes # 0.5 Monocytes % 12.6 H Neutrophils # 1.8 Neutrophils % 42.3 Nucleated Red Blood Cells # 0.0 Nucleated Red Blood Cells % 0.0 Platelet Count 136 L Potassium Level 4.3 Red Blood Count 3.55 L Red Cell Distribution Width 13.9 Sodium Level 145 H White Blood Count 4.3 L Test 06/20/16 12:43 Bedside Glucose 229 H Medications Medications Current Medications Allopurinol (Zyloprim) 100 mg DAILY PO Last administered on 06/20/16 09:01; Admin Dose 100 MG; Start 06/09/16 at 09:00 Aspirin (Halfprin) 81 mg DAILY PO Last administered on 06/12/16 08:23; Admin Dose 81 MG; Start 06/09/16 at 09:00; Status Future Hold Febuxostat (Uloric) 40 mg DAILY PO Last administered on 06/20/16 09:01; Admin Dose 40 MG; Start 06/09/16 at 09:00 Folic Acid (Folic Acid) 1 mg DAILY PO Last administered on 06/20/16 09:01; Admin Dose 1 MG; Start 06/09/16 at 09:00 Ibuprofen (Motrin) 800 mg DAILY PRN PO PRN Last administered on 06/12/16 10:27 ; Admin Dose 800 MG; Start 06/08/16 at 10:00 Tamsulosin HCl (Flomax) 0.4 mg DAILY PO Last administered on 06/20/16 09:00; Admin Dose 0.4 MG; Start 06/09/16 at 09:00 Cholecalciferol (Vitamin D) 400 units DAILY PO Last administered on 06/20/16 09 :00; Admin Dose 400 UNITS; Start 06/09/16 at 09:00 Fish Oil (Fish Oil) 1,000 mg DAILY PO Last administered on 06/20/16 09:00; Admin Dose 1,000 MG; Start 06/09/16 at 09:00 Acetaminophen (Tylenol Tab) 650 mg Q6H PRN PO PAIN AND OR ELEVATED TEMP Last administered on 06/17/16 08:26; Admin Dose 650 MG; Start 06/08/16 at 10:00 Ondansetron HCl (Zofran Tab) 4 mg Q6 PRN PO NAUSEA AND/OR VOMITING Last administered on 06/16/16 07:54; Admin Dose 4 MG; Start 06/08/16 at 10:00 Docusate Sodium (Colace) 100 mg BID PO Last administered on 06/20/16 08:59; Admin Dose 100 MG; Start 06/08/16 at 21:00 Apixaban (Eliquis) 5 mg BID PO Last administered on 06/20/16 09:00; Admin Dose 5 MG; Start 06/08/16 at 12:30 Morphine Sulfate (morphine) 2 mg Q3 PRN IV PAIN LEVEL 7-10 Last administered on 06/18/16 01:24; Admin Dose 2 MG; Start 06/08/16 at 11:00 Miscellaneous Information 1 ea NOTE XX ; Start 06/08/16 at 11:30 Glucose (Glutose) 15 gm Q15M PRN PO DECREASED GLUCOSE; Start 06/08/16 at 11:30 Glucose (Glutose) 22.5 gm Q15M PRN PO DECREASED GLUCOSE; Start 06/08/16 at 11: 30 Dextrose (D50w Syringe) 25 ml Q15M PRN IV DECREASED GLUCOSE; Start 06/08/16 at 11:30 Dextrose (D50w Syringe) 50 ml Q15M PRN IV DECREASED GLUCOSE; Start 06/08/16 at 11:30 Glucagon (Glucagen) 1 mg Q15M PRN IM DECREASED GLUCOSE; Start 06/08/16 at 11:30 Glucose (Glutose) 15 gm Q15M PRN BUCCAL DECREASED GLUCOSE; Start 06/08/16 at 11 :30 Ondansetron HCl (Zofran Inj) 4 mg Q6H PRN IV NAUSEA AND/OR VOMITING Last administered on 06/09/16 02:19; Admin Dose 4 MG; Start 06/09/16 at 02:30 Pantoprazole (Protonix Tab) 40 mg DAILY@06 PO Last administered on 06/20/16 05: 23; Admin Dose 40 MG; Start 06/16/16 at 06:00 Hydralazine HCl 20 mg 20 mg Q6H PRN IV ELEVATED BLOOD PRESSURE>180 Last administered on 06/16/16 18:28; Admin Dose 20 MG; Start 06/15/16 at 20:00 Diltiazem HCl (Cardizem-D5W 125 Mg/125 ml Drip) 125 ml @ 0 mls/hr Q0M IV Last administered on 06/15/16 23:05; Admin Dose 5 MLS/HR; Start 06/15/16 at 21:30 Ondansetron HCl (Zofran Inj) 4 mg Q4H PRN IV NAUSEA AND/OR VOMITING; Start 06/15 at 21:30 Potassium Chloride (Klor-Con 10) 10 meq BID PO Last administered on 06/20/16 09 :01; Admin Dose 10 MEQ; Start 06/16/16 at 21:00 Lisinopril (Zestril) 10 mg DAILY PO Last administered on 06/20/16 09:01; Admin Dose 10 MG; Start 06/18/16 at 09:00 Diltiazem HCl (Cardizem) 60 mg Q8 PO Last administered on 06/20/16 05:23; Admin Dose 60 MG; Start 06/18/16 at 22:00 Metoprolol Tartrate (Lopressor) 25 mg BID PO Last administered on 06/20/16 09: 01; Admin Dose 25 MG; Start 06/18/16 at 21:00 ORQUIDEA GUILLAUME Jun 20, 2016 13:24
--- NOTE | 2016-06-20 14:57 | PN ---
Date/Time of Note Date/Time of Note DATE: 06/20/16 TIME: 14:53 Assessment/Plan VTE Prophylaxis VTE Prophylaxis Intervention: other Lines/Catheters [facility] Type [facility] Saline Lock Urinary Cath still in place: No Assessment/Plan Assessment/Plan - Atrial fibrillation with rapid ventricular response. Patient is currently in atrial fibrillation at controlled rate. - per Dr. Rico in cardiology consultation. Continue metoprolol and Eliquis. Continue Cardizem. - Erosive gastritis per EGD. Continue Protonix. - per Dr. Urias in gastroenterology consultation - Diabetes mellitus type 2. Continue NovoLog per sliding scale. 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 Continue Lasix. - Obesity. Weight loss advised. - sp cholecystectomy Further recommendations based on clinical course. Plan of care discussed with Dr. Chao. Subjective 24 Hr Interval Summary Constitutional: improved Eyes: no complaints ENT: no complaints Respiratory: no complaints Cardiovascular: no complaints Gastrointestinal: no complaints Genitourinary: no complaints Exam/Review of Systems Vital Signs Vitals Vital Signs Date Time Temp Pulse Resp B/P Pulse Ox O2 Delivery O2 Flow Rate FiO2 06/20/16 14:43 69 17 95 21 06/20/16 11:20 98.2 122/76 06/19/16 21:55 Nasal Cannula 2.0 Intake and Output 06/19/16 06/19/16 06/20/16 15:00 23:00 07:00 Intake Total 850 ml 500 ml Output Total 600 ml Balance 850 ml -100 ml Exam Constitutional: alert, oriented, well developed Psych: nl mood/affect Head: atraumatic Eyes: EOMI ENMT: nl external ears & nose Neck: non-tender Respiratory: clear to auscultation Cardiovascular: regular rate and rhythm Gastrointestinal: non-tender, soft Musculoskeletal: nl extremities to inspection Extremities: normal pulses Neurological: nl mental status, nl speech Skin: nl turgor Lymph: nontender Results Result Diagram: 06/20/16 0555 06/20/16 0555 Results 24 hrs Laboratory Tests Test 06/19/16 17:51 06/19/16 20:11 06/20/16 05:55 06/20/16 07:41 Bedside Glucose 116 194 111 Anion Gap 14 Basophils # 0.0 Basophils % 0.9 Blood Urea Nitrogen 13 Calcium Level 8.8 Carbon Dioxide Level 36 H Chloride Level 99 Creatinine 0.79 Eosinophils # 0.1 Eosinophils % 2.6 Glucose Level 107 Hematocrit 35.0 L Hemoglobin 11.5 L Lymphocytes # 1.8 Lymphocytes % 41.4 Mean Corpuscular Hemoglobin 32.4 Mean Corpuscular Hemoglobin Concent 32.9 Mean Corpuscular Volume 98.6 Mean Platelet Volume 11.1 H Monocytes # 0.5 Monocytes % 12.6 H Neutrophils # 1.8 Neutrophils % 42.3 Nucleated Red Blood Cells # 0.0 Nucleated Red Blood Cells % 0.0 Platelet Count 136 L Potassium Level 4.3 Red Blood Count 3.55 L Red Cell Distribution Width 13.9 Sodium Level 145 H White Blood Count 4.3 L Test 06/20/16 12:43 Bedside Glucose 229 H Medications Medications Current Medications Allopurinol (Zyloprim) 100 mg DAILY PO Last administered on 06/20/16 09:01; Admin Dose 100 MG; Start 06/09/16 at 09:00 Aspirin (Halfprin) 81 mg DAILY PO Last administered on 06/12/16 08:23; Admin Dose 81 MG; Start 06/09/16 at 09:00; Status Future Hold Febuxostat (Uloric) 40 mg DAILY PO Last administered on 06/20/16 09:01; Admin Dose 40 MG; Start 06/09/16 at 09:00 Folic Acid (Folic Acid) 1 mg DAILY PO Last administered on 06/20/16 09:01; Admin Dose 1 MG; Start 06/09/16 at 09:00 Ibuprofen (Motrin) 800 mg DAILY PRN PO PRN Last administered on 06/12/16 10:27 ; Admin Dose 800 MG; Start 06/08/16 at 10:00 Tamsulosin HCl (Flomax) 0.4 mg DAILY PO Last administered on 06/20/16 09:00; Admin Dose 0.4 MG; Start 06/09/16 at 09:00 Cholecalciferol (Vitamin D) 400 units DAILY PO Last administered on 06/20/16 09 :00; Admin Dose 400 UNITS; Start 06/09/16 at 09:00 Fish Oil (Fish Oil) 1,000 mg DAILY PO Last administered on 06/20/16 09:00; Admin Dose 1,000 MG; Start 06/09/16 at 09:00 Acetaminophen (Tylenol Tab) 650 mg Q6H PRN PO PAIN AND OR ELEVATED TEMP Last administered on 06/17/16 08:26; Admin Dose 650 MG; Start 06/08/16 at 10:00 Ondansetron HCl (Zofran Tab) 4 mg Q6 PRN PO NAUSEA AND/OR VOMITING Last administered on 06/16/16 07:54; Admin Dose 4 MG; Start 06/08/16 at 10:00 Docusate Sodium (Colace) 100 mg BID PO Last administered on 06/20/16 08:59; Admin Dose 100 MG; Start 06/08/16 at 21:00 Apixaban (Eliquis) 5 mg BID PO Last administered on 06/20/16 09:00; Admin Dose 5 MG; Start 06/08/16 at 12:30 Morphine Sulfate (morphine) 2 mg Q3 PRN IV PAIN LEVEL 7-10 Last administered on 06/18/16 01:24; Admin Dose 2 MG; Start 06/08/16 at 11:00 Miscellaneous Information 1 ea NOTE XX ; Start 06/08/16 at 11:30 Glucose (Glutose) 15 gm Q15M PRN PO DECREASED GLUCOSE; Start 06/08/16 at 11:30 Glucose (Glutose) 22.5 gm Q15M PRN PO DECREASED GLUCOSE; Start 06/08/16 at 11: 30 Dextrose (D50w Syringe) 25 ml Q15M PRN IV DECREASED GLUCOSE; Start 06/08/16 at 11:30 Dextrose (D50w Syringe) 50 ml Q15M PRN IV DECREASED GLUCOSE; Start 06/08/16 at 11:30 Glucagon (Glucagen) 1 mg Q15M PRN IM DECREASED GLUCOSE; Start 06/08/16 at 11:30 Glucose (Glutose) 15 gm Q15M PRN BUCCAL DECREASED GLUCOSE; Start 06/08/16 at 11 :30 Ondansetron HCl (Zofran Inj) 4 mg Q6H PRN IV NAUSEA AND/OR VOMITING Last administered on 06/09/16 02:19; Admin Dose 4 MG; Start 06/09/16 at 02:30 Pantoprazole (Protonix Tab) 40 mg DAILY@06 PO Last administered on 06/20/16 05: 23; Admin Dose 40 MG; Start 06/16/16 at 06:00 Hydralazine HCl 20 mg 20 mg Q6H PRN IV ELEVATED BLOOD PRESSURE>180 Last administered on 06/16/16 18:28; Admin Dose 20 MG; Start 06/15/16 at 20:00 Diltiazem HCl (Cardizem-D5W 125 Mg/125 ml Drip) 125 ml @ 0 mls/hr Q0M IV Last administered on 06/15/16 23:05; Admin Dose 5 MLS/HR; Start 06/15/16 at 21:30 Ondansetron HCl (Zofran Inj) 4 mg Q4H PRN IV NAUSEA AND/OR VOMITING; Start 06/15 at 21:30 Potassium Chloride (Klor-Con 10) 10 meq BID PO Last administered on 06/20/16 09 :01; Admin Dose 10 MEQ; Start 06/16/16 at 21:00 Lisinopril (Zestril) 10 mg DAILY PO Last administered on 06/20/16 09:01; Admin Dose 10 MG; Start 06/18/16 at 09:00 Diltiazem HCl (Cardizem) 60 mg Q8 PO Last administered on 06/20/16 14:12; Admin Dose 60 MG; Start 06/18/16 at 22:00 Metoprolol Tartrate (Lopressor) 25 mg BID PO Last administered on 06/20/16 09: 01; Admin Dose 25 MG; Start 06/18/16 at 21:00 MINDY BARNES Jun 20, 2016 14:57
--- NOTE | 2016-06-20 21:41 | CONS ---
Date/Time of Note Date/Time of Note DATE: 06/20/16 TIME: 21:39 Assessment/Plan Assessment/Plan Additional Assessment/Plan 1. Acute kidney injury, likely secondary to cardiorenal syndrome. The patient is on Lasix 20 mg IV b.i.d. for diuresis. 2. Acute congestive heart failure exacerbation, acute on chronic, systolic. 3. Atrial fibrillation with rapid ventricular rate. 4. Hypertension. 5. Hyperlipidemia. 6. Diabetes mellitus. 7. Possible chronic kidney disease secondary to diabetic nephropathy. PLAN: renal Us reviewed, Cr improved to normal, Na 149 on cardizem for rate control on lisinopril and MTP For HTN s/p EGD which showed gastritis with erosive gastritis. Helicobacter pylori was done and the results are pending will follow up Consultation Date/Type/Reason Admit Date/Time Jun 07, 2016 at 22:30 Initial Consult Date May Type of Consultation: NEPHROLOGY Referring Provider: MARTÍN WALDROP MD 24 HR Interval Summary Free Text/Dictation Doing ok, no complaints Exam/Review of Systems Vital Signs Vitals Vital Signs Date Time Temp Pulse Resp B/P Pulse Ox O2 Delivery O2 Flow Rate FiO2 06/20/16 21:34 98 18 94 21 06/20/16 19:42 98.2 124/80 06/19/16 21:55 Nasal Cannula 2.0 Intake and Output 06/19/16 06/19/16 06/20/16 15:00 23:00 07:00 Intake Total 850 ml 500 ml Output Total 600 ml Balance 850 ml -100 ml Results Result Diagram: 06/20/16 0555 06/20/16 0555 Results 24 hrs Laboratory Tests Test 06/20/16 05:55 06/20/16 07:41 06/20/16 12:43 06/20/16 18:09 Anion Gap 14 Basophils # 0.0 Basophils % 0.9 Blood Urea Nitrogen 13 Calcium Level 8.8 Carbon Dioxide Level 36 H Chloride Level 99 Creatinine 0.79 Eosinophils # 0.1 Eosinophils % 2.6 Glucose Level 107 Hematocrit 35.0 L Hemoglobin 11.5 L Lymphocytes # 1.8 Lymphocytes % 41.4 Mean Corpuscular Hemoglobin 32.4 Mean Corpuscular Hemoglobin Concent 32.9 Mean Corpuscular Volume 98.6 Mean Platelet Volume 11.1 H Monocytes # 0.5 Monocytes % 12.6 H Neutrophils # 1.8 Neutrophils % 42.3 Nucleated Red Blood Cells # 0.0 Nucleated Red Blood Cells % 0.0 Platelet Count 136 L Potassium Level 4.3 Red Blood Count 3.55 L Red Cell Distribution Width 13.9 Sodium Level 145 H White Blood Count 4.3 L Bedside Glucose 111 229 H 78 Test 06/20/16 20:20 Bedside Glucose 205 Medications Medications Current Medications Allopurinol (Zyloprim) 100 mg DAILY PO Last administered on 06/20/16 09:01; Admin Dose 100 MG; Start 06/09/16 at 09:00 Aspirin (Halfprin) 81 mg DAILY PO Last administered on 06/12/16 08:23; Admin Dose 81 MG; Start 06/09/16 at 09:00; Status Future Hold Febuxostat (Uloric) 40 mg DAILY PO Last administered on 06/20/16 09:01; Admin Dose 40 MG; Start 06/09/16 at 09:00 Folic Acid (Folic Acid) 1 mg DAILY PO Last administered on 06/20/16 09:01; Admin Dose 1 MG; Start 06/09/16 at 09:00 Ibuprofen (Motrin) 800 mg DAILY PRN PO PRN Last administered on 06/12/16 10:27 ; Admin Dose 800 MG; Start 06/08/16 at 10:00 Tamsulosin HCl (Flomax) 0.4 mg DAILY PO Last administered on 06/20/16 09:00; Admin Dose 0.4 MG; Start 06/09/16 at 09:00 Cholecalciferol (Vitamin D) 400 units DAILY PO Last administered on 06/20/16 09 :00; Admin Dose 400 UNITS; Start 06/09/16 at 09:00 Fish Oil (Fish Oil) 1,000 mg DAILY PO Last administered on 06/20/16 09:00; Admin Dose 1,000 MG; Start 06/09/16 at 09:00 Acetaminophen (Tylenol Tab) 650 mg Q6H PRN PO PAIN AND OR ELEVATED TEMP Last administered on 06/17/16 08:26; Admin Dose 650 MG; Start 06/08/16 at 10:00 Ondansetron HCl (Zofran Tab) 4 mg Q6 PRN PO NAUSEA AND/OR VOMITING Last administered on 06/16/16 07:54; Admin Dose 4 MG; Start 06/08/16 at 10:00 Docusate Sodium (Colace) 100 mg BID PO Last administered on 06/20/16 20:24; Admin Dose 100 MG; Start 06/08/16 at 21:00 Apixaban (Eliquis) 5 mg BID PO Last administered on 06/20/16 20:23; Admin Dose 5 MG; Start 06/08/16 at 12:30 Morphine Sulfate (morphine) 2 mg Q3 PRN IV PAIN LEVEL 7-10 Last administered on 06/18/16 01:24; Admin Dose 2 MG; Start 06/08/16 at 11:00 Miscellaneous Information 1 ea NOTE XX ; Start 06/08/16 at 11:30 Glucose (Glutose) 15 gm Q15M PRN PO DECREASED GLUCOSE; Start 06/08/16 at 11:30 Glucose (Glutose) 22.5 gm Q15M PRN PO DECREASED GLUCOSE; Start 06/08/16 at 11: 30 Dextrose (D50w Syringe) 25 ml Q15M PRN IV DECREASED GLUCOSE; Start 06/08/16 at 11:30 Dextrose (D50w Syringe) 50 ml Q15M PRN IV DECREASED GLUCOSE; Start 06/08/16 at 11:30 Glucagon (Glucagen) 1 mg Q15M PRN IM DECREASED GLUCOSE; Start 06/08/16 at 11:30 Glucose (Glutose) 15 gm Q15M PRN BUCCAL DECREASED GLUCOSE; Start 06/08/16 at 11 :30 Ondansetron HCl (Zofran Inj) 4 mg Q6H PRN IV NAUSEA AND/OR VOMITING Last administered on 06/09/16 02:19; Admin Dose 4 MG; Start 06/09/16 at 02:30 Pantoprazole (Protonix Tab) 40 mg DAILY@06 PO Last administered on 06/20/16 05: 23; Admin Dose 40 MG; Start 06/16/16 at 06:00 Hydralazine HCl 20 mg 20 mg Q6H PRN IV ELEVATED BLOOD PRESSURE>180 Last administered on 06/16/16 18:28; Admin Dose 20 MG; Start 06/15/16 at 20:00 Diltiazem HCl (Cardizem-D5W 125 Mg/125 ml Drip) 125 ml @ 0 mls/hr Q0M IV Last administered on 3/4/17at 23:05; Admin Dose 5 MLS/HR; Start 06/15/16 at 21:30 Ondansetron HCl (Zofran Inj) 4 mg Q4H PRN IV NAUSEA AND/OR VOMITING; Start 06/15 at 21:30 Potassium Chloride (Klor-Con 10) 10 meq BID PO Last administered on 06/20/16 20 :23; Admin Dose 10 MEQ; Start 06/16/16 at 21:00 Lisinopril (Zestril) 10 mg DAILY PO Last administered on 06/20/16 09:01; Admin Dose 10 MG; Start 06/18/16 at 09:00 Diltiazem HCl (Cardizem) 60 mg Q8 PO Last administered on 06/20/16 14:12; Admin Dose 60 MG; Start 06/18/16 at 22:00 Metoprolol Tartrate (Lopressor) 25 mg BID PO Last administered on 06/20/16 20: 23; Admin Dose 25 MG; Start 06/18/16 at 21:00 Insulin Glargine (Lantus) 10 unit HS SC ; Start 06/20/16 at 21:00 CIELO FONG MD Jun 20, 2016 21:41
[2016-06-20] MEDS: INSULIN GLARGINE [LANtus] 3 ML PEN SC SCH (22:09)
[2016-06-21] VITALS (13 sets, daily range): BP systolic 95–127; BP diastolic 53–84; PULSE 56–90; RESP 16–18
[2016-06-21] MEDS: LEVALBUTEROL (NEB) 0.63 MG/3 ML AMP HHN SCH ×6 (01:22→21:09)
[2016-06-21 06:27] LABS: ADD SCAN DIFF NO
[2016-06-21] MEDS: PANTOPRAZOLE (EC) 40 MG TAB PO SCH (06:35)
[2016-06-21] MEDS: FUROSEMIDE 40 MG INJ IV SCH ×2 (06:35→17:25)
[2016-06-21] MEDS: DILTIAZEM 60 MG TAB PO SCH ×3 (06:35→22:19)
[2016-06-21 06:48] LABS: BASOPHIL # 0.1 10^3/ul (0.0-0.1); BASOPHILS % 1.6 % (0.0-2.0); EOSINOPHILS # 0.1 10^3/ul (0.0-0.5); EOSINOPHILS % 2.9 % (0.0-7.0); HEMATOCRIT 34.4 % (37.0-47.0); HEMOGLOBIN 11.4 g/dl (12.0-16.0); LYMPHOCYTES # 2.1 10^3/ul (0.8-2.9); LYMPHOCYTES % 46.5 % (15.0-51.0); MEAN CORPUSCULAR HEMOGLOBIN 32.9 pg (29.0-33.0); MEAN CORPUSCULAR HGB CONC 33.1 g/dl (32.0-37.0); MEAN CORPUSCULAR VOLUME 99.4 fl (82.0-101.0); MEAN PLATELET VOLUME 11.1 fl (7.4-10.4); MONOCYTE # 0.5 10^3/ul (0.3-0.9); MONOCYTES % 11.8 % (0.0-11.0); NEUTROPHIL # 1.6 10^3/ul (1.6-7.5); PLATELET COUNT 151 10^3/UL (140-415); RED BLOOD COUNT 3.46 10^6/ul (4.20-5.40); WHITE BLOOD COUNT 4.4 10^3/ul (4.8-10.8)
[2016-06-21 06:50] LABS: POTASSIUM 4.1 mmol/L (3.5-5.1)
[2016-06-21 06:52] LABS: CREATININE 0.78 mg/dl (0.44-1.00)
[2016-06-21 06:53] LABS: CALCIUM 8.6 mg/dl (8.4-10.2)
[2016-06-21] MEDS: INSULIN ASPART [NOVOLOG] 3 ML PEN SC SCH ×4 (07:55→20:40)
[2016-06-21] MEDS: FOLIC ACID 1 MG TAB PO SCH (08:44)
[2016-06-21] MEDS: ALLOPURINOL 100 MG TAB PO SCH (08:44)
[2016-06-21] MEDS: DOCUSATE SODIUM 100 MG CAP PO SCH ×2 (08:45→20:41)
[2016-06-21] MEDS: TAMSULOSIN (SR) 0.4 MG CAP PO SCH (08:45)
[2016-06-21] MEDS: CHOLECALCIFEROL 400 UNITS TAB PO SCH (08:45)
[2016-06-21] MEDS: FEBUXOSTAT 40 MG TABLET PO SCH (08:45)
[2016-06-21] MEDS: FISH OIL 1,000 MG CAP PO SCH (08:45)
[2016-06-21] MEDS: POTASSIUM CHLORIDE (SR) 10 MEQ TAB PO SCH ×2 (08:45→20:41)
[2016-06-21] MEDS: METOPROLOL 25 MG TAB PO SCH ×2 (08:45→20:41)
[2016-06-21] MEDS: APIXABAN 5 MG TABLET PO SCH ×2 (08:45→20:42)
[2016-06-21] MEDS: LISINOPRIL 10 MG TAB PO SCH (08:46)
--- NOTE | 2016-06-21 12:12 | CONS ---
Date/Time of Note Date/Time of Note DATE: 06/21/16 TIME: 12:11 Assessment/Plan Assessment/Plan Additional Assessment/Plan 1. Acute kidney injury, likely secondary to cardiorenal syndrome. The patient is on Lasix 20 mg IV b.i.d. for diuresis. 2. Acute congestive heart failure exacerbation, acute on chronic, systolic. 3. Atrial fibrillation with rapid ventricular rate. 4. Hypertension. 5. Hyperlipidemia. 6. Diabetes mellitus. 7. Possible chronic kidney disease secondary to diabetic nephropathy. PLAN: renal Us reviewed, Cr improved to normal, Na 145 on cardizem for rate control on lisinopril and MTP For HTN s/p EGD which showed gastritis with erosive gastritis. Helicobacter pylori was done and the results are pending will follow up Consultation Date/Type/Reason Admit Date/Time Jun 07, 2016 at 22:30 Initial Consult Date May Type of Consultation: NEPHROLOGY Referring Provider: MARTÍN WALDROP MD 24 HR Interval Summary Free Text/Dictation HR more stable, no acute events, na 145 Exam/Review of Systems Vital Signs Vitals Vital Signs Date Time Temp Pulse Resp B/P Pulse Ox O2 Delivery O2 Flow Rate FiO2 06/21/16 11:15 94.7 63 18 111/58 94 06/21/16 09:53 21 06/19/16 21:55 Nasal Cannula 2.0 Intake and Output 06/20/16 06/20/16 06/21/16 15:00 23:00 07:00 Intake Total 720 ml 450 ml Output Total 1850 ml Balance -1130 ml 450 ml Exam no acute distress NECK: Supple, no JVD, no lymphadenopathy. LUNGS: Clear to auscultation. No crackles, no wheezes. HEART: S1, S2, with regular rhythm, no murmur. ABDOMEN: Soft, nontender, nondistended. Bowel sounds are present. EXTREMITIES: No clubbing, cyanosis, or edema Results Result Diagram: 06/21/16 0535 06/21/16 0535 Results 24 hrs Laboratory Tests Test 06/20/16 12:43 06/20/16 18:09 06/20/16 20:20 06/21/16 03:04 Bedside Glucose 229 H 78 205 94 Test 06/21/16 05:35 06/21/16 08:33 Anion Gap 14 Basophils # 0.1 Basophils % 1.6 Blood Urea Nitrogen 11 Calcium Level 8.6 Carbon Dioxide Level 35 H Chloride Level 100 Creatinine 0.78 Eosinophils # 0.1 Eosinophils % 2.9 Glucose Level 86 Hematocrit 34.4 L Hemoglobin 11.4 L Lymphocytes # 2.1 Lymphocytes % 46.5 Mean Corpuscular Hemoglobin 32.9 Mean Corpuscular Hemoglobin Concent 33.1 Mean Corpuscular Volume 99.4 Mean Platelet Volume 11.1 H Monocytes # 0.5 Monocytes % 11.8 H Neutrophils # 1.6 Neutrophils % 37.0 L Nucleated Red Blood Cells # 0.0 Nucleated Red Blood Cells % 0.0 Platelet Count 151 Potassium Level 4.1 Red Blood Count 3.46 L Red Cell Distribution Width 14.0 Sodium Level 145 H White Blood Count 4.4 L Bedside Glucose 118 Medications Medications Current Medications Allopurinol (Zyloprim) 100 mg DAILY PO Last administered on 06/21/16 08:44; Admin Dose 100 MG; Start 06/09/16 at 09:00 Aspirin (Halfprin) 81 mg DAILY PO Last administered on 06/12/16 08:23; Admin Dose 81 MG; Start 06/09/16 at 09:00; Status Future Hold Febuxostat (Uloric) 40 mg DAILY PO Last administered on 06/21/16 08:45; Admin Dose 40 MG; Start 06/09/16 at 09:00 Folic Acid (Folic Acid) 1 mg DAILY PO Last administered on 06/21/16 08:44; Admin Dose 1 MG; Start 06/09/16 at 09:00 Ibuprofen (Motrin) 800 mg DAILY PRN PO PRN Last administered on 06/12/16 10:27 ; Admin Dose 800 MG; Start 06/08/16 at 10:00 Tamsulosin HCl (Flomax) 0.4 mg DAILY PO Last administered on 06/21/16 08:45; Admin Dose 0.4 MG; Start 06/09/16 at 09:00 Cholecalciferol (Vitamin D) 400 units DAILY PO Last administered on 06/21/16 08:45; Admin Dose 400 UNITS; Start 06/09/16 at 09:00 Fish Oil (Fish Oil) 1,000 mg DAILY PO Last administered on 06/21/16 08:45; Admin Dose 1,000 MG; Start 06/09/16 at 09:00 Acetaminophen (Tylenol Tab) 650 mg Q6H PRN PO PAIN AND OR ELEVATED TEMP Last administered on 06/17/16 08:26; Admin Dose 650 MG; Start 06/08/16 at 10:00 Ondansetron HCl (Zofran Tab) 4 mg Q6 PRN PO NAUSEA AND/OR VOMITING Last administered on 06/16/16 07:54; Admin Dose 4 MG; Start 06/08/16 at 10:00 Docusate Sodium (Colace) 100 mg BID PO Last administered on 06/21/16 08:45; Admin Dose 100 MG; Start 06/08/16 at 21:00 Apixaban (Eliquis) 5 mg BID PO Last administered on 06/21/16 08:45; Admin Dose 5 MG; Start 06/08/16 at 12:30 Morphine Sulfate (morphine) 2 mg Q3 PRN IV PAIN LEVEL 7-10 Last administered on 06/18/16 01:24; Admin Dose 2 MG; Start 06/08/16 at 11:00 Miscellaneous Information 1 ea NOTE XX ; Start 06/08/16 at 11:30 Glucose (Glutose) 15 gm Q15M PRN PO DECREASED GLUCOSE; Start 06/08/16 at 11:30 Glucose (Glutose) 22.5 gm Q15M PRN PO DECREASED GLUCOSE; Start 06/08/16 at 11: 30 Dextrose (D50w Syringe) 25 ml Q15M PRN IV DECREASED GLUCOSE; Start 06/08/16 at 11:30 Dextrose (D50w Syringe) 50 ml Q15M PRN IV DECREASED GLUCOSE; Start 06/08/16 at 11:30 Glucagon (Glucagen) 1 mg Q15M PRN IM DECREASED GLUCOSE; Start 06/08/16 at 11:30 Glucose (Glutose) 15 gm Q15M PRN BUCCAL DECREASED GLUCOSE; Start 06/08/16 at 11 :30 Ondansetron HCl (Zofran Inj) 4 mg Q6H PRN IV NAUSEA AND/OR VOMITING Last administered on 06/09/16 02:19; Admin Dose 4 MG; Start 06/09/16 at 02:30 Pantoprazole (Protonix Tab) 40 mg DAILY@06 PO Last administered on 06/21/16 06 :35; Admin Dose 40 MG; Start 06/16/16 at 06:00 Hydralazine HCl 20 mg 20 mg Q6H PRN IV ELEVATED BLOOD PRESSURE>180 Last administered on 06/16/16 18:28; Admin Dose 20 MG; Start 06/15/16 at 20:00 Diltiazem HCl (Cardizem-D5W 125 Mg/125 ml Drip) 125 ml @ 0 mls/hr Q0M IV Last administered on 06/15/16 23:05; Admin Dose 5 MLS/HR; Start 06/15/16 at 21:30 Ondansetron HCl (Zofran Inj) 4 mg Q4H PRN IV NAUSEA AND/OR VOMITING; Start 06/15 at 21:30 Potassium Chloride (Klor-Con 10) 10 meq BID PO Last administered on 06/21/16 08:45; Admin Dose 10 MEQ; Start 06/16/16 at 21:00 Lisinopril (Zestril) 10 mg DAILY PO Last administered on 06/21/16 08:46; Admin Dose 10 MG; Start 06/18/16 at 09:00 Diltiazem HCl (Cardizem) 60 mg Q8 PO Last administered on 06/21/16 06:35; Admin Dose 60 MG; Start 06/18/16 at 22:00 Metoprolol Tartrate (Lopressor) 25 mg BID PO Last administered on 06/21/16 08: 45; Admin Dose 25 MG; Start 06/18/16 at 21:00 Insulin Glargine (Lantus) 10 unit HS SC Last administered on 06/20/16 22:09; Admin Dose 10 UNIT; Start 06/20/16 at 21:00 CIELO FONG MD Jun 21, 2016 12:12
--- NOTE | 2016-06-21 12:26 | CONS ---
Date/Time of Note Date/Time of Note DATE: 06/21/16 TIME: 12:23 Assessment/Plan Assessment/Plan Chief Complaint/Hosp Course IMp: 1.AF-Currently reasonable rate control on eliquis 2.Cardiomyopathy-EF 15% by echo this admit. Negative lexiscan 02/27 no ischemia 3.CHF-systolic acute on chronic 4.abd pain/gastritis by EGD 5.REnal failure-improved 6.Hotn-improved 7.HL 8.DM Recc -Tele -Continue BB/Dilt and follow HR/BP closely -Continue lasix diuresis and follow volume status closely and creatnine -Continue ACEI afterload reduction and follow safety admin assistant closely -Continue apixaban -F/U Bx from EGD Problems: Consultation Date/Type/Reason Admit Date/Time Jun 07, 2016 at 22:30 Initial Consult Date 06/08/16 Type of Consultation: Cardiology Reason for Consultation CHF Referring Provider: MARTÍN WALDROP MD Exam/Review of Systems Vital Signs Vitals Vital Signs Date Time Temp Pulse Resp B/P Pulse Ox O2 Delivery O2 Flow Rate FiO2 06/21/16 12:11 73 06/21/16 11:15 94.7 18 111/58 94 06/21/16 09:53 21 06/19/16 21:55 Nasal Cannula 2.0 Intake and Output 06/20/16 06/20/16 06/21/16 15:00 23:00 07:00 Intake Total 720 ml 450 ml Output Total 1850 ml Balance -1130 ml 450 ml Exam Review of Systems: CONSTITUTIONAL: No fevers, chills. PULMONARY: mild sob CARDIOVASCULAR: No chest pain/palpitations GASTROINTESTINAL: No nausea/vomiting. GENITOURINARY: No hematuria/dysuria. MUSCULOSKELETAL: No myagias/arthalgias. PSYCHIATRIC: The patient denies depression. NEUROLOGIC: No weakness Constitutional: alert, oriented Psych: no complaints Head: normocephalic ENMT: mucosa pink and moist Neck: jvd (9 cm water), supple Respiratory: diminished breath sounds (at bases/B) Cardiovascular: irregular rhythm Gastrointestinal: soft Musculoskeletal: muscle tone (normal) Extremities: edema (trace/B) Neurological: other (No focal deficits) Results Result Diagram: 06/21/16 0535 06/21/16 0535 Results 24 hrs Laboratory Tests Test 06/20/16 12:43 06/20/16 18:09 06/20/16 20:20 06/21/16 03:04 Bedside Glucose 229 H 78 205 94 Test 06/21/16 05:35 06/21/16 08:33 Anion Gap 14 Basophils # 0.1 Basophils % 1.6 Blood Urea Nitrogen 11 Calcium Level 8.6 Carbon Dioxide Level 35 H Chloride Level 100 Creatinine 0.78 Eosinophils # 0.1 Eosinophils % 2.9 Glucose Level 86 Hematocrit 34.4 L Hemoglobin 11.4 L Lymphocytes # 2.1 Lymphocytes % 46.5 Mean Corpuscular Hemoglobin 32.9 Mean Corpuscular Hemoglobin Concent 33.1 Mean Corpuscular Volume 99.4 Mean Platelet Volume 11.1 H Monocytes # 0.5 Monocytes % 11.8 H Neutrophils # 1.6 Neutrophils % 37.0 L Nucleated Red Blood Cells # 0.0 Nucleated Red Blood Cells % 0.0 Platelet Count 151 Potassium Level 4.1 Red Blood Count 3.46 L Red Cell Distribution Width 14.0 Sodium Level 145 H White Blood Count 4.4 L Bedside Glucose 118 Medications Medications Current Medications Allopurinol (Zyloprim) 100 mg DAILY PO Last administered on 06/21/16 08:44; Admin Dose 100 MG; Start 06/09/16 at 09:00 Aspirin (Halfprin) 81 mg DAILY PO Last administered on 06/12/16 08:23; Admin Dose 81 MG; Start 06/09/16 at 09:00; Status Future Hold Febuxostat (Uloric) 40 mg DAILY PO Last administered on 06/21/16 08:45; Admin Dose 40 MG; Start 06/09/16 at 09:00 Folic Acid (Folic Acid) 1 mg DAILY PO Last administered on 06/21/16 08:44; Admin Dose 1 MG; Start 06/09/16 at 09:00 Ibuprofen (Motrin) 800 mg DAILY PRN PO PRN Last administered on 06/12/16 10:27 ; Admin Dose 800 MG; Start 06/08/16 at 10:00 Tamsulosin HCl (Flomax) 0.4 mg DAILY PO Last administered on 06/21/16 08:45; Admin Dose 0.4 MG; Start 06/09/16 at 09:00 Cholecalciferol (Vitamin D) 400 units DAILY PO Last administered on 06/21/16 08:45; Admin Dose 400 UNITS; Start 06/09/16 at 09:00 Fish Oil (Fish Oil) 1,000 mg DAILY PO Last administered on 06/21/16 08:45; Admin Dose 1,000 MG; Start 06/09/16 at 09:00 Acetaminophen (Tylenol Tab) 650 mg Q6H PRN PO PAIN AND OR ELEVATED TEMP Last administered on 06/17/16 08:26; Admin Dose 650 MG; Start 06/08/16 at 10:00 Ondansetron HCl (Zofran Tab) 4 mg Q6 PRN PO NAUSEA AND/OR VOMITING Last administered on 06/16/16 07:54; Admin Dose 4 MG; Start 06/08/16 at 10:00 Docusate Sodium (Colace) 100 mg BID PO Last administered on 06/21/16 08:45; Admin Dose 100 MG; Start 06/08/16 at 21:00 Apixaban (Eliquis) 5 mg BID PO Last administered on 06/21/16 08:45; Admin Dose 5 MG; Start 06/08/16 at 12:30 Morphine Sulfate (morphine) 2 mg Q3 PRN IV PAIN LEVEL 7-10 Last administered on 06/18/16 01:24; Admin Dose 2 MG; Start 06/08/16 at 11:00 Miscellaneous Information 1 ea NOTE XX ; Start 06/08/16 at 11:30 Glucose (Glutose) 15 gm Q15M PRN PO DECREASED GLUCOSE; Start 06/08/16 at 11:30 Glucose (Glutose) 22.5 gm Q15M PRN PO DECREASED GLUCOSE; Start 06/08/16 at 11: 30 Dextrose (D50w Syringe) 25 ml Q15M PRN IV DECREASED GLUCOSE; Start 06/08/16 at 11:30 Dextrose (D50w Syringe) 50 ml Q15M PRN IV DECREASED GLUCOSE; Start 06/08/16 at 11:30 Glucagon (Glucagen) 1 mg Q15M PRN IM DECREASED GLUCOSE; Start 06/08/16 at 11:30 Glucose (Glutose) 15 gm Q15M PRN BUCCAL DECREASED GLUCOSE; Start 06/08/16 at 11 :30 Ondansetron HCl (Zofran Inj) 4 mg Q6H PRN IV NAUSEA AND/OR VOMITING Last administered on 06/09/16 02:19; Admin Dose 4 MG; Start 06/09/16 at 02:30 Pantoprazole (Protonix Tab) 40 mg DAILY@06 PO Last administered on 06/21/16 06 :35; Admin Dose 40 MG; Start 06/16/16 at 06:00 Hydralazine HCl 20 mg 20 mg Q6H PRN IV ELEVATED BLOOD PRESSURE>180 Last administered on 06/16/16 18:28; Admin Dose 20 MG; Start 06/15/16 at 20:00 Diltiazem HCl (Cardizem-D5W 125 Mg/125 ml Drip) 125 ml @ 0 mls/hr Q0M IV Last administered on 06/15/16 23:05; Admin Dose 5 MLS/HR; Start 06/15/16 at 21:30 Ondansetron HCl (Zofran Inj) 4 mg Q4H PRN IV NAUSEA AND/OR VOMITING; Start 06/15 at 21:30 Potassium Chloride (Klor-Con 10) 10 meq BID PO Last administered on 06/21/16 08:45; Admin Dose 10 MEQ; Start 06/16/16 at 21:00 Lisinopril (Zestril) 10 mg DAILY PO Last administered on 06/21/16 08:46; Admin Dose 10 MG; Start 06/18/16 at 09:00 Diltiazem HCl (Cardizem) 60 mg Q8 PO Last administered on 06/21/16 06:35; Admin Dose 60 MG; Start 06/18/16 at 22:00 Metoprolol Tartrate (Lopressor) 25 mg BID PO Last administered on 06/21/16 08: 45; Admin Dose 25 MG; Start 06/18/16 at 21:00 Insulin Glargine (Lantus) 10 unit HS SC Last administered on 06/20/16 22:09; Admin Dose 10 UNIT; Start 06/20/16 at 21:00 ORQUIDEA GUILLAUME Jun 21, 2016 12:26
--- NOTE | 2016-06-21 14:15 | PN ---
Date/Time of Note Date/Time of Note DATE: 06/21/16 TIME: 14:14 Assessment/Plan VTE Prophylaxis VTE Prophylaxis Intervention: SCD's Lines/Catheters IV [facility]ter Type (from [facility]): [facility] Urinary Cath still in place: No Assessment/Plan Chief Complaint/Hosp Course Assessment and plan - Atrial fibrillation with rapid ventricular response. Patient is currently in atrial fibrillation at controlled rate. is following and cardiology consultation. Continue metoprolol and Eliquis. Continue Cardizem. - Erosive gastritis per EGD. Continue Protonix. Dr. Urias is following in cart in gastroenterology consultation - Diabetes mellitus type 2. Continue NovoLog per sliding scale. 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 Continue IV Lasix. - Obesity. Weight loss advised. - S/p cholecystectomy Further recommendations based on clinical course. Plan of care discussed with Dr. Chao. Problems: Subjective 24 Hr Interval Summary Free Text/Dictation Patient sitting in chair breathing comfortably, complains of shortness of breath on with exertion, atrial fibrillation rate is well controlled. Exam/Review of Systems Vital Signs Vitals Vital Signs Date Time Temp Pulse Resp B/P Pulse Ox O2 Delivery O2 Flow Rate FiO2 06/21/16 12:16 56 06/21/16 11:15 94.7 18 111/58 94 06/21/16 09:53 21 06/19/16 21:55 Nasal Cannula 2.0 Intake and Output 06/20/16 06/20/16 06/21/16 15:00 23:00 07:00 Intake Total 720 ml 450 ml Output Total 1850 ml Balance -1130 ml 450 ml Exam Constitutional: alert, obese, oriented, well developed Psych: no complaints Head: atraumatic, normocephalic Eyes: nl conjunctiva ENMT: nl external ears & nose Neck: non-tender, supple Respiratory: clear to auscultation Cardiovascular: other (Atrial fibrillation) Gastrointestinal: other (Epigastric tenderness), soft Genitourinary - Female: nl adnexae Musculoskeletal: nl extremities to inspection Extremities: normal pulses Neurological: 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 BILLER/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 II-XII intact Results Result Diagram: 06/21/16 0535 06/21/16 0535 Results 24 hrs Laboratory Tests Test 06/20/16 18:09 06/20/16 20:20 06/21/16 03:04 06/21/16 05:35 Bedside Glucose 78 205 94 Anion Gap 14 Basophils # 0.1 Basophils % 1.6 Blood Urea Nitrogen 11 Calcium Level 8.6 Carbon Dioxide Level 35 H Chloride Level 100 Creatinine 0.78 Eosinophils # 0.1 Eosinophils % 2.9 Glucose Level 86 Hematocrit 34.4 L Hemoglobin 11.4 L Lymphocytes # 2.1 Lymphocytes % 46.5 Mean Corpuscular Hemoglobin 32.9 Mean Corpuscular Hemoglobin Concent 33.1 Mean Corpuscular Volume 99.4 Mean Platelet Volume 11.1 H Monocytes # 0.5 Monocytes % 11.8 H Neutrophils # 1.6 Neutrophils % 37.0 L Nucleated Red Blood Cells # 0.0 Nucleated Red Blood Cells % 0.0 Platelet Count 151 Potassium Level 4.1 Red Blood Count 3.46 L Red Cell Distribution Width 14.0 Sodium Level 145 H White Blood Count 4.4 L Test 06/21/16 08:33 06/21/16 12:17 Bedside Glucose 118 101 Medications Medications Current Medications Allopurinol (Zyloprim) 100 mg DAILY PO Last administered on 06/21/16 08:44; Admin Dose 100 MG; Start 06/09/16 at 09:00 Aspirin (Halfprin) 81 mg DAILY PO Last administered on 06/12/16 08:23; Admin Dose 81 MG; Start 06/09/16 at 09:00; Status Future Hold Febuxostat (Uloric) 40 mg DAILY PO Last administered on 06/21/16 08:45; Admin Dose 40 MG; Start 06/09/16 at 09:00 Folic Acid (Folic Acid) 1 mg DAILY PO Last administered on 06/21/16 08:44; Admin Dose 1 MG; Start 06/09/16 at 09:00 Ibuprofen (Motrin) 800 mg DAILY PRN PO PRN Last administered on 06/12/16 10:27 ; Admin Dose 800 MG; Start 06/08/16 at 10:00 Tamsulosin HCl (Flomax) 0.4 mg DAILY PO Last administered on 06/21/16 08:45; Admin Dose 0.4 MG; Start 06/09/16 at 09:00 Cholecalciferol (Vitamin D) 400 units DAILY PO Last administered on 06/21/16 08:45; Admin Dose 400 UNITS; Start 06/09/16 at 09:00 Fish Oil (Fish Oil) 1,000 mg DAILY PO Last administered on 06/21/16 08:45; Admin Dose 1,000 MG; Start 06/09/16 at 09:00 Acetaminophen (Tylenol Tab) 650 mg Q6H PRN PO PAIN AND OR ELEVATED TEMP Last administered on 06/17/16 08:26; Admin Dose 650 MG; Start 06/08/16 at 10:00 Ondansetron HCl (Zofran Tab) 4 mg Q6 PRN PO NAUSEA AND/OR VOMITING Last administered on 06/16/16 07:54; Admin Dose 4 MG; Start 06/08/16 at 10:00 Docusate Sodium (Colace) 100 mg BID PO Last administered on 06/21/16 08:45; Admin Dose 100 MG; Start 06/08/16 at 21:00 Apixaban (Eliquis) 5 mg BID PO Last administered on 06/21/16 08:45; Admin Dose 5 MG; Start 06/08/16 at 12:30 Morphine Sulfate (morphine) 2 mg Q3 PRN IV PAIN LEVEL 7-10 Last administered on 06/18/16 01:24; Admin Dose 2 MG; Start 06/08/16 at 11:00 Miscellaneous Information 1 ea NOTE XX ; Start 06/08/16 at 11:30 Glucose (Glutose) 15 gm Q15M PRN PO DECREASED GLUCOSE; Start 06/08/16 at 11:30 Glucose (Glutose) 22.5 gm Q15M PRN PO DECREASED GLUCOSE; Start 06/08/16 at 11: 30 Dextrose (D50w Syringe) 25 ml Q15M PRN IV DECREASED GLUCOSE; Start 06/08/16 at 11:30 Dextrose (D50w Syringe) 50 ml Q15M PRN IV DECREASED GLUCOSE; Start 06/08/16 at 11:30 Glucagon (Glucagen) 1 mg Q15M PRN IM DECREASED GLUCOSE; Start 06/08/16 at 11:30 Glucose (Glutose) 15 gm Q15M PRN BUCCAL DECREASED GLUCOSE; Start 06/08/16 at 11 :30 Ondansetron HCl (Zofran Inj) 4 mg Q6H PRN IV NAUSEA AND/OR VOMITING Last administered on 06/09/16 02:19; Admin Dose 4 MG; Start 06/09/16 at 02:30 Pantoprazole (Protonix Tab) 40 mg DAILY@06 PO Last administered on 06/21/16 06 :35; Admin Dose 40 MG; Start 06/16/16 at 06:00 Hydralazine HCl 20 mg 20 mg Q6H PRN IV ELEVATED BLOOD PRESSURE>180 Last administered on 06/16/16 18:28; Admin Dose 20 MG; Start 06/15/16 at 20:00 Diltiazem HCl (Cardizem-D5W 125 Mg/125 ml Drip) 125 ml @ 0 mls/hr Q0M IV Last administered on 06/15/16 23:05; Admin Dose 5 MLS/HR; Start 06/15/16 at 21:30 Ondansetron HCl (Zofran Inj) 4 mg Q4H PRN IV NAUSEA AND/OR VOMITING; Start 06/15 at 21:30 Potassium Chloride (Klor-Con 10) 10 meq BID PO Last administered on 06/21/16 08:45; Admin Dose 10 MEQ; Start 06/16/16 at 21:00 Lisinopril (Zestril) 10 mg DAILY PO Last administered on 06/21/16 08:46; Admin Dose 10 MG; Start 06/18/16 at 09:00 Diltiazem HCl (Cardizem) 60 mg Q8 PO Last administered on 06/21/16 12:57; Admin Dose 60 MG; Start 06/18/16 at 22:00 Metoprolol Tartrate (Lopressor) 25 mg BID PO Last administered on 06/21/16 08: 45; Admin Dose 25 MG; Start 06/18/16 at 21:00 Insulin Glargine (Lantus) 10 unit HS SC Last administered on 06/20/16 22:09; Admin Dose 10 UNIT; Start 06/20/16 at 21:00 RISHI LINDSAY Jun 21, 2016 14:15
[2016-06-21] MEDS: INSULIN GLARGINE [LANtus] 3 ML PEN SC SCH (20:57)
[2016-06-22] VITALS (13 sets, daily range): BP systolic 92–138; BP diastolic 56–73; PULSE 62–102; RESP 15–18
[2016-06-22] MEDS: LEVALBUTEROL (NEB) 0.63 MG/3 ML AMP HHN SCH ×6 (01:20→20:23)
[2016-06-22 05:46] LABS: ADD SCAN DIFF NO
[2016-06-22 06:17] LABS: POTASSIUM 3.9 mmol/L (3.5-5.1)
[2016-06-22 06:19] LABS: BASOPHIL # 0.1 10^3/ul (0.0-0.1); BASOPHILS % 1.1 % (0.0-2.0); CREATININE 0.81 mg/dl (0.44-1.00); EOSINOPHILS # 0.2 10^3/ul (0.0-0.5); HEMATOCRIT 34.7 % (37.0-47.0); HEMOGLOBIN 11.4 g/dl (12.0-16.0); LYMPHOCYTES % 36.6 % (15.0-51.0); MEAN CORPUSCULAR HEMOGLOBIN 32.6 pg (29.0-33.0); MEAN CORPUSCULAR HGB CONC 32.9 g/dl (32.0-37.0); MEAN CORPUSCULAR VOLUME 99.1 fl (82.0-101.0); MEAN PLATELET VOLUME 11.5 fl (7.4-10.4); MONOCYTE # 0.6 10^3/ul (0.3-0.9); MONOCYTES % 10.3 % (0.0-11.0); NEUTROPHIL # 2.6 10^3/ul (1.6-7.5); NEUTROPHILS % 48.6 % (39.0-77.0); PLATELET COUNT 157 10^3/UL (140-415); RED CELL DISTRIBUTION WIDTH 13.8 % (11.5-14.5); WHITE BLOOD COUNT 5.4 10^3/ul (4.8-10.8)
[2016-06-22 06:20] LABS: CALCIUM 8.5 mg/dl (8.4-10.2)
[2016-06-22] MEDS: FUROSEMIDE 40 MG INJ IV SCH ×2 (06:45→17:24)
[2016-06-22] MEDS: DILTIAZEM 60 MG TAB PO SCH ×2 (06:46→13:36)
[2016-06-22] MEDS: PANTOPRAZOLE (EC) 40 MG TAB PO SCH (06:46)
[2016-06-22] MEDS: INSULIN ASPART [NOVOLOG] 3 ML PEN SC SCH ×4 (07:38→20:42)
[2016-06-22] MEDS: FISH OIL 1,000 MG CAP PO SCH (08:49)
[2016-06-22] MEDS: ALLOPURINOL 100 MG TAB PO SCH (08:49)
[2016-06-22] MEDS: DOCUSATE SODIUM 100 MG CAP PO SCH ×2 (08:49→20:40)
[2016-06-22] MEDS: APIXABAN 5 MG TABLET PO SCH ×2 (08:49→20:40)
[2016-06-22] MEDS: METOPROLOL 25 MG TAB PO SCH ×2 (08:49→20:40)
[2016-06-22] MEDS: FEBUXOSTAT 40 MG TABLET PO SCH (08:49)
[2016-06-22] MEDS: TAMSULOSIN (SR) 0.4 MG CAP PO SCH (08:50)
[2016-06-22] MEDS: POTASSIUM CHLORIDE (SR) 10 MEQ TAB PO SCH ×2 (08:50→20:40)
[2016-06-22] MEDS: LISINOPRIL 10 MG TAB PO SCH (08:50)
[2016-06-22] MEDS: FOLIC ACID 1 MG TAB PO SCH (08:50)
[2016-06-22] MEDS: CHOLECALCIFEROL 400 UNITS TAB PO SCH (08:50)
--- NOTE | 2016-06-22 12:28 | CONS ---
Date/Time of Note Date/Time of Note DATE: 06/22/16 TIME: 12:27 Assessment/Plan Assessment/Plan Additional Assessment/Plan 1. Acute kidney injury, likely secondary to cardiorenal syndrome. The patient is on Lasix 20 mg IV b.i.d. for diuresis. 2. Acute congestive heart failure exacerbation, acute on chronic, systolic. 3. Atrial fibrillation with rapid ventricular rate. 4. Hypertension. 5. Hyperlipidemia. 6. Diabetes mellitus. 7. Possible chronic kidney disease secondary to diabetic nephropathy. PLAN: renal Us reviewed, Cr improved to normal, Na 143 on cardizem for rate control on lisinopril and MTP For HTN s/p EGD which showed gastritis with erosive gastritis. Helicobacter pylori was done and the results are pending will follow up Consultation Date/Type/Reason Admit Date/Time Jun 07, 2016 at 22:30 Initial Consult Date May Type of Consultation: NEPHROLOGY Referring Provider: MARTÍN WALDROP MD 24 HR Interval Summary Free Text/Dictation no acute events, electrolytes and Cr stable Exam/Review of Systems Vital Signs Vitals Vital Signs Date Time Temp Pulse Resp B/P Pulse Ox O2 Delivery O2 Flow Rate FiO2 06/22/16 11:17 98.1 91 18 92/56 100 06/22/16 11:12 21 06/19/16 21:55 Nasal Cannula 2.0 Intake and Output 06/21/16 06/21/16 06/22/16 15:00 23:00 07:00 Intake Total 860 ml 500 ml Output Total 1000 ml Balance 860 ml -500 ml Exam Constitutional: alert, oriented Respiratory: diminished breath sounds (at bases/B) Cardiovascular: irregular rhythm Gastrointestinal: soft Musculoskeletal: muscle tone (normal) Extremities: edema (trace/B) Neurological: other (No focal deficits) Results Result Diagram: 06/22/16 0516 06/22/16 0516 Results 24 hrs Laboratory Tests Test 06/21/16 17:20 06/21/16 20:38 06/22/16 05:16 06/22/16 07:36 Bedside Glucose 198 106 101 Anion Gap 14 Basophils # 0.1 Basophils % 1.1 Blood Urea Nitrogen 14 Calcium Level 8.5 Carbon Dioxide Level 33 H Chloride Level 100 Creatinine 0.81 Eosinophils # 0.2 Eosinophils % 3.0 Glucose Level 94 Hematocrit 34.7 L Hemoglobin 11.4 L Lymphocytes # 2.0 Lymphocytes % 36.6 Mean Corpuscular Hemoglobin 32.6 Mean Corpuscular Hemoglobin Concent 32.9 Mean Corpuscular Volume 99.1 Mean Platelet Volume 11.5 H Monocytes # 0.6 Monocytes % 10.3 Neutrophils # 2.6 Neutrophils % 48.6 Nucleated Red Blood Cells # 0.0 Nucleated Red Blood Cells % 0.0 Platelet Count 157 Potassium Level 3.9 Red Blood Count 3.50 L Red Cell Distribution Width 13.8 Sodium Level 143 White Blood Count 5.4 # Test 06/22/16 11:53 Bedside Glucose 112 Medications Medications Current Medications Allopurinol (Zyloprim) 100 mg DAILY PO Last administered on 06/22/16 08:49; Admin Dose 100 MG; Start 06/09/16 at 09:00 Aspirin (Halfprin) 81 mg DAILY PO Last administered on 06/12/16 08:23; Admin Dose 81 MG; Start 06/09/16 at 09:00; Status Future Hold Febuxostat (Uloric) 40 mg DAILY PO Last administered on 06/22/16 08:49; Admin Dose 40 MG; Start 06/09/16 at 09:00 Folic Acid (Folic Acid) 1 mg DAILY PO Last administered on 06/22/16 08:50; Admin Dose 1 MG; Start 06/09/16 at 09:00 Ibuprofen (Motrin) 800 mg DAILY PRN PO PRN Last administered on 06/12/16 10:27 ; Admin Dose 800 MG; Start 06/08/16 at 10:00 Tamsulosin HCl (Flomax) 0.4 mg DAILY PO Last administered on 06/22/16 08:50; Admin Dose 0.4 MG; Start 06/09/16 at 09:00 Cholecalciferol (Vitamin D) 400 units DAILY PO Last administered on 06/22/16 08:50; Admin Dose 400 UNITS; Start 06/09/16 at 09:00 Fish Oil (Fish Oil) 1,000 mg DAILY PO Last administered on 06/22/16 08:49; Admin Dose 1,000 MG; Start 06/09/16 at 09:00 Acetaminophen (Tylenol Tab) 650 mg Q6H PRN PO PAIN AND OR ELEVATED TEMP Last administered on 06/17/16 08:26; Admin Dose 650 MG; Start 06/08/16 at 10:00 Ondansetron HCl (Zofran Tab) 4 mg Q6 PRN PO NAUSEA AND/OR VOMITING Last administered on 06/16/16 07:54; Admin Dose 4 MG; Start 06/08/16 at 10:00 Docusate Sodium (Colace) 100 mg BID PO Last administered on 06/22/16 08:49; Admin Dose 100 MG; Start 06/08/16 at 21:00 Apixaban (Eliquis) 5 mg BID PO Last administered on 06/22/16 08:49; Admin Dose 5 MG; Start 06/08/16 at 12:30 Morphine Sulfate (morphine) 2 mg Q3 PRN IV PAIN LEVEL 7-10 Last administered on 06/18/16 01:24; Admin Dose 2 MG; Start 06/08/16 at 11:00 Miscellaneous Information 1 ea NOTE XX ; Start 06/08/16 at 11:30 Glucose (Glutose) 15 gm Q15M PRN PO DECREASED GLUCOSE; Start 06/08/16 at 11:30 Glucose (Glutose) 22.5 gm Q15M PRN PO DECREASED GLUCOSE; Start 06/08/16 at 11: 30 Dextrose (D50w Syringe) 25 ml Q15M PRN IV DECREASED GLUCOSE; Start 06/08/16 at 11:30 Dextrose (D50w Syringe) 50 ml Q15M PRN IV DECREASED GLUCOSE; Start 06/08/16 at 11:30 Glucagon (Glucagen) 1 mg Q15M PRN IM DECREASED GLUCOSE; Start 06/08/16 at 11:30 Glucose (Glutose) 15 gm Q15M PRN BUCCAL DECREASED GLUCOSE; Start 06/08/16 at 11 :30 Ondansetron HCl (Zofran Inj) 4 mg Q6H PRN IV NAUSEA AND/OR VOMITING Last administered on 06/09/16 02:19; Admin Dose 4 MG; Start 06/09/16 at 02:30 Pantoprazole (Protonix Tab) 40 mg DAILY@06 PO Last administered on 06/22/16 06 :46; Admin Dose 40 MG; Start 06/16/16 at 06:00 Hydralazine HCl 20 mg 20 mg Q6H PRN IV ELEVATED BLOOD PRESSURE>180 Last administered on 06/16/16 18:28; Admin Dose 20 MG; Start 06/15/16 at 20:00 Diltiazem HCl (Cardizem-D5W 125 Mg/125 ml Drip) 125 ml @ 0 mls/hr Q0M IV Last administered on 06/15/16 23:05; Admin Dose 5 MLS/HR; Start 06/15/16 at 21:30 Ondansetron HCl (Zofran Inj) 4 mg Q4H PRN IV NAUSEA AND/OR VOMITING; Start 06/15 at 21:30 Potassium Chloride (Klor-Con 10) 10 meq BID PO Last administered on 06/22/16 08:50; Admin Dose 10 MEQ; Start 06/16/16 at 21:00 Lisinopril (Zestril) 10 mg DAILY PO Last administered on 06/22/16 08:50; Admin Dose 10 MG; Start 06/18/16 at 09:00 Diltiazem HCl (Cardizem) 60 mg Q8 PO Last administered on 06/22/16 06:46; Admin Dose 60 MG; Start 06/18/16 at 22:00 Metoprolol Tartrate (Lopressor) 25 mg BID PO Last administered on 06/22/16 08: 49; Admin Dose 25 MG; Start 06/18/16 at 21:00 Insulin Glargine (Lantus) 10 unit HS SC Last administered on 06/21/16 20:57; Admin Dose 10 UNIT; Start 06/20/16 at 21:00 CIELO FONG MD Jun 22, 2016 12:28
--- NOTE | 2016-06-22 12:49 | PN ---
Date/Time of Note Date/Time of Note DATE: 06/22/16 TIME: 12:36 Assessment/Plan VTE Prophylaxis VTE Prophylaxis Intervention: other Lines/Catheters [facility] Urinary Cath still in place: No Assessment/Plan Assessment/Plan - Atrial fibrillation with rapid ventricular response. Patient is currently in atrial fibrillation at controlled rate. - per Dr. Rico in cardiology consultation. Continue metoprolol and Eliquis. Continue Cardizem. - Erosive gastritis per EGD. Continue Protonix. - per Dr. Urias in gastroenterology consultation - Diabetes mellitus type 2. Continue NovoLog per sliding scale. 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 Continue Lasix. - Obesity. Weight loss advised. - sp cholecystectomy Further recommendations based on clinical course. Plan of care discussed with Dr. Chao. Subjective 24 Hr Interval Summary Eyes: no complaints Respiratory: no complaints Cardiovascular: no complaints Gastrointestinal: other (acid formation) Genitourinary: no complaints Exam/Review of Systems Vital Signs Vitals Vital Signs Date Time Temp Pulse Resp B/P Pulse Ox O2 Delivery O2 Flow Rate FiO2 06/22/16 12:26 62 06/22/16 11:17 98.1 18 92/56 100 06/22/16 11:12 21 06/19/16 21:55 Nasal Cannula 2.0 Intake and Output 06/21/16 06/21/16 06/22/16 15:00 23:00 07:00 Intake Total 860 ml 500 ml Output Total 1000 ml Balance 860 ml -500 ml Exam Constitutional: alert, oriented, well developed Psych: nl mood/affect Head: atraumatic Eyes: EOMI, PERRL, nl sclera ENMT: nl external ears & nose Neck: non-tender Respiratory: clear to auscultation Cardiovascular: nl pulses Gastrointestinal: non-tender, soft Musculoskeletal: nl extremities to inspection Extremities: normal pulses Neurological: nl mental status, nl speech Skin: nl turgor Results Result Diagram: 06/22/1616 06/22/16 0516 Results 24 hrs Laboratory Tests Test 06/21/16 17:20 06/21/16 20:38 06/22/16 05:16 06/22/16 07:36 Bedside Glucose 198 106 101 Anion Gap 14 Basophils # 0.1 Basophils % 1.1 Blood Urea Nitrogen 14 Calcium Level 8.5 Carbon Dioxide Level 33 H Chloride Level 100 Creatinine 0.81 Eosinophils # 0.2 Eosinophils % 3.0 Glucose Level 94 Hematocrit 34.7 L Hemoglobin 11.4 L Lymphocytes # 2.0 Lymphocytes % 36.6 Mean Corpuscular Hemoglobin 32.6 Mean Corpuscular Hemoglobin Concent 32.9 Mean Corpuscular Volume 99.1 Mean Platelet Volume 11.5 H Monocytes # 0.6 Monocytes % 10.3 Neutrophils # 2.6 Neutrophils % 48.6 Nucleated Red Blood Cells # 0.0 Nucleated Red Blood Cells % 0.0 Platelet Count 157 Potassium Level 3.9 Red Blood Count 3.50 L Red Cell Distribution Width 13.8 Sodium Level 143 White Blood Count 5.4 # Test 06/22/16 11:53 Bedside Glucose 112 Medications Medications Current Medications Allopurinol (Zyloprim) 100 mg DAILY PO Last administered on 06/22/16 08:49; Admin Dose 100 MG; Start 06/09/16 at 09:00 Aspirin (Halfprin) 81 mg DAILY PO Last administered on 06/12/16 08:23; Admin Dose 81 MG; Start 06/09/16 at 09:00; Status Future Hold Febuxostat (Uloric) 40 mg DAILY PO Last administered on 06/22/16 08:49; Admin Dose 40 MG; Start 06/09/16 at 09:00 Folic Acid (Folic Acid) 1 mg DAILY PO Last administered on 06/22/16 08:50; Admin Dose 1 MG; Start 06/09/16 at 09:00 Ibuprofen (Motrin) 800 mg DAILY PRN PO PRN Last administered on 06/12/16 10:27 ; Admin Dose 800 MG; Start 06/08/16 at 10:00 Tamsulosin HCl (Flomax) 0.4 mg DAILY PO Last administered on 06/22/16 08:50; Admin Dose 0.4 MG; Start 06/09/16 at 09:00 Cholecalciferol (Vitamin D) 400 units DAILY PO Last administered on 06/22/16 08:50; Admin Dose 400 UNITS; Start 06/09/16 at 09:00 Fish Oil (Fish Oil) 1,000 mg DAILY PO Last administered on 06/22/16 08:49; Admin Dose 1,000 MG; Start 06/09/16 at 09:00 Acetaminophen (Tylenol Tab) 650 mg Q6H PRN PO PAIN AND OR ELEVATED TEMP Last administered on 06/17/16 08:26; Admin Dose 650 MG; Start 06/08/16 at 10:00 Ondansetron HCl (Zofran Tab) 4 mg Q6 PRN PO NAUSEA AND/OR VOMITING Last administered on 06/16/16 07:54; Admin Dose 4 MG; Start 06/08/16 at 10:00 Docusate Sodium (Colace) 100 mg BID PO Last administered on 06/22/16 08:49; Admin Dose 100 MG; Start 06/08/16 at 21:00 Apixaban (Eliquis) 5 mg BID PO Last administered on 06/22/16 08:49; Admin Dose 5 MG; Start 06/08/16 at 12:30 Morphine Sulfate (morphine) 2 mg Q3 PRN IV PAIN LEVEL 7-10 Last administered on 06/18/16 01:24; Admin Dose 2 MG; Start 06/08/16 at 11:00 Miscellaneous Information 1 ea NOTE XX ; Start 06/08/16 at 11:30 Glucose (Glutose) 15 gm Q15M PRN PO DECREASED GLUCOSE; Start 06/08/16 at 11:30 Glucose (Glutose) 22.5 gm Q15M PRN PO DECREASED GLUCOSE; Start 06/08/16 at 11: 30 Dextrose (D50w Syringe) 25 ml Q15M PRN IV DECREASED GLUCOSE; Start 06/08/16 at 11:30 Dextrose (D50w Syringe) 50 ml Q15M PRN IV DECREASED GLUCOSE; Start 06/08/16 at 11:30 Glucagon (Glucagen) 1 mg Q15M PRN IM DECREASED GLUCOSE; Start 06/08/16 at 11:30 Glucose (Glutose) 15 gm Q15M PRN BUCCAL DECREASED GLUCOSE; Start 06/08/16 at 11 :30 Ondansetron HCl (Zofran Inj) 4 mg Q6H PRN IV NAUSEA AND/OR VOMITING Last administered on 06/09/16 02:19; Admin Dose 4 MG; Start 06/09/16 at 02:30 Pantoprazole (Protonix Tab) 40 mg DAILY@06 PO Last administered on 06/22/16 06 :46; Admin Dose 40 MG; Start 06/16/16 at 06:00 Hydralazine HCl 20 mg 20 mg Q6H PRN IV ELEVATED BLOOD PRESSURE>180 Last administered on 06/16/16 18:28; Admin Dose 20 MG; Start 06/15/16 at 20:00 Diltiazem HCl (Cardizem-D5W 125 Mg/125 ml Drip) 125 ml @ 0 mls/hr Q0M IV Last administered on 06/15/16 23:05; Admin Dose 5 MLS/HR; Start 06/15/16 at 21:30 Ondansetron HCl (Zofran Inj) 4 mg Q4H PRN IV NAUSEA AND/OR VOMITING; Start 06/15 at 21:30 Potassium Chloride (Klor-Con 10) 10 meq BID PO Last administered on 06/22/16 08:50; Admin Dose 10 MEQ; Start 06/16/16 at 21:00 Lisinopril (Zestril) 10 mg DAILY PO Last administered on 06/22/16 08:50; Admin Dose 10 MG; Start 06/18/16 at 09:00 Diltiazem HCl (Cardizem) 60 mg Q8 PO Last administered on 06/22/16 06:46; Admin Dose 60 MG; Start 06/18/16 at 22:00 Metoprolol Tartrate (Lopressor) 25 mg BID PO Last administered on 06/22/16 08: 49; Admin Dose 25 MG; Start 06/18/16 at 21:00 Insulin Glargine (Lantus) 10 unit HS SC Last administered on 06/21/16 20:57; Admin Dose 10 UNIT; Start 06/20/16 at 21:00 MINDY BARNES Jun 22, 2016 12:46
--- NOTE | 2016-06-22 14:15 | CONS ---
Date/Time of Note Date/Time of Note DATE: 06/22/16 TIME: 14:11 Assessment/Plan Assessment/Plan Chief Complaint/Hosp Course IMp: 1.AF-Currently reasonable rate control on eliquis 2.Cardiomyopathy-EF 15% by echo this admit. Negative lexiscan 02/27 no ischemia 3.CHF-systolic acute on chronic 4.abd pain/gastritis by EGD 5.REnal failure-improved 6.Hotn-improved 7.HL 8.DM Recc -Tele -Continue BB and decrease diltiazem to allow patient to better tolerate and follow HR/BP closely -Continue lasix diuresis and follow volume status closely and creatnine with likely change to PO lasix -Continue ACEI afterload reduction and follow oil well shooter closely -Continue apixaban -F/U Bx from EGD -check cxr Problems: Consultation Date/Type/Reason Admit Date/Time Jun 07, 2016 at 22:30 Initial Consult Date 06/08/16 Type of Consultation: Cardiology Reason for Consultation cardiomyopathy Referring Provider: MARTÍN WALDROP MD Exam/Review of Systems Vital Signs Vitals Vital Signs Date Time Temp Pulse Resp B/P Pulse Ox O2 Delivery O2 Flow Rate FiO2 06/22/16 12:26 62 06/22/16 11:17 98.1 18 92/56 100 06/22/16 11:12 21 06/19/16 21:55 Nasal Cannula 2.0 Intake and Output 06/21/16 06/21/16 06/22/16 15:00 23:00 07:00 Intake Total 860 ml 500 ml Output Total 1000 ml Balance 860 ml -500 ml Exam Review of Systems: CONSTITUTIONAL: No fevers, chills. PULMONARY: No sob CARDIOVASCULAR: No chest pain/palpitations GASTROINTESTINAL: No nausea/vomiting. GENITOURINARY: No hematuria/dysuria. MUSCULOSKELETAL: No myagias/arthalgias. PSYCHIATRIC: The patient denies depression. NEUROLOGIC: No weakness Constitutional: alert, oriented Psych: no complaints Head: normocephalic ENMT: mucosa pink and moist Neck: jvd (9 cm water), supple Respiratory: clear to auscultation Cardiovascular: irregular rhythm Gastrointestinal: non-tender, soft Musculoskeletal: muscle tone (normal) Extremities: edema (none) Neurological: other (No focal deficits) Results Result Diagram: 06/22/16 0516 06/22/16 0516 Results 24 hrs Laboratory Tests Test 06/21/16 17:20 06/21/16 20:38 06/22/16 05:16 06/22/16 07:36 Bedside Glucose 198 106 101 Anion Gap 14 Basophils # 0.1 Basophils % 1.1 Blood Urea Nitrogen 14 Calcium Level 8.5 Carbon Dioxide Level 33 H Chloride Level 100 Creatinine 0.81 Eosinophils # 0.2 Eosinophils % 3.0 Glucose Level 94 Hematocrit 34.7 L Hemoglobin 11.4 L Lymphocytes # 2.0 Lymphocytes % 36.6 Mean Corpuscular Hemoglobin 32.6 Mean Corpuscular Hemoglobin Concent 32.9 Mean Corpuscular Volume 99.1 Mean Platelet Volume 11.5 H Monocytes # 0.6 Monocytes % 10.3 Neutrophils # 2.6 Neutrophils % 48.6 Nucleated Red Blood Cells # 0.0 Nucleated Red Blood Cells % 0.0 Platelet Count 157 Potassium Level 3.9 Red Blood Count 3.50 L Red Cell Distribution Width 13.8 Sodium Level 143 White Blood Count 5.4 # Test 06/22/16 11:53 Bedside Glucose 112 Medications Medications Current Medications Allopurinol (Zyloprim) 100 mg DAILY PO Last administered on 06/22/16 08:49; Admin Dose 100 MG; Start 06/09/16 at 09:00 Aspirin (Halfprin) 81 mg DAILY PO Last administered on 06/12/16 08:23; Admin Dose 81 MG; Start 06/09/16 at 09:00; Status Future Hold Febuxostat (Uloric) 40 mg DAILY PO Last administered on 06/22/16 08:49; Admin Dose 40 MG; Start 06/09/16 at 09:00 Folic Acid (Folic Acid) 1 mg DAILY PO Last administered on 06/22/16 08:50; Admin Dose 1 MG; Start 06/09/16 at 09:00 Ibuprofen (Motrin) 800 mg DAILY PRN PO PRN Last administered on 06/12/16 10:27 ; Admin Dose 800 MG; Start 06/08/16 at 10:00 Tamsulosin HCl (Flomax) 0.4 mg DAILY PO Last administered on 06/22/16 08:50; Admin Dose 0.4 MG; Start 06/09/16 at 09:00 Cholecalciferol (Vitamin D) 400 units DAILY PO Last administered on 06/22/16 08:50; Admin Dose 400 UNITS; Start 06/09/16 at 09:00 Fish Oil (Fish Oil) 1,000 mg DAILY PO Last administered on 06/22/16 08:49; Admin Dose 1,000 MG; Start 06/09/16 at 09:00 Acetaminophen (Tylenol Tab) 650 mg Q6H PRN PO PAIN AND OR ELEVATED TEMP Last administered on 06/17/16 08:26; Admin Dose 650 MG; Start 06/08/16 at 10:00 Ondansetron HCl (Zofran Tab) 4 mg Q6 PRN PO NAUSEA AND/OR VOMITING Last administered on 06/16/16 07:54; Admin Dose 4 MG; Start 06/08/16 at 10:00 Docusate Sodium (Colace) 100 mg BID PO Last administered on 06/22/16 08:49; Admin Dose 100 MG; Start 06/08/16 at 21:00 Apixaban (Eliquis) 5 mg BID PO Last administered on 06/22/16 08:49; Admin Dose 5 MG; Start 06/08/16 at 12:30 Morphine Sulfate (morphine) 2 mg Q3 PRN IV PAIN LEVEL 7-10 Last administered on 06/18/16 01:24; Admin Dose 2 MG; Start 06/08/16 at 11:00 Miscellaneous Information 1 ea NOTE XX ; Start 06/08/16 at 11:30 Glucose (Glutose) 15 gm Q15M PRN PO DECREASED GLUCOSE; Start 06/08/16 at 11:30 Glucose (Glutose) 22.5 gm Q15M PRN PO DECREASED GLUCOSE; Start 06/08/16 at 11: 30 Dextrose (D50w Syringe) 25 ml Q15M PRN IV DECREASED GLUCOSE; Start 06/08/16 at 11:30 Dextrose (D50w Syringe) 50 ml Q15M PRN IV DECREASED GLUCOSE; Start 06/08/16 at 11:30 Glucagon (Glucagen) 1 mg Q15M PRN IM DECREASED GLUCOSE; Start 06/08/16 at 11:30 Glucose (Glutose) 15 gm Q15M PRN BUCCAL DECREASED GLUCOSE; Start 06/08/16 at 11 :30 Ondansetron HCl (Zofran Inj) 4 mg Q6H PRN IV NAUSEA AND/OR VOMITING Last administered on 06/09/16 02:19; Admin Dose 4 MG; Start 06/09/16 at 02:30 Pantoprazole (Protonix Tab) 40 mg DAILY@06 PO Last administered on 06/22/16 06 :46; Admin Dose 40 MG; Start 06/16/16 at 06:00 Hydralazine HCl 20 mg 20 mg Q6H PRN IV ELEVATED BLOOD PRESSURE>180 Last administered on 06/16/16 18:28; Admin Dose 20 MG; Start 06/15/16 at 20:00 Diltiazem HCl (Cardizem-D5W 125 Mg/125 ml Drip) 125 ml @ 0 mls/hr Q0M IV Last administered on 06/15/16 23:05; Admin Dose 5 MLS/HR; Start 06/15/16 at 21:30 Ondansetron HCl (Zofran Inj) 4 mg Q4H PRN IV NAUSEA AND/OR VOMITING; Start 06/15 at 21:30 Potassium Chloride (Klor-Con 10) 10 meq BID PO Last administered on 06/22/16 08:50; Admin Dose 10 MEQ; Start 06/16/16 at 21:00 Lisinopril (Zestril) 10 mg DAILY PO Last administered on 06/22/16 08:50; Admin Dose 10 MG; Start 06/18/16 at 09:00 Diltiazem HCl (Cardizem) 60 mg Q8 PO Last administered on 06/22/16 06:46; Admin Dose 60 MG; Start 06/18/16 at 22:00 Metoprolol Tartrate (Lopressor) 25 mg BID PO Last administered on 06/22/16 08: 49; Admin Dose 25 MG; Start 06/18/16 at 21:00 Insulin Glargine (Lantus) 10 unit HS SC Last administered on 06/21/16 20:57; Admin Dose 10 UNIT; Start 06/20/16 at 21:00 ORQUIDEA GUILLAUME Jun 22, 2016 14:15
[2016-06-22] MEDS: INSULIN GLARGINE [LANtus] 3 ML PEN SC SCH (20:43)
[2016-06-22] MEDS: DILTIAZEM 30 MG TAB PO SCH (22:24)
[2016-06-23] VITALS (13 sets, daily range): BP systolic 81–127; BP diastolic 51–85; PULSE 79–118; RESP 15–20
[2016-06-23] MEDS: LEVALBUTEROL (NEB) 0.63 MG/3 ML AMP HHN SCH ×6 (00:29→20:49)
[2016-06-23 05:40] LABS: ADD SCAN DIFF NO
[2016-06-23 05:53] LABS: BASOPHIL # 0.1 10^3/ul (0.0-0.1); BASOPHILS % 1.4 % (0.0-2.0); EOSINOPHILS # 0.2 10^3/ul (0.0-0.5); EOSINOPHILS % 3.6 % (0.0-7.0); HEMATOCRIT 35.8 % (37.0-47.0); HEMOGLOBIN 11.8 g/dl (12.0-16.0); LYMPHOCYTES # 2.3 10^3/ul (0.8-2.9); LYMPHOCYTES % 40.7 % (15.0-51.0); MEAN CORPUSCULAR HEMOGLOBIN 32.3 pg (29.0-33.0); MEAN CORPUSCULAR VOLUME 98.1 fl (82.0-101.0); MEAN PLATELET VOLUME 11.2 fl (7.4-10.4); MONOCYTE # 0.5 10^3/ul (0.3-0.9); MONOCYTES % 9.3 % (0.0-11.0); NEUTROPHIL # 2.5 10^3/ul (1.6-7.5); NEUTROPHILS % 44.6 % (39.0-77.0); PLATELET COUNT 172 10^3/UL (140-415); RED BLOOD COUNT 3.65 10^6/ul (4.20-5.40); RED CELL DISTRIBUTION WIDTH 13.6 % (11.5-14.5); WHITE BLOOD COUNT 5.6 10^3/ul (4.8-10.8)
[2016-06-23] MEDS: DILTIAZEM 30 MG TAB PO SCH (06:00)
[2016-06-23 06:02] LABS: POTASSIUM 4.1 mmol/L (3.5-5.1)
[2016-06-23 06:05] LABS: CREATININE 0.96 mg/dl (0.44-1.00)
[2016-06-23 06:06] LABS: CALCIUM 8.7 mg/dl (8.4-10.2)
[2016-06-23] MEDS: PANTOPRAZOLE (EC) 40 MG TAB PO SCH (06:23)
[2016-06-23] MEDS: FUROSEMIDE 40 MG INJ IV SCH (06:23)
[2016-06-23] MEDS: INSULIN ASPART [NOVOLOG] 3 ML PEN SC SCH ×4 (07:37→20:41)
[2016-06-23] MEDS: CHOLECALCIFEROL 400 UNITS TAB PO SCH (08:28)
[2016-06-23] MEDS: APIXABAN 5 MG TABLET PO SCH ×2 (08:28→20:29)
[2016-06-23] MEDS: TAMSULOSIN (SR) 0.4 MG CAP PO SCH (08:29)
[2016-06-23] MEDS: METOPROLOL 25 MG TAB PO SCH ×2 (08:29→20:29)
[2016-06-23] MEDS: FISH OIL 1,000 MG CAP PO SCH (08:29)
[2016-06-23] MEDS: LISINOPRIL 10 MG TAB PO SCH (08:29)
[2016-06-23] MEDS: FOLIC ACID 1 MG TAB PO SCH (08:29)
[2016-06-23] MEDS: FEBUXOSTAT 40 MG TABLET PO SCH (08:29)
[2016-06-23] MEDS: ALLOPURINOL 100 MG TAB PO SCH (08:29)
[2016-06-23] MEDS: POTASSIUM CHLORIDE (SR) 10 MEQ TAB PO SCH ×2 (08:29→20:29)
[2016-06-23] MEDS: DOCUSATE SODIUM 100 MG CAP PO SCH ×2 (08:30→20:29)
[2016-06-23] MEDS: ACETAMINOPHEN 325 MG TAB PO PRN (09:53)
--- NOTE | 2016-06-23 13:53 | CONS ---
Date/Time of Note Date/Time of Note DATE: 06/23/16 TIME: 13:48 Assessment/Plan Assessment/Plan Chief Complaint/Hosp Course IMp: 1.AF-Currently reasonable rate control on eliquis 2.Cardiomyopathy-EF 15% by echo this admit. Negative lexiscan 02/27 no ischemia 3.CHF-systolic acute on chronic 4.abd pain/gastritis by EGD 5.REnal failure-improved 6.Hotn-borderline with holding of diltiazem 7.HL 8.DM Recc -Tele -Continue BB -D/c diltiazem given marginal BP -start po digoxin and give IVP dose now to improve HR control acutely -Continue lasix with change to PO -Continue ACEI afterload reduction and follow ceramic tiler closely -Continue apixaban -F/U Bx from EGD Problems: Consultation Date/Type/Reason Admit Date/Time Jun 07, 2016 at 22:30 Initial Consult Date 06/08/16 Type of Consultation: Cardiology Reason for Consultation CHF/AF Referring Provider: MARTÍN WALDROP MD Exam/Review of Systems Vital Signs Vitals Vital Signs Date Time Temp Pulse Resp B/P Pulse Ox O2 Delivery O2 Flow Rate FiO2 06/23/16 12:55 21 06/23/16 12:17 91 06/23/16 11:49 18 97/55 06/23/16 11:46 97.9 97 06/22/16 17:27 Room Air 06/19/16 21:55 2.0 Intake and Output 06/22/16 06/22/16 06/23/16 15:00 23:00 07:00 Intake Total 720 ml 500 ml Balance 720 ml 500 ml Exam Review of Systems: CONSTITUTIONAL: No fevers, chills. PULMONARY: No sob CARDIOVASCULAR: No chest pain/palpitations GASTROINTESTINAL: No nausea/vomiting. GENITOURINARY: No hematuria/dysuria. MUSCULOSKELETAL: No myagias/arthalgias. PSYCHIATRIC: The patient denies depression. NEUROLOGIC: Mild weakness Constitutional: alert Psych: no complaints ENMT: mucosa pink and moist Neck: jvd (9cm water) Respiratory: diminished breath sounds Cardiovascular: irregular rhythm Gastrointestinal: non-tender, soft Musculoskeletal: muscle tone (normal) Extremities: edema (none) Neurological: other (No focal deficits) Results Result Diagram: 06/23/1614 06/23/16513 Results 24 hrs Laboratory Tests Test 06/22/16 17:21 06/22/16 20:36 06/23/16 05:14 06/23/16 07:30 Bedside Glucose 115 189 90 Anion Gap 15 Basophils # 0.1 Basophils % 1.4 Blood Urea Nitrogen 19 Calcium Level 8.7 Carbon Dioxide Level 33 H Chloride Level 100 Creatinine 0.96 Eosinophils # 0.2 Eosinophils % 3.6 Glucose Level 86 Hematocrit 35.8 L Hemoglobin 11.8 L Lymphocytes # 2.3 Lymphocytes % 40.7 Mean Corpuscular Hemoglobin 32.3 Mean Corpuscular Hemoglobin Concent 33.0 Mean Corpuscular Volume 98.1 Mean Platelet Volume 11.2 H Monocytes # 0.5 Monocytes % 9.3 Neutrophils # 2.5 Neutrophils % 44.6 Nucleated Red Blood Cells # 0.0 Nucleated Red Blood Cells % 0.0 Platelet Count 172 Potassium Level 4.1 Red Blood Count 3.65 L Red Cell Distribution Width 13.6 Sodium Level 144 White Blood Count 5.6 Test 06/23/16 11:48 Bedside Glucose 144 Medications Medications Current Medications Allopurinol (Zyloprim) 100 mg DAILY PO Last administered on 06/23/16 08:29; Admin Dose 100 MG; Start 06/09/16 at 09:00 Aspirin (Halfprin) 81 mg DAILY PO Last administered on 06/12/16 08:23; Admin Dose 81 MG; Start 06/09/16 at 09:00; Status Future Hold Febuxostat (Uloric) 40 mg DAILY PO Last administered on 06/23/16 08:29; Admin Dose 40 MG; Start 06/09/16 at 09:00 Folic Acid (Folic Acid) 1 mg DAILY PO Last administered on 06/23/16 08:29; Admin Dose 1 MG; Start 06/09/16 at 09:00 Ibuprofen (Motrin) 800 mg DAILY PRN PO PRN Last administered on 06/12/16 10:27 ; Admin Dose 800 MG; Start 06/08/16 at 10:00 Tamsulosin HCl (Flomax) 0.4 mg DAILY PO Last administered on 06/23/16 08:29; Admin Dose 0.4 MG; Start 06/09/16 at 09:00 Cholecalciferol (Vitamin D) 400 units DAILY PO Last administered on 06/23/16 08:28; Admin Dose 400 UNITS; Start 06/09/16 at 09:00 Fish Oil (Fish Oil) 1,000 mg DAILY PO Last administered on 06/23/16 08:29; Admin Dose 1,000 MG; Start 06/09/16 at 09:00 Acetaminophen (Tylenol Tab) 650 mg Q6H PRN PO PAIN AND OR ELEVATED TEMP Last administered on 06/23/16 09:53; Admin Dose 650 MG; Start 06/08/16 at 10:00 Ondansetron HCl (Zofran Tab) 4 mg Q6 PRN PO NAUSEA AND/OR VOMITING Last administered on 06/16/16 07:54; Admin Dose 4 MG; Start 06/08/16 at 10:00 Docusate Sodium (Colace) 100 mg BID PO Last administered on 06/23/16 08:30; Admin Dose 100 MG; Start 06/08/16 at 21:00 Apixaban (Eliquis) 5 mg BID PO Last administered on 06/23/16 08:28; Admin Dose 5 MG; Start 06/08/16 at 12:30 Morphine Sulfate (morphine) 2 mg Q3 PRN IV PAIN LEVEL 7-10 Last administered on 06/18/16 01:24; Admin Dose 2 MG; Start 06/08/16 at 11:00 Miscellaneous Information 1 ea NOTE XX ; Start 06/08/16 at 11:30 Glucose (Glutose) 15 gm Q15M PRN PO DECREASED GLUCOSE; Start 06/08/16 at 11:30 Glucose (Glutose) 22.5 gm Q15M PRN PO DECREASED GLUCOSE; Start 06/08/16 at 11: 30 Dextrose (D50w Syringe) 25 ml Q15M PRN IV DECREASED GLUCOSE; Start 06/08/16 at 11:30 Dextrose (D50w Syringe) 50 ml Q15M PRN IV DECREASED GLUCOSE; Start 06/08/16 at 11:30 Glucagon (Glucagen) 1 mg Q15M PRN IM DECREASED GLUCOSE; Start 06/08/16 at 11:30 Glucose (Glutose) 15 gm Q15M PRN BUCCAL DECREASED GLUCOSE; Start 06/08/16 at 11 :30 Ondansetron HCl (Zofran Inj) 4 mg Q6H PRN IV NAUSEA AND/OR VOMITING Last administered on 06/09/16 02:19; Admin Dose 4 MG; Start 06/09/16 at 02:30 Pantoprazole (Protonix Tab) 40 mg DAILY@06 PO Last administered on 06/23/16 06 :23; Admin Dose 40 MG; Start 06/16/16 at 06:00 Hydralazine HCl 20 mg 20 mg Q6H PRN IV ELEVATED BLOOD PRESSURE>180 Last administered on 06/16/16 18:28; Admin Dose 20 MG; Start 06/15/16 at 20:00 Diltiazem HCl (Cardizem-D5W 125 Mg/125 ml Drip) 125 ml @ 0 mls/hr Q0M IV Last administered on 06/15/16 23:05; Admin Dose 5 MLS/HR; Start 06/15/16 at 21:30 Ondansetron HCl (Zofran Inj) 4 mg Q4H PRN IV NAUSEA AND/OR VOMITING; Start 06/15 at 21:30 Potassium Chloride (Klor-Con 10) 10 meq BID PO Last administered on 06/23/16 08:29; Admin Dose 10 MEQ; Start 06/16/16 at 21:00 Lisinopril (Zestril) 10 mg DAILY PO Last administered on 06/23/16 08:29; Admin Dose 10 MG; Start 06/18/16 at 09:00 Metoprolol Tartrate (Lopressor) 25 mg BID PO Last administered on 06/23/16 08: 29; Admin Dose 25 MG; Start 06/18/16 at 21:00 Insulin Glargine (Lantus) 10 unit HS SC Last administered on 06/22/16 20:43; Admin Dose 10 UNIT; Start 06/20/16 at 21:00 Diltiazem HCl (Cardizem) 30 mg Q8 PO Last administered on 06/22/16 22:24; Admin Dose 30 MG; Start 06/22/16 at 22:00 ORQUIDEA GUILLAUME Jun 23, 2016 13:52
--- NOTE | 2016-06-23 14:09 | PN ---
Date/Time of Note Date/Time of Note DATE: 06/23/16 TIME: 14:02 Assessment/Plan VTE Prophylaxis VTE Prophylaxis Intervention: other Lines/Catheters IV [facility]ter Type [facility]from [facility] Urinary Cath still in place: No Assessment/Plan Assessment/Plan - Atrial fibrillation with rapid ventricular response. Patient is currently in atrial fibrillation at controlled rate. - per Dr. Rico in cardiology consultation. Continue metoprolol and Eliquis. Continue Cardizem. - Erosive gastritis per EGD. Continue Protonix. - per Dr. Urias in gastroenterology consultation - Diabetes mellitus type 2. Continue NovoLog per sliding scale. 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 Continue Lasix. - Obesity. Weight loss advised. - sp cholecystectomy Further recommendations based on clinical course. Plan of care discussed with Dr. Chao. Subjective 24 Hr Interval Summary Constitutional: improved Eyes: no complaints ENT: no complaints Respiratory: no complaints Cardiovascular: no complaints Gastrointestinal: no complaints Genitourinary: no complaints Musculoskeletal: no complaints Neurologic: no complaints Endocrine: no complaints Lymphatic: no complaints Psychological: no complaints Immunologic: no complaints Exam/Review of Systems Vital Signs Vitals Vital Signs Date Time Temp Pulse Resp B/P Pulse Ox O2 Delivery O2 Flow Rate FiO2 06/23/16 12:55 21 06/23/16 12:17 91 06/23/16 11:49 18 97/55 06/23/16 11:46 97.9 97 06/22/16 17:27 Room Air 06/19/16 21:55 2.0 Intake and Output 06/22/16 06/22/16 06/23/16 15:00 23:00 07:00 Intake Total 720 ml 500 ml Balance 720 ml 500 ml Exam Constitutional: alert, oriented, well developed Psych: nl mood/affect Head: atraumatic Eyes: EOMI ENMT: nl external ears & nose Neck: non-tender Respiratory: clear to auscultation Cardiovascular: nl pulses Gastrointestinal: non-tender, soft Musculoskeletal: nl extremities to inspection Extremities: normal pulses Neurological: nl mental status, nl speech Skin: nl turgor Lymph: nontender Results Result Diagram: 06/23/16 0514 06/23/16 0514 Results 24 hrs Laboratory Tests Test 06/22/16 17:21 06/22/16 20:36 06/23/16 05:14 06/23/16 07:30 Bedside Glucose 115 189 90 Anion Gap 15 Basophils # 0.1 Basophils % 1.4 Blood Urea Nitrogen 19 Calcium Level 8.7 Carbon Dioxide Level 33 H Chloride Level 100 Creatinine 0.96 Eosinophils # 0.2 Eosinophils % 3.6 Glucose Level 86 Hematocrit 35.8 L Hemoglobin 11.8 L Lymphocytes # 2.3 Lymphocytes % 40.7 Mean Corpuscular Hemoglobin 32.3 Mean Corpuscular Hemoglobin Concent 33.0 Mean Corpuscular Volume 98.1 Mean Platelet Volume 11.2 H Monocytes # 0.5 Monocytes % 9.3 Neutrophils # 2.5 Neutrophils % 44.6 Nucleated Red Blood Cells # 0.0 Nucleated Red Blood Cells % 0.0 Platelet Count 172 Potassium Level 4.1 Red Blood Count 3.65 L Red Cell Distribution Width 13.6 Sodium Level 144 White Blood Count 5.6 Test 06/23/16 11:48 Bedside Glucose 144 Medications Medications Current Medications Allopurinol (Zyloprim) 100 mg DAILY PO Last administered on 06/23/16 08:29; Admin Dose 100 MG; Start 06/09/16 at 09:00 Aspirin (Halfprin) 81 mg DAILY PO Last administered on 06/12/16 08:23; Admin Dose 81 MG; Start 06/09/16 at 09:00; Status Future Hold Febuxostat (Uloric) 40 mg DAILY PO Last administered on 06/23/16 08:29; Admin Dose 40 MG; Start 06/09/16 at 09:00 Folic Acid (Folic Acid) 1 mg DAILY PO Last administered on 06/23/16 08:29; Admin Dose 1 MG; Start 06/09/16 at 09:00 Ibuprofen (Motrin) 800 mg DAILY PRN PO PRN Last administered on 06/12/16 10:27 ; Admin Dose 800 MG; Start 06/08/16 at 10:00 Tamsulosin HCl (Flomax) 0.4 mg DAILY PO Last administered on 06/23/16 08:29; Admin Dose 0.4 MG; Start 06/09/16 at 09:00 Cholecalciferol (Vitamin D) 400 units DAILY PO Last administered on 06/23/16 08:28; Admin Dose 400 UNITS; Start 06/09/16 at 09:00 Fish Oil (Fish Oil) 1,000 mg DAILY PO Last administered on 06/23/16 08:29; Admin Dose 1,000 MG; Start 06/09/16 at 09:00 Acetaminophen (Tylenol Tab) 650 mg Q6H PRN PO PAIN AND OR ELEVATED TEMP Last administered on 06/23/16 09:53; Admin Dose 650 MG; Start 06/08/16 at 10:00 Ondansetron HCl (Zofran Tab) 4 mg Q6 PRN PO NAUSEA AND/OR VOMITING Last administered on 06/16/16 07:54; Admin Dose 4 MG; Start 06/08/16 at 10:00 Docusate Sodium (Colace) 100 mg BID PO Last administered on 06/23/16 08:30; Admin Dose 100 MG; Start 06/08/16 at 21:00 Apixaban (Eliquis) 5 mg BID PO Last administered on 06/23/16 08:28; Admin Dose 5 MG; Start 06/08/16 at 12:30 Morphine Sulfate (morphine) 2 mg Q3 PRN IV PAIN LEVEL 7-10 Last administered on 06/18/16 01:24; Admin Dose 2 MG; Start 06/08/16 at 11:00 Miscellaneous Information 1 ea NOTE XX ; Start 06/08/16 at 11:30 Glucose (Glutose) 15 gm Q15M PRN PO DECREASED GLUCOSE; Start 06/08/16 at 11:30 Glucose (Glutose) 22.5 gm Q15M PRN PO DECREASED GLUCOSE; Start 06/08/16 at 11: 30 Dextrose (D50w Syringe) 25 ml Q15M PRN IV DECREASED GLUCOSE; Start 06/08/16 at 11:30 Dextrose (D50w Syringe) 50 ml Q15M PRN IV DECREASED GLUCOSE; Start 06/08/16 at 11:30 Glucagon (Glucagen) 1 mg Q15M PRN IM DECREASED GLUCOSE; Start 06/08/16 at 11:30 Glucose (Glutose) 15 gm Q15M PRN BUCCAL DECREASED GLUCOSE; Start 06/08/16 at 11 :30 Ondansetron HCl (Zofran Inj) 4 mg Q6H PRN IV NAUSEA AND/OR VOMITING Last administered on 06/09/16 02:19; Admin Dose 4 MG; Start 06/09/16 at 02:30 Pantoprazole (Protonix Tab) 40 mg DAILY@06 PO Last administered on 06/23/16 06 :23; Admin Dose 40 MG; Start 06/16/16 at 06:00 Hydralazine HCl 20 mg 20 mg Q6H PRN IV ELEVATED BLOOD PRESSURE>180 Last administered on 06/16/16 18:28; Admin Dose 20 MG; Start 06/15/16 at 20:00 Diltiazem HCl (Cardizem-D5W 125 Mg/125 ml Drip) 125 ml @ 0 mls/hr Q0M IV Last administered on 06/15/16 23:05; Admin Dose 5 MLS/HR; Start 06/15/16 at 21:30 Ondansetron HCl (Zofran Inj) 4 mg Q4H PRN IV NAUSEA AND/OR VOMITING; Start 06/15 at 21:30 Potassium Chloride (Klor-Con 10) 10 meq BID PO Last administered on 06/23/16 08:29; Admin Dose 10 MEQ; Start 06/16/16 at 21:00 Lisinopril (Zestril) 10 mg DAILY PO Last administered on 06/23/16 08:29; Admin Dose 10 MG; Start 06/18/16 at 09:00 Metoprolol Tartrate (Lopressor) 25 mg BID PO Last administered on 06/23/16 08: 29; Admin Dose 25 MG; Start 06/18/16 at 21:00 Insulin Glargine (Lantus) 10 unit HS SC Last administered on 06/22/16 20:43; Admin Dose 10 UNIT; Start 06/20/16 at 21:00 Digoxin (Digoxin) 250 mcg Q6 IV ; Start 06/23/16 at 14:00; Stop 06/23/16 at 18: 01 Digoxin (Digoxin) 0.125 mg DAILY@13 PO ; Start 06/24/16 at 13:00 MINDY BARNES Jun 23, 2016 14:09 MINDY BARNES Jun 23, 2016 14:09
[2016-06-23] MEDS: DIGOXIN 500 MCG INJ IV SCH ×2 (14:21→20:28)
[2016-06-23] MEDS: FUROSEMIDE 40 MG TAB PO SCH (17:50)
[2016-06-23] MEDS: INSULIN GLARGINE [LANtus] 3 ML PEN SC SCH (20:41)
--- NOTE | 2016-06-23 22:21 | CONS ---
Date/Time of Note Date/Time of Note DATE: 06/23/16 TIME: 22:19 Assessment/Plan Assessment/Plan Additional Assessment/Plan 1. Acute kidney injury, likely secondary to cardiorenal syndrome. The patient is on Lasix 20 mg IV b.i.d. for diuresis. 2. Acute congestive heart failure exacerbation, acute on chronic, systolic. 3. Atrial fibrillation with rapid ventricular rate. 4. Hypertension. 5. Hyperlipidemia. 6. Diabetes mellitus. 7. Possible chronic kidney disease secondary to diabetic nephropathy. PLAN: lasix changed to PO, electrolytes and Cr normal on cardizem for rate control on lisinopril and MTP For HTN s/p EGD which showed gastritis with erosive gastritis. Helicobacter pylori was done and the results are pending will follow up Consultation Date/Type/Reason Admit Date/Time Jun 07, 2016 at 22:30 Initial Consult Date May Type of Consultation: NEPHROLOGY Reason for Consultation acute kidney injury, Hyperkalemia Referring Provider: MARTÍN WALDROP MD 24 HR Interval Summary Free Text/Dictation lasix changed to PO, electrolytes and Cr normal Exam/Review of Systems Vital Signs Vitals Vital Signs Date Time Temp Pulse Resp B/P Pulse Ox O2 Delivery O2 Flow Rate FiO2 06/23/16 20:42 101 20 94 21 06/23/16 18:51 98.1 127/85 06/22/16 17:27 Room Air 06/19/16 21:55 2.0 Intake and Output 06/22/16 06/22/16 06/23/16 15:00 23:00 07:00 Intake Total 720 ml 500 ml Balance 720 ml 500 ml Results Result Diagram: 06/23/16 0514 06/23/16 0514 Results 24 hrs Laboratory Tests Test 06/23/16 05:14 06/23/16 07:30 06/23/16 11:48 06/23/16 17:09 Anion Gap 15 Basophils # 0.1 Basophils % 1.4 Blood Urea Nitrogen 19 Calcium Level 8.7 Carbon Dioxide Level 33 H Chloride Level 100 Creatinine 0.96 Eosinophils # 0.2 Eosinophils % 3.6 Glucose Level 86 Hematocrit 35.8 L Hemoglobin 11.8 L Lymphocytes # 2.3 Lymphocytes % 40.7 Mean Corpuscular Hemoglobin 32.3 Mean Corpuscular Hemoglobin Concent 33.0 Mean Corpuscular Volume 98.1 Mean Platelet Volume 11.2 H Monocytes # 0.5 Monocytes % 9.3 Neutrophils # 2.5 Neutrophils % 44.6 Nucleated Red Blood Cells # 0.0 Nucleated Red Blood Cells % 0.0 Platelet Count 172 Potassium Level 4.1 Red Blood Count 3.65 L Red Cell Distribution Width 13.6 Sodium Level 144 White Blood Count 5.6 Bedside Glucose 90 144 93 Test 06/23/16 20:26 Bedside Glucose 214 Medications Medications Current Medications Allopurinol (Zyloprim) 100 mg DAILY PO Last administered on 06/23/16 08:29; Admin Dose 100 MG; Start 06/09/16 at 09:00 Aspirin (Halfprin) 81 mg DAILY PO Last administered on 06/12/16 08:23; Admin Dose 81 MG; Start 06/09/16 at 09:00; Status Future Hold Febuxostat (Uloric) 40 mg DAILY PO Last administered on 06/23/16 08:29; Admin Dose 40 MG; Start 06/09/16 at 09:00 Folic Acid (Folic Acid) 1 mg DAILY PO Last administered on 06/23/16 08:29; Admin Dose 1 MG; Start 06/09/16 at 09:00 Ibuprofen (Motrin) 800 mg DAILY PRN PO PRN Last administered on 06/12/16 10:27 ; Admin Dose 800 MG; Start 06/08/16 at 10:00 Tamsulosin HCl (Flomax) 0.4 mg DAILY PO Last administered on 06/23/16 08:29; Admin Dose 0.4 MG; Start 06/09/16 at 09:00 Cholecalciferol (Vitamin D) 400 units DAILY PO Last administered on 06/23/16 08:28; Admin Dose 400 UNITS; Start 06/09/16 at 09:00 Fish Oil (Fish Oil) 1,000 mg DAILY PO Last administered on 06/23/16 08:29; Admin Dose 1,000 MG; Start 06/09/16 at 09:00 Acetaminophen (Tylenol Tab) 650 mg Q6H PRN PO PAIN AND OR ELEVATED TEMP Last administered on 06/23/16 09:53; Admin Dose 650 MG; Start 06/08/16 at 10:00 Ondansetron HCl (Zofran Tab) 4 mg Q6 PRN PO NAUSEA AND/OR VOMITING Last administered on 06/16/16 07:54; Admin Dose 4 MG; Start 06/08/16 at 10:00 Docusate Sodium (Colace) 100 mg BID PO Last administered on 06/23/16 20:29; Admin Dose 100 MG; Start 06/08/16 at 21:00 Apixaban (Eliquis) 5 mg BID PO Last administered on 06/23/16 20:29; Admin Dose 5 MG; Start 06/08/16 at 12:30 Morphine Sulfate (morphine) 2 mg Q3 PRN IV PAIN LEVEL 7-10 Last administered on 06/18/16 01:24; Admin Dose 2 MG; Start 06/08/16 at 11:00 Miscellaneous Information 1 ea NOTE XX ; Start 06/08/16 at 11:30 Glucose (Glutose) 15 gm Q15M PRN PO DECREASED GLUCOSE; Start 06/08/16 at 11:30 Glucose (Glutose) 22.5 gm Q15M PRN PO DECREASED GLUCOSE; Start 06/08/16 at 11: 30 Dextrose (D50w Syringe) 25 ml Q15M PRN IV DECREASED GLUCOSE; Start 06/08/16 at 11:30 Dextrose (D50w Syringe) 50 ml Q15M PRN IV DECREASED GLUCOSE; Start 06/08/16 at 11:30 Glucagon (Glucagen) 1 mg Q15M PRN IM DECREASED GLUCOSE; Start 06/08/16 at 11:30 Glucose (Glutose) 15 gm Q15M PRN BUCCAL DECREASED GLUCOSE; Start 06/08/16 at 11 :30 Ondansetron HCl (Zofran Inj) 4 mg Q6H PRN IV NAUSEA AND/OR VOMITING Last administered on 06/09/16 02:19; Admin Dose 4 MG; Start 06/09/16 at 02:30 Pantoprazole (Protonix Tab) 40 mg DAILY@06 PO Last administered on 06/23/16 06 :23; Admin Dose 40 MG; Start 06/16/16 at 06:00 Hydralazine HCl 20 mg 20 mg Q6H PRN IV ELEVATED BLOOD PRESSURE>180 Last administered on 06/16/16 18:28; Admin Dose 20 MG; Start 06/15/16 at 20:00 Diltiazem HCl (Cardizem-D5W 125 Mg/125 ml Drip) 125 ml @ 0 mls/hr Q0M IV Last administered on 06/15/16 23:05; Admin Dose 5 MLS/HR; Start 06/15/16 at 21:30 Ondansetron HCl (Zofran Inj) 4 mg Q4H PRN IV NAUSEA AND/OR VOMITING; Start 06/15 at 21:30 Potassium Chloride (Klor-Con 10) 10 meq BID PO Last administered on 06/23/16 20:29; Admin Dose 10 MEQ; Start 06/16/16 at 21:00 Lisinopril (Zestril) 10 mg DAILY PO Last administered on 06/23/16 08:29; Admin Dose 10 MG; Start 06/18/16 at 09:00 Metoprolol Tartrate (Lopressor) 25 mg BID PO Last administered on 06/23/16 20: 29; Admin Dose 25 MG; Start 06/18/16 at 21:00 Insulin Glargine (Lantus) 10 unit HS SC Last administered on 06/23/16 20:41; Admin Dose 10 UNIT; Start 06/20/16 at 21:00 Digoxin (Digoxin) 0.125 mg DAILY@13 PO ; Start 06/24/16 at 13:00 CIELO FONG MD Jun 23, 2016 22:21
[2016-06-24] VITALS (13 sets, daily range): BP systolic 102–127; BP diastolic 57–75; PULSE 79–98; RESP 16–18
[2016-06-24] MEDS: LEVALBUTEROL (NEB) 0.63 MG/3 ML AMP HHN SCH ×6 (00:10→21:09)
[2016-06-24 05:30] LABS: ADD SCAN DIFF NO
[2016-06-24 05:34] LABS: BASOPHIL # 0.1 10^3/ul (0.0-0.1); BASOPHILS % 1.3 % (0.0-2.0); EOSINOPHILS # 0.2 10^3/ul (0.0-0.5); EOSINOPHILS % 4.6 % (0.0-7.0); HEMATOCRIT 36.5 % (37.0-47.0); HEMOGLOBIN 12.2 g/dl (12.0-16.0); LYMPHOCYTES # 1.9 10^3/ul (0.8-2.9); LYMPHOCYTES % 42.4 % (15.0-51.0); MEAN CORPUSCULAR HEMOGLOBIN 32.6 pg (29.0-33.0); MEAN CORPUSCULAR HGB CONC 33.4 g/dl (32.0-37.0); MEAN CORPUSCULAR VOLUME 97.6 fl (82.0-101.0); MONOCYTE # 0.4 10^3/ul (0.3-0.9); MONOCYTES % 9.2 % (0.0-11.0); NEUTROPHIL # 1.9 10^3/ul (1.6-7.5); NEUTROPHILS % 42.1 % (39.0-77.0); PLATELET COUNT 195 10^3/UL (140-415); RED BLOOD COUNT 3.74 10^6/ul (4.20-5.40); RED CELL DISTRIBUTION WIDTH 13.5 % (11.5-14.5); WHITE BLOOD COUNT 4.6 10^3/ul (4.8-10.8)
[2016-06-24 05:51] LABS: POTASSIUM 3.9 mmol/L (3.5-5.1)
[2016-06-24 05:53] LABS: CREATININE 0.89 mg/dl (0.44-1.00)
[2016-06-24 05:54] LABS: CALCIUM 8.6 mg/dl (8.4-10.2)
[2016-06-24] MEDS: PANTOPRAZOLE (EC) 40 MG TAB PO SCH (06:09)
[2016-06-24] MEDS: FUROSEMIDE 40 MG TAB PO SCH ×2 (06:10→17:36)
[2016-06-24] MEDS: INSULIN ASPART [NOVOLOG] 3 ML PEN SC SCH ×4 (07:55→20:21)
[2016-06-24] MEDS: METOPROLOL 25 MG TAB PO SCH ×2 (09:00→20:23)
[2016-06-24] MEDS: LISINOPRIL 10 MG TAB PO SCH (09:00)
[2016-06-24] MEDS: FEBUXOSTAT 40 MG TABLET PO SCH (09:36)
[2016-06-24] MEDS: FOLIC ACID 1 MG TAB PO SCH (09:36)
[2016-06-24] MEDS: POTASSIUM CHLORIDE (SR) 10 MEQ TAB PO SCH ×2 (09:36→20:22)
[2016-06-24] MEDS: TAMSULOSIN (SR) 0.4 MG CAP PO SCH (09:37)
[2016-06-24] MEDS: ALLOPURINOL 100 MG TAB PO SCH (09:37)
[2016-06-24] MEDS: APIXABAN 5 MG TABLET PO SCH ×2 (09:37→20:23)
[2016-06-24] MEDS: CHOLECALCIFEROL 400 UNITS TAB PO SCH (09:37)
[2016-06-24] MEDS: DOCUSATE SODIUM 100 MG CAP PO SCH ×2 (09:38→20:22)
[2016-06-24] MEDS: FISH OIL 1,000 MG CAP PO SCH (09:38)
[2016-06-24] MEDS: DIGOXIN 0.125 MG TAB PO SCH (12:22)
--- NOTE | 2016-06-24 16:39 | CONS ---
Date/Time of Note Date/Time of Note DATE: 06/24/16 TIME: 16:38 Assessment/Plan Assessment/Plan Additional Assessment/Plan 1. Acute kidney injury, likely secondary to cardiorenal syndrome. The patient is on Lasix 20 mg IV b.i.d. for diuresis. 2. Acute congestive heart failure exacerbation, acute on chronic, systolic. 3. Atrial fibrillation with rapid ventricular rate. 4. Hypertension. 5. Hyperlipidemia. 6. Diabetes mellitus. 7. Possible chronic kidney disease secondary to diabetic nephropathy. PLAN: lasix changed to PO, electrolytes and Cr normal on cardizem for rate control on lisinopril and MTP For HTN s/p EGD which showed gastritis with erosive gastritis. Helicobacter pylori was done and the results are pending will follow up Consultation Date/Type/Reason Admit Date/Time Jun 07, 2016 at 22:30 Initial Consult Date May Type of Consultation: NEPHROLOGY Referring Provider: MARTÍN WALDROP MD 24 HR Interval Summary Free Text/Dictation Cr normal, Na 145, BP stable Exam/Review of Systems Vital Signs Vitals Vital Signs Date Time Temp Pulse Resp B/P Pulse Ox O2 Delivery O2 Flow Rate FiO2 06/24/16 16:06 94 06/24/16 15:21 98.5 18 102/61 93 06/24/16 13:24 21 06/24/16 04:00 Room Air Intake and Output 06/23/16 06/23/16 06/24/16 15:00 23:00 07:00 Intake Total 740 ml 800 ml Output Total 1500 ml Balance 740 ml -700 ml Exam Constitutional: alert, oriented Respiratory: diminished breath sounds (at bases/B) Cardiovascular: irregular rhythm Gastrointestinal: soft Musculoskeletal: muscle tone (normal) Extremities: edema (trace/B) Neurological: other (No focal deficits) Results Result Diagram: 06/24/16 0453 06/24/16 0453 Results 24 hrs Laboratory Tests Test 06/23/16 17:09 06/23/16 20:26 06/24/16 04:53 06/24/16 07:38 Bedside Glucose 93 214 86 Anion Gap 15 Basophils # 0.1 Basophils % 1.3 Blood Urea Nitrogen 19 Calcium Level 8.6 Carbon Dioxide Level 34 H Chloride Level 100 Creatinine 0.89 Eosinophils # 0.2 Eosinophils % 4.6 Glucose Level 86 Hematocrit 36.5 L Hemoglobin 12.2 Lymphocytes # 1.9 Lymphocytes % 42.4 Mean Corpuscular Hemoglobin 32.6 Mean Corpuscular Hemoglobin Concent 33.4 Mean Corpuscular Volume 97.6 Mean Platelet Volume 11.0 H Monocytes # 0.4 Monocytes % 9.2 Neutrophils # 1.9 Neutrophils % 42.1 Nucleated Red Blood Cells # 0.0 Nucleated Red Blood Cells % 0.0 Platelet Count 195 Potassium Level 3.9 Red Blood Count 3.74 L Red Cell Distribution Width 13.5 Sodium Level 145 H White Blood Count 4.6 L Test 06/24/16 11:45 Bedside Glucose 126 Medications Medications Current Medications Allopurinol (Zyloprim) 100 mg DAILY PO Last administered on 06/24/16 09:37; Admin Dose 100 MG; Start 06/09/16 at 09:00 Aspirin (Halfprin) 81 mg DAILY PO Last administered on 06/12/16 08:23; Admin Dose 81 MG; Start 06/09/16 at 09:00; Status Future Hold Febuxostat (Uloric) 40 mg DAILY PO Last administered on 06/24/16 09:36; Admin Dose 40 MG; Start 06/09/16 at 09:00 Folic Acid (Folic Acid) 1 mg DAILY PO Last administered on 06/24/16 09:36; Admin Dose 1 MG; Start 06/09/16 at 09:00 Ibuprofen (Motrin) 800 mg DAILY PRN PO PRN Last administered on 06/12/16 10:27 ; Admin Dose 800 MG; Start 06/08/16 at 10:00 Tamsulosin HCl (Flomax) 0.4 mg DAILY PO Last administered on 06/24/16 09:37; Admin Dose 0.4 MG; Start 06/09/16 at 09:00 Cholecalciferol (Vitamin D) 400 units DAILY PO Last administered on 06/24/16 09:37; Admin Dose 400 UNITS; Start 06/09/16 at 09:00 Fish Oil (Fish Oil) 1,000 mg DAILY PO Last administered on 06/24/16 09:38; Admin Dose 1,000 MG; Start 06/09/16 at 09:00 Acetaminophen (Tylenol Tab) 650 mg Q6H PRN PO PAIN AND OR ELEVATED TEMP Last administered on 06/23/16 09:53; Admin Dose 650 MG; Start 06/08/16 at 10:00 Ondansetron HCl (Zofran Tab) 4 mg Q6 PRN PO NAUSEA AND/OR VOMITING Last administered on 06/16/16 07:54; Admin Dose 4 MG; Start 06/08/16 at 10:00 Docusate Sodium (Colace) 100 mg BID PO Last administered on 06/24/16 09:38; Admin Dose 100 MG; Start 06/08/16 at 21:00 Apixaban (Eliquis) 5 mg BID PO Last administered on 06/24/16 09:37; Admin Dose 5 MG; Start 06/08/16 at 12:30 Morphine Sulfate (morphine) 2 mg Q3 PRN IV PAIN LEVEL 7-10 Last administered on 06/18/16 01:24; Admin Dose 2 MG; Start 06/08/16 at 11:00 Miscellaneous Information 1 ea NOTE XX ; Start 06/08/16 at 11:30 Glucose (Glutose) 15 gm Q15M PRN PO DECREASED GLUCOSE; Start 06/08/16 at 11:30 Glucose (Glutose) 22.5 gm Q15M PRN PO DECREASED GLUCOSE; Start 06/08/16 at 11: 30 Dextrose (D50w Syringe) 25 ml Q15M PRN IV DECREASED GLUCOSE; Start 06/08/16 at 11:30 Dextrose (D50w Syringe) 50 ml Q15M PRN IV DECREASED GLUCOSE; Start 06/08/16 at 11:30 Glucagon (Glucagen) 1 mg Q15M PRN IM DECREASED GLUCOSE; Start 06/08/16 at 11:30 Glucose (Glutose) 15 gm Q15M PRN BUCCAL DECREASED GLUCOSE; Start 06/08/16 at 11 :30 Ondansetron HCl (Zofran Inj) 4 mg Q6H PRN IV NAUSEA AND/OR VOMITING Last administered on 06/09/16 02:19; Admin Dose 4 MG; Start 06/09/16 at 02:30 Pantoprazole (Protonix Tab) 40 mg DAILY@06 PO Last administered on 06/24/16 06 :09; Admin Dose 40 MG; Start 06/16/16 at 06:00 Hydralazine HCl 20 mg 20 mg Q6H PRN IV ELEVATED BLOOD PRESSURE>180 Last administered on 06/16/16 18:28; Admin Dose 20 MG; Start 06/15/16 at 20:00 Diltiazem HCl (Cardizem-D5W 125 Mg/125 ml Drip) 125 ml @ 0 mls/hr Q0M IV Last administered on 06/15/16 23:05; Admin Dose 5 MLS/HR; Start 06/15/16 at 21:30 Ondansetron HCl (Zofran Inj) 4 mg Q4H PRN IV NAUSEA AND/OR VOMITING; Start 06/15 at 21:30 Potassium Chloride (Klor-Con 10) 10 meq BID PO Last administered on 06/24/16 09:36; Admin Dose 10 MEQ; Start 06/16/16 at 21:00 Lisinopril (Zestril) 10 mg DAILY PO Last administered on 06/23/16 08:29; Admin Dose 10 MG; Start 06/18/16 at 09:00 Metoprolol Tartrate (Lopressor) 25 mg BID PO Last administered on 06/23/16 20: 29; Admin Dose 25 MG; Start 06/18/16 at 21:00 Insulin Glargine (Lantus) 10 unit HS SC Last administered on 06/23/16 20:41; Admin Dose 10 UNIT; Start 06/20/16 at 21:00 Digoxin (Digoxin) 0.125 mg DAILY@13 PO Last administered on 06/24/16 12:22; Admin Dose 0.125 MG; Start 06/24/16 at 13:00 CIELO FONG MD Jun 24, 2016 16:39
--- NOTE | 2016-06-24 17:00 | CONS ---
Date/Time of Note Date/Time of Note DATE: 06/24/16 TIME: 16:56 Assessment/Plan Assessment/Plan Chief Complaint/Hosp Course IMp: 1.AF-Currently reasonable rate control on eliquis 2.Cardiomyopathy-EF 15% by echo this admit. Negative lexiscan 02/27 no ischemia 3.CHF-systolic acute on chronic 4.abd pain/gastritis by EGD 5.REnal failure-improved 6.Hotn-borderline with holding of diltiazem 7.HL 8.DM Recc -Tele -Continue BB -Diltiazem d/c'd given marginal BP -Continue po digoxin now s/p IVP digoxin -Continue lasix PO -Continue ACEI afterload reduction and follow grain packer closely -Continue apixaban -F/U Bx from EGD Problems: Consultation Date/Type/Reason Admit Date/Time Jun 07, 2016 at 22:30 Initial Consult Date 06/08/16 Type of Consultation: Cardiology Reason for Consultation AF Referring Provider: MARTÍN WALDROP MD Exam/Review of Systems Vital Signs Vitals Vital Signs Date Time Temp Pulse Resp B/P Pulse Ox O2 Delivery O2 Flow Rate FiO2 06/24/16 16:49 87 18 97 21 06/24/16 15:21 98.5 102/61 06/24/16 04:00 Room Air Intake and Output 06/23/16 06/23/16 06/24/16 15:00 23:00 07:00 Intake Total 740 ml 800 ml Output Total 1500 ml Balance 740 ml -700 ml Exam Review of Systems: CONSTITUTIONAL: No fevers, chills. PULMONARY: No sob CARDIOVASCULAR: No chest pain/palpitations GASTROINTESTINAL: No nausea/vomiting. GENITOURINARY: No hematuria/dysuria. MUSCULOSKELETAL: No myagias/arthalgias. PSYCHIATRIC: The patient denies depression. NEUROLOGIC: No weakness Constitutional: alert, oriented Psych: no complaints Head: normocephalic ENMT: mucosa pink and moist Neck: jvd (9 cm water), supple Respiratory: clear to auscultation Cardiovascular: irregular rhythm Gastrointestinal: non-tender, soft Musculoskeletal: muscle tone (normal) Extremities: edema (none) Neurological: other (No0 focal deficits) Results Result Diagram: 06/24/16 0453 06/24/16 0453 Results 24 hrs Laboratory Tests Test 06/23/16 17:09 06/23/16 20:26 06/24/16 04:53 06/24/16 07:38 Bedside Glucose 93 214 86 Anion Gap 15 Basophils # 0.1 Basophils % 1.3 Blood Urea Nitrogen 19 Calcium Level 8.6 Carbon Dioxide Level 34 H Chloride Level 100 Creatinine 0.89 Eosinophils # 0.2 Eosinophils % 4.6 Glucose Level 86 Hematocrit 36.5 L Hemoglobin 12.2 Lymphocytes # 1.9 Lymphocytes % 42.4 Mean Corpuscular Hemoglobin 32.6 Mean Corpuscular Hemoglobin Concent 33.4 Mean Corpuscular Volume 97.6 Mean Platelet Volume 11.0 H Monocytes # 0.4 Monocytes % 9.2 Neutrophils # 1.9 Neutrophils % 42.1 Nucleated Red Blood Cells # 0.0 Nucleated Red Blood Cells % 0.0 Platelet Count 195 Potassium Level 3.9 Red Blood Count 3.74 L Red Cell Distribution Width 13.5 Sodium Level 145 H White Blood Count 4.6 L Test 06/24/16 11:45 Bedside Glucose 126 Medications Medications Current Medications Allopurinol (Zyloprim) 100 mg DAILY PO Last administered on 06/24/16 09:37; Admin Dose 100 MG; Start 06/09/16 at 09:00 Aspirin (Halfprin) 81 mg DAILY PO Last administered on 06/12/16 08:23; Admin Dose 81 MG; Start 06/09/16 at 09:00; Status Future Hold Febuxostat (Uloric) 40 mg DAILY PO Last administered on 06/24/16 09:36; Admin Dose 40 MG; Start 06/09/16 at 09:00 Folic Acid (Folic Acid) 1 mg DAILY PO Last administered on 06/24/16 09:36; Admin Dose 1 MG; Start 06/09/16 at 09:00 Ibuprofen (Motrin) 800 mg DAILY PRN PO PRN Last administered on 06/12/16 10:27 ; Admin Dose 800 MG; Start 06/08/16 at 10:00 Tamsulosin HCl (Flomax) 0.4 mg DAILY PO Last administered on 06/24/16 09:37; Admin Dose 0.4 MG; Start 06/09/16 at 09:00 Cholecalciferol (Vitamin D) 400 units DAILY PO Last administered on 06/24/16 09:37; Admin Dose 400 UNITS; Start 06/09/16 at 09:00 Fish Oil (Fish Oil) 1,000 mg DAILY PO Last administered on 06/24/16 09:38; Admin Dose 1,000 MG; Start 06/09/16 at 09:00 Acetaminophen (Tylenol Tab) 650 mg Q6H PRN PO PAIN AND OR ELEVATED TEMP Last administered on 06/23/16 09:53; Admin Dose 650 MG; Start 06/08/16 at 10:00 Ondansetron HCl (Zofran Tab) 4 mg Q6 PRN PO NAUSEA AND/OR VOMITING Last administered on 06/16/16 07:54; Admin Dose 4 MG; Start 06/08/16 at 10:00 Docusate Sodium (Colace) 100 mg BID PO Last administered on 06/24/16 09:38; Admin Dose 100 MG; Start 06/08/16 at 21:00 Apixaban (Eliquis) 5 mg BID PO Last administered on 06/24/16 09:37; Admin Dose 5 MG; Start 06/08/16 at 12:30 Morphine Sulfate (morphine) 2 mg Q3 PRN IV PAIN LEVEL 7-10 Last administered on 06/18/16 01:24; Admin Dose 2 MG; Start 06/08/16 at 11:00 Miscellaneous Information 1 ea NOTE XX ; Start 06/08/16 at 11:30 Glucose (Glutose) 15 gm Q15M PRN PO DECREASED GLUCOSE; Start 06/08/16 at 11:30 Glucose (Glutose) 22.5 gm Q15M PRN PO DECREASED GLUCOSE; Start 06/08/16 at 11: 30 Dextrose (D50w Syringe) 25 ml Q15M PRN IV DECREASED GLUCOSE; Start 06/08/16 at 11:30 Dextrose (D50w Syringe) 50 ml Q15M PRN IV DECREASED GLUCOSE; Start 06/08/16 at 11:30 Glucagon (Glucagen) 1 mg Q15M PRN IM DECREASED GLUCOSE; Start 06/08/16 at 11:30 Glucose (Glutose) 15 gm Q15M PRN BUCCAL DECREASED GLUCOSE; Start 06/08/16 at 11 :30 Ondansetron HCl (Zofran Inj) 4 mg Q6H PRN IV NAUSEA AND/OR VOMITING Last administered on 06/09/16 02:19; Admin Dose 4 MG; Start 06/09/16 at 02:30 Pantoprazole (Protonix Tab) 40 mg DAILY@06 PO Last administered on 06/24/16 06 :09; Admin Dose 40 MG; Start 06/16/16 at 06:00 Hydralazine HCl 20 mg 20 mg Q6H PRN IV ELEVATED BLOOD PRESSURE>180 Last administered on 06/16/16 18:28; Admin Dose 20 MG; Start 06/15/16 at 20:00 Diltiazem HCl (Cardizem-D5W 125 Mg/125 ml Drip) 125 ml @ 0 mls/hr Q0M IV Last administered on 06/15/16 23:05; Admin Dose 5 MLS/HR; Start 06/15/16 at 21:30 Ondansetron HCl (Zofran Inj) 4 mg Q4H PRN IV NAUSEA AND/OR VOMITING; Start 06/15 at 21:30 Potassium Chloride (Klor-Con 10) 10 meq BID PO Last administered on 06/24/16 09:36; Admin Dose 10 MEQ; Start 06/16/16 at 21:00 Lisinopril (Zestril) 10 mg DAILY PO Last administered on 06/23/16 08:29; Admin Dose 10 MG; Start 06/18/16 at 09:00 Metoprolol Tartrate (Lopressor) 25 mg BID PO Last administered on 06/23/16 20: 29; Admin Dose 25 MG; Start 06/18/16 at 21:00 Insulin Glargine (Lantus) 10 unit HS SC Last administered on 06/23/16 20:41; Admin Dose 10 UNIT; Start 06/20/16 at 21:00 Digoxin (Digoxin) 0.125 mg DAILY@13 PO Last administered on 06/24/16 12:22; Admin Dose 0.125 MG; Start 06/24/16 at 13:00 ORQUIDEA GUILLAUME 13, 2017 17:00
--- NOTE | 2016-06-24 18:28 | PN ---
Date/Time of Note Date/Time of Note DATE: 06/24/16 TIME: 18:25 Assessment/Plan VTE Prophylaxis VTE Prophylaxis Intervention: SCD's Lines/Catheters IV C[facility]ter Type (from [facility] Urinary Cath still in place: No Assessment/Plan Chief Complaint/Hosp Course Assessment and plan - Atrial fibrillation with rapid ventricular response. Patient is currently in atrial fibrillation at controlled rate. is following and cardiology consultation. Continue metoprolol and Eliquis. - Erosive gastritis per EGD. Continue Protonix. Dr. Urias is following in cart in gastroenterology consultation - Diabetes mellitus type 2. Continue NovoLog per sliding scale. 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 Continue Lasix and digoxin. -Hypertension continue lisinopril and metoprolol. - Obesity. Weight loss advised. - S/p cholecystectomy Further recommendations based on clinical course. Plan of care discussed with Dr. Chao. Problems: Subjective 24 Hr Interval Summary Free Text/Dictation Patient denies any chest pain denies shortness of breath at rest, patient was episode of low blood pressure, BP meds were optimized by cardiology Lasix changed to p.o., continue to monitor blood pressure. Atrial fibrillation at controlled rate. Exam/Review of Systems Vital Signs Vitals Vital Signs Date Time Temp Pulse Resp B/P Pulse Ox O2 Delivery O2 Flow Rate FiO2 06/24/16 16:49 87 18 97 21 06/24/16 15:21 98.5 102/61 06/24/16 04:00 Room Air Intake and Output 06/23/16 06/23/16 06/24/16 15:00 23:00 07:00 Intake Total 740 ml 800 ml Output Total 1500 ml Balance 740 ml -700 ml Exam Constitutional: alert, obese, oriented, well developed Psych: no complaints Head: atraumatic, normocephalic Eyes: nl conjunctiva ENMT: nl external ears & nose Neck: non-tender, supple Respiratory: clear to auscultation Cardiovascular: other (Atrial fibrillation) Gastrointestinal: other (Epigastric tenderness), soft Genitourinary - Female: nl adnexae Musculoskeletal: nl extremities to inspection Extremities: normal pulses Neurological: BACTERIOLOGIST PHARMACEUTICAL II-XII intact Results Result Diagram: 06/24/16 0453 06/24/16 0453 Results 24 hrs Laboratory Tests Test 06/23/16 20:26 06/24/16 04:53 06/24/16 07:38 06/24/16 11:45 Bedside Glucose 214 86 126 Anion Gap 15 Basophils # 0.1 Basophils % 1.3 Blood Urea Nitrogen 19 Calcium Level 8.6 Carbon Dioxide Level 34 H Chloride Level 100 Creatinine 0.89 Eosinophils # 0.2 Eosinophils % 4.6 Glucose Level 86 Hematocrit 36.5 L Hemoglobin 12.2 Lymphocytes # 1.9 Lymphocytes % 42.4 Mean Corpuscular Hemoglobin 32.6 Mean Corpuscular Hemoglobin Concent 33.4 Mean Corpuscular Volume 97.6 Mean Platelet Volume 11.0 H Monocytes # 0.4 Monocytes % 9.2 Neutrophils # 1.9 Neutrophils % 42.1 Nucleated Red Blood Cells # 0.0 Nucleated Red Blood Cells % 0.0 Platelet Count 195 Potassium Level 3.9 Red Blood Count 3.74 L Red Cell Distribution Width 13.5 Sodium Level 145 H White Blood Count 4.6 L Test 06/24/16 17:19 Bedside Glucose 134 Medications Medications Current Medications Allopurinol (Zyloprim) 100 mg DAILY PO Last administered on 06/24/16 09:37; Admin Dose 100 MG; Start 06/09/16 at 09:00 Aspirin (Halfprin) 81 mg DAILY PO Last administered on 06/12/16 08:23; Admin Dose 81 MG; Start 06/09/16 at 09:00; Status Future Hold Febuxostat (Uloric) 40 mg DAILY PO Last administered on 06/24/16 09:36; Admin Dose 40 MG; Start 06/09/16 at 09:00 Folic Acid (Folic Acid) 1 mg DAILY PO Last administered on 06/24/16 09:36; Admin Dose 1 MG; Start 06/09/16 at 09:00 Ibuprofen (Motrin) 800 mg DAILY PRN PO PRN Last administered on 06/12/16 10:27 ; Admin Dose 800 MG; Start 06/08/16 at 10:00 Tamsulosin HCl (Flomax) 0.4 mg DAILY PO Last administered on 06/24/16 09:37; Admin Dose 0.4 MG; Start 06/09/16 at 09:00 Cholecalciferol (Vitamin D) 400 units DAILY PO Last administered on 06/24/16 09:37; Admin Dose 400 UNITS; Start 06/09/16 at 09:00 Fish Oil (Fish Oil) 1,000 mg DAILY PO Last administered on 06/24/16 09:38; Admin Dose 1,000 MG; Start 06/09/16 at 09:00 Acetaminophen (Tylenol Tab) 650 mg Q6H PRN PO PAIN AND OR ELEVATED TEMP Last administered on 06/23/16 09:53; Admin Dose 650 MG; Start 06/08/16 at 10:00 Ondansetron HCl (Zofran Tab) 4 mg Q6 PRN PO NAUSEA AND/OR VOMITING Last administered on 06/16/16 07:54; Admin Dose 4 MG; Start 06/08/16 at 10:00 Docusate Sodium (Colace) 100 mg BID PO Last administered on 06/24/16 09:38; Admin Dose 100 MG; Start 06/08/16 at 21:00 Apixaban (Eliquis) 5 mg BID PO Last administered on 06/24/16 09:37; Admin Dose 5 MG; Start 06/08/16 at 12:30 Morphine Sulfate (morphine) 2 mg Q3 PRN IV PAIN LEVEL 7-10 Last administered on 06/18/16 01:24; Admin Dose 2 MG; Start 06/08/16 at 11:00 Miscellaneous Information 1 ea NOTE XX ; Start 06/08/16 at 11:30 Glucose (Glutose) 15 gm Q15M PRN PO DECREASED GLUCOSE; Start 06/08/16 at 11:30 Glucose (Glutose) 22.5 gm Q15M PRN PO DECREASED GLUCOSE; Start 06/08/16 at 11: 30 Dextrose (D50w Syringe) 25 ml Q15M PRN IV DECREASED GLUCOSE; Start 06/08/16 at 11:30 Dextrose (D50w Syringe) 50 ml Q15M PRN IV DECREASED GLUCOSE; Start 06/08/16 at 11:30 Glucagon (Glucagen) 1 mg Q15M PRN IM DECREASED GLUCOSE; Start 06/08/16 at 11:30 Glucose (Glutose) 15 gm Q15M PRN BUCCAL DECREASED GLUCOSE; Start 06/08/16 at 11 :30 Ondansetron HCl (Zofran Inj) 4 mg Q6H PRN IV NAUSEA AND/OR VOMITING Last administered on 06/09/16 02:19; Admin Dose 4 MG; Start 06/09/16 at 02:30 Pantoprazole (Protonix Tab) 40 mg DAILY@06 PO Last administered on 06/24/16 06 :09; Admin Dose 40 MG; Start 06/16/16 at 06:00 Hydralazine HCl 20 mg 20 mg Q6H PRN IV ELEVATED BLOOD PRESSURE>180 Last administered on 06/16/16 18:28; Admin Dose 20 MG; Start 06/15/16 at 20:00 Diltiazem HCl (Cardizem-D5W 125 Mg/125 ml Drip) 125 ml @ 0 mls/hr Q0M IV Last administered on 06/15/16 23:05; Admin Dose 5 MLS/HR; Start 06/15/16 at 21:30 Ondansetron HCl (Zofran Inj) 4 mg Q4H PRN IV NAUSEA AND/OR VOMITING; Start 06/15 at 21:30 Potassium Chloride (Klor-Con 10) 10 meq BID PO Last administered on 06/24/16 09:36; Admin Dose 10 MEQ; Start 06/16/16 at 21:00 Lisinopril (Zestril) 10 mg DAILY PO Last administered on 06/23/16 08:29; Admin Dose 10 MG; Start 06/18/16 at 09:00 Metoprolol Tartrate (Lopressor) 25 mg BID PO Last administered on 06/23/16 20: 29; Admin Dose 25 MG; Start 06/18/16 at 21:00 Insulin Glargine (Lantus) 10 unit HS SC Last administered on 06/23/16 20:41; Admin Dose 10 UNIT; Start 06/20/16 at 21:00 Digoxin (Digoxin) 0.125 mg DAILY@13 PO Last administered on 06/24/16 12:22; Admin Dose 0.125 MG; Start 06/24/16 at 13:00 RISHI LINDSAY Jun 24, 2016 18:28
[2016-06-24] MEDS: INSULIN GLARGINE [LANtus] 3 ML PEN SC SCH (20:24)
[2016-06-25] MEDS: LEVALBUTEROL (NEB) 0.63 MG/3 ML AMP HHN SCH ×5 (01:20→17:14)
[2016-06-25 05:45] VITALS: BP 131/64; PULSE 71; RESP 18
[2016-06-25] MEDS: PANTOPRAZOLE (EC) 40 MG TAB PO SCH (05:48)
[2016-06-25] MEDS: FUROSEMIDE 40 MG TAB PO SCH ×2 (05:48→17:47)
[2016-06-25 06:08] LABS: POTASSIUM 3.8 mmol/L (3.5-5.1)
[2016-06-25 06:10] LABS: CREATININE 0.87 mg/dl (0.44-1.00)
[2016-06-25 06:11] LABS: CALCIUM 8.7 mg/dl (8.4-10.2)
[2016-06-25] MEDS: INSULIN ASPART [NOVOLOG] 3 ML PEN SC SCH ×3 (07:50→17:48)
[2016-06-25] MEDS: ACETAMINOPHEN 325 MG TAB PO PRN (07:58)
[2016-06-25 08:34] VITALS: BP 111/64; RESP 14
[2016-06-25] MEDS: DOCUSATE SODIUM 100 MG CAP PO SCH (09:43)
[2016-06-25] MEDS: FOLIC ACID 1 MG TAB PO SCH (09:43)
[2016-06-25] MEDS: FEBUXOSTAT 40 MG TABLET PO SCH (09:44)
[2016-06-25] MEDS: METOPROLOL 25 MG TAB PO SCH (09:44)
[2016-06-25] MEDS: ALLOPURINOL 100 MG TAB PO SCH (09:45)
[2016-06-25] MEDS: POTASSIUM CHLORIDE (SR) 10 MEQ TAB PO SCH (09:45)
[2016-06-25] MEDS: CHOLECALCIFEROL 400 UNITS TAB PO SCH (09:45)
[2016-06-25] MEDS: FISH OIL 1,000 MG CAP PO SCH (09:45)
[2016-06-25] MEDS: TAMSULOSIN (SR) 0.4 MG CAP PO SCH (09:45)
[2016-06-25] MEDS: LISINOPRIL 10 MG TAB PO SCH (09:46)
[2016-06-25] MEDS: APIXABAN 5 MG TABLET PO SCH (09:46)
--- NOTE | 2016-06-25 10:26 | CONS ---
Date/Time of Note Date/Time of Note DATE: 06/25/16 TIME: 10:24 Assessment/Plan Assessment/Plan Additional Assessment/Plan 1.AF-Currently reasonable rate control on eliquis - better overall - will monitor 2.Cardiomyopathy-EF 15% by echo this admit. Negative lexiscan 02/27 no ischemia - outpt ICD eval 3.CHF-systolic acute on chronic - better fluid status - will monitor 4.abd pain/gastritis by EGD 5.REnal failure-improved - good urine output now 6.Hotn-borderline with holding of diltiazem 7.HL 8.DM - con't to keep euglycemic Consultation Date/Type/Reason Admit Date/Time Jun 07, 2016 at 22:30 Type of Consultation: Cardiology Referring Provider: MARTÍN WALDROP MD 24 HR Interval Summary Free Text/Dictation NO acute events - stable overall - much improved - a. fib rate controlled ROS: No fever, no chills, no nausea, no vomiting, no diarrhea/constipation No recent weight changes No chest pain, no PND, no orthopnea No dizziness, blurred vision No thirst, no heat or cold intolerance Exam/Review of Systems Vital Signs Vitals Vital Signs Date Time Temp Pulse Resp B/P Pulse Ox O2 Delivery O2 Flow Rate FiO2 06/25/16 08:34 97.4 91 14 111/64 96 06/25/16 08:16 21 06/25/16 05:45 Room Air Intake and Output 06/24/16 06/24/16 06/25/16 15:00 23:00 07:00 Intake Total 780 ml 400 ml Output Total 1100 ml Balance 780 ml -700 ml Exam General: WN/WD/NAD, AOx 3 [place] HEENT: Unicetric/atraumatic/EOMI (follow commands) NECK: JVD elevated, no thyromegaly Lymph: no lymphadenopathy HEART: IRregular with no S3, II/ systolic murmur at apex, PMI left LUNGS: Coarse sounds ABD: soft, NT, ND, +BS : Intact Neuro: non focal SKIN: chronic changes EXT: trace edema Results Result Diagram: 06/24/16 0453 06/25/16 0435 Results 24 hrs Laboratory Tests Test 06/24/16 11:45 06/24/16 17:19 06/24/16 19:39 06/25/16 04:35 Bedside Glucose 126 134 150 Anion Gap 14 Blood Urea Nitrogen 17 Calcium Level 8.7 Carbon Dioxide Level 35 H Chloride Level 100 Creatinine 0.87 Glucose Level 92 Potassium Level 3.8 Sodium Level 145 H Test 06/25/16 07:56 Bedside Glucose 92 Medications Medications Current Medications Allopurinol (Zyloprim) 100 mg DAILY PO Last administered on 06/25/16 09:45; Admin Dose 100 MG; Start 06/09/16 at 09:00 Aspirin (Halfprin) 81 mg DAILY PO Last administered on 06/12/16 08:23; Admin Dose 81 MG; Start 06/09/16 at 09:00; Status Future Hold Febuxostat (Uloric) 40 mg DAILY PO Last administered on 06/25/16 09:44; Admin Dose 40 MG; Start 06/09/16 at 09:00 Folic Acid (Folic Acid) 1 mg DAILY PO Last administered on 06/25/16 09:43; Admin Dose 1 MG; Start 06/09/16 at 09:00 Ibuprofen (Motrin) 800 mg DAILY PRN PO PRN Last administered on 06/12/16 10:27 ; Admin Dose 800 MG; Start 06/08/16 at 10:00 Tamsulosin HCl (Flomax) 0.4 mg DAILY PO Last administered on 06/25/16 09:45; Admin Dose 0.4 MG; Start 06/09/16 at 09:00 Cholecalciferol (Vitamin D) 400 units DAILY PO Last administered on 06/25/16 09:45; Admin Dose 400 UNITS; Start 06/09/16 at 09:00 Fish Oil (Fish Oil) 1,000 mg DAILY PO Last administered on 06/25/16 09:45; Admin Dose 1,000 MG; Start 06/09/16 at 09:00 Acetaminophen (Tylenol Tab) 650 mg Q6H PRN PO PAIN AND OR ELEVATED TEMP Last administered on 06/25/16 07:58; Admin Dose 650 MG; Start 06/08/16 at 10:00 Ondansetron HCl (Zofran Tab) 4 mg Q6 PRN PO NAUSEA AND/OR VOMITING Last administered on 06/16/16 07:54; Admin Dose 4 MG; Start 06/08/16 at 10:00 Docusate Sodium (Colace) 100 mg BID PO Last administered on 06/25/16 09:43; Admin Dose 100 MG; Start 06/08/16 at 21:00 Apixaban (Eliquis) 5 mg BID PO Last administered on 06/25/16 09:46; Admin Dose 5 MG; Start 06/08/16 at 12:30 Morphine Sulfate (morphine) 2 mg Q3 PRN IV PAIN LEVEL 7-10 Last administered on 06/18/16 01:24; Admin Dose 2 MG; Start 06/08/16 at 11:00 Miscellaneous Information 1 ea NOTE XX ; Start 06/08/16 at 11:30 Glucose (Glutose) 15 gm Q15M PRN PO DECREASED GLUCOSE; Start 06/08/16 at 11:30 Glucose (Glutose) 22.5 gm Q15M PRN PO DECREASED GLUCOSE; Start 06/08/16 at 11: 30 Dextrose (D50w Syringe) 25 ml Q15M PRN IV DECREASED GLUCOSE; Start 06/08/16 at 11:30 Dextrose (D50w Syringe) 50 ml Q15M PRN IV DECREASED GLUCOSE; Start 06/08/16 at 11:30 Glucagon (Glucagen) 1 mg Q15M PRN IM DECREASED GLUCOSE; Start 06/08/16 at 11:30 Glucose (Glutose) 15 gm Q15M PRN BUCCAL DECREASED GLUCOSE; Start 06/08/16 at 11 :30 Ondansetron HCl (Zofran Inj) 4 mg Q6H PRN IV NAUSEA AND/OR VOMITING Last administered on 06/09/16 02:19; Admin Dose 4 MG; Start 06/09/16 at 02:30 Pantoprazole (Protonix Tab) 40 mg DAILY@06 PO Last administered on 06/25/16 05 :48; Admin Dose 40 MG; Start 06/16/16 at 06:00 Hydralazine HCl (Apresoline) 20 mg Q6H PRN IV ELEVATED BLOOD PRESSURE>180 Last administered on 06/16/16 18:28; Admin Dose 20 MG; Start 06/15/16 at 20:00 Ondansetron HCl (Zofran Inj) 4 mg Q4H PRN IV NAUSEA AND/OR VOMITING; Start 06/15 at 21:30 Potassium Chloride (Klor-Con 10) 10 meq BID PO Last administered on 06/25/16 09:45; Admin Dose 10 MEQ; Start 06/16/16 at 21:00 Lisinopril (Zestril) 10 mg DAILY PO Last administered on 06/25/16 09:46; Admin Dose 10 MG; Start 06/18/16 at 09:00 Metoprolol Tartrate (Lopressor) 25 mg BID PO Last administered on 06/25/16 09: 44; Admin Dose 25 MG; Start 06/18/16 at 21:00 Insulin Glargine (Lantus) 10 unit HS SC Last administered on 06/24/16 20:24; Admin Dose 10 UNIT; Start 06/20/16 at 21:00 Digoxin (Digoxin) 0.125 mg DAILY@13 PO Last administered on 06/24/16 12:22; Admin Dose 0.125 MG; Start 06/24/16 at 13:00 VAN AZEVEDO MD Jun 25, 2016 10:26
[2016-06-25] MEDS: DIGOXIN 0.125 MG TAB PO SCH (14:11)
--- NOTE | 2016-06-25 16:00 | CONS ---
Date/Time of Note Date/Time of Note DATE: 06/25/16 TIME: 15:59 Assessment/Plan Assessment/Plan Additional Assessment/Plan 1. Acute kidney injury, likely secondary to cardiorenal syndrome. The patient is on Lasix 20 mg IV b.i.d. for diuresis. 2. Acute congestive heart failure exacerbation, acute on chronic, systolic. 3. Atrial fibrillation with rapid ventricular rate. 4. Hypertension. 5. Hyperlipidemia. 6. Diabetes mellitus. 7. Possible chronic kidney disease secondary to diabetic nephropathy. PLAN: lasix changed to PO, on lasix 40mg BID, electrolytes and Cr normal on cardizem for rate control on lisinopril and MTP For HTN s/p EGD which showed gastritis with erosive gastritis. Helicobacter pylori was done and the results are pending will follow up Consultation Date/Type/Reason Admit Date/Time Jun 07, 2016 at 22:30 Initial Consult Date May Type of Consultation: NEPHROLOGY Referring Provider: MARTÍN WALDROP MD 24 HR Interval Summary Free Text/Dictation pt stable, afebrile, Exam/Review of Systems Vital Signs Vitals Vital Signs Date Time Temp Pulse Resp B/P Pulse Ox O2 Delivery O2 Flow Rate FiO2 06/25/16 13:21 85 20 97 21 06/25/16 08:34 97.4 111/64 06/25/16 05:45 Room Air Intake and Output 06/24/16 06/24/16 06/25/16 15:00 23:00 07:00 Intake Total 780 ml 400 ml Output Total 1100 ml Balance 780 ml -700 ml Results Result Diagram: 06/24/16 0453 06/25/16 0435 Results 24 hrs Laboratory Tests Test 06/24/16 17:19 06/24/16 19:39 06/25/16 04:35 06/25/16 07:56 Bedside Glucose 134 150 92 Anion Gap 14 Blood Urea Nitrogen 17 Calcium Level 8.7 Carbon Dioxide Level 35 H Chloride Level 100 Creatinine 0.87 Glucose Level 92 Potassium Level 3.8 Sodium Level 145 H Medications Medications Current Medications Allopurinol (Zyloprim) 100 mg DAILY PO Last administered on 06/25/16 09:45; Admin Dose 100 MG; Start 06/09/16 at 09:00 Aspirin (Halfprin) 81 mg DAILY PO Last administered on 06/12/16 08:23; Admin Dose 81 MG; Start 06/09/16 at 09:00; Status Future Hold Febuxostat (Uloric) 40 mg DAILY PO Last administered on 06/25/16 09:44; Admin Dose 40 MG; Start 06/09/16 at 09:00 Folic Acid (Folic Acid) 1 mg DAILY PO Last administered on 06/25/16 09:43; Admin Dose 1 MG; Start 06/09/16 at 09:00 Ibuprofen (Motrin) 800 mg DAILY PRN PO PRN Last administered on 06/12/16 10:27 ; Admin Dose 800 MG; Start 06/08/16 at 10:00 Tamsulosin HCl (Flomax) 0.4 mg DAILY PO Last administered on 06/25/16 09:45; Admin Dose 0.4 MG; Start 06/09/16 at 09:00 Cholecalciferol (Vitamin D) 400 units DAILY PO Last administered on 06/25/16 09:45; Admin Dose 400 UNITS; Start 06/09/16 at 09:00 Fish Oil (Fish Oil) 1,000 mg DAILY PO Last administered on 06/25/16 09:45; Admin Dose 1,000 MG; Start 06/09/16 at 09:00 Acetaminophen (Tylenol Tab) 650 mg Q6H PRN PO PAIN AND OR ELEVATED TEMP Last administered on 06/25/16 07:58; Admin Dose 650 MG; Start 06/08/16 at 10:00 Ondansetron HCl (Zofran Tab) 4 mg Q6 PRN PO NAUSEA AND/OR VOMITING Last administered on 06/16/16 07:54; Admin Dose 4 MG; Start 06/08/16 at 10:00 Docusate Sodium (Colace) 100 mg BID PO Last administered on 06/25/16 09:43; Admin Dose 100 MG; Start 06/08/16 at 21:00 Apixaban (Eliquis) 5 mg BID PO Last administered on 06/25/16 09:46; Admin Dose 5 MG; Start 06/08/16 at 12:30 Morphine Sulfate (morphine) 2 mg Q3 PRN IV PAIN LEVEL 7-10 Last administered on 06/18/16 01:24; Admin Dose 2 MG; Start 06/08/16 at 11:00 Miscellaneous Information 1 ea NOTE XX ; Start 06/08/16 at 11:30 Glucose (Glutose) 15 gm Q15M PRN PO DECREASED GLUCOSE; Start 06/08/16 at 11:30 Glucose (Glutose) 22.5 gm Q15M PRN PO DECREASED GLUCOSE; Start 06/08/16 at 11: 30 Dextrose (D50w Syringe) 25 ml Q15M PRN IV DECREASED GLUCOSE; Start 06/08/16 at 11:30 Dextrose (D50w Syringe) 50 ml Q15M PRN IV DECREASED GLUCOSE; Start 06/08/16 at 11:30 Glucagon (Glucagen) 1 mg Q15M PRN IM DECREASED GLUCOSE; Start 06/08/16 at 11:30 Glucose (Glutose) 15 gm Q15M PRN BUCCAL DECREASED GLUCOSE; Start 06/08/16 at 11 :30 Ondansetron HCl (Zofran Inj) 4 mg Q6H PRN IV NAUSEA AND/OR VOMITING Last administered on 06/09/16 02:19; Admin Dose 4 MG; Start 06/09/16 at 02:30 Pantoprazole (Protonix Tab) 40 mg DAILY@06 PO Last administered on 06/25/16 05 :48; Admin Dose 40 MG; Start 06/16/16 at 06:00 Hydralazine HCl (Apresoline) 20 mg Q6H PRN IV ELEVATED BLOOD PRESSURE>180 Last administered on 06/16/16 18:28; Admin Dose 20 MG; Start 06/15/16 at 20:00 Ondansetron HCl (Zofran Inj) 4 mg Q4H PRN IV NAUSEA AND/OR VOMITING; Start 06/15 at 21:30 Potassium Chloride (Klor-Con 10) 10 meq BID PO Last administered on 06/25/16 09:45; Admin Dose 10 MEQ; Start 06/16/16 at 21:00 Lisinopril (Zestril) 10 mg DAILY PO Last administered on 06/25/16 09:46; Admin Dose 10 MG; Start 06/18/16 at 09:00 Metoprolol Tartrate (Lopressor) 25 mg BID PO Last administered on 06/25/16 09: 44; Admin Dose 25 MG; Start 06/18/16 at 21:00 Insulin Glargine (Lantus) 10 unit HS SC Last administered on 06/24/16 20:24; Admin Dose 10 UNIT; Start 06/20/16 at 21:00 Digoxin (Digoxin) 0.125 mg DAILY@13 PO Last administered on 06/25/16t 14:11; Admin Dose 0.125 MG; Start 06/24/16 at 13:00 CIELO FONG MD Jun 25, 2016 16:00
[2016-06-25] MEDS ORDERED: FEBU40TA PO (18:44)
[2016-06-25] MEDS ORDERED: POTA10TA15 PO (18:44)
[2016-06-25] MEDS ORDERED: METO-448 PO (18:44)
[2016-06-25] MEDS ORDERED: FURO40TA4 PO (18:44)
[2016-06-25] MEDS ORDERED: APIX5TAB PO (18:44)
[2016-06-25] MEDS ORDERED: DIGO125T PO (18:44)
[2016-06-25 20:09] VITALS: BP 96/50; RESP 18
== END 2016-06-25 20:25 | disposition home or self-care (01) | DRG 291 ==
LOC: E/R 18:46 → TEL 22:30 → MS1 06-24 21:55
PROVIDERS: ADMIT Internal Medicine; ATTEND Internal Medicine
PROC: 0DJ08ZZ Inspection of Upper Intestinal Tract, Via Natural or Artificial Opening Endoscopic (ICD-10-PCS; principal; 2016-06-11 17:30)
DX: I13.0 Hypertensive heart and chronic kidney disease with heart failure and stage 1 through stage 4 chronic kidney disease, or unspecified chronic kidney disease (principal); I50.23 Acute on chronic systolic (congestive) heart failure; N17.9 Acute kidney failure, unspecified; D68.69 Other thrombophilia; E11.21 Type 2 diabetes mellitus with diabetic nephropathy; K74.60 Unspecified cirrhosis of liver; K25.9 Gastric ulcer, unspecified as acute or chronic, without hemorrhage or perforation; I48.91 Unspecified atrial fibrillation; E87.5 Hyperkalemia; Z79.82 Long term (current) use of aspirin; E78.5 Hyperlipidemia, unspecified; Z87.891 Personal history of nicotine dependence; R10.33 Periumbilical pain; Z79.02 Long term (current) use of antithrombotics/antiplatelets; E66.9 Obesity, unspecified; Z68.35 Body mass index [BMI] 35.0-35.9, adult; N18.9 Chronic kidney disease, unspecified
CPT/HCPCS: 36415; 71010; 74150; 74181; 76700; 80048; 80053; 80061; 80076; 81003; 82150; 82550; 82553; 82570; 82962; 83036; 83690; 83735; 84100; 84155; 84300; 84484; 84560; 85025; 85610; 85730; 89190; 90686; 93005; 93306; 94640; 94664; 96374; 96375; J1940; C9113; J0360; J1815; J2270; J2405; J3480; J7030; J7042

== ENCOUNTER 2016-11-21 06:26 | Day surgery (SDC) | payer MEDICARE, OTHER ==
[2016-11-21] VITALS (11 sets, daily range): BP systolic 116–151; BP diastolic 64–81; PULSE 58–71; RESP 13–23; Ht 152.4 cm; Wt 67.2 kg
[~2016-11-21] VITALS: Ht 152.4 cm; Wt 67.2 kg
[~2016-11-21 06:26] MED LIST changes: +ALLO100T PO; +ASPI-664 PO; -BENA5TAB2 PO; -DICY10CA60 PO; +FOLI-49 PO; -FURO20TA3 PO; +FURO40TA4 PO; +GLIP5TAB13 PO; -ISOS20TA19 PO; +METO-448 PO; -METO100T13 PO; -NIT4 SL; -OLOP2.5D BOTH EYES; +POTA10TA15 PO; +TAMS0.4C2 PO; -TRAM50TA2 PO
--- NOTE | 2016-11-21 07:35 | RADRPT ---
PROCEDURE: XR Chest. CLINICAL INDICATION: Preoperative TECHNIQUE: Single frontal view of the chest was obtained COMPARISON: 06/18/2016 FINDINGS: The heart is enlarged. The thoracic aorta is calcified. The lungs are clear. There is no pleural effusion or pneumothorax. RPTAT: AA IMPRESSION: Mild to moderate cardiomegaly. Calcified aorta consistent with atherosclerotic disease. .Gibson Bird MD, MD Date Time Electronically viewed and signed by .Gibson Bird MD, on 11/21/2016 07:34 .S/
[2016-11-21 07:46] LABS: BASOPHIL # 0.1 10^3/ul (0.0-0.1); EOSINOPHILS # 0.2 10^3/ul (0.0-0.5); EOSINOPHILS % 3.1 % (0.0-7.0); HEMATOCRIT 36.4 % (37.0-47.0); HEMOGLOBIN 12.8 g/dl (12.0-16.0); LYMPHOCYTES # 1.8 10^3/ul (0.8-2.9); LYMPHOCYTES % 34.4 % (15.0-51.0); MEAN CORPUSCULAR HEMOGLOBIN 33.6 pg (29.0-33.0); MEAN CORPUSCULAR HGB CONC 35.2 g/dl (32.0-37.0); MEAN CORPUSCULAR VOLUME 95.5 fl (82.0-101.0); MEAN PLATELET VOLUME 11.2 fl (7.4-10.4); MONOCYTE # 0.5 10^3/ul (0.3-0.9); MONOCYTES % 9.6 % (0.0-11.0); NEUTROPHIL # 2.7 10^3/ul (1.6-7.5); NEUTROPHILS % 51.5 % (39.0-77.0); PLATELET COUNT 172 10^3/UL (140-415); RED BLOOD COUNT 3.81 10^6/ul (4.20-5.40); WHITE BLOOD COUNT 5.2 10^3/ul (4.8-10.8)
[2016-11-21] MEDS ORDERED: BACL10TA PO (07:50)
[2016-11-21] MEDS ORDERED: FURO20TA3 PO (07:50)
[2016-11-21] MEDS ORDERED: BENA5TAB2 PO (07:50)
[2016-11-21] MEDS ORDERED: MELO7.5O PO (07:50)
[2016-11-21 07:57] LABS: CHOL/HDL RATIO 3.1 RATIO
[2016-11-21 07:58] LABS: PARTIAL THROMBOPLASTIN TIME 33.6 Sec (25.0-35.0)
[2016-11-21 07:59] LABS: CALCIUM 8.6 mg/dl (8.4-10.2); CREATININE 0.83 mg/dl (0.44-1.00); POTASSIUM 4.2 mmol/L (3.5-5.1)
[2016-11-21] MEDS ORDERED: MIDAZOLAM 1 MG/ML 2 ML INJ ONE (08:46)
[2016-11-21] MEDS ORDERED: VERAPAMIL 5 MG INJ ONE (08:46)
[2016-11-21] MEDS ORDERED: IODIXANOL LOCM 100 ML BTL ONE ×3 (08:46→10:04)
[2016-11-21] MEDS ORDERED: HEPARIN 1000 UNITS/ML 10 ML INJ ONE (08:46)
[2016-11-21] MEDS ORDERED: NITROGLYCERIN (IC) 100 MCG/ML INJ ONE (08:46)
[2016-11-21] MEDS ORDERED: FENTAnyl 50 MCG/ML VIAL ONE (08:46)
[2016-11-21] MEDS ORDERED: LIDOCAINE 1% (MDV) 20 ML INJ ONE (08:46)
[2016-11-21 08:54] LABS: INR 1.3; PROTIME 16.3 Sec (12.2-14.2); PT RATIO 1.3
[2016-11-21] MEDS ORDERED: SOD CHLORIDE 0.9% 1,000 ML IV SCH (10:56)
--- NOTE | 2016-11-21 10:58 | OPR ---
Date/Time of Note Date/Time of Note DATE: 11/21/16 TIME: 10:56 Operative Report Preoperative Diagnosis 1.Cardiomyopathy 2.Chest pain Postoperative Diagnosis 1.Non-obstructive cad Operation/Procedure Performed 1.LHC 2.LV Gram 3.Moderate concious sedation 30 minutes Surgeon: ORQUIDEA GUILLAUME Anesthesia Type: moderate sedation Estimated Blood Loss: minimal Specimen: none Grafts/Implants: none Complications: no ORQUIDEA GUILLAUME Nov 21, 2016 10:58
[2016-11-21] MEDS ORDERED: HOLD all METFORMIN and METFORMIN CONTAINING medications for 48 hours post procedure. Chec XX ONE ×2 (11:00)
[2016-11-21] MEDS ORDERED: ONDANSETRON 4 MG INJ IV PRN (11:00)
[2016-11-21] MEDS ORDERED: AL HYDROX/MG HYDROX/SIMETH 30 ML CUP PO PRN (11:00)
[2016-11-21] MEDS ORDERED: ACETAMINOPHEN 325 MG TAB PO PRN (11:00)
[2016-11-21] MEDS ORDERED: morphine 2 MG INJ IV PRN (11:00)
--- NOTE | 2016-11-21 11:24 | CARRPT ---
DATE OF PROCEDURE: 11/21/2016 TYPE OF PROCEDURE: 1. Left heart catheterization. 2. Coronary angiography. 3. Left ventriculogram. 4. Moderate conscious sedation x30 minutes. ATTENDING PHYSICIAN: Dr. Henry Singh. REFERRED BY: Self-referred. INDICATION: Chest pain refractory to medical therapy, cardiomyopathy with severely depressed left ventricular ejection fraction. TYPE OF ANESTHESIA: Conscious and local. BRIEF HISTORY: Ms. Red is an 86-year-old female with history of hypertension, dyslipidemia, cardiomyopathy with severely depressed left ventricular ejection fraction, who has had a recurrent episode of substernal chest refractory to medical therapy. The patient is being referred for and presents today in order to undergo left heart catheterization to assess for the possibility of significant obstructive coronary disease leading to her symptoms of chest pain, and subsequent, severely depressed left ventricular ejection fraction. PROCEDURE: After informed consent was obtained, patient was brought to the [facility], where her right radial area was prepped and draped in the usual sterile fashion. 2 percent lidocaine was infiltrated in the right radial area in order to achieve adequate local anesthesia. Using the modified Seldinger technique, the radial artery was cannulated and a 6-Burundian arterial sheath was placed. A 6-Burundian JL3.5 catheter was used to cath the left main coronary ostium. With contrast injection, multiple views of the left coronary arterial system were obtained. JL3.5 was removed over a guidewire and a JR4 was used to cath the right coronary arterial ostium. With contrast injection, multiple views of the right coronary arterial system were obtained. A JR4 was removed over a guidewire and a 6-Bur[place]ian pigtail was passed down the ascending aorta, placed in the left ventricle, left ventricular end- diastolic pressure measured. A left ventriculogram was undertaken with the use of a power injector and 20 cc of contrast and pulled back across the aortic valve to assess for significant gradient, which there was none, removed. This completed the procedure. There were no known complications. FINDINGS: 1. Coronary angiography: Left main, 4 mm, no significant stenosis. Circumflex proximally is a 2.5 mm vessel and has no focal stenosis. There is a proximal branching obtuse marginal, 2 mm, with no significant focal stenosis and a high branching obtuse marginal, 2 mm, with no significant focal stenosis. There exists a ramus branch, 2 mm, with an ostial 50 percent stenosis. The LAD proximally is a 3 mm vessel and in its mid portion has a focal 20 percent stenosis just at the takeoff of a diagonal. The remainder of the LAD is free of significant focal stenoses. It is a small caliber vessel, and therefore, may be diffusely diseased. There are several mid branching diagonals x3 approximately 2 mm in diameter with mild luminal irregularities up to approximately 40 percent at most. The patient's right coronary artery, large vessel, 4 mm, ectatic appearing and the mid distal portion has a 30 percent stenosis. The remainder of the right coronary artery is free of significant focal stenosis. Dominant vessel, gives off a 2.5 to 3 mm PDA with a 20 percent midbody stenosis and a 3.5 mm posterolateral branch with a midbody 30 percent stenosis and then in a daughter branch it branches off to a focal 40 percent stenosis. 2. Left ventriculogram: Left ejection fraction of approximately 30 percent to 35 percent with moderate anterolateral hypokinesis. Left ventricular end-diastolic pressure of 22, no significant aortic stenosis by gradient. 1+ mitral regurgitation. TOTAL FLUOROSCOPY TIME: 8 minutes. TOTAL CONTRAST: 70 cc. IMPRESSION: 1. Very mild nonobstructive coronary artery disease. 2. Moderately depressed elevation of systolic function. 3. Mildly elevated left heart filling pressures. 4. 1+ mitral regurgitation. 5. No significant aortic stenosis by gradient. RECOMMENDATIONS: 1. In light of procedure findings at this time would maximize medical management. 2. Aggressive risk factor stratification. 3. Patient will be readmitted to the same day surgery center for post catheterization hospitalization, continue management of presenting symptoms with probable discharge later this afternoon. Dictated By: Kenna Roberto /oniel/duc /Document#: [id number]
--- NOTE | 2016-11-23 11:16 | RADRPT ---
Vent Rate: 64 bpm RR Interval: 0 msec SD Interval: 0 msec QRS Duration: 80 msec QT Interval: 362 msec QTC Interval: 373 msec P-R-T [place]: 0 - 35 - -54 degrees Atrial fibrillation Nonspecific T wave abnormality , probably digitalis effect Abnormal ECG Electronically Signed By: Archie Clinton [id number]
== END 2016-11-21 15:14 | disposition home or self-care (01) ==
LOC: SDS 06:26
PROVIDERS: ATTEND Internal Medicine
DX: I25.10 Atherosclerotic heart disease of native coronary artery without angina pectoris (principal); I50.9 Heart failure, unspecified; I10 Essential (primary) hypertension; I42.9 Cardiomyopathy, unspecified; E11.9 Type 2 diabetes mellitus without complications
CPT/HCPCS: 71010; 80048; 80061; 82962; 85025; 85610; 85730; 93005; 93458; C1769; C1887; J1644; J2250; J3010; Q9967